=== PATIENT | male | born 1935 | race Caucasian/White ===

== ENCOUNTER → 2020-07-27 12:29 | Outpatient (REF) | payer MEDICARE, MEDICAID, SELFPAY ==
--- NOTE | 2020-07-27 12:36 | CA_ITS ---
Transthoracic Echocardiogram Patient (Last, First, Middle): Lillie Bruno J Gender: Male Date of : 1935 Age: 84 Procedure Date: 07/27/2020 Procedure Type: Transthoracic Echocardiogram Location: OP Height: 160.02 cm Weight: 58.97 kg BSA: 1.61 m2 Heart Rate: bpm BP: 138 / 80 mmHg Communications Administrator: Referring MD: Chel Hylton MD Symptoms: I48.0 - Paroxysmal atrial fibrillation Study Quality: Fair ECG Rhythm: Sinus with PACs Conclusions: - The left ventricular systolic function is normal. The visually estimated ejection fraction is between 55-60%. - No obvious valvular pathology seen on this study. Findings Left Ventricle Normal left ventricular cavity size. There is mildly increased left ventricular wall thickness. The left ventricular systolic function is normal. The visually estimated ejection fraction is between 55-60%. There is no evidence of regional wall motion abnormalities. E/E prime ratio is between 8 and 15 consistent with indeterminate filling pressures. Evidence suggests grade I (mild) diastolic dysfunction. Right Ventricle Normal right ventricular cavity size and systolic function. Atria The left atrium is normal in size. The right atrium is normal in size. Aortic Valve The aortic valve was not well visualized. There is no aortic valve stenosis. There is no aortic valve regurgitation. Mitral Valve The mitral valve appears normal. There is trace mitral valve regurgitation. There is no mitral valve stenosis. Pulmonic Valve The pulmonic valve was not well visualized. Tricuspid Valve Normal tricuspid valve structure. There is trace tricuspid valve regurgitation. The pulmonary artery systolic pressure is normal. Great Vessels The aortic annulus is normal in size. Venous The inferior vena cava is normal in size and collapses greater than 50% with inspiration. Pericardium/Pleural There is no evidence of pericardial effusion. Prior Study Comparison No significant change compared to prior study dated: 11/27/2018. Recommendations, Care & Conclusions No obvious valvular pathology seen on this study. Measurements 2D Linear Measurements IVSd: 1.13 0.6-0.9/0.6-1.0 cm LVIDd: 3.56 3.9-5.3/4.2-5.9 cm LVIDd Index: 2.21 2.4-3.2/2.2-3.1 cm/m2 LVIDs: 2.17 2.0-3.6 cm LVPWd: 1.18 0.7-1.1 cm Ao Root: 3.10 2.1-3.5 cm LA Diam: 2.60 2.7-3.8/3.0-4.0 cm LAIDs Index: 1.61 1.5-2.3 cm/m2 LV Mass: 163.43 67-162/88-224 g LV Mass Index: 101.51 43-95/49-115 g/m2 LVOT Diam: 2.00 3.0+(-)1.3 cm Mitral Valve MV Pk E: 0.46 MV PK A: 0.74 MV Decel Time: 280.00 E/A: 0.60 E'Lateral: 5.32 E'Medial: 4.64 E/E' Med: 9.90 E/E' Lat: 8.70 PHT: 82.00 MVA PHT: 2.68 Decel [place]: 1.65 Aortic Valve AoV Pk Gutierrez: 1.45 AoV Mn Gutierrez: 0.89 AoV VTI: 0.28 AoV Pk Grad: 8.00 Aov Mn Grad: 4.00 [place] Cont.VTI: 2.08 LVOT LVOT Pk Gutierrez: 0.84 LVOT Mn Gutierrez: 0.53 LVOT VTI: 0.19 LVOT Pk Grad: 3.00 LVOT Mn Grad: 1.00 LVOT Diam: 2.00 LVOT Area: 3.14 Diastolic Function MV Pk E: 0.46 MV Pk A: 0.74 E/A: 0.60 E'Medial: 4.64 E/E' Med: 9.90 E' Laterial: 5.32 E/E' Lat: 8.70 Tricuspid Valve TR Pk Gutierrez: 2.36 TR Pk Grad: 22.00 Great Vessels Aorta Ao Root-2D: 3.10 2.0-3.7 cm Ao Asc: 3.60 2.1-3.4 cm Pulmonary Valve PV Pk Gutierrez: 1.05 Peak PV Grad: 4.00 Updated in Other Vendor System with Status of Final Robert Patricia MD electronically signed on 07/29/2020 1:05:46 PM with status of Final
== END ==
LOC: HO.CARD 12:29
PROVIDERS: PCP Internal Medicine; Visit Provider Internal Medicine
DX: I48.0 Paroxysmal atrial fibrillation (principal)
CPT/HCPCS: 93306

== ENCOUNTER 2020-08-19 14:50 | Inpatient (IN) | payer MEDICARE, MEDICAID, SELFPAY ==
[2020-08-19] VITALS (8 sets, daily range): BP systolic 133–161; BP diastolic 79–96; PULSE 69–112; RESP 17–20; TEMP 36.6–37.2; O2SAT 96–98; BMI 21.6
--- NOTE | 2020-08-19 15:18 | XR_ITS ---
EXAMINATION: XR CHEST CLINICAL INFORMATION: Cough. Unable to swallow. COMPARISON: Most recent chest radiograph dated 02/26/2019. TECHNIQUE: 2 views of the chest were obtained. FINDINGS: Nodular density measuring 2.5 cm within the left upper lobe, new when compared to the prior chest radiograph. Peripheral patchy left upper lobe airspace opacities are slightly decreased when compared to the prior examination. No pneumothorax or pleural effusion. Stable cardiomediastinal silhouette. XR/XR chest 2V IMPRESSION: Nodular density measuring 2.5 cm within the left upper lobe, new when compared to the prior chest radiograph. CT chest with contrast is recommended to help further evaluate. Peripheral patchy left upper lobe airspace opacities have slightly decreased when compared to the prior examination.
--- NOTE | 2020-08-19 15:18 | XR_ITS ---
EXAMINATION: XR SOFT TISSUE NECK CLINICAL INDICATION: Unable to swallow, feels as if something stuck in throat COMPARISON: None TECHNIQUE: 2 views of the soft tissue neck were obtained. FINDINGS: Soft tissue films of the neck demonstrate a normal larynx, pharynx and upper trachea. No soft tissue swelling or opaque foreign body is demonstrated. XR/XR soft tissue neck IMPRESSION: Unremarkable examination.
[2020-08-19] MEDS: 0.9 % Sodium Chloride 1,000 ML 999 ML IVCONT (15:30)
--- NOTE | 2020-08-19 15:38 | ED_ITS ---
HPI - General Adult General Chief complaint: General Medical Stated complaint: difficulty swallowing Time Seen by Provider: 08/19/20 15:08 Source: patient and EMS Mode of arrival: EMS History of Present Illness HPI narrative: 84-year-old male with a past medical history of AFib, cholelithiasis, COPD, GERD, colon cancer, Hodgkin's lymphoma, hyperlipidemia, HTN, pancreatitis, smoker, BIBA from home c/o difficulty/inability to swallow x2 days. Reports feels like there is a lump in the back of his throat. Admits is unable to take a few sips of water, but not able to eat. Denies any pain. Also reports productive cough of phlegm since yesterday. Denies SOB, CP, fever, chills, abdominal pain, nausea/vomiting, contact with COVID-19, recent travel. Denies eating bones/choking Onset (ago): day(s) Related Data Home Medications Medication Instructions Recorded Confirmed amlodipine 5 mg tablet 5 mg PO DAILY 06/15/20 08/19/20 ascorbic acid (vitamin C) 500 mg 500 mg PO DAILY 06/15/20 08/19/20 capsule atorvastatin 10 mg tablet 10 mg PO DAILY 06/15/20 08/19/20 dextran 70-hypromellose 0.1 %-0.3 1 drp OPHTHALMIC (EYE) DIRECTED 06/15/20 08/19/20 % eye drops ferrous sulfate 325 mg (65 mg 325 mg PO DAILY 06/15/20 08/19/20 iron) tablet fluticasone propionate 50 2 spray INTRANASAL DAILY 06/15/20 08/19/20 mcg/actuation nasal spray,suspension megestrol 10 ml PO BID 08/19/20 08/19/20 Allergies Allergy/AdvReac Type Severity Reaction Status Date / Time procaine [From Novocain] Allergy Mild INEFFECTIVE Verified 06/15/20 12:42 PER RN lisinopril Allergy Unknown Unknown Verified 06/15/20 12:42 Review of Systems Review of Systems: Constitutional: No Fever, No Chills, No Fatigue, No Malaise ENT/Mouth: No Hoarseness, No sore throat, +Swallowing Difficulty Cardiovascular: No Chest Pain, No SOB, No Dyspnea on Exertion Respiratory: + Cough, + Sputum, No Wheezing, No Dyspnea Gastrointestinal: No Nausea, No Vomiting, No Diarrhea, No Constipation, No Abdominal pain Genitourinary: No irregular bleeding, No Dysuria, No Urinary Frequency, No Hematuria Musculoskeletal: No joint pain, No Myalgias, No Joint Swelling Skin: No Skin Lesions, No rash Yes all other systems are reviewed and are negative [facility] Past Medical History Attestation statement: The following information was validated with the patient. Medical History Atrial fibrillation Cholelithiasis COPD (chronic obstructive pulmonary disease) GERD (gastroesophageal reflux disease) History of colon cancer Hodgkins lymphoma Hypercholesterolemia Hypertension Leg weakness, bilateral Pancreatitis Renal calculus, left Tobacco abuse Surgical History History of bilateral cataract extraction History of chemotherapy History of colectomy History of tonsillectomy Hx of inguinal hernia surgery Family History Family History Father CVD (cardiovascular disease) Mother CVD (cardiovascular disease) Social History Social History Smoking Status: Current every day smoker Use of substances other than those prescribed or required for medical reasons: No Advance Directives: No Advance Directives Information Provided: No Physical Exam Vital Signs: Vital Signs: Last Vital Signs Temp 97.8 F 08/19/20 18:36 Pulse 81 08/19/20 18:36 Resp 20 08/19/20 18:36 BP 161/96 H 08/19/20 18:36 Pulse Ox 97 08/19/20 18:36 Body Mass Index 21.6 Const: Other: dry mucus membranes General: cooperative Nutritional Appearance: malnourished Orientation/consciousness: patient oriented x3 Limitations: no limitations HENMT: Head: Yes normal to inspection Ears: hearing grossly normal bilaterally General nose exam: Normal external nose present Face and sinus: Yes normal facial exam Mouth: mucous membranes dry, no drooling and no muffled voice Throat: Yes posterior oropharynx normal, Yes uvula midline, No abnormal tonsil, No peritonsillar mass, No posterior oropharynx abnormal and No uvular edema Eyes: General: appearance normal, both eyes and all related structures EOM: EOMs intact bilaterally Neck: Other: No appreciable mass Neck: Yes normal visual inspection, Yes no meningeal signs, Yes trachea midline and Yes supple Resp: Effort & Inspection: normal respiratory effort Auscultation: diminished lung sounds (bibasilar) Cardio: Rate: regular rate Heart sounds: S1 normal heart sound present and S2 normal heart sound present GI: Inspection: Yes normal to inspection Palpation (GI): Soft to palpation, nontender, no guarding and not rigid Skin: Rashes: no rashes Wounds: no wounds Neuro: General: patient oriented x3 and no meningeal signs Extrem: General: Yes normal to inspection Course Course Course Narrative: * No leukocytosis, labs otherwise unremarkable, COVID- 19/influenza/RSV negative * Neck x-ray unremarkable, CXR showing nodular density in the left upper lobe new compared to prior CXR. CT with contrast recommended. Peripheral patchy left upper lobe airspace opacities have slightly decreased from prior exam >> will obtain CT chest with contrast and CT neck * CT Soft Tissue Neck: Mild asymmetric mucosal thickening along the right posterior oropharynx. Direct visualization could help further evaluate. * CT Chest: Severe emphysematous changes, significantly increased when compared to the PET/CT from 2007. Lobulated soft tissue nodule within the anterior left upper lobe measuring up to 2 cm, corresponding to the chest radiograph findings. Additional 1.2 cm subpleural nodule posteriorly within the left lower lobe. Findings are concerning for a neoplastic process and soft tissue sampling or PET/CT imaging could help further evaluate. Additional smaller left-sided pulmonary nodules. Partially visualized lymphadenopathy within the superior aspect of the retroperitoneum, slightly more prominent when compared to the abdominal CT dated 02/26/2019. Additional upper abdominal findings are unchanged * >> patient barely able to tolerate a few sips of water in the ED, will admit for further eval Medical Decision Making MDM Narrative Medical decision making narrative: 84-year-old male with a past medical history of AFib, cholelithiasis, COPD, GERD, colon cancer, Hodgkin's lymphoma, hyperlipidemia, HTN, pancreatitis, smoker, BIBA from home c/o difficulty/inability to swallow x2 days. On exam VSS, NAD/well-appearing, coughing on exam. Lungs with diminished breath sounds bibasilar. No intraoral mass/neck mass appreciated, uvula midline, no respiratory distress. Concern for mass vs ? Food bolus vs viral syndrome/COVID-19 vs pneumonia. Rule out metabolic abnormalities Plan: EKG, labs, CXR, neck x-ray, IVF, reassess Lab Data Result diagrams: 08/19/20 15:37 08/19/20 15:37 Labs: Lab Results 08/19/20 08/19/20 08/19/20 Range/Units 15:28 15:37 15:37 WBC 9.4 (4.8-10.8) X10*3/uL RBC 4.96 (4.60-5.80) X10*6/uL Hgb 13.9 L (14.0-18.0) g/dl Hct 42.8 (42-52) % MCV 86.3 (80-98) fL MCH 28.0 (27.0-33.0) pg MCHC 32.5 (31.0-36.0) g/dl RDW 13.3 (11.0-16.0) % Plt Count 311 (160-400) X10*3/uL MPV 7.7 L (9.4-12.4) fL Immature Gran % (Auto) 1.4 H (0.0-0.4) % Neut % (Auto) 76.1 H (45-73) % Lymph % (Auto) 13.0 L (20-40) % [place] % (Auto) 7.3 (2-11) % Eos % (Auto) 1.7 (0-4) % Baso % (Auto) 0.5 (0-2) % Lymph # (Auto) 1.2 (1.2-4.9) X10*3/uL [place] # (Auto) 0.7 (0.1-1.2) X10*3/uL Eos # (Auto) 0.2 (0.0-0.4) X10*3/uL Baso # (Auto) 0.1 (0.0-0.2) X10*3/uL Abs Immat Gran (auto) 0.13 H (0.00-0.03) X10*3/uL Absolute Neuts (auto) 7.1 (2.0-8.3) X10*3/uL Absolute Nucleated RBC 0.000 (0.0-0.012) X10*3/uL Nucleated RBC % (auto) 0.0 (0.0-0.2) /100WBC Hold Blue Top SEE NOTE Sodium (135-145) mmol/L Potassium (3.3-5.1) mmol/l Chloride (96-108) mmol/L Carbon Dioxide (22-29) mmol/L Anion Gap (12-20) BUN (9-16) mg/dL Creatinine (0.5-1.4) mg/dL Estim Creat Clear Calc Estimated GFR Random Glucose (60-115) mg/dL Calcium (8.4-10.2) mg/dL Magnesium (1.6-2.6) mg/dL Ferritin (20-250) ng/mL Total Bilirubin (0.0-1.0) mg/dL Direct Bilirubin (0.0-0.5) mg/dL AST (5-37) U/L ALT (0-40) U/L Alkaline Phosphatase (39-117) U/L Lactate Dehydrogenase (118-273) U/L C-Reactive Protein (< or = 0.50) mg/dL Total Protein (6.5-8.0) g/dL Albumin (3.5-5.0) g/dL Procalcitonin ng/mL Coronavirus (PCR) NEGATIVE (Negative) Influenza Type A (PCR) NEGATIVE (Negative) Influenza Type B (PCR) NEGATIVE (Negative) RSV RNA Qual (PCR) NEGATIVE (Negative) 08/19/20 08/19/20 08/19/20 Range/Units 15:37 15:37 15:37 WBC (4.8-10.8) X10*3/uL RBC (4.60-5.80) X10*6/uL Hgb (14.0-18.0) g/dl Hct (42-52) % MCV (80-98) fL MCH (27.0-33.0) pg MCHC (31.0-36.0) g/dl RDW (11.0-16.0) % Plt Count (160-400) X10*3/uL MPV (9.4-12.4) fL Immature Gran % (Auto) (0.0-0.4) % Neut % (Auto) (45-73) % Lymph % (Auto) (20-40) % [place] % (Auto) (2-11) % Eos % (Auto) (0-4) % Baso % (Auto) (0-2) % Lymph # (Auto) (1.2-4.9) X10*3/uL [place] # (Auto) (0.1-1.2) X10*3/uL Eos # (Auto) (0.0-0.4) X10*3/uL Baso # (Auto) (0.0-0.2) X10*3/uL Abs Immat Gran (auto) (0.00-0.03) X10*3/uL Absolute Neuts (auto) (2.0-8.3) X10*3/uL Absolute Nucleated RBC (0.0-0.012) X10*3/uL Nucleated RBC % (auto) (0.0-0.2) /100WBC Hold Blue Top Sodium 140 (135-145) mmol/L Potassium 3.9 (3.3-5.1) mmol/l Chloride 102 (96-108) mmol/L Carbon Dioxide 27 (22-29) mmol/L Anion Gap 15 (12-20) BUN 13 (9-16) mg/dL Creatinine 0.78 (0.5-1.4) mg/dL Estim Creat Clear Calc 58.7 Estimated GFR > 60 Random Glucose 87 (60-115) mg/dL Calcium 8.5 (8.4-10.2) mg/dL Magnesium 2.0 (1.6-2.6) mg/dL Ferritin 144 Cancelled (20-250) ng/mL Total Bilirubin 0.6 (0.0-1.0) mg/dL Direct Bilirubin 0.3 (0.0-0.5) mg/dL AST 17 (5-37) U/L ALT 26 (0-40) U/L Alkaline Phosphatase 165 H (39-117) U/L Lactate Dehydrogenase 157 Cancelled (118-273) U/L C-Reactive Protein 1.71 H Cancelled (< or = 0.50) mg/dL Total Protein 5.9 L (6.5-8.0) g/dL Albumin 4.0 (3.5-5.0) g/dL Procalcitonin 0.11 ng/mL Coronavirus (PCR) (Negative) Influenza Type A (PCR) (Negative) Influenza Type B (PCR) (Negative) RSV RNA Qual (PCR) (Negative) Discharge Plan Discharge Clinical Impression: Indeterminate pulmonary nodules Difficulty swallowing Qualifiers: Dysphagia type: unspecified Qualified Code(s): R13.10 - Dysphagia, unspecified Patient Disposition: Admitted As Inpatient
[2020-08-19 15:45] LABS: MANUAL DIFF FLAG NO
[2020-08-19 15:48] LABS: Basophils Absolute Auto 0.1 X10*3/uL (0.0-0.2); Basophils Percent Auto 0.5 % (0-2); Eosinophils Absolute Auto 0.2 X10*3/uL (0.0-0.4); Eosinophils Percent Auto 1.7 % (0-4); Hematocrit 42.8 % (42-52); Hemoglobin 13.9 g/dl (14.0-18.0); Imm Gran Abs Auto 0.13 X10*3/uL (0.00-0.03); Imm Gran Pct Auto 1.4 % (0.0-0.4); Lymphocytes Absolute Auto 1.2 X10*3/uL (1.2-4.9); Mean Corpuscular HGB Conc 32.5 g/dl (31.0-36.0); Mean Corpuscular Volume 86.3 fL (80-98); Mean Platelet Volume 7.7 fL (9.4-12.4); Monocytes Absolute Auto 0.7 X10*3/uL (0.1-1.2); Monocytes Percent Auto 7.3 % (2-11); Neutrophils Absolute Auto 7.1 X10*3/uL (2.0-8.3); Neutrophils Percent Auto 76.1 % (45-73); Platelet Count 311 X10*3/uL (160-400); Red Blood Count 4.96 X10*6/uL (4.60-5.80); Red Cell Distribution Width 13.3 % (11.0-16.0); White Blood Count 9.4 X10*3/uL (4.8-10.8)
[2020-08-19 16:09] LABS: Alanine Aminotransferase 26 U/L (0-40); Alkaline Phosphatase 165 U/L (39-117); Anion Gap 15 (12-20); Aspartate Amino Transferase 17 U/L (5-37); Bilirubin Direct 0.3 mg/dL (0.0-0.5); Bilirubin Total 0.6 mg/dL (0.0-1.0); Blood Urea Nitrogen 13 mg/dL (9-16); C Reactive Protein 1.71 mg/dL (< or = 0.50); Calcium 8.5 mg/dL (8.4-10.2); Carbon Dioxide 27 mmol/L (22-29); Chloride 102 mmol/L (96-108); Creatinine Clr Calc Pharmacy 58.7; Estimated Glomerular Filt Rate > 60; Glucose Random 87 mg/dL (60-115); Lactate Dehydrogenase 157 U/L (118-273); Potassium 3.9 mmol/l (3.3-5.1); Sodium 140 mmol/L (135-145); Total Protein 5.9 g/dL (6.5-8.0)
--- NOTE | 2020-08-19 16:19 | CT_ITS ---
EXAMINATION: CT SOFT TISSUE NECK WITH CONTRAST CT CHEST WITH CONTRAST CLINICAL INFORMATION: Evaluate for mass or blockage. Evaluate density. COMPARISON: Soft tissue neck radiographs and chest radiograph done earlier the same day. Chest radiograph dated 02/26/2019. PET/CT dated 02/09/2008. TECHNIQUE: Contiguous axial CT images of the neck were obtained following the administration of 80 mL Omnipaque 350 IV contrast. Subsequent axial CT images of the chest were obtained. Sagittal and coronal reformats were provided and reviewed. This CT examination was performed using dose optimization techniques as appropriate, variously including the following: *Automated exposure control *Adjustment of mA and/or kV according to patient size (this includes techniques or standardized protocols for targeted exams where dose is matched to indication/reason for exam; i.e. extremities or head) *Use of iterative reconstruction technique DOSE: 519 mGy-cm FINDINGS: SOFT TISSUE NECK: No cervical adenopathy is identified. The parotid glands are homogeneous in attenuation. The submandibular glands are normal. There is mild asymmetric mucosal thickening along the right posterior oropharynx. Direct visualization could help further evaluate if clinically indicated. The laryngeal structures are normal. The parapharyngeal fat is preserved. The carotid sheath vasculature opacify normally. No extramucosal soft tissue mass or fluid collection is seen. No retropharyngeal fluid collection is seen. The thyroid gland is normal. The superior mediastinum is unremarkable. The mastoid air cells and visualized portions of the paranasal sinuses are well aerated. The temporomandibular joints are normal. No periapical disease is identified. Multilevel degenerative disc disease and bilateral facet arthropathy within the cervical spine. No concerning lytic or blastic osseous lesion. The imaged portions of the brain parenchyma are unremarkable. CHEST: [place] [place]: Diffuse interstitial prominence. Lungs: Severe emphysematous changes, significantly increased when compared to the PET/CT dated 02/09/2008. There is a lobulated soft tissue nodule within the anterior aspect of the left upper lobe measuring up to 2.0 x 2.0 cm in greatest axial dimension (axial image [id number]). Findings are concerning for neoplastic lesion and soft tissue sampling or PET/CT imaging could help further evaluate. Additional 1.2 x 0.7 cm subpleural nodule posteriorly within the left lower lobe, new when compared to the prior PET/CT. There is a 0.5 cm subpleural nodule laterally within the left lower lobe (axial image [id number]). There are multiple bilateral calcified granulomas. No large, confluent airspace consolidation. Pleura: No pleural effusion or pneumothorax. Mediastinum: No cardiomegaly. No significant pericardial effusion. No thoracic aortic dilatation or dissection. Atherosclerotic calcifications. Redemonstration of right precarinal and right hilar calcified lymph nodes. Redemonstration of small superior mediastinal lymph nodes, not significantly changed. The largest lymph node is to the left of the distal trachea measuring up to 0.8 x 1.3 cm. Chest Wall/Axilla: No significant axillary or internal mammary lymphadenopathy. Thyroid: Unremarkable Upper Abdomen: Multiple hepatic and splenic parenchymal calcifications, consistent with prior granulomatous disease. Prominent pancreatic ductal dilatation as well as intrahepatic biliary duct dilatation, left greater than right. Findings are similar when compared to the CT abdomen/pelvis dated 02/26/2019. Enlarged superior retroperitoneal lymph nodes are redemonstrated with the largest measuring up to 1.3 x 2.6 cm (axial image 57/62). This previously measured approximately 1.3 x 1.8 cm. Osseous Structures: No lytic or blastic osseous lesion. CT/CT soft tissue neck w con IMPRESSION: CT Soft Tissue Neck: 1. Mild asymmetric mucosal thickening along the right posterior oropharynx. Direct visualization could help further evaluate. 2. No additional mass, fluid collection, abscess, or lymphadenopathy within the cervical soft tissues. No airway compromise. CT Chest: 1. Severe emphysematous changes, significantly increased when compared to the PET/CT from 2007. 2. Lobulated soft tissue nodule within the anterior left upper lobe measuring up to 2 cm, corresponding to the chest radiograph findings. Additional 1.2 cm subpleural nodule posteriorly within the left lower lobe. Findings are concerning for a neoplastic process and soft tissue sampling or PET/CT imaging could help further evaluate. Additional smaller left-sided pulmonary nodules. 3. Stable, small superior mediastinal lymph nodes. 4. Partially visualized lymphadenopathy within the superior aspect of the retroperitoneum, slightly more prominent when compared to the abdominal CT dated 02/26/2019. Additional upper abdominal findings are unchanged.
[2020-08-19 16:22] LABS: Influenza A PCR NEGATIVE (Negative); Influenza B PCR NEGATIVE (Negative); Resp Syncy Virus RNA Qual PCR NEGATIVE (Negative); SARS COV2 PCR INHOUSE NEGATIVE (Negative)
[2020-08-19 16:28] LABS: Procalcitonin 0.11 ng/mL
[2020-08-19 16:29] LABS: Ferritin 144 ng/mL (20-250)
[2020-08-19] MEDS: iohexoL 350 MG/ML 100 ML INFUS..BTL IV (16:57)
--- NOTE | 2020-08-19 18:50 | PM.EVENT ---
Event Note Date of Service: 08/19/20 Event Note: Patient seen and examined independently and was present during cardenas portion of E/M service. Agree with midlevel's history, physical, assessment, and plan. 84M presented with dysphagia found to have suspicion for lung cancer dysphagia gi lung mass oncology
--- NOTE | 2020-08-19 18:54 | PM.IMHP ---
History of Present Illness Date of Service: 08/19/20 Chief Complaint: Dysphagia This is an 84-year-old male with multiple medical problems who presented to the emergency department with complaints of dysphagia. Per emergency department notes this has been going on for 2 days however the patient reported 1 week history of dysphagia. He is hard of hearing and somewhat vague historian but reports difficulty swallowing both liquids and solids. He feels that the food does not go down his throat and he has to spit it back out. He has been intermittently able to eat rice and take sips of liquid. He denies any abdominal pain, throat pain, vomiting. CT of the chest showed a soft tissue nodule in the left upper lobe and also in the left lower lobe. CT of the neck showed mild asymmetric mucosal thickening along the right posterior oropharynx but no additional mass, fluid collection, abscess, lymphadenopathy within the cervical soft tissue. And no airway compromise. Given his inability to take p.o. the decision was made to admit him for further workup. Review of Systems Review of Systems: Yes all other systems are reviewed and are negative Constitutional: Constitutional: Denies chills and Denies fever(s) Cardiovascular: Cardiovascular: Denies chest pain Respiratory: Respiratory: Denies cough Gastrointestinal: Gastrointestinal: Denies abdominal pain COUNT INCLUDES THE [facility] Medical History Atrial fibrillation Cholelithiasis COPD (chronic obstructive pulmonary disease) GERD (gastroesophageal reflux disease) History of colon cancer Hodgkins lymphoma Hypercholesterolemia Hypertension Leg weakness, bilateral Pancreatitis Renal calculus, left Tobacco abuse Functional capacity: uses cane/walker Family History Father CVD (cardiovascular disease) Mother CVD (cardiovascular disease) Surgical History History of bilateral cataract extraction History of chemotherapy History of colectomy History of tonsillectomy Hx of inguinal hernia surgery Social History Smoking Status: Current every day smoker Use of substances other than those prescribed or required for medical reasons: No Advance Directives: No Advance Directives Information Provided: No Meds Allergies Allergy/AdvReac Type Severity Reaction Status Date / Time procaine [From Novocain] Allergy Mild INEFFECTIVE Verified 06/15/20 12:42 PER RN lisinopril Allergy Unknown Unknown Verified 06/15/20 12:42 Home Medications Medication Instructions Recorded Confirmed Type amlodipine 5 mg tablet 5 mg PO DAILY 06/15/20 06/15/20 History ascorbic acid (vitamin C) 500 mg mg PO 06/15/20 06/15/20 History capsule atorvastatin 10 mg tablet 10 mg PO DAILY 06/15/20 06/15/20 History dextran 70-hypromellose 0.1 %-0.3 drp OPHTHALMIC (EYE) 06/15/20 06/15/20 History % eye drops ferrous sulfate 325 mg (65 mg 325 mg PO DAILY 06/15/20 06/15/20 History iron) tablet fluticasone propionate 50 2 spray INTRANASAL DAILY 06/15/20 06/15/20 History mcg/actuation nasal spray,suspension megestrol 10 ml PO BID 08/19/20 08/19/20 History Physical Exam Vital Signs and Narrative: Vital Signs: Last Vital Signs Temp 97.8 F 08/19/20 18:36 Pulse 81 08/19/20 18:36 Resp 20 08/19/20 18:36 BP 161/96 H 08/19/20 18:36 Pulse Ox 97 08/19/20 18:36 Body Mass Index 21.6 Const: Other: Chronically ill-appearing General: no acute distress, alert and awake Nutritional Appearance: thin Orientation/consciousness: patient oriented x3 HENMT: Head: Yes normocephalic and Yes atraumatic Eyes: Sclerae: sclerae normal Neck: Yes normal visual inspection Chest: Chest palpation & inspection: normal inspection of the chest Resp: Effort & Inspection: normal respiratory effort and no respiratory distress Auscultation: clear to auscultation bilaterally Cardio: Rate: regular rate Rhythm: regular rhythm GI: Palpation (GI): Soft to palpation and nontender Skin: General skin exam: no rashes or lesions noted Neuro: General: patient oriented x3 Cranial nerves: Yes CN's II-XII intact bilaterally and Yes Bilaterally intact EOM present Extrem: General: Yes normal to inspection Results Labs CBC and Chem 7: 08/19/20 15:37 08/19/20 15:37 Labs: Laboratory Results - last 24 hr 12/13/20 12/13/20 12/13/20 15:28 15:37 15:37 MCV 86.3 MCH 28.0 MCHC 32.5 RDW 13.3 Plt Count 311 MPV 7.7 L Immature Gran % (Auto) 1.4 H Neut % (Auto) 76.1 H Lymph % (Auto) 13.0 L [place] % (Auto) 7.3 Eos % (Auto) 1.7 Baso % (Auto) 0.5 Lymph # (Auto) 1.2 [place] # (Auto) 0.7 Eos # (Auto) 0.2 Baso # (Auto) 0.1 Abs Immat Gran (auto) 0.13 H Absolute Neuts (auto) 7.1 Absolute Nucleated RBC 0.000 Nucleated RBC % (auto) 0.0 Hold Blue Top SEE NOTE Anion Gap Estim Creat Clear Calc Estimated GFR Random Glucose Calcium Magnesium Ferritin Total Bilirubin Direct Bilirubin AST ALT Alkaline Phosphatase Lactate Dehydrogenase C-Reactive Protein Total Protein Albumin Procalcitonin Coronavirus (PCR) NEGATIVE Influenza Type A (PCR) NEGATIVE Influenza Type B (PCR) NEGATIVE RSV RNA Qual (PCR) NEGATIVE 08/19/20 08/19/20 08/19/20 15:37 15:37 15:37 MCV MCH MCHC RDW Plt Count MPV Immature Gran % (Auto) Neut % (Auto) Lymph % (Auto) [place] % (Auto) Eos % (Auto) Baso % (Auto) Lymph # (Auto) [place] # (Auto) Eos # (Auto) Baso # (Auto) Abs Immat Gran (auto) Absolute Neuts (auto) Absolute Nucleated RBC Nucleated RBC % (auto) Hold Blue Top Anion Gap 15 Estim Creat Clear Calc 58.7 Estimated GFR > 60 Random Glucose 87 Calcium 8.5 Magnesium 2.0 Ferritin 144 Cancelled Total Bilirubin 0.6 Direct Bilirubin 0.3 AST 17 ALT 26 Alkaline Phosphatase 165 H Lactate Dehydrogenase 157 Cancelled C-Reactive Protein 1.71 H Cancelled Total Protein 5.9 L Albumin 4.0 Procalcitonin 0.11 Coronavirus (PCR) Influenza Type A (PCR) Influenza Type B (PCR) RSV RNA Qual (PCR) Imaging Radiologist's Impressions: Impressions Chest X-Ray 08/19/20 15:18 IMPRESSION: Nodular density measuring 2.5 cm within the left upper lobe, new when compared to the prior chest radiograph. CT chest with contrast is recommended to help further evaluate. Peripheral patchy left upper lobe airspace opacities have slightly decreased when compared to the prior examination. Soft Tissue Neck X-Ray 08/19/20 15:18 IMPRESSION: Unremarkable examination. Chest CT 08/19/20 16:19 IMPRESSION: CT Soft Tissue Neck: 1. Mild asymmetric mucosal thickening along the right posterior oropharynx. Direct visualization could help further evaluate. 2. No additional mass, fluid collection, abscess, or lymphadenopathy within the cervical soft tissues. No airway compromise. CT Chest: 1. Severe emphysematous changes, significantly increased when compared to the PET/CT from 2007. 2. Lobulated soft tissue nodule within the anterior left upper lobe measuring up to 2 cm, corresponding to the chest radiograph findings. Additional 1.2 cm subpleural nodule posteriorly within the left lower lobe. Findings are concerning for a neoplastic process and soft tissue sampling or PET/CT imaging could help further evaluate. Additional smaller left-sided pulmonary nodules. 3. Stable, small superior mediastinal lymph nodes. 4. Partially visualized lymphadenopathy within the superior aspect of the retroperitoneum, slightly more prominent when compared to the abdominal CT dated 02/26/2019. Additional upper abdominal findings are unchanged. Soft Tissue Neck CT 08/19/20 16:19 IMPRESSION: CT Soft Tissue Neck: 1. Mild asymmetric mucosal thickening along the right posterior oropharynx. Direct visualization could help further evaluate. 2. No additional mass, fluid collection, abscess, or lymphadenopathy within the cervical soft tissues. No airway compromise. CT Chest: 1. Severe emphysematous changes, significantly increased when compared to the PET/CT from 2007. 2. Lobulated soft tissue nodule within the anterior left upper lobe measuring up to 2 cm, corresponding to the chest radiograph findings. Additional 1.2 cm subpleural nodule posteriorly within the left lower lobe. Findings are concerning for a neoplastic process and soft tissue sampling or PET/CT imaging could help further evaluate. Additional smaller left-sided pulmonary nodules. 3. Stable, small superior mediastinal lymph nodes. 4. Partially visualized lymphadenopathy within the superior aspect of the retroperitoneum, slightly more prominent when compared to the abdominal CT dated 02/26/2019. Additional upper abdominal findings are unchanged. Assessment and Plan (1) Dysphagia: Status: Acute This is an 84-year-old male with history of colon cancer, Hodgkin's lymphoma, hypertension, dyslipidemia, coronary artery disease, BPH who presents to the emergency department with dysphagia found to have lung nodules on CT chest concerning for malignancy Dysphagia -NPO -GI consult. Lung nodules concerning for neoplastic process -Oncology consult to help direct further management Tobacco dependence Smoking cessation advised -NRT Med rec is pending at this time DVT prophylaxis-mechanical devices Code status-patient wishes to be a full code This case was discussed with Dr. Shelley
[2020-08-19] MEDS: Nicotine 14 MG PATCH.TD24 TRANSDERMA (21:43)
[2020-08-19] MEDS: 0.9 % Sodium Chloride 1,000 ML 80 ML IVCONT (21:44)
[2020-08-20] VITALS (9 sets, daily range): BP systolic 107–162; BP diastolic 64–100; PULSE 72–94; RESP 14–21; TEMP 36.2–36.9; O2SAT 90–98; BMI 21.6
--- NOTE | 2020-08-20 01:05 | PC.NURSE ---
REPORT GIVEN TO DIANE REAVES.
--- NOTE | 2020-08-20 02:42 | PC.NURSE ---
THIS NURSE TO ROOM. PATIENT HAD REMOVED IV AND TELE LEADS. PLACED BACK ON MONITOR. NEW IV ESTABLISHED. FLUIDS RECONNECTED. PATIENT BELIEVES HE IS LEAVING AT NOON.
--- NOTE | 2020-08-20 08:17 | PC.NURSE ---
ATTEMPT TO CALL REPORT
[2020-08-20 08:26] LABS: Basophils Absolute Auto 0.1 X10*3/uL (0.0-0.2); Basophils Percent Auto 0.5 % (0-2); Eosinophils Absolute Auto 0.2 X10*3/uL (0.0-0.4); Eosinophils Percent Auto 1.6 % (0-4); Hematocrit 43.2 % (42-52); Imm Gran Abs Auto 0.13 X10*3/uL (0.00-0.03); Imm Gran Pct Auto 1.3 % (0.0-0.4); Lymphocytes Absolute Auto 1.1 X10*3/uL (1.2-4.9); Lymphocytes Percent Auto 10.5 % (20-40); MANUAL DIFF FLAG NO; Mean Corpuscular HGB Conc 32.4 g/dl (31.0-36.0); Mean Corpuscular Hemoglobin 28.1 pg (27.0-33.0); Mean Corpuscular Volume 86.7 fL (80-98); Mean Platelet Volume 7.8 fL (9.4-12.4); Monocytes Absolute Auto 0.9 X10*3/uL (0.1-1.2); Monocytes Percent Auto 8.7 % (2-11); Neutrophils Absolute Auto 7.9 X10*3/uL (2.0-8.3); Neutrophils Percent Auto 77.4 % (45-73); Platelet Count 319 X10*3/uL (160-400); Red Blood Count 4.98 X10*6/uL (4.60-5.80); Red Cell Distribution Width 13.4 % (11.0-16.0); White Blood Count 10.2 X10*3/uL (4.8-10.8)
[2020-08-20 08:50] LABS: Anion Gap 20 (12-20); Blood Urea Nitrogen 15 mg/dL (9-16); Calcium 8.7 mg/dL (8.4-10.2); Carbon Dioxide 19 mmol/L (22-29); Chloride 104 mmol/L (96-108); Creatinine Clr Calc Pharmacy 65.5; Estimated Glomerular Filt Rate > 60; Glucose Random 78 mg/dL (60-115); Potassium 4.2 mmol/l (3.3-5.1); Sodium 139 mmol/L (135-145)
--- NOTE | 2020-08-20 09:04 | PC.NURSE ---
REPORT TO JELLY WHITE
--- NOTE | 2020-08-20 09:26 | P.PNIM_ITS ---
Subjective Subjective Date of Service: 08/20/20 Interval History: dysphagia Cardiovascular Cardiovascular: Reports no additional cardiovascular complaints Gastrointestinal Gastrointestinal: Reports no additional gastrointestinal complaints Physical Exam Vital Signs: Vital Signs: Last Vital Signs Temp 98 F 08/20/20 08:59 Pulse 82 08/20/20 08:59 Resp 17 08/19/20 23:45 BP 157/80 H 08/20/20 08:59 Pulse Ox 96 08/20/20 08:59 Body Mass Index 21.6 General: AO X 3, no acute distress Resp: CTA bilateral CVS: S1,S2,RRR GI: soft, non tender, non distended Neuro: motor grossly intact Psych: appropriate affect Objective Data Current Medications Generic Name Dose Route Start Last Admin Trade Name Freq PRN Reason Stop Dose Admin Acetaminophen 650 mg 08/19/20 21:30 Acetaminophen Supp 650 Mg Supp.Rect FL Q6H PRN Pain, Mild (Pain Scale 1-3) Amlodipine Besylate 5 mg 08/20/20 09:00 Amlodipine Besylate 5 Mg Tablet PO DAILY [facility] Protocol Artificial Tears 1 drop 08/19/20 21:00 Artificial Tears 15 Ml Drops EYE-BOTH TID PRN Dry Eyes Fluticasone Propionate 2 spray 08/20/20 09:00 Fluticasone Propionate Nasal 16 Gm [place] NOSTRIL-B DAILY LALI Sodium Chloride 1,000 mls @ 80 mls/hr 08/19/20 21:30 08/19/20 21:44 Ns IVCONT 80 mls/hr .[id number] LALI Administration Nicotine 14 mg 08/19/20 21:30 08/19/20 21:43 Nicotine 14 Mg Patch.Td24 TRANSDERMA 14 mg DAILY LALI Administration Ondansetron HCl 4 mg 08/19/20 21:30 Ondansetron Hcl 4 Mg/2 Ml Vial IVPUSH Q8H PRN Nausea and Vomiting Sodium Chloride 3 ml 08/20/20 00:00 08/20/20 00:27 0.9 % Sodium Chloride Flush 3 Ml Syringe IVFLUSH Not Given QSHIFT [facility] Labs CBC & Chem 7: 08/20/20 08:09 08/20/20 08:09 Assessment and Plan (1) Dysphagia: Status: Acute Assessment and Plan: 84-year-old male with history of colon cancer, Hodgkin's lymphoma, hypertension, dyslipidemia, coronary artery disease, BPH who presented to the emergency d epartment with dysphagia found to have lung nodules on CT chest concerning for malignancy Dysphagia -NPO -GI eval Lung nodules concerning for neoplastic process -Oncology consult to help direct further management Tobacco dependence Smoking cessation advised -NRT
[2020-08-20] MEDS: amLODIPine Besylate 5 MG TABLET PO (10:36)
[2020-08-20] MEDS: 0.9 % Sodium Chloride 1,000 ML 80 ML IVCONT (10:36)
[2020-08-20] MEDS: Nicotine 14 MG PATCH.TD24 TRANSDERMA (10:37)
--- NOTE | 2020-08-20 11:08 | PM.EVENT ---
Event Note Date of Service: 08/20/20 Event Note: GI Consult received. Chart reviewed. I have scheduled him for an add on upper endoscopy with MAC for later today based on the notes in the chart. I will assess the patient in the preop area. Thanks
[2020-08-20 12:36] LABS: Erythrocyte Sedimentation Rate 16 MM/HR (0-15)
--- NOTE | 2020-08-20 13:59 | P.CNHO_ITS ---
Subjective - Subjective Primary Care Provider: Chel Hylton MD HPI - Consult Narrative Narrative: Lillie Bruno is a 84 year old male [facility] Medical History: Medical History (Last Reviewed 08/19/20 @ 18:59 by CLOTILDE Gamez) Atrial fibrillation Cholelithiasis COPD (chronic obstructive pulmonary disease) GERD (gastroesophageal reflux disease) History of colon cancer Hodgkins lymphoma Hypercholesterolemia Hypertension Leg weakness, bilateral Pancreatitis Renal calculus, left Tobacco abuse Functional capacity: uses cane/walker Family History: Family History (Last Reviewed 08/19/20 @ 18:59 by CLOTILDE Gamez) Father CVD (cardiovascular disease) Mother CVD (cardiovascular disease) Surgical History: Surgical History (Last Reviewed 08/19/20 @ 18:59 by CLOTILDE Gamez) History of bilateral cataract extraction History of chemotherapy History of colectomy History of tonsillectomy Hx of inguinal hernia surgery Smoking status: Current every day smoker Home Medications and Allergies Current Medications: Current Medications Generic Name Dose Route Start Last Admin Trade Name Freq PRN Reason Stop Dose Admin Acetaminophen 650 mg 08/19/20 21:30 Acetaminophen Supp 650 Mg Supp.Rect [place] Q6H PRN Pain, Mild (Pain Scale 1-3) Amlodipine Besylate 5 mg 08/20/20 09:00 08/20/20 10:36 Amlodipine Besylate 5 Mg Tablet PO 5 mg DAILY LALI Administration Protocol Artificial Tears 1 drop 08/19/20 21:00 Artificial Tears 15 Ml Drops EYE-BOTH TID PRN Dry Eyes Fluticasone Propionate 2 spray 08/20/20 09:00 08/20/20 10:37 Fluticasone Propionate Nasal 16 Gm [place] NOSTRIL-B Not Given DAILY LALI Sodium Chloride 1,000 mls @ 80 mls/hr 08/19/20 21:30 08/20/20 10:36 Ns IVCONT 80 mls/hr .[id number] LALI Administration Nicotine 14 mg 08/19/20 21:30 08/20/20 10:37 Nicotine 14 Mg Patch.Td24 TRANSDERMA 14 mg DAILY LALI Administration Ondansetron HCl 4 mg 08/19/20 21:30 Ondansetron Hcl 4 Mg/2 Ml Vial IVPUSH Q8H PRN Nausea and Vomiting Sodium Chloride 3 ml 08/20/20 00:00 08/20/20 10:36 0.9 % Sodium Chloride Flush 3 Ml Syringe IVFLUSH Not Given QSHIFT [facility] Home Medications Medication Instructions Recorded Confirmed Type amlodipine 5 mg tablet 5 mg PO DAILY 06/15/20 08/19/20 History ascorbic acid (vitamin C) 500 mg 500 mg PO DAILY 06/15/20 08/19/20 History capsule atorvastatin 10 mg tablet 10 mg PO DAILY 06/15/20 08/19/20 History dextran 70-hypromellose 0.1 %-0.3 1 drp OPHTHALMIC (EYE) DIRECTED 06/15/20 08/19/20 History % eye drops ferrous sulfate 325 mg (65 mg 325 mg PO DAILY 06/15/20 08/19/20 History iron) tablet fluticasone propionate 50 2 spray INTRANASAL DAILY 06/15/20 08/19/20 History mcg/actuation nasal spray,suspension megestrol 10 ml PO BID 08/19/20 08/19/20 History Allergies Allergy/AdvReac Type Severity Reaction Status Date / Time procaine [From Novocain] Allergy Mild INEFFECTIVE Verified 06/15/20 12:42 PER RN lisinopril Allergy Unknown Unknown Verified 06/15/20 12:42 Physical Exam Vital signs: Vital Signs Temp 98.4 F 08/20/20 13:39 Pulse 94 08/20/20 13:39 Resp 20 08/20/20 13:39 BP 162/82 H 08/20/20 13:39 Pulse Ox 98 08/20/20 13:39 Intake & Output 08/19/20 08/20/20 08/20/20 18:59 06:59 18:59 Intake Total 1000 / 1030 30 / 1030 1000 / 1000 Output Total 150 / 150 Balance 1000 / 880 -120 / 880 1000 / 1000 Urine Output (Average ml/kg/hr) 0.21 0.21 Intake: Intake, Oral Amount 30 / 30 Intake, IV Amount 1000 / 1000 1000 / 1000 0.9 % Sodium Chloride 1,000 ml 1000 / 1000 1000 / 1000 @ 80 mls/hr IVCONT .[id number] [facility] Rx#:[id number] Output: Output, Urine Amount 150 / 150 Other: Weight 58.967 kg 58.96 kg Weight 58.96 kg Hem/Onc Consult Result - Labs CBC & Chem 7: 08/20/20 08:09 08/20/20 08:09 Labs: Short CBC 08/19/20 08/20/20 Range/Units 15:37 08:09 WBC 9.4 10.2 (4.8-10.8) X10*3/uL Hgb 13.9 L 14.0 (14.0-18.0) g/dl Hct 42.8 43.2 (42-52) % Plt Count 311 319 (160-400) X10*3/uL BMP 08/19/20 08/20/20 15:37 08:09 Sodium 140 139 Potassium 3.9 4.2 Chloride 102 104 Carbon Dioxide 27 19 L BUN 13 15 Creatinine 0.78 0.70 Calcium 8.5 8.7 Liver Function 08/19/20 Range/Units 15:37 Total Bilirubin 0.6 (0.0-1.0) mg/dL Direct Bilirubin 0.3 (0.0-0.5) mg/dL AST 17 (5-37) U/L ALT 26 (0-40) U/L Alkaline Phosphatase 165 H (39-117) U/L Albumin 4.0 (3.5-5.0) g/dL Assessment and Plan (1) Indeterminate pulmonary nodules Status: Acute This is an 84-year-old male with past medical history significant for Hodgkin's lymphoma and 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
--- NOTE | 2020-08-20 14:32 | HO.ANESPROP2 ---
HPI - Anesthesia Eval Consult details Narrative: 84-year-old male with a past medical history of AFib, cholelithiasis, COPD, GERD, colon cancer, Hodgkin's lymphoma, hyperlipidemia, HTN, pancreatitis, smoker, BIBA from home c/o difficulty/inability to swallow x2 days. [facility] Past Medical History Medical History Atrial fibrillation Cholelithiasis COPD (chronic obstructive pulmonary disease) GERD (gastroesophageal reflux disease) History of colon cancer Hodgkins lymphoma Hypercholesterolemia Hypertension Leg weakness, bilateral Pancreatitis Renal calculus, left Tobacco abuse Functional capacity: uses cane/walker Family History Family History Father CVD (cardiovascular disease) Mother CVD (cardiovascular disease) Surgical History Surgical History History of bilateral cataract extraction History of chemotherapy History of colectomy History of tonsillectomy Hx of inguinal hernia surgery Social History Social History Household Members: Spouse and Unknown / Unable to assess Housing: Unknown / Unable to assess Are you a primary post acute care registered nurse to a significant other at home: No Do you presently have visiting nurse or other home services: No Smoking Status: Current every day smoker Tobacco Type: Cigarette Years Smoked: 60 Smoked in Last 30 Days: Yes Smoking Quit Date: States he has not smoked in 3 weeks Patient Interested in Nicotine Replacement: Yes Use of substances other than those prescribed or required for medical reasons: No Have you been hit, kicked, punched, or otherwise hurt by someone within the past year? If so, by whom?: No Do you feel safe in your current relationship?: Yes Is there a partner from a previous relationship who is making you feel unsafe now?: No Are you made to feel afraid or neglected: No Advance Directives: No Advance Directives Information Provided: No Advance Directives on File: No Do you have thoughts of harming others: None Do you have a plan to hurt others: No Plan Recently lost weight without trying: Unsure Meds Allergies Allergy/AdvReac Type Severity Reaction Status Date / Time procaine [From Novocain] Allergy Mild INEFFECTIVE Verified 10/09/20 12:42 PER RN lisinopril Allergy Unknown Unknown Verified 06/15/20 12:42 Home Medications Medication Instructions Recorded Confirmed Type amlodipine 5 mg tablet 5 mg PO DAILY 06/15/20 08/19/20 History ascorbic acid (vitamin C) 500 mg 500 mg PO DAILY 06/15/20 08/19/20 History capsule atorvastatin 10 mg tablet 10 mg PO DAILY 06/15/20 08/19/20 History dextran 70-hypromellose 0.1 %-0.3 1 drp OPHTHALMIC (EYE) DIRECTED 06/15/20 08/19/20 History % eye drops ferrous sulfate 325 mg (65 mg 325 mg PO DAILY 06/15/20 08/19/20 History iron) tablet fluticasone propionate 50 2 spray INTRANASAL DAILY 06/15/20 08/19/20 History mcg/actuation nasal spray,suspension megestrol 10 ml PO BID 08/19/20 08/19/20 History Exam Exam Date and Time: August 20, 2020 1432 Height,Weight and Vital Signs: Height 5 ft 5 in Weight 58.96 kg Last Vital Signs Temp 98.4 F 08/20/20 13:39 Pulse 94 08/20/20 13:39 Resp 20 08/20/20 13:39 BP 162/82 H 08/20/20 13:39 Pulse Ox 98 08/20/20 13:39 Pertinent Lab Results Pertinent Lab Results: Laboratory Tests 08/19/20 08/19/20 08/19/20 15:28 15:37 15:37 WBC 9.4 RBC 4.96 Hgb 13.9 L Hct 42.8 MCV 86.3 MCH 28.0 MCHC 32.5 RDW 13.3 Plt Count 311 MPV 7.7 L Immature Gran % (Auto) 1.4 H Neut % (Auto) 76.1 H Lymph % (Auto) 13.0 L [place] % (Auto) 7.3 Eos % (Auto) 1.7 Baso % (Auto) 0.5 Lymph # (Auto) 1.2 [place] # (Auto) 0.7 Eos # (Auto) 0.2 Baso # (Auto) 0.1 Abs Immat Gran (auto) 0.13 H Absolute Neuts (auto) 7.1 Absolute Nucleated RBC 0.000 Nucleated RBC % (auto) 0.0 ESR Hold Blue Top SEE NOTE Sodium Potassium Chloride Carbon Dioxide Anion Gap BUN Creatinine Estim Creat Clear Calc Estimated GFR Random Glucose Calcium Magnesium Ferritin Total Bilirubin Direct Bilirubin AST ALT Alkaline Phosphatase Lactate Dehydrogenase C-Reactive Protein Total Protein Albumin Carcinoembryonic Ag Procalcitonin Coronavirus (PCR) NEGATIVE Influenza Type A (PCR) NEGATIVE Influenza Type B (PCR) NEGATIVE RSV RNA Qual (PCR) NEGATIVE 08/19/20 08/19/20 08/19/20 15:37 15:37 15:37 WBC RBC Hgb Hct MCV MCH MCHC RDW Plt Count MPV Immature Gran % (Auto) Neut % (Auto) Lymph % (Auto) [place] % (Auto) Eos % (Auto) Baso % (Auto) Lymph # (Auto) [place] # (Auto) Eos # (Auto) Baso # (Auto) Abs Immat Gran (auto) Absolute Neuts (auto) Absolute Nucleated RBC Nucleated RBC % (auto) ESR Hold Blue Top Sodium 140 Potassium 3.9 Chloride 102 Carbon Dioxide 27 Anion Gap 15 BUN 13 Creatinine 0.78 Estim Creat Clear Calc 58.7 Estimated GFR > 60 Random Glucose 87 Calcium 8.5 Magnesium 2.0 Ferritin 144 Cancelled Total Bilirubin 0.6 Direct Bilirubin 0.3 AST 17 ALT 26 Alkaline Phosphatase 165 H Lactate Dehydrogenase 157 Cancelled C-Reactive Protein 1.71 H Cancelled Total Protein 5.9 L Albumin 4.0 Carcinoembryonic Ag Procalcitonin 0.11 Coronavirus (PCR) Influenza Type A (PCR) Influenza Type B (PCR) RSV RNA Qual (PCR) 08/20/20 08/20/20 08/20/20 08:09 08:09 08:09 WBC 10.2 RBC 4.98 Hgb 14.0 Hct 43.2 MCV 86.7 MCH 28.1 MCHC 32.4 RDW 13.4 Plt Count 319 MPV 7.8 L Immature Gran % (Auto) 1.3 H Neut % (Auto) 77.4 H Lymph % (Auto) 10.5 L [place] % (Auto) 8.7 Eos % (Auto) 1.6 Baso % (Auto) 0.5 Lymph # (Auto) 1.1 L [place] # (Auto) 0.9 Eos # (Auto) 0.2 Baso # (Auto) 0.1 Abs Immat Gran (auto) 0.13 H Absolute Neuts (auto) 7.9 Absolute Nucleated RBC 0.000 Nucleated RBC % (auto) 0.0 ESR 16 H Hold Blue Top Sodium 139 Potassium 4.2 Chloride 104 Carbon Dioxide 19 L Anion Gap 20 BUN 15 Creatinine 0.70 Estim Creat Clear Calc 65.5 Estimated GFR > 60 Random Glucose 78 Calcium 8.7 Magnesium Ferritin Total Bilirubin Direct Bilirubin AST ALT Alkaline Phosphatase Lactate Dehydrogenase C-Reactive Protein Total Protein Albumin Carcinoembryonic Ag 6.50 Procalcitonin Coronavirus (PCR) Influenza Type A (PCR) Influenza Type B (PCR) RSV RNA Qual (PCR) Airway Mallampati Class: II TM Dist: >3cm Neck ROM: Full Denture: Upper and Lower Loose/Missing/Broken Teeth: No Heart: rrr Lungs: nl Other: ao Assessment and Plan Assessment Anesthesia Assessment: Anesthesia Plan Discussed and Chart Reviewed Final Anesthetic Review NPO: Yes ASA Class: III Final Preanesthetic Review: No Changes in Pt Med Stat, Meds/Allgs Chart Reviewed, Consent Obtained/Reviewed and Anes Risks/Benef Reviewed Patient Risk: High Procedure Risk: Low Anesthetic Plan Anesthetic Plan: MAC: Disposition: Standard PACU
--- NOTE | 2020-08-20 14:36 | HO.ANESPROP2 ---
HPI - Anesthesia Eval Consult details Narrative: 84-year-old male with a past medical history of AFib, cholelithiasis, COPD, GERD, colon cancer, Hodgkin's lymphoma, hyperlipidemia, HTN, pancreatitis, smoker, BIBA from home c/o difficulty/inability to swallow x2 days. FOR[facility]LY [facility] Past Medical History Medical History Atrial fibrillation Cholelithiasis COPD (chronic obstructive pulmonary disease) GERD (gastroesophageal reflux disease) History of colon cancer Hodgkins lymphoma Hypercholesterolemia Hypertension Leg weakness, bilateral Pancreatitis Renal calculus, left Tobacco abuse Functional capacity: uses cane/walker Family History Family History Father CVD (cardiovascular disease) Mother CVD (cardiovascular disease) Surgical History Surgical History History of bilateral cataract extraction History of chemotherapy History of colectomy History of tonsillectomy Hx of inguinal hernia surgery Social History Social History Household Members: Spouse and Unknown / Unable to assess Housing: Unknown / Unable to assess Are you a primary behavioral health care coordinator to a significant other at home: No Do you presently have visiting nurse or other home services: No Smoking Status: Current every day smoker Tobacco Type: Cigarette Years Smoked: 60 Smoked in Last 30 Days: Yes Smoking Quit Date: States he has not smoked in 3 weeks Patient Interested in Nicotine Replacement: Yes Use of substances other than those prescribed or required for medical reasons: No Have you been hit, kicked, punched, or otherwise hurt by someone within the past year? If so, by whom?: No Do you feel safe in your current relationship?: Yes Is there a partner from a previous relationship who is making you feel unsafe now?: No Are you made to feel afraid or neglected: No Advance Directives: No Advance Directives Information Provided: No Advance Directives on File: No Do you have thoughts of harming others: None Do you have a plan to hurt others: No Plan Recently lost weight without trying: Unsure Meds Allergies Allergy/AdvReac Type Severity Reaction Status Date / Time procaine [From Novocain] Allergy Mild INEFFECTIVE Verified 10/09/20 12:42 PER RN lisinopril Allergy Unknown Unknown Verified 06/15/20 12:42 Home Medications Medication Instructions Recorded Confirmed Type amlodipine 5 mg tablet 5 mg PO DAILY 06/15/20 08/19/20 History ascorbic acid (vitamin C) 500 mg 500 mg PO DAILY 06/15/20 08/19/20 History capsule atorvastatin 10 mg tablet 10 mg PO DAILY 06/15/20 08/19/20 History dextran 70-hypromellose 0.1 %-0.3 1 drp OPHTHALMIC (EYE) DIRECTED 06/15/20 08/19/20 History % eye drops ferrous sulfate 325 mg (65 mg 325 mg PO DAILY 06/15/20 08/19/20 History iron) tablet fluticasone propionate 50 2 spray INTRANASAL DAILY 06/15/20 08/19/20 History mcg/actuation nasal spray,suspension megestrol 10 ml PO BID 08/19/20 08/19/20 History Exam Exam Date and Time: August 20, 2020 1436 Height,Weight and Vital Signs: Height 5 ft 5 in Weight 58.96 kg Last Vital Signs Temp 98.4 F 08/20/20 13:39 Pulse 94 08/20/20 13:39 Resp 20 08/20/20 13:39 BP 162/82 H 08/20/20 13:39 Pulse Ox 98 08/20/20 13:39 Pertinent Lab Results Pertinent Lab Results: Laboratory Tests 08/19/20 08/19/20 08/19/20 15:28 15:37 15:37 WBC 9.4 RBC 4.96 Hgb 13.9 L Hct 42.8 MCV 86.3 MCH 28.0 MCHC 32.5 RDW 13.3 Plt Count 311 MPV 7.7 L Immature Gran % (Auto) 1.4 H Neut % (Auto) 76.1 H Lymph % (Auto) 13.0 L [place] % (Auto) 7.3 Eos % (Auto) 1.7 Baso % (Auto) 0.5 Lymph # (Auto) 1.2 [place] # (Auto) 0.7 Eos # (Auto) 0.2 Baso # (Auto) 0.1 Abs Immat Gran (auto) 0.13 H Absolute Neuts (auto) 7.1 Absolute Nucleated RBC 0.000 Nucleated RBC % (auto) 0.0 ESR Hold Blue Top SEE NOTE Sodium Potassium Chloride Carbon Dioxide Anion Gap BUN Creatinine Estim Creat Clear Calc Estimated GFR Random Glucose Calcium Magnesium Ferritin Total Bilirubin Direct Bilirubin AST ALT Alkaline Phosphatase Lactate Dehydrogenase C-Reactive Protein Total Protein Albumin Carcinoembryonic Ag Procalcitonin Coronavirus (PCR) NEGATIVE Influenza Type A (PCR) NEGATIVE Influenza Type B (PCR) NEGATIVE RSV RNA Qual (PCR) NEGATIVE 08/19/20 08/19/20 08/19/20 15:37 15:37 15:37 WBC RBC Hgb Hct MCV MCH MCHC RDW Plt Count MPV Immature Gran % (Auto) Neut % (Auto) Lymph % (Auto) [place] % (Auto) Eos % (Auto) Baso % (Auto) Lymph # (Auto) [place] # (Auto) Eos # (Auto) Baso # (Auto) Abs Immat Gran (auto) Absolute Neuts (auto) Absolute Nucleated RBC Nucleated RBC % (auto) ESR Hold Blue Top Sodium 140 Potassium 3.9 Chloride 102 Carbon Dioxide 27 Anion Gap 15 BUN 13 Creatinine 0.78 Estim Creat Clear Calc 58.7 Estimated GFR > 60 Random Glucose 87 Calcium 8.5 Magnesium 2.0 Ferritin 144 Cancelled Total Bilirubin 0.6 Direct Bilirubin 0.3 AST 17 ALT 26 Alkaline Phosphatase 165 H Lactate Dehydrogenase 157 Cancelled C-Reactive Protein 1.71 H Cancelled Total Protein 5.9 L Albumin 4.0 Carcinoembryonic Ag Procalcitonin 0.11 Coronavirus (PCR) Influenza Type A (PCR) Influenza Type B (PCR) RSV RNA Qual (PCR) 08/20/20 08/20/20 08/20/20 08:09 08:09 08:09 WBC 10.2 RBC 4.98 Hgb 14.0 Hct 43.2 MCV 86.7 MCH 28.1 MCHC 32.4 RDW 13.4 Plt Count 319 MPV 7.8 L Immature Gran % (Auto) 1.3 H Neut % (Auto) 77.4 H Lymph % (Auto) 10.5 L [place] % (Auto) 8.7 Eos % (Auto) 1.6 Baso % (Auto) 0.5 Lymph # (Auto) 1.1 L [place] # (Auto) 0.9 Eos # (Auto) 0.2 Baso # (Auto) 0.1 Abs Immat Gran (auto) 0.13 H Absolute Neuts (auto) 7.9 Absolute Nucleated RBC 0.000 Nucleated RBC % (auto) 0.0 ESR 16 H Hold Blue Top Sodium 139 Potassium 4.2 Chloride 104 Carbon Dioxide 19 L Anion Gap 20 BUN 15 Creatinine 0.70 Estim Creat Clear Calc 65.5 Estimated GFR > 60 Random Glucose 78 Calcium 8.7 Magnesium Ferritin Total Bilirubin Direct Bilirubin AST ALT Alkaline Phosphatase Lactate Dehydrogenase C-Reactive Protein Total Protein Albumin Carcinoembryonic Ag 6.50 Procalcitonin Coronavirus (PCR) Influenza Type A (PCR) Influenza Type B (PCR) RSV RNA Qual (PCR) Airway Mallampati Class: II TM Dist: >3cm Neck ROM: Full Denture: Upper and Lower Heart: afib Lungs: nl Other: disriented Assessment and Plan Assessment Anesthesia Assessment: Anesthesia Plan Discussed and Chart Reviewed Final Anesthetic Review NPO: Yes ASA Class: III Final Preanesthetic Review: No Changes in Pt Med Stat, Meds/Allgs Chart Reviewed and Consent Obtained/Reviewed Patient Risk: Intermediate Procedure Risk: Low Anesthetic Plan Anesthetic Plan: MAC: Disposition: Standard PACU
--- NOTE | 2020-08-20 14:58 | P.CONAN_ITS ---
FORM[facility]LY [facility] Past Medical History Medical History Atrial fibrillation Cholelithiasis COPD (chronic obstructive pulmonary disease) GERD (gastroesophageal reflux disease) History of colon cancer Hodgkins lymphoma Hypercholesterolemia Hypertension Leg weakness, bilateral Pancreatitis Renal calculus, left Tobacco abuse Functional capacity: uses cane/walker Family History Family History Father CVD (cardiovascular disease) Mother CVD (cardiovascular disease) Surgical History Surgical History History of bilateral cataract extraction History of chemotherapy History of colectomy History of tonsillectomy Hx of inguinal hernia surgery Social History Social History Household Members: Spouse and Unknown / Unable to assess Housing: Unknown / Unable to assess Are you a primary special needs caregiver to a significant other at home: No Do you presently have visiting nurse or other home services: No Smoking Status: Current every day smoker Tobacco Type: Cigarette Years Smoked: 60 Smoked in Last 30 Days: Yes Smoking Quit Date: States he has not smoked in 3 weeks Patient Interested in Nicotine Replacement: Yes Use of substances other than those prescribed or required for medical reasons: No Have you been hit, kicked, punched, or otherwise hurt by someone within the past year? If so, by whom?: No Do you feel safe in your current relationship?: Yes Is there a partner from a previous relationship who is making you feel unsafe now?: No Are you made to feel afraid or neglected: No Advance Directives: No Advance Directives Information Provided: No Advance Directives on File: No Do you have thoughts of harming others: None Do you have a plan to hurt others: No Plan Recently lost weight without trying: Unsure Meds Allergies Allergy/AdvReac Type Severity Reaction Status Date / Time procaine [From Novocain] Allergy Mild INEFFECTIVE Verified 06/15/20 12:42 PER RN lisinopril Allergy Unknown Unknown Verified 06/15/20 12:42 Home Medications Medication Instructions Recorded Confirmed Type amlodipine 5 mg tablet 5 mg PO DAILY 06/15/20 08/19/20 History ascorbic acid (vitamin C) 500 mg 500 mg PO DAILY 06/15/20 08/19/20 History capsule atorvastatin 10 mg tablet 10 mg PO DAILY 06/15/20 08/19/20 History dextran 70-hypromellose 0.1 %-0.3 1 drp OPHTHALMIC (EYE) DIRECTED 06/15/20 08/19/20 History % eye drops ferrous sulfate 325 mg (65 mg 325 mg PO DAILY 06/15/20 08/19/20 History iron) tablet fluticasone propionate 50 2 spray INTRANASAL DAILY 06/15/20 08/19/20 History mcg/actuation nasal spray,suspension megestrol 10 ml PO BID 08/19/20 08/19/20 History Exam Exam Date and Time: August 20, 2020 1458 Height,Weight and Vital Signs: Height 5 ft 5 in Weight 58.96 kg Last Vital Signs Temp 98.4 F 08/20/20 13:39 Pulse 94 08/20/20 13:39 Resp 20 08/20/20 13:39 BP 162/82 H 08/20/20 13:39 Pulse Ox 98 08/20/20 13:39 Pertinent Lab Results Pertinent Lab Results: Laboratory Tests 08/19/20 08/19/20 08/19/20 15:28 15:37 15:37 WBC 9.4 RBC 4.96 Hgb 13.9 L Hct 42.8 MCV 86.3 MCH 28.0 MCHC 32.5 RDW 13.3 Plt Count 311 MPV 7.7 L Immature Gran % (Auto) 1.4 H Neut % (Auto) 76.1 H Lymph % (Auto) 13.0 L [place] % (Auto) 7.3 Eos % (Auto) 1.7 Baso % (Auto) 0.5 Lymph # (Auto) 1.2 [place] # (Auto) 0.7 Eos # (Auto) 0.2 Baso # (Auto) 0.1 Abs Immat Gran (auto) 0.13 H Absolute Neuts (auto) 7.1 Absolute Nucleated RBC 0.000 Nucleated RBC % (auto) 0.0 ESR Hold Blue Top SEE NOTE Sodium Potassium Chloride Carbon Dioxide Anion Gap BUN Creatinine Estim Creat Clear Calc Estimated GFR Random Glucose Calcium Magnesium Ferritin Total Bilirubin Direct Bilirubin AST ALT Alkaline Phosphatase Lactate Dehydrogenase C-Reactive Protein Total Protein Albumin Carcinoembryonic Ag Procalcitonin Coronavirus (PCR) NEGATIVE Influenza Type A (PCR) NEGATIVE Influenza Type B (PCR) NEGATIVE RSV RNA Qual (PCR) NEGATIVE 08/19/20 08/19/20 08/19/20 15:37 15:37 15:37 WBC RBC Hgb Hct MCV MCH MCHC RDW Plt Count MPV Immature Gran % (Auto) Neut % (Auto) Lymph % (Auto) [place] % (Auto) Eos % (Auto) Baso % (Auto) Lymph # (Auto) [place] # (Auto) Eos # (Auto) Baso # (Auto) Abs Immat Gran (auto) Absolute Neuts (auto) Absolute Nucleated RBC Nucleated RBC % (auto) ESR Hold Blue Top Sodium 140 Potassium 3.9 Chloride 102 Carbon Dioxide 27 Anion Gap 15 BUN 13 Creatinine 0.78 Estim Creat Clear Calc 58.7 Estimated GFR > 60 Random Glucose 87 Calcium 8.5 Magnesium 2.0 Ferritin 144 Cancelled Total Bilirubin 0.6 Direct Bilirubin 0.3 AST 17 ALT 26 Alkaline Phosphatase 165 H Lactate Dehydrogenase 157 Cancelled C-Reactive Protein 1.71 H Cancelled Total Protein 5.9 L Albumin 4.0 Carcinoembryonic Ag Procalcitonin 0.11 Coronavirus (PCR) Influenza Type A (PCR) Influenza Type B (PCR) RSV RNA Qual (PCR) 08/20/20 08/20/20 08/20/20 08:09 08:09 08:09 WBC 10.2 RBC 4.98 Hgb 14.0 Hct 43.2 MCV 86.7 MCH 28.1 MCHC 32.4 RDW 13.4 Plt Count 319 MPV 7.8 L Immature Gran % (Auto) 1.3 H Neut % (Auto) 77.4 H Lymph % (Auto) 10.5 L [place] % (Auto) 8.7 Eos % (Auto) 1.6 Baso % (Auto) 0.5 Lymph # (Auto) 1.1 L [place] # (Auto) 0.9 Eos # (Auto) 0.2 Baso # (Auto) 0.1 Abs Immat Gran (auto) 0.13 H Absolute Neuts (auto) 7.9 Absolute Nucleated RBC 0.000 Nucleated RBC % (auto) 0.0 ESR 16 H Hold Blue Top Sodium 139 Potassium 4.2 Chloride 104 Carbon Dioxide 19 L Anion Gap 20 BUN 15 Creatinine 0.70 Estim Creat Clear Calc 65.5 Estimated GFR > 60 Random Glucose 78 Calcium 8.7 Magnesium Ferritin Total Bilirubin Direct Bilirubin AST ALT Alkaline Phosphatase Lactate Dehydrogenase C-Reactive Protein Total Protein Albumin Carcinoembryonic Ag 6.50 Procalcitonin Coronavirus (PCR) Influenza Type A (PCR) Influenza Type B (PCR) RSV RNA Qual (PCR) Narrative Narrative: occasional dry cough Airway Mallampati Class: I TM Dist: >3cm Neck ROM: Full Loose/Missing/Broken Teeth: Yes Heart: irregular rhythm Lungs: diminished on lower lobes bilaterally anteriorly Other: chipped tooth right upper front Assessment and Plan Assessment Anesthesia Assessment: Anesthesia Plan Discussed and Chart Reviewed Final Anesthetic Review NPO: Yes ASA Class: III and Emergency Final Preanesthetic Review: No Changes in Pt Med Stat, Meds/Allgs Chart Reviewed and Anes Risks/Benef Reviewed Patient Risk: Intermediate Procedure Risk: Low Anesthetic Plan Anesthetic Plan: MAC: Disposition: Standard PACU
--- NOTE | 2020-08-20 15:58 | PM.EVENT ---
Event Note Date of Service: 08/20/20 Event Note: GI Consut-Full note dictated. Hx via patient, his sister, and the EMR Imp: Reported new dysphagia to food over the past 48 hours. He has no previous history of significant UGI disease. Diff dx: Esophageal stricture/Neoplasm, Food bolus with obstruction Rec: EGD with MAC today. Full consent obtained from his sister, Jerilyn, including risks of bleeding and perforation. Thanks.
--- NOTE | 2020-08-20 16:30 | PM.OP ---
Brief Operative Note Date of Service: 08/20/20 Pre-op diagnosis: Dysphagia Post-op diagnosis: other (GERD, Small hiatal hernia, gastritis, duodenitis) Procedure: EGD with Balloon dilation of EG Junction Surgeon: Nazario Real Anesthesia: MAC Estimated blood loss (mL): 0 Pathology: none sent Condition: stable Disposition: PACU
--- NOTE | 2020-08-20 16:31 | PM.EVENT ---
Event Note Date of Service: 08/20/20 Event Note: EGD with Balloon Dilation-Full note dictated Findings: 1. EG Junction at 38cm-WNL except mild changes of GERD-no definitive stricture nor ring, no mass, no food-scope easily entered the stomach 2. Small hiatal hernia 3. Gastritis 4. Duodenitis Used a 15-16.5-18mm balloon to dilate the EG Junction, but without any appreciable effect Imp: I suspect his dysphagia may have been related to a transient food bolus with subsequent spontaneous passage vs. some GERD with associated esophageal spasm and motility disturbance. The other possibility would be that of some oropharyngeal dysphagia in relation to his age, medical condition, etc. Rec: PPI, Full liquid diet, observe, and swallowing evaluation before advancing diet further. He may need a modified Barium swalllow and a formal evaluation with the speech and swallowing evaluation team before discharge. D/W sister, Jerilyn. Thanks
--- NOTE | 2020-08-20 16:42 | MHC.CM.PN ---
CM attempted to see pt multiple times. Pt initially not yet admitted to the unit. Later, pt off unit for procedure. CM to revisit
[2020-08-21] MEDS: LORazepam 2 MG/ML VIAL 1 MG IVPUSH (02:34)
[2020-08-21] MEDS: 0.9 % Sodium Chloride 1,000 ML 80 ML IVCONT ×2 (03:03→15:35)
--- NOTE | 2020-08-21 03:15 | PC.NURSE ---
pt agitated,confused,trying to get oob to get pants.dr.perez nolan notified.ordered ativan 1mg iv given at 0230.pt resting in bed at present time.bed alarm on telesitter in room.
[2020-08-21 04:00] VITALS: BP 149/69; PULSE 82; RESP 19; TEMP 36.8; O2SAT 96
--- NOTE | 2020-08-21 05:36 | PC.NURSE ---
prilosec not given.pt medicated with ativan for agitation.sound asleep
[2020-08-21] MEDS: Nicotine 14 MG PATCH.TD24 TRANSDERMA (08:26)
[2020-08-21] MEDS: amLODIPine Besylate 5 MG TABLET PO (08:26)
--- NOTE | 2020-08-21 08:39 | HO.POSTANES ---
Post Anesthesia Evaluation Post Anesthesia Evaluation Vital Signs: Vital Signs Temp Pulse Resp BP Pulse Ox 08/21/20 04:00 98.2 F 82 19 149/69 H 96 08/20/20 23:27 97.6 F 86 20 158/83 H 95 Anesthesia: Monitored Mental Status: Awake Pain Control: Satisfactory Nausea/Vomiting: None Hydration: Adequate Anesthesia-Related Issues: No Anes. Related Issues
--- NOTE | 2020-08-21 10:18 | P.PNIM_ITS ---
Subjective Subjective Date of Service: 08/21/20 Interval History: f/u dysphagia, egd showed no obstruction, he is confused, agitated and not eating Physical Exam Vital Signs: Vital Signs: Last Vital Signs Temp 98.2 F 08/21/20 04:00 Pulse 82 08/21/20 04:00 Resp 19 08/21/20 04:00 BP 149/69 H 08/21/20 04:00 Pulse Ox 96 08/21/20 04:00 Body Mass Index 21.6 General:confused Resp: CTA bilateral CVS: S1,S2,RRR GI: soft, non tender, non distended Neuro: motor grossly intact Psych: appropriate affect Objective Data Current Medications Generic Name Dose Route Start Last Admin Trade Name Freq PRN Reason Stop Dose Admin Acetaminophen 650 mg 08/19/20 21:30 Acetaminophen Supp 650 Mg Supp.Rect UT Q6H PRN Pain, Mild (Pain Scale 1-3) Amlodipine Besylate 5 mg 08/20/20 09:00 08/21/20 08:26 Amlodipine Besylate 5 Mg Tablet PO 5 mg DAILY [facility] Administration Protocol Artificial Tears 1 drop 08/19/20 21:00 Artificial Tears 15 Ml Drops EYE-BOTH TID PRN Dry Eyes Fluticasone Propionate 2 spray 08/20/20 09:00 08/21/20 08:28 Fluticasone Propionate Nasal 16 Gm [place] NOSTRIL-B Not Given DAILY [facility] Sodium Chloride 1,000 mls @ 80 mls/hr 08/19/20 21:30 08/21/20 03:03 Ns IVCONT 80 mls/hr .[id number] LALI Administration Nicotine 14 mg 08/21/20 09:00 08/21/20 08:26 Nicotine 14 Mg Patch.Td24 TRANSDERMA 14 mg DAILY [facility] Administration Omeprazole 20 mg 08/20/20 17:17 08/21/20 05:35 Omeprazole 20 Mg Capsule.Dr PO Not Given BID@0630,1630 [facility] Ondansetron HCl 4 mg 08/19/20 21:30 Ondansetron Hcl 4 Mg/2 Ml Vial IVPUSH Q8H PRN Nausea and Vomiting Sodium Chloride 3 ml 08/20/20 00:00 08/21/20 08:28 0.9 % Sodium Chloride Flush 3 Ml Syringe IVFLUSH Not Given QSHIFT [facility] Labs CBC & Chem 7: 08/20/20 08:09 12/14/20 08:09 Assessment and Plan (1) Indeterminate pulmonary nodules: Status: Acute Assessment and Plan: 84-year-old male with history of colon cancer, Hodgkin's lymphoma, hypertension, dyslipidemia, coronary artery disease, BPH who presented to the emergency department with dysphagia found to have lung nodules on CT chest concerning for malignancy Dysphagia--EGD 08/[address] Real with the follwing impressin and recommendat ion. -Imp: I suspect his dysphagia may have been related to a transient food bolus with subsequent spontaneous passage vs. some GERD with associated esophageal spasm and motility disturbance. The other possibility would be that of some oropharyngeal dysphagia in relation to his age, medical condition, etc. Rec: PPI, Full liquid diet, observe, and swallowing evaluation before advancing diet further. He may need a modified Barium swalllow and a formal evaluation with the speech and swallowing evaluation team before discharge. Dr. Hernandez sister, Jerilyn. Thanks Lung nodules concerning for neoplastic process -Oncology consult to help direct further management Tobacco dependence Smoking cessation advised -NRT I spoke to the Sister Jerilyn over the phone and tried to addresss code status and didn't get anywhere so keeping him full code
--- NOTE | 2020-08-21 10:26 | MHC.CM.PN ---
this interview was conducted c pt's hcp/sister - carly. pt lives alone , he is indpendent in his care. he still drives a car and does not use any AD c ambulation. pt had no svcs at home prior to admission. pt's sister lives in [place] and is limited on the amount of help she can offer at dc . right now pt is c AMS but sister says he would benefit from having hvna see him at dc assuming he is able to return home. a ref. has been made to na. sister will provide transportation at dc. dc plan is home c hvna. cm to cont. to follow.
[2020-08-21 11:33] VITALS: BP 148/75; PULSE 72; RESP 19; TEMP 36.3; O2SAT 90
[2020-08-21 15:31] VITALS: BP 155/80; PULSE 72; RESP 19; TEMP 37.1; O2SAT 92
[2020-08-21] MEDS: Omeprazole 20 MG CAPSULE.DR PO (15:35)
--- NOTE | 2020-08-21 18:55 | PM.HEMONCCN ---
Subjective - Subjective Chief complaint: pulmonary nodules Patient: known to practice within the last 3 years Consult date: 08/21/20 Primary Care Provider: Chel Hylton MD HPI - Consult Narrative Reason for consult: pulmonary nodules Narrative: Lillie Bruno is a 84 year old male well known to me. 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 He has a history of iron deficiency anemia and now presents with pulmonary nodules one of which is 2 cm. Review of Systems - Constitutional Reports anorexia - Eyes Reports itchy eyes, Reports other - ENT Reports system reviewed and no additional complaints, except as documented, Reports hearing loss - Cardiovascular Reports rapid, pounding, or irregular heartbeat, Reports slow heart rate - Respiratory Reports cough - Gastrointestinal Reports difficulty swallowing - Genitourinary Genitourinary: Reports erectile dysfunction - Musculoskeletal Reports other - Integumentary/Breasts Skin/Breast: Reports other - Neurologic Reports memory loss - Psychiatric Reports lack of enjoyment - Endocrine Reports other - Hematologic/Lymphatic Reports other - Allergic/Immunologic Reports other Oncology Screenings - Immunizations Influenza Immunization Status: Up To Date Pneumoccocal Immunization Status: Up To Date - ECOG Performance Status ECOG Performance Status: 3 - G8 Geriatric Assessment Change in food intake over past 3 months: Moderate decrease in food intake Weight loss during the last 3 months: Does not know Mobility: Able to get out of bed/chair, but does not go out Neuropsychological problems: Mild dementia or depression Body Mass Index: 19 to 21 Patient takes > 3 prescription drugs per day: Yes Patient's assessment of health status compared to others: Not as good Patient age: 80 to 85 G8 Score: 6 G8 Risk Level: High risk for early functional decline and reduced survival. - [place] Frail Scale Patient's ability to draw a clock and indicate time: No errors Number of times patient admitted to hospital in past year: 1 to 2 In general, patient describes health as: Poor Number of activities patient requires help with: 5 to 8 Patient can count on others willing and able to meet needs: Sometimes Patient uses 5 or more prescription medications: No Patient reports forgetfulness with taking prescription meds: Yes Patient reports weight loss: Yes Patient often feels sad or depressed: Yes Patient experiences incontinence: Yes # Sec for patient to walk 3m distance and return to chair: > 20 sec, or pt unwilling or requires assistance [place] Frail Scale Score: 12 Frailty Level: Severe Frailty - [place] VTE Risk Cancer Type: Lung Pre-chemo platelet count >= 350,000/uL: Yes Hemoglobin level <10 g/dL or using RBC growth factors: Yes Pre-chemo leukocyte count > 11,000/uL: Yes BMI >=35: No VTE Risk Score:: 4 [place] VTE Risk: High VTE Risk [facility] Medical History: Medical History (Last Reviewed 08/20/20 @ 14:32 by Red Michaels MD) Atrial fibrillation Cholelithiasis COPD (chronic obstructive pulmonary disease) GERD (gastroesophageal reflux disease) History of colon cancer Hodgkins lymphoma Hypercholesterolemia Hypertension Leg weakness, bilateral Pancreatitis Renal calculus, left Tobacco abuse Functional capacity: uses cane/walker Family History: Family History (Last Reviewed 08/20/20 @ 14:32 by Red Michaels MD) Father CVD (cardiovascular disease) Mother CVD (cardiovascular disease) Surgical History: Surgical History (Last Reviewed 08/20/20 @ 14:32 by Red Michaels MD) History of bilateral cataract extraction History of chemotherapy History of colectomy History of tonsillectomy Hx of inguinal hernia surgery Smoking status: Light tobacco smoker Second hand tobacco smoke exposure: No Time spent discussing smoking cessation with patient: 3 to 10 minutes Substance use type: other Substance last used: Weeks (ago) Alcohol intake: current Last drink: Days (ago) Home Medications and Allergies Current Medications: Current Medications Generic Name Dose Route Start Last Admin Trade Name Freq PRN Reason Stop Dose Admin Acetaminophen 650 mg 08/19/20 21:30 Acetaminophen Supp 650 Mg Supp.Rect [place] Q6H PRN Pain, Mild (Pain Scale 1-3) Amlodipine Besylate 5 mg 08/20/20 09:00 08/21/20 08:26 Amlodipine Besylate 5 Mg Tablet PO 5 mg DAILY [facility] Administration Protocol Artificial Tears 1 drop 08/19/20 21:00 Artificial Tears 15 Ml Drops EYE-BOTH TID PRN Dry Eyes Fluticasone Propionate 2 spray 08/20/20 09:00 08/21/20 08:28 Fluticasone Propionate Nasal 16 Gm Childs NOSTRIL-B Not Given DAILY [facility] Sodium Chloride 1,000 mls @ 80 mls/hr 08/19/20 21:30 08/21/20 15:35 Ns IVCONT 80 mls/hr .[id number] [facility] Administration Nicotine 14 mg 08/21/20 09:00 08/21/20 08:26 Nicotine 14 Mg Patch.Td24 TRANSDERMA 14 mg DAILY [facility] Administration Omeprazole 20 mg 08/20/20 17:17 08/21/20 15:35 Omeprazole 20 Mg Capsule.Dr PO 20 mg BID@0630,1630 [facility] Administration Ondansetron HCl 4 mg 08/19/20 21:30 Ondansetron Hcl 4 Mg/2 Ml Vial IVPUSH Q8H PRN Nausea and Vomiting Sodium Chloride 3 ml 08/20/20 00:00 08/21/20 17:36 0.9 % Sodium Chloride Flush 3 Ml Syringe IVFLUSH Not Given QSHIFT [facility] [place] Home Medications Medication Instructions Recorded Confirmed Type amlodipine 5 mg tablet 5 mg PO DAILY 06/15/20 08/19/20 History ascorbic acid (vitamin C) 500 mg 500 mg PO DAILY 06/15/20 08/19/20 History capsule atorvastatin 10 mg tablet 10 mg PO DAILY 06/15/20 08/19/20 History dextran 70-hypromellose 0.1 %-0.3 1 drp OPHTHALMIC (EYE) DIRECTED 06/15/20 08/19/20 History % eye drops ferrous sulfate 325 mg (65 mg 325 mg PO DAILY 06/15/20 08/19/20 History iron) tablet fluticasone propionate 50 2 spray INTRANASAL DAILY 06/15/20 08/19/20 History mcg/actuation nasal spray,suspension megestrol 10 ml PO BID 08/19/20 08/19/20 History Allergies Allergy/AdvReac Type Severity Reaction Status Date / Time procaine [From Novocain] Allergy Mild INEFFECTIVE Verified 06/15/20 12:42 PER RN lisinopril Allergy Unknown Unknown Verified 06/15/20 12:42 Physical Exam Vital signs: Vital Signs Temp 98.8 F 08/21/20 15:31 Pulse 72 08/21/20 15:31 Resp 19 08/21/20 15:31 BP 155/80 H 08/21/20 15:31 Pulse Ox 92 08/21/20 15:31 Intake & Output 08/20/20 08/21/20 08/21/20 18:59 06:59 18:59 Intake Total 1000 / 2360 1360 / 2360 1000 / 1000 Output Total 100 / 100 525 / 525 Balance 900 / 2260 1360 / 2260 475 / 475 Urine Output (Average ml/kg/hr) 0.14 0.14 0.74 Intake: Intake, Oral Amount 360 / 360 Intake, IV Amount 1000 / 2000 1000 / 2000 1000 / 1000 0.9 % Sodium Chloride 1,000 ml 1000 / 2000 1000 / 2000 1000 / 1000 @ 80 mls/hr IVCONT .[id number] [facility] Rx#:[id number] Output: Output, Urine Amount 100 / 100 525 / 525 Other: Meal Refused Yes NPO Yes No Breakfast % Eaten 0% Lunch % Eaten 0% Evening Snack % Eaten 100 Number of Unmeasured Voids 2 Urine Urinal Urine Color Concentrated Weight 58.96 kg Weight 58.96 kg - Constitutional Present: chronically ill appearing - Routine HEENT Exam Head: Present: atraumatic Eye: Present: normal appearance, conjunctivae pink ENT: Present: nares patent - Routine Neck Exam Present: full ROM - Routine Chest/Breast/Axilla Exam Breast: Present: Normal Exam - Routine Abdominal Exam Present: diminished bowel sounds - Routine Exam Patient deferred: testicular exam exam: left: epididymal swelling, bilateral: testicular tenderness (none) Groin: Present: inguinal hernia, femoral hernia - Routine Extremities Exam Present: extremity cold to touch - Routine Back/Spine/Pelvis Exam Pelvis: Present: coccyx tenderness - Routine Skin Exam Present: scars - Routine Neurological Exam Present: altered mental status - Routine Psychiatric Exam Present: cooperative Hem/Onc Consult Result - Labs CBC & Chem 7: 08/20/20 08:09 08/20/20 08:09 - ECG Pacemaker function: other Procedures - Paracentesis Time out performed: Yes Procedure: diagnostic paracentesis - PICC Line Removal PICC Line Removal Comments: done Assessment and Plan (1) Indeterminate pulmonary nodules Start date: 08/21/20 (He will need a PET/CT scan as an outpatient. Please arrange and inpatinet needle biopsyf the pulmonary mass for a tissue diagnosis.) Problem details: new primary Status: Inactive
[2020-08-21 20:00] VITALS: BP 151/86; PULSE 53; RESP 19; TEMP 36.3; O2SAT 93
[2020-08-21 23:51] VITALS: BP 158/83; PULSE 84; RESP 20; TEMP 37.2; O2SAT 96
[2020-08-22 04:00] VITALS: BP 124/76; PULSE 100; RESP 16; TEMP 37.2; O2SAT 98
[2020-08-22] MEDS: 0.9 % Sodium Chloride 1,000 ML 80 ML IVCONT ×2 (06:16→20:37)
[2020-08-22] MEDS: Omeprazole 20 MG CAPSULE.DR PO ×2 (06:20→16:13)
[2020-08-22] MEDS: Nicotine 14 MG PATCH.TD24 TRANSDERMA (07:25)
[2020-08-22] MEDS: amLODIPine Besylate 5 MG TABLET PO (07:27)
[2020-08-22 07:51] VITALS: BP 183/87; PULSE 89; RESP 19; TEMP 37.2; O2SAT 93
--- NOTE | 2020-08-22 08:09 | P.PNIM_ITS ---
Subjective Subjective Date of Service: 08/22/20 Interval History: f/u dysphagia, egd showed no obstruction, he is confused, agitated and not eating Physical Exam Vital Signs: Vital Signs: Last Vital Signs Temp 98.9 F 08/22/20 07:51 Pulse 89 08/22/20 07:51 Resp 19 08/22/20 07:51 BP 183/87 H 08/22/20 07:51 Pulse Ox 93 08/22/20 07:51 Body Mass Index 21.6 General:alert and oriented today Resp: CTA bilateral CVS: S1,S2,RRR GI: soft, non tender, non distended Neuro: motor grossly intact Psych: appropriate affect Objective Data Current Medications Generic Name Dose Route Start Last Admin Trade Name Freq PRN Reason Stop Dose Admin Acetaminophen 650 mg 08/19/20 21:30 Acetaminophen Supp 650 Mg Supp.Rect [place] Q6H PRN Pain, Mild (Pain Scale 1-3) Amlodipine Besylate 5 mg 08/20/20 09:00 08/22/20 07:27 Amlodipine Besylate 5 Mg Tablet PO 5 mg DAILY [facility] Administration Protocol Artificial Tears 1 drop 08/19/20 21:00 Artificial Tears 15 Ml Drops EYE-BOTH TID PRN Dry Eyes Fluticasone Propionate 2 spray 08/20/20 09:00 08/22/20 07:34 Fluticasone Propionate Nasal 16 Gm [place] NOSTRIL-B Not Given DAILY [facility] Sodium Chloride 1,000 mls @ 80 mls/hr 08/19/20 21:30 08/22/20 06:16 Ns IVCONT 80 mls/hr .[id number] [facility] Administration Nicotine 14 mg 08/21/20 09:00 08/22/20 07:25 Nicotine 14 Mg Patch.Td24 TRANSDERMA 14 mg DAILY [facility] Administration Omeprazole 20 mg 08/20/20 17:17 08/22/20 06:20 Omeprazole 20 Mg Capsule.Dr PO 20 mg BID@0630,1630 [facility] Administration Ondansetron HCl 4 mg 08/19/20 21:30 Ondansetron Hcl 4 Mg/2 Ml Vial IVPUSH Q8H PRN Nausea and Vomiting Sodium Chloride 3 ml 08/20/20 00:00 08/22/20 07:27 0.9 % Sodium Chloride Flush 3 Ml Syringe IVFLUSH Not Given QSHIFT [facility] Labs CBC & Chem 7: 08/20/20 08:09 08/20/20 08:09 Assessment and Plan (1) Indeterminate pulmonary nodules: Problem details: new primary Status: Inactive Assessment and Plan: 84-year-old male with history of colon cancer, Hodgkin's lymphoma, hypertension, dyslipidemia, coronary artery disease, BPH who presented to the emergency department with dysphagia found to have lung nodules on CT chest concerning for malignancy Dysphagia--EGD 08/[address] Real with the follwing impressin and recommendation. -Imp: I suspect his dysphagia may have been related to a transient food bolus with subsequent spontaneous passage vs. some GERD with associated esophageal spasm and motility disturbance. The other possibility would be that of some oropharyngeal dysphagia in relation to his age, medical condition, etc. Rec: PPI, Full liquid diet, observe, and swallowing evaluation before advancing diet further. He may need a modified Barium swalllow and a formal evaluation with the speech and swallowing evaluation team before discharge. Dr. Hernandez sister, Jerilyn. Thanks -advance diet as chauncey Lung nodules concerning for neoplastic process -Dr. Coleman is asking of inpatient Bx Tobacco dependence Smoking cessation advised -NRT \
[2020-08-22 12:00] VITALS: BP 148/88; PULSE 93; RESP 16; TEMP 36.4; O2SAT 91
[2020-08-22 15:25] VITALS: BP 155/80; PULSE 93; RESP 18; TEMP 36.3; O2SAT 93
--- NOTE | 2020-08-22 15:32 | OP_ITS ---
SURGEON: Nazario Real MD INDICATIONS: The patient presents for evaluation of dysphagia. Full consent was obtained from the patient's sister, Jerilyn, including risks of bleeding and perforation. PREOPERATIVE DIAGNOSIS: Dysphagia. POSTOPERATIVE DIAGNOSIS: PROCEDURE PERFORMED: ESTIMATED BLOOD LOSS: COMPLICATIONS: ANESTHESIA: Monitored anesthesia care and oral lidocaine gargle. ASSISTANTS: SPECIMENS: PROCEDURE: Esophagogastroduodenoscopy with balloon dilation of gastroesophageal junction. POSTOPERATIVE DIAGNOSES: Dysphagia, small hiatal hernia, mild gastroesophageal reflux, gastritis, and duodenitis. DESCRIPTION OF PROCEDURE: The patient was placed in the left lateral decubitus position. The Olympus video gastroscope was passed into the posterior oropharynx and upper esophagus under direct vision. The scope was passed slowly into the distal esophagus. The gastroesophageal junction appeared at 38 cm. The esophagus did have some secretions within it, but there was no evidence of any retained food, esophagitis, mass, nor any definitive esophageal stricture. The scope was easily entered into the stomach. There was a small hiatal hernia. The scope was advanced to pylorus and the duodenum was cannulated into the descending portion. The duodenum including the bulb was carefully inspected. The duodenal bulb had evidence of some duodenitis with small erosions, but there was no ulceration or mass. The scope was withdrawn back to the stomach. The gastric antrum and body had some changes of erythema and edema, with associated friability. There were no erosions or ulceration. There was good peristalsis. The scope was retroflexed visualizing the proximal stomach carefully, which appeared normal, without any sign of mass or ulceration. Scope was straightened and withdrawn back to the esophagus. The esophageal mucosa otherwise appeared normal. Given the symptomatology, I did dilate the gastroesophageal junction with a [employer] incremental balloon from 15 mm to 16.5 mm to 18 mm at the recommended pressure for between 30 and 60 seconds each. Post dilation, there was no appreciable heme noted. The esophagus otherwise appeared normal. The scope was withdrawn from the patient. He tolerated the procedure well and was returned to the recovery area in stable condition. IMPRESSION: 1. Small hiatal hernia. 2. Gastritis. 3. Duodenitis. PLAN: Today's findings would not definitively explain his presentation with dysphagia. He may very well had a food bolus causing an esophageal obstruction that passed spontaneously prior to the procedure. He may have some other issues with ongoing reflux and associated esophageal spasm and dysmotility on that basis. He may have some oropharyngeal dysphagia as well. At this point, I would recommend his diet be advanced to full liquids, but have a swallow evaluation prior to advancing him any further. He may need a formal swallow evaluation with a modified barium swallow. I would start him on an oral PPI twice a day. This has been discussed with his sister, Jerilyn. MD WILD Lam/CHELSIE / [id number]
--- NOTE | 2020-08-22 15:47 | CONS_ITS ---
DATE OF SERVICE: 08/20/2020 REASON FOR CONSULTATION: Dysphagia. HISTORY OF PRESENT ILLNESS: This has been obtained primarily from the patient's sister, Jerilyn and the medical record. The patient is an 84 male, who apparently was in his usual state of health up until developing dysphagia over the past 24 to 48 hours prior to admission. According to his sister, he was eating fairly normally prior to that, but subsequently was unable to swallow anything except for some small amounts of liquids. He requested to go to the ER. There has been no reported history of vomiting. He denies any abdominal pain. I did see him in the office about one year ago and at that time, he was taking pantoprazole 20 mg daily. He did have an upper endoscopy with me in 2006, showing a small gastric ulcer, but biopsies were negative for H pylori. Since admission here, he has been stable without any vomiting. PAST MEDICAL HISTORY: Choledocholithiasis, status post ERCP with sphincterotomy and stone removal in 2010. Hodgkin lymphoma, treated with Dr. Coleman. Saskia's palsy. Upper endoscopy in 2006 as above. Colonoscopy in 2013, revealing a large tubular adenoma with intramucosal, well differentiated adenocarcinoma in the proximal ascending colon. Hyperlipidemia. Kidney stones. Pancreatitis in 2019. He has had surgeries for the above-mentioned colon lesion in 2013, with Dr. Koenig with a right colectomy. The pathology showed a well-differentiated intramucosal adenocarcinoma with a sessile tubular adenoma, but no disease in the lymph nodes. He has also had a surgery for lymphoma, inguinal hernia, and tonsillectomy. SOCIAL HISTORY: He lives by himself. He does smoke. He denies any significant alcohol. FAMILY HISTORY: Noncontributory. PHYSICAL EXAMINATION: GENERAL: The patient is a thin, elderly, somewhat chronically ill-appearing male. SKIN: Warm and dry. Nonjaundiced. ABDOMEN: Soft, nondistended, nontender. IMPRESSION: Given the patient's clinical history of reported new onset dysphagia, he will undergo upper endoscopy with possible balloon dilation. Full consent was obtained from the patient's sister, Jerilyn, including risks of bleeding and perforation. The differential diagnosis would include that of an esophageal stricture, esophageal mass, or esophageal obstruction due to a food bolus. He may also have some component of esophageal dysmotility in relation to his age, esophageal reflux, and oropharyngeal dysphagia. Thank you for this consultation. MD WILD Lam/CHELSIE / [id number] MTDD
[2020-08-22] MEDS: 0.9 % Sodium Chloride Flush 3 ML SYRINGE IVFLUSH (16:13)
[2020-08-22 19:14] VITALS: BP 163/84; PULSE 89; RESP 18; TEMP 36.4; O2SAT 92
[2020-08-23] VITALS (13 sets, daily range): BP systolic 140–164; BP diastolic 67–110; PULSE 80–107; RESP 18–20; TEMP 36.2–37.2; O2SAT 90–96
--- NOTE | 2020-08-23 | CT_ITS ---
PROCEDURE: CT GUIDED BIOPSY, LUNG CLINICAL INFORMATION: History of Hodgkin's disease and colon cancer Left upper lobe nodule. Diffuse emphysema. COMPARISON: None TECHNIQUE: Following explaining procedure, benefits and risk to patient's daughter, a informed consent was obtained. The exam was also explained in detail by Dr. Castillo to the patient. Patient was placed supine on CT fluoroscopy table and preliminary CT imaging was obtained through the upper mid chest region. An optimal site was selected along the anterior chest wall and marked. The marked site was cleaned and draped in usual cell manner. 1% lidocaine was injected at the puncture site. Through a small skin incision a 20-gauge guide needle was advanced from the skin intercostally the level of pleural surface. Coaxially a 22 days Chiba needle was advanced into the left upper lobe nodule and a 3 pass biopsy was performed post procedure the guide needle was withdrawn and complete hemostasis achieved at puncture site. Repeat CT imaging revealed no evidence of pneumothorax. Sterile Band-Aid dressing was applied at the puncture site. This CT examination was performed using dose optimization techniques as appropriate, variously including the following: *Automated exposure control *Adjustment of mA and/or kV according to patient size (this includes techniques or standardized protocols for targeted exams where dose is matched to indication/reason for exam; i.e. extremities or head) *Use of iterative reconstruction technique DLP: 154 mGy-cm FINDINGS: Preliminary CT imaging there is a left upper lobe pleural-based nodule measuring 2.0 x 1.8 cm and axial image 6/3. There is diffuse emphysema. There is dependent atelectasis scarring in both lower lobes. CT fluoroscopy-guided 3 pass fine-needle biopsy was performed coaxially. No pneumothorax is seen post procedure. A chest x-ray was to be obtained 2 hours later. Preliminary pathology results revealed adequate cells for diagnosis. CT/CT biopsy lung LT IMPRESSION: Successful CT fluoroscopy-guided left upper lobe nodule biopsy performed. There were no immediate complications. Definite pathology results are pending.
--- NOTE | 2020-08-23 | XR_ITS ---
EXAMINATION: XR CHEST CLINICAL INFORMATION: Post left upper lobe lung biopsy. Check pneumothorax. COMPARISON: None. TECHNIQUE: 2 views of the chest were obtained. FINDINGS: Inspiration and expiration views reveal no evidence of left apical pneumothorax. There is a left upper lobe nodule overlying 6th posterior rib. No consolidation seen. There are increased bronchovascular markings. There is underlying emphysema. Heart size and pulmonary vascularity is normal. No gross bony abnormality seen. XR/XR chest 2V IMPRESSION: No visible pneumothorax seen. Increased bronchovascular markings, likely reactive airway disease. There is a peripheral small nodule seen in the left upper lobe which was biopsied.
[2020-08-23] MEDS: 0.9 % Sodium Chloride Flush 3 ML SYRINGE IVFLUSH ×3 (00:19→16:25)
--- NOTE | 2020-08-23 09:39 | PC.NURSE ---
pt's sister carly benavides called at [phone] baxter for telephone consent for left lung biopsy. consent not obtained at this time; carly would like to speak with family and care team regarding need for lung biopsy prior to giving consent. hospitalist made aware.
[2020-08-23 10:43] LABS: INTERNATIONAL NORM RATIO 1.4 (0.9-1.1); Prothrombin Time 16.5 SEC (10.8-13.0)
--- NOTE | 2020-08-23 12:02 | P.PNIM_ITS ---
Subjective Subjective Date of Service: 08/23/20 Interval History: f/u dysphagia, egd showed no obstruction, he seem less confused today but has poor understanding of planned lung biopsy. Review of Systems no sob no fever some confused Physical Exam Vital Signs: Vital Signs: Last Vital Signs Temp 98.6 F 08/23/20 11:39 Pulse 98 08/23/20 11:39 Resp 18 08/23/20 11:39 BP 146/67 H 08/23/20 11:39 Pulse Ox 90 L 08/23/20 11:39 Body Mass Index 21.6 General: , no acute distress, oritent to self and place Resp: CTA bilateral CVS: S1,S2,RRR GI: +BS, NT, no distention Skin: No rash Neuro: motor grossly intact Psych: appropriate affect Objective Data Current Medications Generic Name Dose Route Start Last Admin Trade Name Freq PRN Reason Stop Dose Admin Acetaminophen 650 mg 08/19/20 21:30 Acetaminophen Supp 650 Mg Supp.Rect [place] Q6H PRN Pain, Mild (Pain Scale 1-3) Amlodipine Besylate 5 mg 08/20/20 09:00 08/23/20 09:31 Amlodipine Besylate 5 Mg Tablet PO Not Given DAILY [facility] Protocol Artificial Tears 1 drop 08/19/20 21:00 Artificial Tears 15 Ml Drops EYE-BOTH TID PRN Dry Eyes Fluticasone Propionate 2 spray 08/20/20 09:00 08/23/20 09:31 Fluticasone Propionate Nasal 16 Gm [place] NOSTRIL-B Not Given DAILY [facility] Nicotine 14 mg 08/21/20 09:00 08/23/20 09:31 Nicotine 14 Mg Patch.Td24 TRANSDERMA Not Given DAILY [facility] Omeprazole 20 mg 08/20/20 17:17 08/23/20 04:24 Omeprazole 20 Mg Capsule. PO Not Given BID@0630,1630 [facility] Ondansetron HCl 4 mg 08/19/20 21:30 Ondansetron Hcl 4 Mg/2 Ml Vial IVPUSH Q8H PRN Nausea and Vomiting Sodium Chloride 3 ml 08/20/20 00:00 08/23/20 09:30 0.9 % Sodium Chloride Flush 3 Ml Syringe IVFLUSH 3 ml QSHIFT [facility] Administration Labs CBC & Chem 7: 08/20/20 08:09 08/20/20 08:09 Assessment and Plan (1) Indeterminate pulmonary nodules: Problem details: new primary Status: Inactive Assessment and Plan: 84-year-old male with history of colon cancer, Hodgkin's lymphoma, hypertension, dyslipidemia, coronary artery disease, BPH who presented to the emergency department with dysphagia found to have lung nodules on CT chest concerning for malignancy Dysphagia--EGD 08/[address] Real with the follwing impressin and recommendation. -Imp: I suspect his dysphagia may have been related to a transient food bolus with subsequent spontaneous passage vs. some GERD with associated esophageal spasm and motility disturbance. The other possibility would be that of some oropharyngeal dysphagia in relation to his age, medical condition, etc. Rec: PPI, Full liquid diet, observe, and swallowing evaluation before advancing diet further. He may need a modified Barium swalllow and a formal evaluation with the speech and swallowing evaluation team before discharge. Dr. Hernandez sister, Jerilyn. Thanks -advance diet as chauncey Lung nodules concerning for neoplastic process -Dr. Coleman is recommending Bx which is planned for today Tobacco dependence Smoking cessation advised -NRT Plan discussed with his sister Jerilyn over the phone
--- NOTE | 2020-08-23 12:39 | P.PNHO_ITS ---
Medical Summary - Medical Summary Date of Service: 08/23/20 Chief complaint: pulmonary mass Medical Summary: He continues with weakness and anorexia. He initially refused the biopsy but now agrees. The 2 cm nodule is very peripheral. Interval History Interval history: He is now willing to have the biopsy. I spoke at length today with his sister Jerilyn and she also gives informed consent for a needle biopsy of a lung mass. Review of Systems - Eyes Reports dry eyes - ENT Reports as per HPI - Cardiovascular Reports fast heart rate - Respiratory Reports dyspnea on exertion - Gastrointestinal Reports abdominal pain - Genitourinary Genitourinary: Reports urinary frequency - Musculoskeletal Reports decreased muscle mass - Integumentary/Breasts Skin/Breast: Reports other - Neurologic Reports hearing normal, Reports memory loss - Psychiatric Reports lack of enjoyment - Endocrine Reports cold intolerance, Reports increased hunger - Hematologic/Lymphatic Reports other - Allergic/Immunologic Reports other [facility] Medical History: Medical History (Last Reviewed 08/20/20 @ 14:32 by Red Michaels MD) Atrial fibrillation Cholelithiasis COPD (chronic obstructive pulmonary disease) GERD (gastroesophageal reflux disease) History of colon cancer Hodgkins lymphoma Hypercholesterolemia Hypertension Leg weakness, bilateral Pancreatitis Renal calculus, left Tobacco abuse Functional capacity: uses cane/walker Patient : No Family History: Family History (Last Reviewed 08/20/20 @ 14:32 by Red Michaels MD) Father CVD (cardiovascular disease) Mother CVD (cardiovascular disease) Surgical History: Surgical History (Last Reviewed 08/20/20 @ 14:32 by Red Michaels MD) History of bilateral cataract extraction History of chemotherapy History of colectomy History of tonsillectomy Hx of inguinal hernia surgery Smoking status: Light tobacco smoker Current occupational exposures/hazards: No Oncology Screenings - Immunizations Influenza Immunization Status: Up To Date Pneumoccocal Immunization Status: Up To Date - ECOG Performance Status ECOG Performance Status: 3 - G8 Geriatric Assessment Change in food intake over past 3 months: Severe decrease in food intake Weight loss during the last 3 months: Does not know Mobility: Bed or chair bound Neuropsychological problems: Mild dementia or depression Body Mass Index: 19 to 21 Patient takes > 3 prescription drugs per day: Yes Patient's assessment of health status compared to others: Not as good Patient age: 80 to 85 G8 Score: 4 G8 Risk Level: High risk for early functional decline and reduced survival. - [place] Frail Scale Patient's ability to draw a clock and indicate time: Other errors Number of times patient admitted to hospital in past year: 1 to 2 In general, patient describes health as: Poor Number of activities patient requires help with: 5 to 8 Patient can count on others willing and able to meet needs: Sometimes Patient uses 5 or more prescription medications: No Patient reports forgetfulness with taking prescription meds: Yes Patient reports weight loss: Yes Patient often feels sad or depressed: Yes Patient experiences incontinence: Yes # Sec for patient to walk 3m distance and return to chair: > 20 sec, or pt unwilling or requires assistance [place] Frail Scale Score: 14 Frailty Level: Severe Frailty - [place] VTE Risk Cancer Type: Lung Pre-chemo platelet count >= 350,000/uL: Yes Hemoglobin level <10 g/dL or using RBC growth factors: Yes Pre-chemo leukocyte count > 11,000/uL: Yes BMI >=35: Yes VTE Risk Score:: 5 [place] VTE Risk: High VTE Risk Home Medications and Allergies Current Medications: Current Medications Generic Name Dose Route Start Last Admin Trade Name Freq PRN Reason Stop Dose Admin Acetaminophen 650 mg 08/19/20 21:30 Acetaminophen Supp 650 Mg Supp.Rect MT Q6H PRN Pain, Mild (Pain Scale 1-3) Amlodipine Besylate 5 mg 08/20/20 09:00 08/23/20 09:31 Amlodipine Besylate 5 Mg Tablet PO Not Given DAILY COUNT INCLUDES THE [facility] Protocol Artificial Tears 1 drop 08/19/20 21:00 Artificial Tears 15 Ml Drops EYE-BOTH TID PRN Dry Eyes Fluticasone Propionate 2 spray 08/20/20 09:00 08/23/20 09:31 Fluticasone Propionate Nasal 16 Gm [place] NOSTRIL-B Not Given DAILY COUNT INCLUDES THE [facility] Nicotine 14 mg 08/21/20 09:00 08/23/20 09:31 Nicotine 14 Mg Patch.Td24 TRANSDERMA Not Given DAILY COUNT INCLUDES THE [facility] Omeprazole 20 mg 08/20/20 17:17 08/23/20 04:24 Omeprazole 20 Mg Capsule.Dr PO Not Given BID@0630,1630 COUNT INCLUDES THE [facility] Ondansetron HCl 4 mg 08/19/20 21:30 Ondansetron Hcl 4 Mg/2 Ml Vial IVPUSH Q8H PRN Nausea and Vomiting Sodium Chloride 3 ml 08/20/20 00:00 08/23/20 09:30 0.9 % Sodium Chloride Flush 3 Ml Syringe IVFLUSH 3 ml QSHIFT COUNT INCLUDES THE [facility] Administration Home Medications Medication Instructions Recorded Confirmed Type amlodipine 5 mg tablet 5 mg PO DAILY 06/15/20 08/19/20 History ascorbic acid (vitamin C) 500 mg 500 mg PO DAILY 06/15/20 08/19/20 History capsule atorvastatin 10 mg tablet 10 mg PO DAILY 06/15/20 08/19/20 History dextran 70-hypromellose 0.1 %-0.3 1 drp OPHTHALMIC (EYE) DIRECTED 06/15/20 08/19/20 History % eye drops ferrous sulfate 325 mg (65 mg 325 mg PO DAILY 06/15/20 08/19/20 History iron) tablet fluticasone propionate 50 2 spray INTRANASAL DAILY 06/15/20 08/19/20 History mcg/actuation nasal spray,suspension megestrol 10 ml PO BID 08/19/20 08/19/20 History Allergies Allergy/AdvReac Type Severity Reaction Status Date / Time procaine [From Novocain] Allergy Mild INEFFECTIVE Verified 06/15/20 12:42 PER RN lisinopril Allergy Unknown Unknown Verified 06/15/20 12:42 Exam Vital signs: Vital Signs Temp 98.6 F 08/23/20 11:39 Pulse 98 08/23/20 11:39 Resp 18 08/23/20 11:39 BP 146/67 H 08/23/20 11:39 Pulse Ox 90 L 08/23/20 11:39 Intake & Output 08/22/20 08/23/20 08/23/20 18:59 06:59 18:59 Intake Total 120 / 1480 1360 / 1480 1000 / 1000 Output Total Balance 119 / 1479 1360 / 1479 1000 / 1000 Urine Output (Average ml/kg/hr) 0.00 0.00 0.00 Intake: Intake, Oral Amount 120 / 480 360 / 480 Intake, IV Amount 1000 / 1000 1000 / 1000 0.9 % Sodium Chloride 1,000 ml 1000 / 1000 1000 / 1000 @ 80 mls/hr IVCONT .[id number] COUNT INCLUDES THE [facility] Rx#:[id number] Output: Output, Urine Amount Other: Meal Refused No NPO No Yes Breakfast % Eaten <25 Lunch % Eaten <25 Dinner % Eaten 75% Number of Unmeasured Voids 1 1 Urine Urinal Bathroom Urine Color Yellow Yin Weight 58.96 kg Body Mass Index 21.6 - Constitutional Present: chronically ill appearing - Routine HEENT Exam Head: Present: atraumatic - Routine Abdominal Exam Present: diminished bowel sounds - Routine Extremities Exam Present: extremity cold to touch - Routine Skin Exam Present: scars - Routine Neurological Exam Present: altered mental status Data - Labs CBC & Chem 7: 08/20/20 08:09 08/20/20 08:09 Labs: 08/19/20 15:18 XR chest 2V Stat XR soft tissue neck Stat 08/19/20 15:28 SARS-CoV2/FLU/RSV Stat 08/19/20 15:30 0.9 % Sodium Chloride [Ns] 1,000 ml IVCONT 999 mls/hr 08/19/20 15:37 Basic Metabolic Panel Stat C Reactive Protein Stat Complete Blood Count Auto Diff Stat Ferritin Stat Hold Lt Blue - Possible Coag Stat Lactate Dehydrogenase Stat Liver Panel Stat Magnesium Stat Procalcitonin Stat 08/19/20 16:19 CT chest w con Stat CT soft tissue neck w con Stat 08/19/20 16:56 iohexoL 350 MG/ML [Omnipaque 350 MG/ML] 100 ml IV ONCE ONE 08/19/20 18:46 Transfer Order Routine 08/19/20 21:30 0.9 % Sodium Chloride [Ns] 1,000 ml IVCONT 80 mls/hr Nicotine [Nicoderm] 14 mg TRANSDERMA DAILY 08/20/20 08:09 Basic Metabolic Panel DAILY@0600 Carcinoembryonic Antigen Routine Complete Blood Count Auto Diff DAILY@0600 Erythrocyte Sedimentation Rate Routine 08/20/20 11:09 Add Laboratory Test Urgent 08/20/20 15:54 Glycopyrrolate [Robinul] 0.2 mg .ROUTE .STK-MED ONE Lidocaine HCl 2 % MPF [Xylocaine 2 % MPF] 5 ml .ROUTE .STK-MED ONE Lidocaine HCl Viscous 2 % [Xylocaine Viscous 2 % Oral Suni] 15 ml MUCOUS MEM .STK-MED ONE propofoL [Diprivan] 200 mg IVPUSH .STK-MED ONE 08/20/20 16:40 Transfer Order Routine 08/20/20 Dinner Full Liquid Diet 08/21/20 02:26 LORazepam [Ativan] 1 mg IVPUSH ONCE ONE 08/23/20 10:13 Prothrombin Time INR Stat 08/23/20 11:59 Lidocaine HCl 1 % MPF [Xylocaine 1 % MPF] 5 ml .ROUTE .STK-MED ONE fentaNYL citrate/PF [Sublimaze] 50 mcg .ROUTE .STK-MED ONE 08/23/20 12:00 Midazolam HCl/PF [Versed] 2 mg .ROUTE .STK-MED ONE Naloxone HCl [Narcan] 0.4 mg .ROUTE .STK-MED ONE flumazeniL [Romazicon] 0.05 mg .ROUTE .STK-MED ONE Laboratory Last Values WBC 10.2 X10*3/uL (4.8-10.8) 08/20/20 08:09 RBC 4.98 X10*6/uL (4.60-5.80) 08/20/20 08:09 Hgb 14.0 g/dl (14.0-18.0) 08/20/20 08:09 Hct 43.2 % (42-52) 08/20/20 08:09 MCV 86.7 fL (80-98) 08/20/20 08:09 MCH 28.1 pg (27.0-33.0) 08/20/20 08:09 MCHC 32.4 g/dl (31.0-36.0) 08/20/20 08:09 RDW 13.4 % (11.0-16.0) 08/20/20 08:09 Plt Count 319 X10*3/uL (160-400) 08/20/20 08:09 MPV 7.8 fL (9.4-12.4) L 08/20/20 08:09 Immature Gran % (Auto) 1.3 % (0.0-0.4) H 08/20/20 08:09 Neut % (Auto) 77.4 % (45-73) H 08/20/20 08:09 Lymph % (Auto) 10.5 % (20-40) L 08/20/20 08:09 Howard % (Auto) 8.7 % (2-11) 08/20/20 08:09 Eos % (Auto) 1.6 % (0-4) 08/20/20 08:09 Baso % (Auto) 0.5 % (0-2) 08/20/20 08:09 Lymph # (Auto) 1.1 X10*3/uL (1.2-4.9) L 08/20/20 08:09 Howard # (Auto) 0.9 X10*3/uL (0.1-1.2) 08/20/20 08:09 Eos # (Auto) 0.2 X10*3/uL (0.0-0.4) 08/20/20 08:09 Baso # (Auto) 0.1 X10*3/uL (0.0-0.2) 08/20/20 08:09 Abs Immat Gran (auto) 0.13 X10*3/uL (0.00-0.03) H 08/20/20 08:09 Absolute Neuts (auto) 7.9 X10*3/uL (2.0-8.3) 08/20/20 08:09 Absolute Nucleated RBC 0.000 X10*3/uL (0.0-0.012) 08/20/20 08:09 Nucleated RBC % (auto) 0.0 /100WBC (0.0-0.2) 08/20/20 08:09 ESR 16 MM/HR (0-15) H 08/20/20 08:09 PT 16.5 SEC (10.8-13.0) H 08/23/20 10:13 INR 1.4 (0.9-1.1) H 08/23/20 10:13 Hold Blue Top SEE NOTE 08/19/20 15:37 Sodium 139 mmol/L (135-145) 08/20/20 08:09 Potassium 4.2 mmol/l (3.3-5.1) 08/20/20 08:09 Chloride 104 mmol/L (96-108) 08/20/20 08:09 Carbon Dioxide 19 mmol/L (22-29) L 08/20/20 08:09 Anion Gap 20 (12-20) 08/20/20 08:09 BUN 15 mg/dL (9-16) 08/20/20 08:09 Creatinine 0.70 mg/dL (0.5-1.4) 08/20/20 08:09 Estim Creat Clear Calc 65.5 08/20/20 08:09 Estimated GFR > 60 08/20/20 08:09 Random Glucose 78 mg/dL (60-115) 08/20/20 08:09 Calcium 8.7 mg/dL (8.4-10.2) 08/20/20 08:09 Magnesium 2.0 mg/dL (1.6-2.6) 08/19/20 15:37 Ferritin 144 ng/mL (20-250) 08/19/20 15:37 Ferritin Cancelled 08/19/20 15:37 Total Bilirubin 0.6 mg/dL (0.0-1.0) 08/19/20 15:37 Direct Bilirubin 0.3 mg/dL (0.0-0.5) 08/19/20 15:37 AST 17 U/L (5-37) 08/19/20 15:37 ALT 26 U/L (0-40) 08/19/20 15:37 Alkaline Phosphatase 165 U/L (39-117) H 08/19/20 15:37 Lactate Dehydrogenase 157 U/L (118-273) 08/19/20 15:37 Lactate Dehydrogenase Cancelled 08/19/20 15:37 C-Reactive Protein 1.71 mg/dL (< or = 0.50) H 08/19/20 15:37 C-Reactive Protein Cancelled 08/19/20 15:37 Total Protein 5.9 g/dL (6.5-8.0) L 08/19/20 15:37 Albumin 4.0 g/dL (3.5-5.0) 08/19/20 15:37 Carcinoembryonic Ag 6.50 mg/mL 08/20/20 08:09 Procalcitonin 0.11 ng/mL 08/19/20 15:37 Coronavirus (PCR) NEGATIVE (Negative) 08/19/20 15:28 Influenza Type A (PCR) NEGATIVE (Negative) 08/19/20 15:28 Influenza Type B (PCR) NEGATIVE (Negative) 08/19/20 15:28 RSV RNA Qual (PCR) NEGATIVE (Negative) 08/19/20 15:28 Progress Note: A/P (1) Indeterminate pulmonary nodules Start date: 08/23/20 (He has agreed to proceed with a needle biopsy of the lung mass.) Problem details: new primary Status: Acute - Time Spent With Patient Total time spent is greater than 50% in coordination of care (as documented) at patient's floor/unit and/or counseling patient: 15 - 24 minutes
--- NOTE | 2020-08-23 13:50 | MHC.CM.PN ---
Addendum entered by Neena Vasquez 08/23/20 14:24: PER CONVERSATION WITH RN, THE HOSPITALIST CONFIRMED THAT DC WAS ORDERED IN ERROR PATIENT IS NOT DC TODAY Original Note: PATIENT SISTER, KEEGAN STATES THAT SHE HAS A HCP DOCUMENT NAMING HER. COPY REQUESTED. SISTER STATES THAT PATIENT IS NOT GOING TO REHAB, AND SHE WANTS [facility] SERVICES. CADEN'S CONTACT NUMBER IS [phone]
[2020-08-23] MEDS: Lidocaine HCl 1 % MPF 5 ML VIAL 7 ML SUBCUT (14:38)
--- NOTE | 2020-08-23 14:52 | MHC.CM.PN ---
PRINCE UNABLE TO OFFER [facility] IS OFFERING SERVICES AT DISCHARGE. SISTER KEEGAN ([phone]) AWARE OF THIS. IMM 08/23 IN CHART.
[2020-08-23] MEDS: Omeprazole 20 MG CAPSULE.DR PO (16:25)
--- NOTE | 2020-08-24 | XR_ITS ---
EXAMINATION: XR CHEST CLINICAL INFORMATION: Cough, low oxygen. COMPARISON: Chest x-ray 08/23/2020 TECHNIQUE: 2 views of the chest were obtained. FINDINGS: The lungs are moderately expanded with increased bronchovascular markings slightly greater in the left midlung and lower lobe since 08/24/2020. Nodular opacity in the left upper lobe overlying the sixth posterior rib appears stable. This was the same nodule biopsied previously. No pleural effusion or pneumothorax seen. No large consolidation seen. The heart size and pulmonary vascularity is normal. There is mild dextroscoliosis distal thoracic spine likely positional. There are no gross bony abnormality. XR/XR chest 2V IMPRESSION: Prominent interstitial and bronchovascular markings in both lungs slightly greater in the left mid and lower lobes. Focal opacity left midlung is slightly larger than the previous exam. Findings as suggestive of developing infiltrate or consolidation. Recommend continued follow-up. Small pulmonary nodule left upper lung appears stable.
[2020-08-24] MEDS: 0.9 % Sodium Chloride Flush 3 ML SYRINGE IVFLUSH ×4 (00:11→23:00)
[2020-08-24 04:00] VITALS: BP 162/86; PULSE 94; TEMP 36.6; O2SAT 91
[2020-08-24] MEDS: Omeprazole 20 MG CAPSULE.DR PO ×2 (06:13→17:41)
[2020-08-24 07:17] VITALS: BP 167/91; PULSE 96; RESP 18; TEMP 37.1; O2SAT 92
[2020-08-24] MEDS: Nicotine 14 MG PATCH.TD24 TRANSDERMA (08:18)
[2020-08-24] MEDS: amLODIPine Besylate 5 MG TABLET PO (08:21)
--- NOTE | 2020-08-24 09:15 | P.PNIM_ITS ---
Subjective Subjective Date of Service: 08/24/20 Interval History: f/u dysphagia, egd showed no obstruction. Lung Bx done yesterday, noted to be hypoxic this morning but no sob. CXR requested to rule PTX Review of Systems no sob no fever some confused Physical Exam Vital Signs: Vital Signs: Last Vital Signs Temp 98.7 F 08/24/20 07:17 Pulse 96 08/24/20 07:17 Resp 18 08/24/20 07:17 BP 167/91 H 08/24/20 07:17 Pulse Ox 92 08/24/20 07:17 Body Mass Index 21.6 General: AO X 2, no acute distress Resp: rhonchi kesha CVS: S1,S2,RRR GI: +BS, NT, no distention Skin: No rash Neuro: motor grossly intact Psych: appropriate affect Objective Data Current Medications Generic Name Dose Route Start Last Admin Trade Name Freq PRN Reason Stop Dose Admin Acetaminophen 650 mg 08/19/20 21:30 Acetaminophen Supp 650 Mg Supp.Rect SD Q6H PRN Pain, Mild (Pain Scale 1-3) Amlodipine Besylate 5 mg 08/20/20 09:00 08/24/20 08:21 Amlodipine Besylate 5 Mg Tablet PO 5 mg DAILY LALI Administration Protocol Artificial Tears 1 drop 08/19/20 21:00 Artificial Tears 15 Ml Drops EYE-BOTH TID PRN Dry Eyes Fluticasone Propionate 2 spray 08/20/20 09:00 08/23/20 09:31 Fluticasone Propionate Nasal 16 Gm [place] NOSTRIL-B Not Given DAILY [facility]ALI Nicotine 14 mg 08/21/20 09:00 08/24/20 08:18 Nicotine 14 Mg Patch.Td24 TRANSDERMA 14 mg DAILY [facility]I Administration Omeprazole 20 mg 08/20/20 17:17 08/24/20 06:13 Omeprazole 20 Mg Capsule.Dr PO 20 mg BID@0630,1630 [facility]I Administration Ondansetron HCl 4 mg 08/19/20 21:30 Ondansetron Hcl 4 Mg/2 Ml Vial IVPUSH Q8H PRN Nausea and Vomiting Sodium Chloride 3 ml 08/20/20 00:00 08/24/20 08:22 0.9 % Sodium Chloride Flush 3 Ml Syringe IVFLUSH 3 ml QSHIFT LALI Administration Labs CBC & Chem 7: 08/20/20 08:08/20/20 08:09 Assessment and Plan (1) Indeterminate pulmonary nodules: Problem details: new primary Status: Acute Assessment and Plan: 84-year-old male with history of colon cancer, Hodgkin's lymphoma, hypertension, dyslipidemia, coronary artery disease, BPH who presented to the emergency department with dysphagia found to have lung nodules on CT chest concerning for malignancy Dysphagia--EGD 08/[address] Real with the follwing impressin and recommendation. -Imp: I suspect his dysphagia may have been related to a transient food bolus with subsequent spontaneous passage vs. some GERD with associated esophageal spasm and motility disturbance. The other possibility would be that of some oropharyngeal dysphagia in relation to his age, medical condition, etc. Rec: PPI, Full liquid diet, observe, and swallowing evaluation before advancing diet further. He may need a modified Barium swalllow and a formal evaluation with the speech and swallowing evaluation team before discharge. D -advance diet as chauncey Lung nodules concerning for neoplastic process done by IR on 08/23 Hypoxia this morning--O2, CXR to rule PTX from Bx or rule PNA Tobacco dependence Smoking cessation advised -NRT Plan discussed with his sister Jerilyn over the phone
--- NOTE | 2020-08-24 10:51 | PC.NURSE ---
1000 increased prod cough Having a lot of thick phlyem o2 SAT 82% on RA. 02 applied 5l via n/C Also having increased diff swallowing food at [facility]. Dr Cross aware. CXR ordered
[2020-08-24 11:27] VITALS: BP 159/82; PULSE 93; RESP 18; TEMP 36.6; O2SAT 94
--- NOTE | 2020-08-24 12:04 | P.PNHO_ITS ---
Medical Summary - Medical Summary Date of Service: 08/24/20 Chief complaint: pulmonary mass Medical Summary: He continues with weakness and anorexia. He initially refused the biopsy but now agrees. The 2 cm nodule is very peripheral. Interval History Interval history: He is more alert and the biopsy was done yesterday. The reading on the chest xray indicates worsening of his pulmonary disease. Review of Systems - Eyes Reports dry eyes - ENT Reports hoarseness - Cardiovascular Reports fast heart rate - Respiratory Reports cough - Gastrointestinal Reports abdominal pain - Genitourinary Genitourinary: Reports decreased urination, Reports difficulty urinating - Musculoskeletal Reports decreased muscle mass - Integumentary/Breasts Skin/Breast: Reports other - Neurologic Reports system reviewed and no additional complaints, except as documented, Reports hearing normal, Reports memory loss - Psychiatric Reports change in appetite - Endocrine Reports cold intolerance - Hematologic/Lymphatic Reports other - Allergic/Immunologic Reports other [facility] Medical History: Medical History (Last Reviewed 08/20/20 @ 14:32 by Red Michaels MD) Atrial fibrillation Cholelithiasis COPD (chronic obstructive pulmonary disease) GERD (gastroesophageal reflux disease) History of colon cancer Hodgkins lymphoma Hypercholesterolemia Hypertension Leg weakness, bilateral Pancreatitis Renal calculus, left Tobacco abuse Functional capacity: uses cane/walker Family History: Family History (Last Reviewed 08/20/20 @ 14:32 by Red Michaels MD) Father CVD (cardiovascular disease) Mother CVD (cardiovascular disease) Surgical History: Surgical History (Last Reviewed 08/20/20 @ 14:32 by Red Michaels MD) History of bilateral cataract extraction History of chemotherapy History of colectomy History of tonsillectomy Hx of inguinal hernia surgery Smoking status: Light tobacco smoker Time spent discussing smoking cessation with patient: 3 to 10 minutes Oncology Screenings - Immunizations Pneumoccocal Immunization Status: Up To Date - Alverda Frail Scale Number of times patient admitted to hospital in past year: 1 to 2 Alverda Frail Scale Score: 1 Frailty Level: Not Frail Home Medications and Allergies Current Medications: Current Medications Generic Name Dose Route Start Last Admin Trade Name Freq PRN Reason Stop Dose Admin Acetaminophen 650 mg 08/19/20 21:30 Acetaminophen Supp 650 Mg Supp.Rect [place] Q6H PRN Pain, Mild (Pain Scale 1-3) Amlodipine Besylate 5 mg 08/20/20 09:00 12/18/20 08:21 Amlodipine Besylate 5 Mg Tablet PO 5 mg DAILY [facility] Administration Protocol Artificial Tears 1 drop 08/19/20 21:00 Artificial Tears 15 Ml Drops EYE-BOTH TID PRN Dry Eyes Fluticasone Propionate 2 spray 08/20/20 09:00 08/23/20 09:31 Fluticasone Propionate Nasal 16 Gm Hindman NOSTRIL-B Not Given DAILY [facility] Ampicillin Sodium/Sulbactam 100 mls @ 200 mls/hr 08/24/20 12:00 Sodium 1.5 gm/ Sodium Chloride IV Q8H LAIL Nicotine 14 mg 08/21/20 09:00 08/24/20 08:18 Nicotine 14 Mg Patch.Td24 TRANSDERMA 14 mg DAILY [facility] Administration Omeprazole 20 mg 08/20/20 17:17 08/24/20 06:13 Omeprazole 20 Mg Capsule.Dr PO 20 mg BID@0630,1630 [facility] Administration Ondansetron HCl 4 mg 08/19/20 21:30 Ondansetron Hcl 4 Mg/2 Ml Vial IVPUSH Q8H PRN Nausea and Vomiting Sodium Chloride 3 ml 08/20/20 00:00 08/24/20 08:22 0.9 % Sodium Chloride Flush 3 Ml Syringe IVFLUSH 3 ml QSHIFT [facility] Administration Home Medications Medication Instructions Recorded Confirmed Type amlodipine 5 mg tablet 5 mg PO DAILY 06/15/20 08/19/20 History ascorbic acid (vitamin C) 500 mg 500 mg PO DAILY 06/15/20 08/19/20 History capsule atorvastatin 10 mg tablet 10 mg PO DAILY 06/15/20 08/19/20 History dextran 70-hypromellose 0.1 %-0.3 1 drp OPHTHALMIC (EYE) DIRECTED 06/15/20 08/19/20 History % eye drops ferrous sulfate 325 mg (65 mg 325 mg PO DAILY 06/15/20 08/19/20 History iron) tablet fluticasone propionate 50 2 spray INTRANASAL DAILY 06/15/20 08/19/20 History mcg/actuation nasal spray,suspension megestrol 10 ml PO BID 08/19/20 08/19/20 History Allergies Allergy/AdvReac Type Severity Reaction Status Date / Time procaine [From Novocain] Allergy Mild INEFFECTIVE Verified 06/15/20 12:42 PER RN lisinopril Allergy Unknown Unknown Verified 10/09/20 12:42 Exam Vital signs: Vital Signs Temp 97.9 F 08/24/20 11:27 Pulse 93 08/24/20 11:27 Resp 18 08/24/20 11:27 BP 159/82 H 08/24/20 11:27 Pulse Ox 94 08/24/20 11:27 Intake & Output 08/23/20 08/24/20 08/24/20 18:59 06:59 18:59 Intake Total 1000 / 1000 0 / 1000 Output Total 500 / 1000 500 / 1000 Balance 500 / 0 -500 / 0 Urine Output (Average ml/kg/hr) 0.71 0.71 0.71 Intake: Intake, Oral Amount 0 / 0 Intake, IV Amount 1000 / 1000 0.9 % Sodium Chloride 1,000 ml 1000 / 1000 @ 80 mls/hr IVCONT .[id number] [facility] Rx#:[id number] Output: Output, Urine Amount 500 / 1000 500 / 1000 Other: NPO Yes Breakfast % Eaten 0% Number of Incontinent Voids 3 Number of Unmeasured Voids 1 Urine Urinal Urinal Urine Color Yellow Yellow Weight 58.96 kg Body Mass Index 21.6 - Constitutional Present: chronically ill appearing - Routine HEENT Exam Head: Present: atraumatic - Routine Abdominal Exam Present: diminished bowel sounds - Routine Extremities Exam Present: extremity cold to touch - Routine Skin Exam Present: scars - Routine Neurological Exam Present: altered mental status Data - Labs CBC & Chem 7: 08/20/20 08:09 08/20/20 08:09 Labs: 08/19/20 15:18 XR chest 2V Stat XR soft tissue neck Stat 08/19/20 15:28 SARS-CoV2/FLU/RSV Stat 08/19/20 15:30 0.9 % Sodium Chloride [Ns] 1,000 ml IVCONT 999 mls/hr 08/19/20 15:37 Basic Metabolic Panel Stat C Reactive Protein Stat Complete Blood Count Auto Diff Stat Ferritin Stat Hold Lt Blue - Possible Coag Stat Lactate Dehydrogenase Stat Liver Panel Stat Magnesium Stat Procalcitonin Stat 08/19/20 16:19 CT chest w con Stat CT soft tissue neck w con Stat 08/19/20 16:56 iohexoL 350 MG/ML [Omnipaque 350 MG/ML] 100 ml IV ONCE ONE 08/19/20 18:46 Transfer Order Routine 08/19/20 21:30 0.9 % Sodium Chloride [Ns] 1,000 ml IVCONT 80 mls/hr Nicotine [Nicoderm] 14 mg TRANSDERMA DAILY 08/19/20 21:30 Vital Signs QSHIFT 08/20/20 08:09 Basic Metabolic Panel DAILY@0600 Carcinoembryonic Antigen Routine Complete Blood Count Auto Diff DAILY@0600 Erythrocyte Sedimentation Rate Routine 08/20/20 11:09 Add Laboratory Test Urgent 08/20/20 15:54 Glycopyrrolate [Robinul] 0.2 mg .ROUTE .STK-MED ONE Lidocaine HCl 2 % MPF [Xylocaine 2 % MPF] 5 ml .ROUTE .STK-MED ONE Lidocaine HCl Viscous 2 % [Xylocaine Viscous 2 % Oral Suni] 15 ml MUCOUS MEM .STK-MED ONE propofoL [Diprivan] 200 mg IVPUSH .STK-MED ONE 08/20/20 16:40 Transfer Order Routine 08/20/20 Dinner Full Liquid Diet 08/21/20 02:26 LORazepam [Ativan] 1 mg IVPUSH ONCE ONE 08/22/20 Dinner NPO Diet 08/23/20 CT biopsy lung LT Routine XR chest 2V Routine 08/23/20 10:13 Prothrombin Time INR Stat 08/23/20 11:59 Lidocaine HCl 1 % MPF [Xylocaine 1 % MPF] 5 ml .ROUTE .STK-MED ONE fentaNYL citrate/PF [Sublimaze] 50 mcg .ROUTE .STK-MED ONE 08/23/20 12:00 Midazolam HCl/PF [Versed] 2 mg .ROUTE .STK-MED ONE Naloxone HCl [Narcan] 0.4 mg .ROUTE .STK-MED ONE flumazeniL [Romazicon] 0.05 mg .ROUTE .STK-MED ONE 08/23/20 13:11 Vital Signs Q30M 08/23/20 14:00 Lidocaine HCl 1 % [Xylocaine 1 %] 20 ml SUBCUT ONCE ONE 08/23/20 14:35 Lidocaine HCl 1 % MPF [Xylocaine 1 % MPF] 7 ml SUBCUT ONCE ONE 08/24/20 XR chest 2V Urgent Laboratory Last Values WBC 10.2 X10*3/uL (4.8-10.8) 08/20/20 08:09 RBC 4.98 X10*6/uL (4.60-5.80) 08/20/20 08:09 Hgb 14.0 g/dl (14.0-18.0) 08/20/20 08:09 Hct 43.2 % (42-52) 08/20/20 08:09 MCV 86.7 fL (80-98) 08/20/20 08:09 MCH 28.1 pg (27.0-33.0) 08/20/20 08:09 MCHC 32.4 g/dl (31.0-36.0) 08/20/20 08:09 RDW 13.4 % (11.0-16.0) 08/20/20 08:09 Plt Count 319 X10*3/uL (160-400) 08/20/20 08:09 MPV 7.8 fL (9.4-12.4) L 08/20/20 08:09 Immature Gran % (Auto) 1.3 % (0.0-0.4) H 08/20/20 08:09 Neut % (Auto) 77.4 % (45-73) H 08/20/20 08:09 Lymph % (Auto) 10.5 % (20-40) L 08/20/20 08:09 Payne % (Auto) 8.7 % (2-11) 08/20/20 08:09 Eos % (Auto) 1.6 % (0-4) 08/20/20 08:09 Baso % (Auto) 0.5 % (0-2) 08/20/20 08:09 Lymph # (Auto) 1.1 X10*3/uL (1.2-4.9) L 08/20/20 08:09 Payne # (Auto) 0.9 X10*3/uL (0.1-1.2) 08/20/20 08:09 Eos # (Auto) 0.2 X10*3/uL (0.0-0.4) 08/20/20 08:09 Baso # (Auto) 0.1 X10*3/uL (0.0-0.2) 08/20/20 08:09 Abs Immat Gran (auto) 0.13 X10*3/uL (0.00-0.03) H 08/20/20 08:09 Absolute Neuts (auto) 7.9 X10*3/uL (2.0-8.3) 08/20/20 08:09 Absolute Nucleated RBC 0.000 X10*3/uL (0.0-0.012) 08/20/20 08:09 Nucleated RBC % (auto) 0.0 /100WBC (0.0-0.2) 08/20/20 08:09 ESR 16 MM/HR (0-15) H 08/20/20 08:09 PT 16.5 SEC (10.8-13.0) H 08/23/20 10:13 INR 1.4 (0.9-1.1) H 08/23/20 10:13 Hold Blue Top SEE NOTE 08/19/20 15:37 Sodium 139 mmol/L (135-145) 08/20/20 08:09 Potassium 4.2 mmol/l (3.3-5.1) 08/20/20 08:09 Chloride 104 mmol/L (96-108) 08/20/20 08:09 Carbon Dioxide 19 mmol/L (22-29) L 08/20/20 08:09 Anion Gap 20 (12-20) 08/20/20 08:09 BUN 15 mg/dL (9-16) 08/20/20 08:09 Creatinine 0.70 mg/dL (0.5-1.4) 08/20/20 08:09 Estim Creat Clear Calc 65.5 08/20/20 08:09 Estimated GFR > 60 08/20/20 08:09 Random Glucose 78 mg/dL (60-115) 08/20/20 08:09 Calcium 8.7 mg/dL (8.4-10.2) 08/20/20 08:09 Magnesium 2.0 mg/dL (1.6-2.6) 08/19/20 15:37 Ferritin 144 ng/mL (20-250) 08/19/20 15:37 Ferritin Cancelled 08/19/20 15:37 Total Bilirubin 0.6 mg/dL (0.0-1.0) 08/19/20 15:37 Direct Bilirubin 0.3 mg/dL (0.0-0.5) 08/19/20 15:37 AST 17 U/L (5-37) 08/19/20 15:37 ALT 26 U/L (0-40) 08/19/20 15:37 Alkaline Phosphatase 165 U/L (39-117) H 08/19/20 15:37 Lactate Dehydrogenase 157 U/L (118-273) 08/19/20 15:37 Lactate Dehydrogenase Cancelled 08/19/20 15:37 C-Reactive Protein 1.71 mg/dL (< or = 0.50) H 08/19/20 15:37 C-Reactive Protein Cancelled 08/19/20 15:37 Total Protein 5.9 g/dL (6.5-8.0) L 08/19/20 15:37 Albumin 4.0 g/dL (3.5-5.0) 08/19/20 15:37 Carcinoembryonic Ag 6.50 mg/mL 08/20/20 08:09 Procalcitonin 0.11 ng/mL 08/19/20 15:37 Coronavirus (PCR) NEGATIVE (Negative) 08/19/20 15:28 Influenza Type A (PCR) NEGATIVE (Negative) 08/19/20 15:28 Influenza Type B (PCR) NEGATIVE (Negative) 08/19/20 15:28 RSV RNA Qual (PCR) NEGATIVE (Negative) 08/19/20 15:28 Progress Note: A/P (1) Indeterminate pulmonary nodules Start date: 08/23/20 (I will review the case with pathology) Problem details: new primary Status: Acute - Time Spent With Patient Total time spent is greater than 50% in coordination of care (as documented) at patient's floor/unit and/or counseling patient: less than 15 minutes (none) Procedures - Paracentesis Complications: none
[2020-08-24] MEDS: Ampicillin Sodium/Sulbactam Na 1.5 GM in 0.9 % Sodium Chloride 100 ML IV ×2 (14:00→20:03)
[2020-08-24 15:10] VITALS: BP 170/88; PULSE 97; RESP 18; TEMP 37.1; O2SAT 94
[2020-08-24 19:04] VITALS: BP 156/87; PULSE 83; RESP 18; TEMP 37.1; O2SAT 94
--- NOTE | 2020-08-24 21:09 | MHC.PIE ---
p; in reports, day shift noted pt chocking and coughing trying to swallow water. note; pt remains regular diet? dr carey notified during days i; dr sutherland notifed; new order diet npo e; will cont to monitor
[2020-08-24 22:55] VITALS: BP 169/87; PULSE 101; RESP 17; TEMP 36.6; O2SAT 93
[2020-08-25] VITALS (8 sets, daily range): BP systolic 148–178; BP diastolic 77–95; PULSE 98–104; RESP 15–20; TEMP 36.3–37.1; O2SAT 92–94
[2020-08-25] MEDS: Ampicillin Sodium/Sulbactam Na 1.5 GM in 0.9 % Sodium Chloride 100 ML IV ×4 (02:15→19:44)
[2020-08-25] MEDS: 0.9 % Sodium Chloride Flush 3 ML SYRINGE IVFLUSH (07:35)
[2020-08-25] MEDS: amLODIPine Besylate 5 MG TABLET PO (10:05)
[2020-08-25] MEDS: Nicotine 14 MG PATCH.TD24 TRANSDERMA (10:05)
[2020-08-25] MEDS: Fluticasone Propionate Nasal 16 GM SPRAY 2 SPRAY NOSTRIL-B (10:06)
--- NOTE | 2020-08-25 10:15 | HO.PM.IMPN ---
Subjective Subjective Date of Service: 08/25/20 Interval History: f/u dysphagia, egd showed no obstruction. Failed swallow eval by speech yester and is NPO, no new issues. ROS: no fever, no SOB, cough with attempt to swallow Physical Exam Vital Signs: Vital Signs: Last Vital Signs Temp 98.1 F 08/25/20 08:00 Pulse 100 08/25/20 10:05 Resp 20 08/25/20 08:00 BP 148/77 H 08/25/20 10:05 Pulse Ox 92 08/25/20 08:00 Body Mass Index 21.6 General: AO X 2, no acute distress Resp: kesha rhonchi CVS: S1,S2,RRR GI: +BS, NT, no distention Skin: No rash Neuro: motor grossly intact Psych: appropriate affect Objective Data Current Medications Generic Name Dose Route Start Last Admin Trade Name Freq PRN Reason Stop Dose Admin Acetaminophen 650 mg 08/19/20 21:30 Acetaminophen Supp 650 Mg Supp.Rect ID Q6H PRN Pain, Mild (Pain Scale 1-3) Amlodipine Besylate 5 mg 08/20/20 09:00 08/25/20 10:05 Amlodipine Besylate 5 Mg Tablet PO 5 mg DAILY [facility] Administration Protocol Artificial Tears 1 drop 08/19/20 21:00 Artificial Tears 15 Ml Drops EYE-BOTH TID PRN Dry Eyes Fluticasone Propionate 2 spray 08/20/20 09:00 08/25/20 10:06 Fluticasone Propionate Nasal 16 Gm [place] NOSTRIL-B 2 spray DAILY [facility] Administration Ampicillin Sodium/Sulbactam 100 mls @ 200 mls/hr 08/24/20 13:00 08/25/20 08:04 Sodium 1.5 gm/ Sodium Chloride IV Infused Q6H [facility] Infusion Nicotine 14 mg 08/21/20 09:00 08/25/20 10:05 Nicotine 14 Mg Patch.Td24 TRANSDERMA 14 mg DAILY [facility] Administration Omeprazole 20 mg 08/25/20 06:30 08/25/20 07:35 Omeprazole 20 Mg/10 Ml Susp.Recon PO 20 mg BID@0630,1630 [facility] Administration Ondansetron HCl 4 mg 08/19/20 21:30 Ondansetron Hcl 4 Mg/2 Ml Vial IVPUSH Q8H PRN Nausea and Vomiting Sodium Chloride 3 ml 08/20/20 00:00 08/25/20 07:35 0.9 % Sodium Chloride Flush 3 Ml Syringe IVFLUSH 3 ml QSHIFT [facility] Administration Labs CBC & Chem 7: 08/20/20 08:09 08/20/20 08:09 Assessment and Plan (1) Indeterminate pulmonary nodules: Problem details: new primary Status: Acute Assessment and Plan: 84-year-old male with history of colon cancer, Hodgkin's lymphoma, hypertension, dyslipidemia, coronary artery disease, BPH who presented to the emergency department with dysphagia found to have lung nodules on CT chest concerning for malignancy Dysphagia--EGD 08/[address] Real with the follwing impressin and recommendation. -Imp: I suspect his dysphagia may have been related to a transient food bolus with subsequent spontaneous passage vs. some GERD with associated esophageal spasm and motility disturbance. The other possibility would be that of some oropharyngeal dysphagia in relation to his age, medical condition, etc. Rec: PPI, Full liquid diet, observe, and swallowing evaluation before advancing diet further. He may need a modified Barium swalllow and a formal evaluation with the speech and swallowing evaluation team before discharge. D He failed swallow eval on 08/24 and is now NPO and will arrange for barium swallow as next stip IVF while NPO Aspiration PNA with acute hypoxia on 08/24-doing better. Unasyn D2/7 Lung nodules concerning for neoplastic process done by IR on 08/23 Hypoxia this morning--O2, CXR to rule PTX from Bx or rule PNA Tobacco dependence Smoking cessation advised -NRT Plan discussed with his sister Jerilyn over the phone
[2020-08-25 11:21] LABS: Hematocrit 41.1 % (42-52); Hemoglobin 13.5 g/dl (14.0-18.0); Mean Corpuscular HGB Conc 32.8 g/dl (31.0-36.0); Mean Corpuscular Hemoglobin 28.4 pg (27.0-33.0); Mean Corpuscular Volume 86.3 fL (80-98); Mean Platelet Volume 8.4 fL (9.4-12.4); Platelet Count 348 X10*3/uL (160-400); Red Blood Count 4.76 X10*6/uL (4.60-5.80); Red Cell Distribution Width 13.9 % (11.0-16.0); White Blood Count 9.8 X10*3/uL (4.8-10.8)
[2020-08-25] MEDS: Dextrose 5 % and 0.45 % NaCl 1,000 ML 100 ML IVCONT (11:54)
[2020-08-25 12:00] LABS: Anion Gap 18 (12-20); Blood Urea Nitrogen 10 mg/dL (9-16); Calcium 8.7 mg/dL (8.4-10.2); Carbon Dioxide 30 mmol/L (22-29); Chloride 103 mmol/L (96-108); Creatinine Clr Calc Pharmacy 71.6; Estimated Glomerular Filt Rate > 60; Glucose Random 108 mg/dL (60-115); Potassium 2.8 mmol/l (3.3-5.1); Sodium 148 mmol/L (135-145)
--- NOTE | 2020-08-25 12:40 | PM.HEMONCPN ---
Medical Summary - Medical Summary Date of Service: 08/25/20 Chief complaint: pulmonary mass Medical Summary: He continues with weakness and anorexia. He initially refused the biopsy but now agrees. The 2 cm nodule is very peripheral. Interval History Interval history: He seems comfortable. The pathology report is not yet available. Review of Systems - Eyes Reports requires corrective lenses - ENT Reports other - Cardiovascular Reports fast heart rate - Respiratory Reports cough - Gastrointestinal Reports abdominal pain - Genitourinary Genitourinary: Reports urinary urgency - Musculoskeletal Reports joint pain - Integumentary/Breasts Skin/Breast: Reports dry skin - Neurologic Reports system reviewed and no additional complaints, except as documented, Reports hearing normal, Reports memory loss - Psychiatric Reports depression - Endocrine Reports other - Hematologic/Lymphatic Reports easy bruising - Allergic/Immunologic Reports other [facility] Medical History: Medical History (Last Reviewed 08/20/20 @ 14:32 by Red Michaels MD) Atrial fibrillation Cholelithiasis COPD (chronic obstructive pulmonary disease) GERD (gastroesophageal reflux disease) History of colon cancer Hodgkins lymphoma Hypercholesterolemia Hypertension Leg weakness, bilateral Pancreatitis Renal calculus, left Tobacco abuse Functional capacity: uses cane/walker Family History: Family History (Last Reviewed 08/20/20 @ 14:32 by Red Michaels MD) Father CVD (cardiovascular disease) Mother CVD (cardiovascular disease) Surgical History: Surgical History (Last Reviewed 08/20/20 @ 14:32 by Red Michaels MD) History of bilateral cataract extraction History of chemotherapy History of colectomy History of tonsillectomy Hx of inguinal hernia surgery Smoking status: Light tobacco smoker Oncology Screenings - G8 Geriatric Assessment Mobility: Bed or chair bound Body Mass Index: 19 to 21 Patient's assessment of health status compared to others: Not as good G8 Score: 1 G8 Risk Level: High risk for early functional decline and reduced survival. - Isabella Frail Scale Number of times patient admitted to hospital in past year: 1 to 2 In general, patient describes health as: Poor Patient uses 5 or more prescription medications: Yes Patient reports forgetfulness with taking prescription meds: Yes Patient reports weight loss: Yes Patient often feels sad or depressed: Yes Patient experiences incontinence: Yes # Sec for patient to walk 3m distance and return to chair: 11-20 Sec Isabella Frail Scale Score: 9 Frailty Level: Mild Frailty - [place] VTE Risk Cancer Type: Lung Pre-chemo platelet count >= 350,000/uL: Yes Hemoglobin level <10 g/dL or using RBC growth factors: Yes Pre-chemo leukocyte count > 11,000/uL: Yes BMI >=35: Yes VTE Risk Score:: 5 [place] VTE Risk: High VTE Risk Home Medications and Allergies Current Medications: Current Medications Generic Name Dose Route Start Last Admin Trade Name Freq PRN Reason Stop Dose Admin Acetaminophen 650 mg 08/19/20 21:30 Acetaminophen Supp [address] Q6H PRN Pain, Mild (Pain Scale 1-3) Amlodipine Besylate 5 mg 08/20/20 09:00 08/25/20 10:05 Amlodipine Besylate 5 Mg Tablet PO 5 mg DAILY LALI Administration Protocol Artificial Tears 1 drop 08/19/20 21:00 Artificial Tears 15 Ml Drops EYE-BOTH TID PRN Dry Eyes Fluticasone Propionate 2 spray 08/20/20 09:00 08/25/20 10:06 Fluticasone Propionate Nasal 16 Gm [place] NOSTRIL-B 2 spray DAILY LALI Administration Ampicillin Sodium/Sulbactam 100 mls @ 200 mls/hr 08/24/20 13:00 08/25/20 08:04 Sodium 1.5 gm/ Sodium Chloride IV Infused Q6H LALI Infusion Dextrose/Sodium Chloride 1,000 mls @ 100 mls/hr 08/25/20 11:30 08/25/20 11:54 D51/2ns IVCONT 100 mls/hr .Q10H LALI Administration Nicotine 14 mg 08/21/20 09:00 08/25/20 10:05 Nicotine 14 Mg Patch.Td24 TRANSDERMA 14 mg DAILY LALI Administration Omeprazole 20 mg 08/25/20 06:30 08/25/20 07:35 Omeprazole 20 Mg/10 Ml Susp.Recon PO 20 mg BID@0630,1630 LALI Administration Ondansetron HCl 4 mg 08/19/20 21:30 Ondansetron Hcl 4 Mg/2 Ml Vial IVPUSH Q8H PRN Nausea and Vomiting Sodium Chloride 3 ml 08/20/20 00:00 08/25/20 07:35 0.9 % Sodium Chloride Flush 3 Ml Syringe IVFLUSH 3 ml QSHIFT LALI Administration Home Medications Medication Instructions Recorded Confirmed Type amlodipine 5 mg tablet 5 mg PO DAILY 06/15/20 08/19/20 History ascorbic acid (vitamin C) 500 mg 500 mg PO DAILY 06/15/20 08/19/20 History capsule atorvastatin 10 mg tablet 10 mg PO DAILY 06/15/20 08/19/20 History dextran 70-hypromellose 0.1 %-0.3 1 drp OPHTHALMIC (EYE) DIRECTED 06/15/20 08/19/20 History % eye drops ferrous sulfate 325 mg (65 mg 325 mg PO DAILY 06/15/20 08/19/20 History iron) tablet fluticasone propionate 50 2 spray INTRANASAL DAILY 06/15/20 08/19/20 History mcg/actuation nasal spray,suspension megestrol 10 ml PO BID 08/19/20 08/19/20 History Allergies Allergy/AdvReac Type Severity Reaction Status Date / Time procaine [From Novocain] Allergy Mild INEFFECTIVE Verified 06/15/20 12:42 PER RN lisinopril Allergy Unknown Unknown Verified 06/15/20 12:42 Exam Vital signs: Vital Signs Temp 97.8 F 08/25/20 11:33 Pulse 98 08/25/20 11:33 Resp 19 08/25/20 11:33 BP 159/91 H 08/25/20 11:33 Pulse Ox 92 08/25/20 11:33 Intake & Output 08/24/20 08/25/20 08/25/20 18:59 06:59 18:59 Intake Total 100 / 300 200 / 300 100 / 100 Output Total 300 / 300 Balance 100 / 0 -100 / 0 100 / 100 Urine Output (Average ml/kg/hr) 0.42 0.42 Intake: Intake, IV Amount 100 / 300 200 / 300 100 / 100 Ampicillin Sodium/Sulbactam Na 100 / 300 200 / 300 100 / 100 1.5 gm In 0.9 % Sodium Chloride 100 ml @ 200 mls/hr IV Q6H [facility] Rx#:[id number] Output: Output, Urine Amount 300 / 300 Other: Breakfast % Eaten 0% Lunch % Eaten 0% Number of Incontinent Voids 2 1 Weight 58.96 kg Body Mass Index 21.6 - Constitutional Present: chronically ill appearing - Routine HEENT Exam Head: Present: atraumatic - Routine Abdominal Exam Present: diminished bowel sounds - Routine Extremities Exam Present: extremity cold to touch - Routine Skin Exam Present: scars - Routine Neurological Exam Present: altered mental status Data - Labs CBC & Chem 7: 08/25/20 11:02 08/25/20 11:02 Labs: 08/19/20 15:18 XR chest 2V Stat XR soft tissue neck Stat 08/19/20 15:28 SARS-CoV2/FLU/RSV Stat 08/19/20 15:30 0.9 % Sodium Chloride [Ns] 1,000 ml IVCONT 999 mls/hr 08/19/20 15:37 Basic Metabolic Panel Stat C Reactive Protein Stat Complete Blood Count Auto Diff Stat Ferritin Stat Hold Lt Blue - Possible Coag Stat Lactate Dehydrogenase Stat Liver Panel Stat Magnesium Stat Procalcitonin Stat 08/19/20 16:19 CT chest w con Stat CT soft tissue neck w con Stat 08/19/20 16:56 iohexoL 350 MG/ML [Omnipaque 350 MG/ML] 100 ml IV ONCE ONE 08/19/20 18:46 Transfer Order Routine 08/19/20 21:30 0.9 % Sodium Chloride [Ns] 1,000 ml IVCONT 80 mls/hr Nicotine [Nicoderm] 14 mg TRANSDERMA DAILY 08/19/20 21:30 Vital Signs QSHIFT 08/20/20 08:09 Basic Metabolic Panel DAILY@0600 Carcinoembryonic Antigen Routine Complete Blood Count Auto Diff DAILY@0600 Erythrocyte Sedimentation Rate Routine 08/20/20 11:09 Add Laboratory Test Urgent 08/20/20 15:54 Glycopyrrolate [Robinul] 0.2 mg .ROUTE .STK-MED ONE Lidocaine HCl 2 % MPF [Xylocaine 2 % MPF] 5 ml .ROUTE .STK-MED ONE Lidocaine HCl Viscous 2 % [Xylocaine Viscous 2 % Oral Suni] 15 ml MUCOUS MEM .STK-MED ONE propofoL [Diprivan] 200 mg IVPUSH .STK-MED ONE 08/20/20 16:40 Transfer Order Routine 08/20/20 17:17 Omeprazole [PriLOSEC] 20 mg PO BID@0630,1630 08/20/20 Dinner Full Liquid Diet 08/21/20 02:26 LORazepam [Ativan] 1 mg IVPUSH ONCE ONE 08/22/20 Dinner NPO Diet 08/23/20 CT biopsy lung LT Routine XR chest 2V Routine 08/23/20 10:13 Prothrombin Time INR Stat 08/23/20 11:59 Lidocaine HCl 1 % MPF [Xylocaine 1 % MPF] 5 ml .ROUTE .STK-MED ONE fentaNYL citrate/PF [Sublimaze] 50 mcg .ROUTE .STK-MED ONE 08/23/20 12:00 Midazolam HCl/PF [Versed] 2 mg .ROUTE .STK-MED ONE Naloxone HCl [Narcan] 0.4 mg .ROUTE .STK-MED ONE flumazeniL [Romazicon] 0.05 mg .ROUTE .STK-MED ONE 08/23/20 13:11 Vital Signs Q30M 08/23/20 14:00 Lidocaine HCl 1 % [Xylocaine 1 %] 20 ml SUBCUT ONCE ONE 08/23/20 14:35 Lidocaine HCl 1 % MPF [Xylocaine 1 % MPF] 7 ml SUBCUT ONCE ONE 08/24/20 XR chest 2V Urgent 08/24/20 13:57 Ampicillin Sodium/Sulbactam Na [Unasyn] 1.5 gm .ROUTE .STK-MED ONE 08/24/20 19:57 Ampicillin Sodium/Sulbactam Na [Unasyn] 1.5 gm .ROUTE .STK-MED ONE 08/25/20 02:13 Ampicillin Sodium/Sulbactam Na [Unasyn] 1.5 gm .ROUTE .STK-MED ONE 08/25/20 07:26 Ampicillin Sodium/Sulbactam Na [Unasyn] 1.5 gm .ROUTE .STK-MED ONE 08/25/20 11:02 Basic Metabolic Panel Routine Complete Blood Count no Diff Routine Laboratory Last Values WBC 9.8 X10*3/uL (4.8-10.8) 08/25/20 11:02 RBC 4.76 X10*6/uL (4.60-5.80) 08/25/20 11:02 Hgb 13.5 g/dl (14.0-18.0) L 08/25/20 11:02 Hct 41.1 % (42-52) L 08/25/20 11:02 MCV 86.3 fL (80-98) 08/25/20 11:02 MCH 28.4 pg (27.0-33.0) 08/25/20 11:02 MCHC 32.8 g/dl (31.0-36.0) 08/25/20 11:02 RDW 13.9 % (11.0-16.0) 08/25/20 11:02 Plt Count 348 X10*3/uL (160-400) 08/25/20 11:02 MPV 8.4 fL (9.4-12.4) L 08/25/20 11:02 Immature Gran % (Auto) 1.3 % (0.0-0.4) H 08/20/20 08:09 Neut % (Auto) 77.4 % (45-73) H 08/20/20 08:09 Lymph % (Auto) 10.5 % (20-40) L 08/20/20 08:09 [place] % (Auto) 8.7 % (2-11) 08/20/20 08:09 Eos % (Auto) 1.6 % (0-4) 08/20/20 08:09 Baso % (Auto) 0.5 % (0-2) 08/20/20 08:09 Lymph # (Auto) 1.1 X10*3/uL (1.2-4.9) L 08/20/20 08:09 [place] # (Auto) 0.9 X10*3/uL (0.1-1.2) 08/20/20 08:09 Eos # (Auto) 0.2 X10*3/uL (0.0-0.4) 08/20/20 08:09 Baso # (Auto) 0.1 X10*3/uL (0.0-0.2) 08/20/20 08:09 Abs Immat Gran (auto) 0.13 X10*3/uL (0.00-0.03) H 08/20/20 08:09 Absolute Neuts (auto) 7.9 X10*3/uL (2.0-8.3) 08/20/20 08:09 Absolute Nucleated RBC 0.000 X10*3/uL (0.0-0.012) 08/25/20 11:02 Nucleated RBC % (auto) 0.0 /100WBC (0.0-0.2) 08/25/20 11:02 ESR 16 MM/HR (0-15) H 08/20/20 08:09 PT 16.5 SEC (10.8-13.0) H 08/23/20 10:13 INR 1.4 (0.9-1.1) H 08/23/20 10:13 Hold Blue Top SEE NOTE 08/19/20 15:37 Sodium 148 mmol/L (135-145) H 08/25/20 11:02 Potassium 2.8 mmol/l (3.3-5.1) L D 08/25/20 11:02 Chloride 103 mmol/L (96-108) 08/25/20 11:02 Carbon Dioxide 30 mmol/L (22-29) H 08/25/20 11:02 Anion Gap 18 (-20) 08/25/20 11:02 BUN 10 mg/dL (9-16) 08/25/20 11:02 Creatinine 0.64 mg/dL (0.5-1.4) 08/25/20 11:02 Estim Creat Clear Calc 71.6 08/25/20 11:02 Estimated GFR > 60 08/25/20 11:02 Random Glucose 108 mg/dL (60-115) D 08/25/20 11:02 Calcium 8.7 mg/dL (8.4-10.2) 08/25/20 11:02 Magnesium 2.0 mg/dL (1.6-2.6) 08/19/20 15:37 Ferritin 144 ng/mL (20-250) 08/19/20 15:37 Ferritin Cancelled 08/19/20 15:37 Total Bilirubin 0.6 mg/dL (0.0-1.0) 08/19/20 15:37 Direct Bilirubin 0.3 mg/dL (0.0-0.5) 08/19/20 15:37 AST 17 U/L (5-37) 08/19/20 15:37 ALT 26 U/L (0-40) 08/19/20 15:37 Alkaline Phosphatase 165 U/L (39-117) H 08/19/20 15:37 Lactate Dehydrogenase 157 U/L (118-273) 08/19/20 15:37 Lactate Dehydrogenase Cancelled 08/19/20 15:37 C-Reactive Protein 1.71 mg/dL (< or = 0.50) H 08/19/20 15:37 C-Reactive Protein Cancelled 08/19/20 15:37 Total Protein 5.9 g/dL (6.5-8.0) L 08/19/20 15:37 Albumin 4.0 g/dL (3.5-5.0) 08/19/20 15:37 Carcinoembryonic Ag 6.50 mg/mL 08/20/20 08:09 Procalcitonin 0.11 ng/mL 08/19/20 15:37 Coronavirus (PCR) NEGATIVE (Negative) 08/19/20 15:28 Influenza Type A (PCR) NEGATIVE (Negative) 08/19/20 15:28 Influenza Type B (PCR) NEGATIVE (Negative) 08/19/20 15:28 RSV RNA Qual (PCR) NEGATIVE (Negative) 08/19/20 15:28 Progress Note: A/P (1) Indeterminate pulmonary nodules Start date: 08/23/20 (I will review the case with pathology) Problem details: new primary Status: Acute Assessment and plan: We will await the pathology report. He remains much to weak for aggressive treatment. - Time Spent With Patient Total time spent is greater than 50% in coordination of care (as documented) at patient's floor/unit and/or counseling patient: less than 15 minutes
[2020-08-25] MEDS: Potassium Chloride/H20 10 MEQ/100 ML PIGGYBACK 100 MEQ IV ×2 (18:18→20:18)
[2020-08-25] MEDS: KCl 20 mEq in 0.45% Sod 20 MEQ/1,000 ML IV.SOLN 100 MEQ IVCONT (18:18)
[2020-08-26] MEDS: Ampicillin Sodium/Sulbactam Na 1.5 GM in 0.9 % Sodium Chloride 100 ML IV ×4 (00:41→18:20)
[2020-08-26] MEDS: KCl 20 mEq in 0.45% Sod 20 MEQ/1,000 ML IV.SOLN 100 MEQ IVCONT (06:31)
[2020-08-26 07:15] VITALS: BP 170/96; PULSE 93; RESP 19; TEMP 36.7; O2SAT 93
[2020-08-26 07:25] LABS: Anion Gap 16 (12-20); Blood Urea Nitrogen 10 mg/dL (9-16); Calcium 8.5 mg/dL (8.4-10.2); Carbon Dioxide 29 mmol/L (22-29); Chloride 103 mmol/L (96-108); Creatinine Clr Calc Pharmacy 84.9; Estimated Glomerular Filt Rate > 60; Glucose Random 93 mg/dL (60-115); Potassium 3.1 mmol/l (3.3-5.1); Sodium 145 mmol/L (135-145)
[2020-08-26] MEDS: 0.9 % Sodium Chloride Flush 3 ML SYRINGE IVFLUSH (07:36)
[2020-08-26] MEDS: Nicotine 14 MG PATCH.TD24 TRANSDERMA (07:43)
[2020-08-26] MEDS: Fluticasone Propionate Nasal 16 GM SPRAY 2 SPRAY NOSTRIL-B (07:43)
[2020-08-26] MEDS: amLODIPine Besylate 5 MG TABLET PO (07:43)
--- NOTE | 2020-08-26 07:57 | P.PNIM_ITS ---
Subjective Subjective Date of Service: 08/26/20 Interval History: f/u dysphagia, egd showed no obstruction. Failed swallow eval by speech yester and is NPO, no new issues. ROS: no fever, no sob, wet coughing Physical Exam Vital Signs: Vital Signs: Last Vital Signs Temp 98.0 F 08/26/20 07:15 Pulse 93 08/26/20 07:15 Resp 19 08/26/20 07:15 BP 170/96 H 08/26/20 07:15 Pulse Ox 93 08/26/20 07:15 Body Mass Index 21.6 General: AO X 3, no acute distress Resp: normal resp effort, kesha rhonchi CVS: S1,S2,RRR GI: +BS, NT, no distention Skin: No rash Neuro: motor grossly intact Psych: appropriate affect Objective Data Current Medications Generic Name Dose Route Start Last Admin Trade Name Freq PRN Reason Stop Dose Admin Acetaminophen 650 mg 08/19/20 21:30 Acetaminophen Supp 650 Mg Supp.Rect [place] Q6H PRN Pain, Mild (Pain Scale 1-3) Amlodipine Besylate 5 mg 08/20/20 09:00 08/26/20 07:43 Amlodipine Besylate 5 Mg Tablet PO 5 mg DAILY LALI Administration Protocol Artificial Tears 1 drop 08/19/20 21:00 Artificial Tears 15 Ml Drops EYE-BOTH TID PRN Dry Eyes Fluticasone Propionate 2 spray 08/20/20 09:00 08/26/20 07:43 Fluticasone Propionate Nasal 16 Gm [place] NOSTRIL-B 2 spray DAILY LALI Administration Ampicillin Sodium/Sulbactam 100 mls @ 200 mls/hr 08/24/20 13:00 08/26/20 07:36 Sodium 1.5 gm/ Sodium Chloride IV Infused Q6H LALI Infusion Potassium Chloride/Sodium Chloride 20 meq in 1,000 mls @ 100 mls/hr 08/25/20 18:00 08/26/20 07:36 IVCONT 100 mls/hr .Q10H LALI Infusion Nicotine 14 mg 08/21/20 09:00 08/26/20 07:43 Nicotine 14 Mg Patch.Td24 TRANSDERMA 14 mg DAILY LALI Administration Omeprazole 20 mg 08/25/20 06:30 08/26/20 06:25 Omeprazole 20 Mg/10 Ml Susp.Recon PO 20 mg BID@0630,1630 LALI Administration Ondansetron HCl 4 mg 08/19/20 21:30 Ondansetron Hcl 4 Mg/2 Ml Vial IVPUSH Q8H PRN Nausea and Vomiting Sodium Chloride 3 ml 08/20/20 00:00 08/26/20 07:36 0.9 % Sodium Chloride Flush 3 Ml Syringe IVFLUSH 3 ml QSHIFT LALI Administration Labs CBC & Chem 7: 08/25/20 11:02 08/26/20 06:27 Assessment and Plan (1) Indeterminate pulmonary nodules: Problem details: new primary Status: Acute Assessment and Plan: 84-year-old male with history of colon cancer, Hodgkin's lymphoma, hypertension, dyslipidemia, coronary artery disease, BPH who presented to the emergency department with dysphagia found to have lung nodules on CT chest concerning for malignancy Dysphagia--EGD on 08/[address] Real with the bebo impressionn and recommendation. -Imp: I suspect his dysphagia may have been related to a transient food bolus with subsequent spontaneous passage vs. some GERD with associated esophageal spasm and motility disturbance. The other possibility would be that of some oropharyngeal dysphagia in relation to his age, medical condition, etc. Rec: PPI, Full liquid diet, observe, and swallowing evaluation before advancing diet further. He may need a modified Barium swalllow and a formal evaluation with the speech and swallowing evaluation team before discharge . He failed swallow eval on 08/24 and is now NPO and will arrange for barium swa llow as next stip IVF while NPO Aspiration PNA with acute hypoxia on 08/24-doing better. Unasyn D3/7 Lung nodules concerning for neoplastic process done by IR on 08/23, Pathology report is pending Hypokalemia--replacing with IV since NPO Tobacco dependence Smoking cessation advised -NRT Plan discussed with his sister Jerilyn over the phone
--- NOTE | 2020-08-26 10:04 | P.PNHO_ITS ---
Medical Summary - Medical Summary Date of Service: 08/26/20 Medical Summary: He continues with weakness and anorexia. He initially refused the biopsy but now agrees. The 2 cm nodule is very peripheral. Interval History Interval history: He seems a little stronger and more alert. The pathology report is still pending. Review of Systems - Constitutional Reports anorexia - Eyes Reports other - ENT Reports system reviewed and no additional complaints, except as documented, Reports sore throat - Cardiovascular Reports fast heart rate - Respiratory Reports change in phlegm color - Gastrointestinal Reports abdominal pain - Genitourinary Genitourinary: Reports urinary urgency - Musculoskeletal Reports body aches - Integumentary/Breasts Skin/Breast: Reports other - Neurologic Reports system reviewed and no additional complaints, except as documented, Reports hearing normal, Reports memory loss - Psychiatric Reports change in appetite - Endocrine Reports cold intolerance - Hematologic/Lymphatic Reports easy bruising - Allergic/Immunologic Reports itchy eyes PMFSH Medical History: Medical History (Last Reviewed 08/20/20 @ 14:32 by Red Michaels MD) Atrial fibrillation Cholelithiasis COPD (chronic obstructive pulmonary disease) GERD (gastroesophageal reflux disease) History of colon cancer Hodgkins lymphoma Hypercholesterolemia Hypertension Leg weakness, bilateral Pancreatitis Renal calculus, left Tobacco abuse Functional capacity: uses cane/walker Family History: Family History (Last Reviewed 08/20/20 @ 14:32 by Red Michaels MD) Father CVD (cardiovascular disease) Mother CVD (cardiovascular disease) Surgical History: Surgical History (Last Reviewed 08/20/20 @ 14:32 by Red Michaels MD) History of bilateral cataract extraction History of chemotherapy History of colectomy History of tonsillectomy Hx of inguinal hernia surgery Smoking status: Light tobacco smoker Oncology Screenings - G8 Geriatric Assessment Change in food intake over past 3 months: Severe decrease in food intake Weight loss during the last 3 months: Does not know Mobility: Bed or chair bound Neuropsychological problems: Mild dementia or depression Body Mass Index: 19 to 21 Patient takes > 3 prescription drugs per day: Yes Patient's assessment of health status compared to others: Not as good Patient age: 80 to 85 G8 Score: 4 G8 Risk Level: High risk for early functional decline and reduced survival. Home Medications and Allergies Current Medications: Current Medications Generic Name Dose Route Start Last Admin Trade Name Freq PRN Reason Stop Dose Admin Acetaminophen 650 mg 08/19/20 21:30 Acetaminophen Supp 650 Mg Supp.Rect [place] Q6H PRN Pain, Mild (Pain Scale 1-3) Amlodipine Besylate 5 mg 08/20/20 09:00 08/26/20 07:43 Amlodipine Besylate 5 Mg Tablet PO 5 mg DAILY [facility] Administration Protocol Artificial Tears 1 drop 08/19/20 21:00 Artificial Tears 15 Ml Drops EYE-BOTH TID PRN Dry Eyes Fluticasone Propionate 2 spray 08/20/20 09:00 08/26/20 07:43 Fluticasone Propionate Nasal 16 Gm [place] NOSTRIL-B 2 spray DAILY [facility] Administration Ampicillin Sodium/Sulbactam 100 mls @ 200 mls/hr 08/24/20 13:00 08/26/20 07:36 Sodium 1.5 gm/ Sodium Chloride IV Infused Q6H [facility] Infusion Potassium Chloride/Sodium Chloride 20 meq in 1,000 mls @ 100 mls/hr 08/25/20 18:00 08/26/20 07:36 IVCONT 100 mls/hr .Q10H [facility] Infusion Nicotine 14 mg 08/21/20 09:00 08/26/20 07:43 Nicotine 14 Mg Patch.Td24 TRANSDERMA 14 mg DAILY [facility] Administration Omeprazole 20 mg 08/25/20 06:30 08/26/20 06:25 Omeprazole 20 Mg/10 Ml Susp.Recon PO 20 mg BID@0630,1630 [facility] Administration Ondansetron HCl 4 mg 08/19/20 21:30 Ondansetron Hcl 4 Mg/2 Ml Vial IVPUSH Q8H PRN Nausea and Vomiting Sodium Chloride 3 ml 08/20/20 00:00 08/26/20 07:36 0.9 % Sodium Chloride Flush 3 Ml Syringe IVFLUSH 3 ml QSHIFT [facility] Administration Home Medications Medication Instructions Recorded Confirmed Type amlodipine 5 mg tablet 5 mg PO DAILY 06/15/20 08/19/20 History ascorbic acid (vitamin C) 500 mg 500 mg PO DAILY 06/15/20 08/19/20 History capsule atorvastatin 10 mg tablet 10 mg PO DAILY 06/15/20 08/19/20 History dextran 70-hypromellose 0.1 %-0.3 1 drp OPHTHALMIC (EYE) DIRECTED 06/15/20 08/19/20 History % eye drops ferrous sulfate 325 mg (65 mg 325 mg PO DAILY 06/15/20 08/19/20 History iron) tablet fluticasone propionate 50 2 spray INTRANASAL DAILY 06/15/20 08/19/20 History mcg/actuation nasal spray,suspension megestrol 10 ml PO BID 08/19/20 08/19/20 History Allergies Allergy/AdvReac Type Severity Reaction Status Date / Time procaine [From Novocain] Allergy Mild INEFFECTIVE Verified 06/15/20 12:42 PER RN lisinopril Allergy Unknown Unknown Verified 06/15/20 12:42 Exam Vital signs: Vital Signs Temp 98.0 F 08/26/20 07:15 Pulse 93 08/26/20 07:15 Resp 19 08/26/20 07:15 BP 170/96 H 08/26/20 07:15 Pulse Ox 93 08/26/20 07:15 Intake & Output 08/25/20 08/26/20 08/26/20 18:59 06:59 18:59 Intake Total 1201.667 / 2501.667 1300.000 / 2501.667 100 / 100 Output Total 700 / 700 Balance 1201.667 / 1801.667 600.000 / 1801.667 100 / 100 Urine Output (Average ml/kg/hr) 0.99 0.99 Intake: Intake, IV Amount 1201.667 / 2501.667 1300.000 / 2501.667 100 / 100 Ampicillin Sodium/Sulbactam Na 200 / 400 200 / 400 100 / 100 1.5 gm In 0.9 % Sodium Chloride 100 ml @ 200 mls/hr IV Q6H [facility] Rx#:[id number] Potassium Chloride/H20 10 meq 200 / 200 In 100 ml @ 100 mls/hr IV Q1H [facility] Rx#:[id number] Dextrose 5 % and 0.45 % NaCl 1, 1000 / 1000 000 ml @ 100 mls/hr IVCONT . Q10H [facility] Rx#:[id number] KCl 20 mEq in 0.45% Sod 20 meq 1.667 / 901.667 900.000 / 901.667 0 / 0 In 1,000 ml @ 100 mls/hr IVCONT .Q10H [facility] Rx#:[id number] Output: Output, Urine Amount 700 / 700 Other: NPO Yes Number of Incontinent Voids 1 Urine Bathroom Urine Color Yellow Weight 58.96 kg Body Mass Index 21.6 - Constitutional Present: chronically ill appearing - Routine HEENT Exam Head: Present: atraumatic - Routine Abdominal Exam Present: diminished bowel sounds - Routine Extremities Exam Present: extremity cold to touch - Routine Skin Exam Present: scars - Routine Neurological Exam Present: altered mental status Data - Labs CBC & Chem 7: 08/25/20 11:02 08/26/20 06:27 Labs: 08/19/20 15:18 XR chest 2V Stat XR soft tissue neck Stat 08/19/20 15:28 SARS-CoV2/FLU/RSV Stat 08/19/20 15:30 0.9 % Sodium Chloride [Ns] 1,000 ml IVCONT 999 mls/hr 08/19/20 15:37 Basic Metabolic Panel Stat C Reactive Protein Stat Complete Blood Count Auto Diff Stat Ferritin Stat Hold Lt Blue - Possible Coag Stat Lactate Dehydrogenase Stat Liver Panel Stat Magnesium Stat Procalcitonin Stat 08/19/20 16:19 CT chest w con Stat CT soft tissue neck w con Stat 08/19/20 16:56 iohexoL 350 MG/ML [Omnipaque 350 MG/ML] 100 ml IV ONCE ONE 08/19/20 18:46 Transfer Order Routine 08/19/20 21:30 0.9 % Sodium Chloride [Ns] 1,000 ml IVCONT 80 mls/hr Nicotine [Nicoderm] 14 mg TRANSDERMA DAILY 08/19/20 21:30 Vital Signs QSHIFT 08/20/20 08:09 Basic Metabolic Panel DAILY@0600 Carcinoembryonic Antigen Routine Complete Blood Count Auto Diff DAILY@0600 Erythrocyte Sedimentation Rate Routine 08/20/20 11:09 Add Laboratory Test Urgent 08/20/20 15:54 Glycopyrrolate [Robinul] 0.2 mg .ROUTE .STK-MED ONE Lidocaine HCl 2 % MPF [Xylocaine 2 % MPF] 5 ml .ROUTE .STK-MED ONE Lidocaine HCl Viscous 2 % [Xylocaine Viscous 2 % Oral Suni] 15 ml MUCOUS MEM .STK-MED ONE propofoL [Diprivan] 200 mg IVPUSH .STK-MED ONE 08/20/20 16:40 Transfer Order Routine 08/20/20 17:17 Omeprazole [PriLOSEC] 20 mg PO BID@0630,1630 12/14/20 Dinner Full Liquid Diet 08/21/20 02:26 LORazepam [Ativan] 1 mg IVPUSH ONCE ONE 08/22/20 Dinner NPO Diet 08/23/20 CT biopsy lung LT Routine XR chest 2V Routine 08/23/20 10:13 Prothrombin Time INR Stat 08/23/20 11:59 Lidocaine HCl 1 % MPF [Xylocaine 1 % MPF] 5 ml .ROUTE .STK-MED ONE fentaNYL citrate/PF [Sublimaze] 50 mcg .ROUTE .STK-MED ONE 08/23/20 12:00 Midazolam HCl/PF [Versed] 2 mg .ROUTE .STK-MED ONE Naloxone HCl [Narcan] 0.4 mg .ROUTE .STK-MED ONE flumazeniL [Romazicon] 0.05 mg .ROUTE .STK-MED ONE 08/23/20 13:11 Vital Signs Q30M 08/23/20 14:00 Lidocaine HCl 1 % [Xylocaine 1 %] 20 ml SUBCUT ONCE ONE 08/23/20 14:35 Lidocaine HCl 1 % MPF [Xylocaine 1 % MPF] 7 ml SUBCUT ONCE ONE 08/24/20 XR chest 2V Urgent 08/24/20 13:57 Ampicillin Sodium/Sulbactam Na [Unasyn] 1.5 gm .ROUTE .STK-MED ONE 08/24/20 19:57 Ampicillin Sodium/Sulbactam Na [Unasyn] 1.5 gm .ROUTE .STK-MED ONE 08/25/20 02:13 Ampicillin Sodium/Sulbactam Na [Unasyn] 1.5 gm .ROUTE .STK-MED ONE 08/25/20 07:26 Ampicillin Sodium/Sulbactam Na [Unasyn] 1.5 gm .ROUTE .STK-MED ONE 08/25/20 11:02 Basic Metabolic Panel Routine Complete Blood Count no Diff Routine 08/25/20 11:30 Dextrose 5 % and 0.45 % NaCl [D51/2Ns] 1,000 ml IVCONT 100 mls/hr 08/25/20 13:30 Ampicillin Sodium/Sulbactam Na [Unasyn] 1.5 gm .ROUTE .STK-MED ONE 08/25/20 18:15 Potassium Chloride/H20 10 meq in 100 ml IV Q1H 08/25/20 19:39 Ampicillin Sodium/Sulbactam Na [Unasyn] 1.5 gm .ROUTE .STK-MED ONE 08/26/20 00:28 Ampicillin Sodium/Sulbactam Na [Unasyn] 1.5 gm .ROUTE .STK-MED ONE 08/26/20 06:18 Ampicillin Sodium/Sulbactam Na [Unasyn] 1.5 gm .ROUTE .STK-MED ONE 08/26/20 06:21 Ampicillin Sodium/Sulbactam Na [Unasyn] 1.5 gm .ROUTE .STK-MED ONE 08/26/20 06:27 Basic Metabolic Panel Routine Laboratory Last Values WBC 9.8 X10*3/uL (4.8-10.8) 08/25/20 11:02 RBC 4.76 X10*6/uL (4.60-5.80) 08/25/20 11:02 Hgb 13.5 g/dl (14.0-18.0) L 08/25/20 11:02 Hct 41.1 % (42-52) L 08/25/20 11:02 MCV 86.3 fL (80-98) 08/25/20 11:02 MCH 28.4 pg (27.0-33.0) 08/25/20 11:02 MCHC 32.8 g/dl (31.0-36.0) 08/25/20 11:02 RDW 13.9 % (11.0-16.0) 08/25/20 11:02 Plt Count 348 X10*3/uL (160-400) 08/25/20 11:02 MPV 8.4 fL (9.4-12.4) L 08/25/20 11:02 Immature Gran % (Auto) 1.3 % (0.0-0.4) H 08/20/20 08:09 Neut % (Auto) 77.4 % (45-73) H 08/20/20 08:09 Lymph % (Auto) 10.5 % (20-40) L 08/20/20 08:09 [place] % (Auto) 8.7 % (2-11) 08/20/20 08:09 Eos % (Auto) 1.6 % (0-4) 08/20/20 08:09 Baso % (Auto) 0.5 % (0-2) 08/20/20 08:09 Lymph # (Auto) 1.1 X10*3/uL (1.2-4.9) L 08/20/20 08:09 [place] # (Auto) 0.9 X10*3/uL (0.1-1.2) 08/20/20 08:09 Eos # (Auto) 0.2 X10*3/uL (0.0-0.4) 08/20/20 08:09 Baso # (Auto) 0.1 X10*3/uL (0.0-0.2) 08/20/20 08:09 Abs Immat Gran (auto) 0.13 X10*3/uL (0.00-0.03) H 08/20/20 08:09 Absolute Neuts (auto) 7.9 X10*3/uL (2.0-8.3) 08/20/20 08:09 Absolute Nucleated RBC 0.000 X10*3/uL (0.0-0.012) 08/25/20 11:02 Nucleated RBC % (auto) 0.0 /100WBC (0.0-0.2) 08/25/20 11:02 ESR 16 MM/HR (0-15) H 08/20/20 08:09 PT 16.5 SEC (10.8-13.0) H 08/23/20 10:13 INR 1.4 (0.9-1.1) H 08/23/20 10:13 Hold Blue Top SEE NOTE 08/19/20 15:37 Sodium 145 mmol/L (135-145) 08/26/20 06:27 Potassium 3.1 mmol/l (3.3-5.1) L 08/26/20 06:27 Chloride 103 mmol/L (96-108) 08/26/20 06:27 Carbon Dioxide 29 mmol/L (22-29) 08/26/20 06:27 Anion Gap 16 (12-20) 08/26/20 06:27 BUN 10 mg/dL (9-16) 08/26/20 06:27 Creatinine 0.54 mg/dL (0.5-1.4) 08/26/20 06:27 Estim Creat Clear Calc 84.9 08/26/20 06:27 Estimated GFR > 60 08/26/20 06:27 Random Glucose 93 mg/dL (60-115) 08/26/20 06:27 Calcium 8.5 mg/dL (8.4-10.2) 08/26/20 06:27 Magnesium 2.0 mg/dL (1.6-2.6) 08/19/20 15:37 Ferritin 144 ng/mL (20-250) 08/19/20 15:37 Ferritin Cancelled 08/19/20 15:37 Total Bilirubin 0.6 mg/dL (0.0-1.0) 08/19/20 15:37 Direct Bilirubin 0.3 mg/dL (0.0-0.5) 08/19/20 15:37 AST 17 U/L (5-37) 08/19/20 15:37 ALT 26 U/L (0-40) 08/19/20 15:37 Alkaline Phosphatase 165 U/L (39-117) H 08/19/20 15:37 Lactate Dehydrogenase 157 U/L (118-273) 08/19/20 15:37 Lactate Dehydrogenase Cancelled 08/19/20 15:37 C-Reactive Protein 1.71 mg/dL (< or = 0.50) H 08/19/20 15:37 C-Reactive Protein Cancelled 08/19/20 15:37 Total Protein 5.9 g/dL (6.5-8.0) L 08/19/20 15:37 Albumin 4.0 g/dL (3.5-5.0) 08/19/20 15:37 Carcinoembryonic Ag 6.50 mg/mL 08/20/20 08:09 Procalcitonin 0.11 ng/mL 08/19/20 15:37 Coronavirus (PCR) NEGATIVE (Negative) 08/19/20 15:28 Influenza Type A (PCR) NEGATIVE (Negative) 08/19/20 15:28 Influenza Type B (PCR) NEGATIVE (Negative) 08/19/20 15:28 RSV RNA Qual (PCR) NEGATIVE (Negative) 08/19/20 15:28 Progress Note: A/P (1) Indeterminate pulmonary nodules Start date: 08/23/20 (I will review the case with pathology) Problem details: new primary Status: Acute Assessment and plan: We continue to await the pathology results. - Time Spent With Patient Total time spent is greater than 50% in coordination of care (as documented) at patient's floor/unit and/or counseling patient: 15 - 24 minutes
[2020-08-26 11:06] VITALS: BP 171/88; PULSE 100; RESP 18; TEMP 36.1; O2SAT 94
[2020-08-26 15:38] VITALS: BP 172/96; PULSE 88; RESP 19; TEMP 37.1; O2SAT 94
[2020-08-26 19:32] VITALS: BP 168/95; PULSE 87; RESP 19; TEMP 37; O2SAT 93
[2020-08-27] VITALS (7 sets, daily range): BP systolic 154–178; BP diastolic 93–97; PULSE 80–100; RESP 18–19; TEMP 36.6–37.3; O2SAT 91–99
[2020-08-27] MEDS: Ampicillin Sodium/Sulbactam Na 1.5 GM in 0.9 % Sodium Chloride 100 ML IV ×4 (02:05→19:13)
[2020-08-27] MEDS: LORazepam 2 MG/ML VIAL 0.5 MG IVPUSH (04:25)
--- NOTE | 2020-08-27 04:47 | PC.NURSE ---
pt very agitated.climbing oob.hitting swearing.confused.tried re-orientate.security called. notified.ordered ativan 0.5mg iv x 1 now.given at 0425.pt assisted back to bed.bed alarm on.camera in room.calmer at present time.
[2020-08-27] MEDS: KCl 20 mEq in 0.45% Sod 20 MEQ/1,000 ML IV.SOLN 100 MEQ IVCONT ×2 (06:40→19:51)
--- NOTE | 2020-08-27 10:38 | HO.PM.IMPN ---
Subjective Subjective Date of Service: 08/27/20 Interval History: no complaints Cardiovascular Cardiovascular: Reports no additional cardiovascular complaints Respiratory Respiratory: Reports no additional respiratory complaints Physical Exam Vital Signs: Vital Signs: Last Vital Signs Temp 97.9 F 08/27/20 07:13 Pulse 94 08/27/20 07:13 Resp 18 08/27/20 07:13 BP 154/97 H 08/27/20 07:13 Pulse Ox 96 08/27/20 07:13 Body Mass Index 21.6 General: , no acute distress, lethargic Resp: CTA bilateral CVS: S1,S2,RRR GI: soft, non tender, non distended Neuro: motor grossly intact Psych: impaired Objective Data Current Medications Generic Name Dose Route Start Last Admin Trade Name Freq PRN Reason Stop Dose Admin Acetaminophen 650 mg 08/19/20 21:30 Acetaminophen Supp 650 Mg Supp.Rect [place] Q6H PRN Pain, Mild (Pain Scale 1-3) Amlodipine Besylate 5 mg 08/20/20 09:00 08/27/20 09:11 Amlodipine Besylate 5 Mg Tablet PO Not Given DAILY [facility] Protocol Artificial Tears 1 drop 08/19/20 21:00 Artificial Tears 15 Ml Drops EYE-BOTH TID PRN Dry Eyes Fluticasone Propionate 2 spray 08/20/20 09:00 08/27/20 09:12 Fluticasone Propionate Nasal 16 Gm [place] NOSTRIL-B Not Given DAILY [facility] Ampicillin Sodium/Sulbactam 100 mls @ 200 mls/hr 08/24/20 13:00 08/27/20 07:27 Sodium 1.5 gm/ Sodium Chloride IV Infused Q6H [facility] Infusion Potassium Chloride/Sodium Chloride 20 meq in 1,000 mls @ 100 mls/hr 08/25/20 18:00 08/27/20 06:40 IVCONT 100 mls/hr .Q10H [facility] Administration Nicotine 14 mg 08/21/20 09:00 08/27/20 09:12 Nicotine 14 Mg Patch.Td24 TRANSDERMA Not Given DAILY [facility] Omeprazole 20 mg 08/25/20 06:30 08/27/20 05:58 Omeprazole 20 Mg/10 Ml Susp.Recon PO Not Given BID@0630,1630 [facility] Ondansetron HCl 4 mg 08/19/20 21:30 Ondansetron Hcl 4 Mg/2 Ml Vial IVPUSH Q8H PRN Nausea and Vomiting Sodium Chloride 3 ml 08/20/20 00:00 08/27/20 07:28 0.9 % Sodium Chloride Flush 3 Ml Syringe IVFLUSH Not Given QSHIFT [facility] Labs CBC & Chem 7: 08/25/20 11:02 08/26/20 06:27 Assessment and Plan (1) Indeterminate pulmonary nodules: Problem details: new primary Status: Acute Assessment and Plan: 84-year-old male with history of colon cancer, Hodgkin's lymphoma, hypertension, dyslipidemia, coronary artery disease, BPH who presented to the emergency department with dysphagia found to have lung nodules on CT chest concerning for malignancy Dysphagia--EGD on 08/[address] Real with the follwing impressionn and recommendation. -Imp: I suspect his dysphagia may have been related to a transient food bolus with subsequent spontaneous passage vs. some GERD with associated esophageal spasm and motility disturbance. The other possibility would be that of some oropharyngeal dysphagia in relation to his age, medical condition, etc. Rec: PPI, Full liquid diet, observe, and swallowing evaluation before advancing diet further. He may need a modified Barium swalllow and a formal evaluation with the speech and swallowing evaluation team before discharge . He failed swallow eval on 08/24 and is now NPO plan for barium swallow today IVF while NPO Aspiration PNA with acute hypoxia on 08/24. Unasyn D4/7 Lung nodules concerning for neoplastic process done by IR on 08/23, Pathology report is pending Hypokalemia--replacing with IV since NPO, monitor Tobacco dependence Smoking cessation advised -NRT
--- NOTE | 2020-08-27 15:03 | MHC.SLORD ---
Patient refused MBSS this date. Plan to re-attempt tomorrow. Name: Lillie Bruno Date of : 1935 Age: 84 Date of Registration: 08/19/20 Speech Language Pathology Order Status:
--- NOTE | 2020-08-27 15:48 | PC.NURSE ---
pt very confused and resistant to care. Has been combative at times. Spoke with pt at length to explain need for barium swallow. pt could not comprehend. and repeatedly refused. dr Sloan made aware. Dr Shelley also aware of increase in bp.
--- NOTE | 2020-08-28 | XR_ITS ---
EXAMINATION: XR CHEST CLINICAL INFORMATION: Worsening hypoxia COMPARISON: Previous chest x-rays most recent 08/24/2020 TECHNIQUE: Frontal view of the chest was obtained. FINDINGS: The cardiac and mediastinal contours are stable. There is bronchial wall thickening and patchy bilateral airspace disease, left greater than right. Taking into account difference in technique, this is probably not appreciably changed from previous exams. Left pulmonary nodule appears unchanged. There is no pleural effusion or pneumothorax. There is increased thoracic kyphosis and degenerative change. XR/XR chest 1V IMPRESSION: Bilateral bronchial wall thickening and patchy airspace disease suggestive of bronchopneumonia, left greater than right. Taking into account difference in technique, this is probably unchanged from previous exam.
[2020-08-28] MEDS: Ampicillin Sodium/Sulbactam Na 1.5 GM in 0.9 % Sodium Chloride 100 ML IV ×4 (01:58→19:18)
[2020-08-28] MEDS: KCl 20 mEq in 0.45% Sod 20 MEQ/1,000 ML IV.SOLN 100 MEQ IVCONT ×2 (05:55→18:13)
[2020-08-28 06:53] LABS: Hematocrit 43.5 % (42-52); Hemoglobin 13.8 g/dl (14.0-18.0); Mean Corpuscular HGB Conc 31.7 g/dl (31.0-36.0); Mean Corpuscular Hemoglobin 27.4 pg (27.0-33.0); Mean Corpuscular Volume 86.5 fL (80-98); Mean Platelet Volume 8.9 fL (9.4-12.4); Platelet Count 353 X10*3/uL (160-400); Red Blood Count 5.03 X10*6/uL (4.60-5.80); Red Cell Distribution Width 13.4 % (11.0-16.0)
[2020-08-28 07:11] LABS: WBC ABN SCTR FOR CBC 1
[2020-08-28 07:13] VITALS: BP 183/97; PULSE 96; RESP 19; TEMP 36.8; O2SAT 91
[2020-08-28 07:32] LABS: Anion Gap 19 (12-20); Blood Urea Nitrogen 9 mg/dL (9-16); Calcium 8.1 mg/dL (8.4-10.2); Carbon Dioxide 25 mmol/L (22-29); Chloride 98 mmol/L (96-108); Creatinine Clr Calc Pharmacy 89.9; Estimated Glomerular Filt Rate > 60; Glucose Fasting 53 mg/dL (60-99); Magnesium 1.6 mg/dL (1.6-2.6); Potassium 3.6 mmol/l (3.3-5.1); Sodium 138 mmol/L (135-145)
--- NOTE | 2020-08-28 08:00 | FL_ITS ---
EXAMINATION: XR BARIUM SWALLOW CLINICAL INFORMATION: Dysphagia COMPARISON: None TECHNIQUE: Modified barium swallow was performed and lateral fluoroscopy in presence of speech therapist. FINDINGS: On oral administration of thick barium there is slow propagation bolus from the oral cavity into the pharynx and esophagus. There is delayed peristalsis through the pharynx with moderate retention of barium in the valleculae. This persisted over long time. The exam was discontinued at this time due to risk of aspiration. FLUOROSCOPY TIME: 1.5 minutes DOSE AREA PRODUCT: 1.974 uGy-m2 (microgray-meter squared) FL/FL barium swallow modified IMPRESSION: Slow transition of bolus from the oral cavity through the pharynx and esophagus. Large amount of thick barium visualized in the piriform sinuses without any progression on different maneuvers. Due to risk of aspiration the exam was discontinued. Correlate with speech therapy results
[2020-08-28 08:32] LABS: Band Neutrophils Percent 5 % (3-5); Eosinophils Percent Manual 3 % (0-4); Lymphocytes Percent Manual 9 % (20-40); Monocytes Percent Manual 13 % (2-11); Neutrophils Percent Manual 70 % (45-73); Platelet Estimate NORMAL (NORMAL)
[2020-08-28 08:33] LABS: Ovalocytes 1+; Platelet Morphology Comment NORM; RBC Morphology NOTED
[2020-08-28 08:34] LABS: Acanthocytes 1+; Burr Cells 1+
[2020-08-28 08:35] LABS: Eosinophils Absolute Manual 0.3 X10*3/UL (0.0-0.8); Lymphocytes Absolute Manual 0.8 X10*3/uL (0.6-4.8); Monocytes Absolute Manual 1.2 X10*3/uL (0.0-1.2); Neutrophils Absolute Manual 6.7 X10*3/uL (2.2-7.9); White Blood Count 8.9 X10*3/uL (4.8-10.8)
[2020-08-28 08:37] LABS: Glucose, Whole Blood 167 mg/dL (60-115)
[2020-08-28] MEDS: Magnesium Sulfate/H2O 2 GM/50 ML PIGGYBACK IV (08:41)
[2020-08-28] MEDS: Nicotine 14 MG PATCH.TD24 TRANSDERMA (08:41)
[2020-08-28] MEDS: 0.9 % Sodium Chloride Flush 3 ML SYRINGE IVFLUSH ×2 (08:42→19:23)
[2020-08-28 08:58] VITALS: BP 183/97; PULSE 96
--- NOTE | 2020-08-28 09:45 | MHC.CM.PN ---
Addendum entered by Emilee Molina 08/28/20 10:00: AFTER FURTHER REVIEW PATIENT REQUIRES MAXIMUM 1 ASSIST PERSON, PHYSICAL THEARPY EVALUATION REQUESTED FROM [facility] Original Note: NURSE SAND MIXER MACHINE NOTE( ELECTRONIC MEDICAL RECORD REVIEWED, PER DOCUMENTATION (PATIENT PRESENTED TO THE ER WITH COMPLAints of dysphagia and found tO have lung nodules on ct scan of chest with concern for malignancy, egd done on 08/20/20 ?dysphasia related to food bolus with subsequent spontaneous passage vs gerd esophageL SPASM AND MOTILITY DISTRUBANC PATIENT HAD A MODIFIED BARIUM SWALLOW STUDY PLAN SPEECH T DO FORMAL EVALUATION CONTINUE IV PPI, NPO IV FLUIDS WITH REPLACEMENT OF POTASSIUM AND MAGNESIUM SULFATE , PRN IV ATIVAN ,IV ANTIEMETIC PRN , IV Q 6HRS UASYN DAY 01/11/ PENDING PATHOLOGY RESULTS OF BIOPSY , HEMATOLOGY /ONCOLOGY FOLLWING PATIENT . DISCHARGE PLAN HOME WITH [facility] FOR NURSING (PATIENTS SISTER JEANNIE DOES NOT WANT PATIENT TO GO TO REHAB AT THIS TIME TRANSPORTATION TO BE DETERMINED
[2020-08-28] MEDS: Fluticasone Propionate Nasal 16 GM SPRAY 2 SPRAY NOSTRIL-B (09:49)
--- NOTE | 2020-08-28 10:46 | P.PNIM_ITS ---
Subjective Subjective Date of Service: 08/28/20 Interval History: more alert today, agreaable to barium swallow Cardiovascular Cardiovascular: Reports no additional cardiovascular complaints Respiratory Respiratory: Reports no additional respiratory complaints Physical Exam Vital Signs: Vital Signs: Last Vital Signs Temp 98.3 F 08/28/20 07:13 Pulse 96 08/28/20 08:58 Resp 19 08/28/20 07:13 BP 183/97 H 08/28/20 08:58 Pulse Ox 91 L 08/28/20 07:13 Body Mass Index 21.6 General: Alert, no acute distress Resp: CTA bilateral CVS: S1,S2,RRR GI: soft, non tender, non distended Neuro: motor grossly intact Psych: appropriate affect Objective Data Current Medications Generic Name Dose Route Start Last Admin Trade Name Freq PRN Reason Stop Dose Admin Acetaminophen 650 mg 08/19/20 21:30 Acetaminophen Supp 650 Mg Supp.Rect WI Q6H PRN Pain, Mild (Pain Scale 1-3) Amlodipine Besylate 5 mg 08/20/20 09:00 08/28/20 08:58 Amlodipine Besylate 5 Mg Tablet PO Not Given DAILY [facility] Protocol Artificial Tears 1 drop 08/19/20 21:00 Artificial Tears 15 Ml Drops EYE-BOTH TID PRN Dry Eyes Dextrose 25 gm 08/28/20 07:30 Dextrose 50 % 25 Gm/50 Ml Vial IVPUSH 08/28/20 07:31 ONCE ONE Fluticasone Propionate 2 spray 08/20/20 09:00 08/28/20 09:49 Fluticasone Propionate Nasal 16 Gm [place] NOSTRIL-B 2 spray DAILY [facility] Administration Ampicillin Sodium/Sulbactam 100 mls @ 200 mls/hr 08/24/20 13:00 08/28/20 07:48 Sodium 1.5 gm/ Sodium Chloride IV Infused Q6H [facility] Infusion Potassium Chloride/Sodium Chloride 20 meq in 1,000 mls @ 100 mls/hr 08/25/20 18:00 08/28/20 07:50 IVCONT 100 mls/hr .Q10H [facility] Infusion Nicotine 14 mg 08/21/20 09:00 08/28/20 08:41 Nicotine 14 Mg Patch.Td24 TRANSDERMA 14 mg DAILY [facility] Administration Omeprazole 20 mg 08/25/20 06:30 08/28/20 05:54 Omeprazole 20 Mg/10 Ml Susp.Recon PO Not Given BID@0630,1630 [facility] Ondansetron HCl 4 mg 08/19/20 21:30 Ondansetron Hcl 4 Mg/2 Ml Vial IVPUSH Q8H PRN Nausea and Vomiting Sodium Chloride 3 ml 08/20/20 00:00 08/28/20 08:42 0.9 % Sodium Chloride Flush 3 Ml Syringe IVFLUSH 3 ml QSHIFT [facility] Administration Labs CBC & Chem 7: 08/28/20 06:06 08/28/20 06:06 Assessment and Plan (1) Indeterminate pulmonary nodules: Problem details: new primary Status: Acute Assessment and Plan: 84-year-old male with history of colon cancer, Hodgkin's lymphoma, hypertension, dyslipidemia, coronary artery disease, BPH who presented to the emergency department with dysphagia found to have lung nodules on CT chest concerning for malignancy Dysphagia--EGD on 08/[address] Real with the follwing impressionn and recommendation. -Imp: I suspect his dysphagia may have been related to a transient food bolus with subsequent spontaneous passage vs. some GERD with associated esophageal spasm and motility disturbance. The other possibility would be that of some oropharyngeal dysphagia in relation to his age, medical condition, etc. Rec: PPI, Full liquid diet, observe, and swallowing evaluation before advancing diet further. He may need a modified Barium swalllow and a formal evaluation with the speech and swallowing evaluation team before discharge . He failed swallow eval on 08/24 and is now NPO plan for barium swallow today (was delayed yesterday due to refusal, but seems more agreeable today) IVF while NPO Aspiration PNA with acute hypoxic respiratory failure. Unasyn D5/7 Lung nodules concerning for neoplastic process done by IR on 08/23, Pathology report c/w adenocarcinoma, likely lung primary, but could be colon met, oncology follow up Tobacco dependence Smoking cessation advised -NRT
[2020-08-28 11:14] VITALS: BP 180/93; PULSE 72; RESP 19; TEMP 36.2; O2SAT 90
[2020-08-28 12:03] LABS: Glucose, Whole Blood 106 mg/dL (60-115)
[2020-08-28 15:17] VITALS: BP 178/99; PULSE 99; RESP 18; TEMP 36.6; O2SAT 99
--- NOTE | 2020-08-28 15:55 | PM.CNGS ---
History of Present Illness Consult details Consult date: 08/28/20 Narrative: 84-year-old male referred to me for PEG tube placement. He had been in the hospital since August because of dysphagia. He had endoscopy done with Dr. Real last August 22 which did not show any stricture or any esophageal lesion. Balloon dilatation was done at that time view of his dysphagia. He had a swallow study done today and had feel this with note of aspiration with oral intake. I have therefore been consulted to do a PEG tube placement for nutrition access. The patient current says says he does not have any other significant complaints. He says he feels weak. He seems to have been losing weight for about more than 3 months. He has a history of resection for an adenocarcinoma in [address] Koenig. He also had a long lesion and a CT biopsy done last August 23 was suggestive of primary lung adenocarcinoma. The patient is a known smoker and has COPD. Review of Systems Constitutional: Constitutional: Reports anorexia, Denies chills and Reports weight loss ENT: Reports Normal hearing present Cardiovascular: Cardiovascular: Denies chest pain Respiratory: Respiratory: Denies hemoptysis Gastrointestinal: Gastrointestinal: Denies abdominal pain and Denies change in bowel habits Genitourinary: Genitourinary: Denies dysuria Neurologic: Reports system reviewed and no additional complaints, except as documented, Reports Normal hearing present and Reports memory loss Psychiatric: Psychiatric: Reports memory loss [facility] Past Medical History Medical History Atrial fibrillation Cholelithiasis COPD (chronic obstructive pulmonary disease) GERD (gastroesophageal reflux disease) History of colon cancer Hodgkins lymphoma Hypercholesterolemia Hypertension Leg weakness, bilateral Pancreatitis Renal calculus, left Tobacco abuse Functional capacity: uses cane/walker Family History Family History Father CVD (cardiovascular disease) Mother CVD (cardiovascular disease) Surgical History Surgical History History of bilateral cataract extraction History of chemotherapy History of colectomy History of tonsillectomy Hx of inguinal hernia surgery Social History Social History Household Members: Spouse and Unknown / Unable to assess Housing: Unknown / Unable to assess Are you a primary career consultant to a significant other at home: No Do you presently have visiting nurse or other home services: No Alcohol intake: current Alcohol intake frequency: does not drink Smoking Status: Light tobacco smoker Tobacco Type: Cigarette Years Smoked: 60 Smoked in Last 30 Days: Yes Smoking Quit Date: States he has not smoked in 3 weeks Patient Interested in Nicotine Replacement: Yes Second Hand Smoke Exposure: No Use of substances other than those prescribed or required for medical reasons: No Last Used Substance: Weeks (ago) Currently Displaying Signs/Symptoms of Drug Intoxication Withdrawal: No Have you been hit, kicked, punched, or otherwise hurt by someone within the past year? If so, by whom?: No Do you feel safe in your current relationship?: Yes Is there a partner from a previous relationship who is making you feel unsafe now?: No Are you made to feel afraid or neglected: No Advance Directives: No Advance Directives Information Provided: No Advance Directives on File: No Do you have thoughts of harming others: None Do you have a plan to hurt others: No Plan Recently lost weight without trying: Unsure service: No Current occupational status: retired Current occupational exposures/hazards: No Meds Allergies Allergy/AdvReac Type Severity Reaction Status Date / Time procaine [From Novocain] Allergy Mild INEFFECTIVE Verified 06/15/20 12:42 PER RN lisinopril Allergy Unknown Unknown Verified 06/15/20 12:42 Home Medications Medication Instructions Recorded Confirmed Type amlodipine 5 mg tablet 5 mg PO DAILY 06/15/20 08/19/20 History ascorbic acid (vitamin C) 500 mg 500 mg PO DAILY 06/15/20 08/19/20 History capsule atorvastatin 10 mg tablet 10 mg PO DAILY 06/15/20 08/19/20 History dextran 70-hypromellose 0.1 %-0.3 1 drp OPHTHALMIC (EYE) DIRECTED 06/15/20 08/19/20 History % eye drops ferrous sulfate 325 mg (65 mg 325 mg PO DAILY 06/15/20 08/19/20 History iron) tablet fluticasone propionate 50 2 spray INTRANASAL DAILY 06/15/20 08/19/20 History mcg/actuation nasal spray,suspension megestrol 10 ml PO BID 08/19/20 08/19/20 History Physical Exam Vital Signs: Vital Signs: Last Vital Signs Temp 97.9 F 12/22/20 15:17 Pulse 99 08/28/20 15:17 Resp 18 08/28/20 15:17 BP 178/99 H 08/28/20 15:17 Pulse Ox 99 08/28/20 15:17 Body Mass Index 21.6 Const: Other: Appears very frail General: alert Nutritional Appearance: cachectic Orientation/consciousness: patient oriented x3 Neck: Neck: Yes no lymphadenopathy Resp: Effort & Inspection: normal respiratory effort and able to speak in complete sentences GI: Palpation (GI): Soft to palpation, not firm, nontender and no guarding Neuro: General: patient oriented x3 Cranial nerves: Yes Normal hearing present Extrem: General: Yes normal to inspection Results Labs Result diagrams: 08/28/20 06:06 08/28/20 06:06 Labs: Abnormal lab results 08/28/20 08/28/20 08/28/20 Range/Units 06:06 06:06 08:29 Hgb 13.8 L (14.0-18.0) g/dl MPV 8.9 L (9.4-12.4) fL Lymphocytes % (Manual) 9 L (20-40) % Monocytes % (Manual) 13 H (2-11) % POC Glucose 167 H (60-115) mg/dL Fasting Glucose 53 L* (60-99) mg/dL Calcium 8.1 L (8.4-10.2) mg/dL Short CBC 08/28/20 Range/Units 06:06 WBC 8.9 (4.8-10.8) X10*3/uL Hgb 13.8 L (14.0-18.0) g/dl Hct 43.5 (42-52) % Plt Count 353 (160-400) X10*3/uL [facility] 08/28/20 06:06 Sodium 138 Potassium 3.6 Chloride 98 Carbon Dioxide 25 BUN 9 Creatinine 0.51 Calcium 8.1 L All other labs normal. Assessment and Plan (1) Dysphagia: Status: Acute He has significant dysphagia and has been unable to have significant oral intake. He has been losing weight for several months now. He had failed a swallow study today. I have therefore been asked to do a PEG tube placement for nutrition. I explained to the patient the technique of this procedure. I would with him the risks including but not limited bleeding, infections, bowel injury, tube dislodgement, leakage around the tube, loss of airway during the procedure, as well as the benefits and alternatives. He says he understands and agrees to proceed. I had a long discussion with his sister Jerilyn at [phone]. I explained to her the procedure for PEG placement as well. She says she would like to talk to Lillie sherwood about this procedure. If they decide to proceed, I can try to do the PEG placement tomorrow.
[2020-08-28 19:09] VITALS: BP 170/90; PULSE 85; RESP 16; TEMP 36.1; O2SAT 92
[2020-08-28 23:58] VITALS: BP 180/100; PULSE 102; RESP 16; RESP 18; TEMP 36.6; O2SAT 97
[2020-08-29] MEDS: Ampicillin Sodium/Sulbactam Na 1.5 GM in 0.9 % Sodium Chloride 100 ML IV ×4 (01:20→21:03)
[2020-08-29 04:00] VITALS: BP 172/100; PULSE 99; RESP 18; TEMP 37.1; O2SAT 95
[2020-08-29 04:58] LABS: Hematocrit 41.9 % (42-52); Hemoglobin 13.4 g/dl (14.0-18.0); Mean Corpuscular Hemoglobin 27.9 pg (27.0-33.0); Mean Corpuscular Volume 87.3 fL (80-98); Mean Platelet Volume 8.7 fL (9.4-12.4); Platelet Count 352 X10*3/uL (160-400); Red Cell Distribution Width 13.2 % (11.0-16.0)
[2020-08-29 05:01] LABS: WBC ABN SCTR FOR CBC 1
[2020-08-29 05:16] LABS: White Blood Count 9.5 X10*3/uL (4.8-10.8)
[2020-08-29 05:19] LABS: Band Neutrophils Percent 3 % (3-5); Eosinophils Absolute Manual 0.1 X10*3/UL (0.0-0.8); Eosinophils Percent Manual 1 % (0-4); Lymphocytes Absolute Manual 0.6 X10*3/uL (0.6-4.8); Lymphocytes Percent Manual 6 % (20-40); Metamyelocytes Absolute 0.4 X10*3/uL; Metamyelocytes Percent 4 %; Monocytes Absolute Manual 0.9 X10*3/uL (0.0-1.2); Monocytes Percent Manual 9 % (2-11); Myelocytes Absolute 0.1 X10*/uL; Myelocytes Percent 1 %; Neutrophils Absolute Manual 7.5 X10*3/uL (2.2-7.9); Neutrophils Percent Manual 76 % (45-73)
[2020-08-29 05:21] LABS: Platelet Estimate NORMAL (NORMAL); Platelet Morphology Comment NORMAL; RBC Morphology NORMAL
[2020-08-29 05:35] LABS: Anion Gap 20 (12-20); Blood Urea Nitrogen 6 mg/dL (9-16); Calcium 7.8 mg/dL (8.4-10.2); Carbon Dioxide 25 mmol/L (22-29); Chloride 96 mmol/L (96-108); Creatinine Clr Calc Pharmacy 93.5; Estimated Glomerular Filt Rate > 60; Glucose Fasting 56 mg/dL (60-99); Potassium 3.7 mmol/l (3.3-5.1); Sodium 137 mmol/L (135-145)
[2020-08-29 07:42] LABS: Glucose, Whole Blood 181 mg/dL (60-115)
[2020-08-29 07:50] VITALS: BP 161/98; PULSE 87; RESP 18; TEMP 36; O2SAT 96
[2020-08-29] MEDS: Nicotine 14 MG PATCH.TD24 TRANSDERMA (08:05)
[2020-08-29] MEDS: Fluticasone Propionate Nasal 16 GM SPRAY 2 SPRAY NOSTRIL-B (08:05)
[2020-08-29] MEDS: 0.9 % Sodium Chloride Flush 3 ML SYRINGE IVFLUSH ×2 (08:05→22:00)
--- NOTE | 2020-08-29 08:40 | P.CONGS_ITS ---
History of Present Illness Consult details Consult date: 08/29/20 Reason for consult: other (Left lung adenocarcinoma) Requesting physician: Gómez Shelley Narrative: Patient is a pleasant 84-year-old male with a past medical history of colon cancer (adenocarcinoma), Hodgkin's lymphoma, tobacco abuse ([id number] history with recent quit date of about 1 month ago), and atrial fibrillation to name a few who was admitted to [facility] with complaints of dysphagia. He states that he has been having difficulty swallowing for ap proximately 1 week. Patient also states that he noticed a lump to the right side of his neck about a week ago and felt as if it had grown in size. He states this has since resolved. The patient reports that he had been having difficulty swallowing both liquids and solids for about a week which is why he came to the hospital. He denies any known recent weight loss. Currently, the patient remains n.p.o. following a failed barium swallow. A chest CT was performed which showed a lobulated soft tissue nodule in the left upper lobe measuring 2 x 2 cm and a subpleural nodule located in the left lower lobe measuring 1.2 x 0.7 cm. Also noted in the chest CT scan was a left distal tracheal lymph node measuring 0.8 x 1.3 cm. Due to the location of the left upper lobe nodule, interventional radiology preformed a lung biopsy on August 23, 2020 which showed adenocarcinoma. After reviewing the pathology, the adenocarcinoma does appear to be a lung primary however, patient does have a history of colonic adenocarcinoma as well therefore metastasis cannot be ruled out at this time. Oncology team is following. Thoracic surgery has been consulted for question of possible surgical resection of the left upper lobe nodule. Patient seen and examined this morning. He is currently on 4 L nasal cannula and is sitting comfortably in the bed. Patient denies any respiratory distress, shortness of breath, chest pain, fevers, chills, lightheadedness, or dizziness. He denies any recent weight lossor hemoptysis. Patient states he normally does not wear oxygen at home and does not use any assistive devices to ambulate. He continues to cough up phlegm and is having difficulty clearing his secretions at times. Patient reports that he was told he will be getting a G-tube for feeding sometime today. The patient states he has been voiding without difficulty and denies any issues with his bowels. Patient denies any other complaints at this time. Review of Systems Review of Systems: Yes all other systems are reviewed and are negative Constitutional: Constitutional: Reports as per HPI ENT: Reports other (Patient reports difficulty swallowing. He is also hard of hearing) Cardiovascular: Cardiovascular: Denies chest pain at rest, Denies chest pain with activity and Denies dyspnea Respiratory: Respiratory: Denies dyspnea Gastrointestinal: Gastrointestinal: Denies constipation, Denies GI cramping, Reports heartburn, Denies diarrhea and Denies nausea Genitourinary: Genitourinary: Reports no additional male genitourinary complaints Musculoskeletal: Musculoskeletal: Reports no additional musculoskeletal compla ints Integumentary/Breasts: Skin/Breast: Reports system reviewed and no additional complaints, except as docu Neurologic: Reports system reviewed and no additional complaints, except as documented and Reports memory loss Psychiatric: Psychiatric: Reports memory loss Hematologic/Lymphatic: Hematologic/Lymphatic: Reports no additional hematologic/lymphatic complaints PMFSH Past Medical History Medical History Atrial fibrillation Cholelithiasis COPD (chronic obstructive pulmonary disease) GERD (gastroesophageal reflux disease) History of colon cancer Hodgkins lymphoma Hypercholesterolemia Hypertension Leg weakness, bilateral Pancreatitis Renal calculus, left Tobacco abuse Functional capacity: uses cane/walker Family History Family History Father CVD (cardiovascular disease) Mother CVD (cardiovascular disease) Surgical History Surgical History History of bilateral cataract extraction History of chemotherapy History of colectomy History of tonsillectomy Hx of inguinal hernia surgery Social History Social History Household Members: Spouse and Unknown / Unable to assess Housing: Unknown / Unable to assess Are you a primary acute care certified nursing assistant to a significant other at home: No Do you presently have visiting nurse or other home services: No Alcohol intake: current Alcohol intake frequency: does not drink Smoking Status: Light tobacco smoker Tobacco Type: Cigarette Years Smoked: 60 Smoked in Last 30 Days: Yes Smoking Quit Date: States he has not smoked in 3 weeks Patient Interested in Nicotine Replacement: Yes Second Hand Smoke Exposure: No Use of substances other than those prescribed or required for medical reasons: No Last Used Substance: Weeks (ago) Currently Displaying Signs/Symptoms of Drug Intoxication Withdrawal: No Have you been hit, kicked, punched, or otherwise hurt by someone within the past year? If so, by whom?: No Do you feel safe in your current relationship?: Yes Is there a partner from a previous relationship who is making you feel unsafe now?: No Are you made to feel afraid or neglected: No Advance Directives: No Advance Directives Information Provided: No Advance Directives on File: No Do you have thoughts of harming others: None Do you have a plan to hurt others: No Plan Recently lost weight without trying: Unsure service: No Current occupational status: retired Current occupational exposures/hazards: No Meds Allergies Allergy/AdvReac Type Severity Reaction Status Date / Time procaine [From Novocain] Allergy Mild INEFFECTIVE Verified 06/15/20 12:42 PER RN lisinopril Allergy Unknown Unknown Verified 06/15/20 12:42 Home Medications Medication Instructions Recorded Confirmed Type amlodipine 5 mg tablet 5 mg PO DAILY 06/15/20 08/19/20 History ascorbic acid (vitamin C) 500 mg 500 mg PO DAILY 06/15/20 08/19/20 History capsule atorvastatin 10 mg tablet 10 mg PO DAILY 06/15/20 08/19/20 History dextran 70-hypromellose 0.1 %-0.3 1 drp OPHTHALMIC (EYE) DIRECTED 06/15/20 08/19/20 History % eye drops ferrous sulfate 325 mg (65 mg 325 mg PO DAILY 06/15/20 08/19/20 History iron) tablet fluticasone propionate 50 2 spray INTRANASAL DAILY 06/15/20 08/19/20 History mcg/actuation nasal spray,suspension megestrol 10 ml PO BID 08/19/20 08/19/20 History Physical Exam Vital Signs: Vital Signs: Last Vital Signs Temp 96.8 F 08/29/20 07:50 Pulse 87 08/29/20 07:50 Resp 18 08/29/20 07:50 BP 161/98 H 08/29/20 07:50 Pulse Ox 96 08/29/20 07:50 Body Mass Index 21.6 Const: Other: Poor historian General: cooperative, healthy appearing, comfortable and no acute distress Nutritional Appearance: well nourished Orientation/consciousness: oriented to person, oriented to place, oriented to time and patient oriented x3 Limitations: no limitations HENMT: Head: Yes normal to inspection, Yes normocephalic and Yes atraumatic Mouth: Normal oral and palatal mucosa present Eyes: Visual Peoples: normal visual peoples by confrontation Alignment and Position: alignment normal Periorbital: periorbital findings normal Conjunctivae: conjunctivae normal Sclerae: sclerae normal Pupils: Equal, round and reactive pupils present and Pupil accommodation reflex normal EOM: EOMs intact bilaterally Neck: Neck: Yes normal visual inspection, Yes full ROM, Yes no lympha denopathy, Yes trachea midline, Yes supple, No lymphadenopathy, No tender and No tracheal deviation Lymphatic: no lymphadenopathy noted Chest: Chest palpation & inspection: normal inspection of the chest and no crepitus Resp: Effort & Inspection: normal respiratory effort, able to speak in complete sentences, normal respiratory pattern, no audible wheezes, no cough, no pursed lip breathing, no respiratory distress, no stridor, not tachypneic and no tracheal deviation Auscultation: clear to auscultation bilaterally Cardio: Jugular venous distension: no JVD Palpation: normal PMI Rate: regular rate Rhythm: regular rhythm Heart sounds: S1 normal heart sound present, S2 normal heart sound present, no click, no gallops, no murmurs and no rubs GI: Inspection: Yes normal to inspection Auscultation: normal bowel sounds : General: Yes no CVA tenderness Back/Spine/Pelvis: Back: no CVA tenderness Thoracic/Lumbar Spine: thoracic and lumbar spine normal to inspection Skin: General skin exam: no rashes or lesions noted and dry skin Lesions: no lesions Rashes: no rashes Neuro: General: oriented to person, oriented to place, oriented to time and patient oriented x3 Cranial nerves: Yes Equal, round and reactive pupils present Extrem: General: Yes normal to inspection, Yes full ROM, Yes capillary refill normal, Yes no clubbing, cyanosis or edema, Yes no pedal edema and Yes normal gait Psych: Appearance: grossly normal and well kempt Mental Status: mental status grossly normal Speech and movement: Normal speech and movement present and Clear speech present Affect: normal affect Attitude: cooperative Thought process: Normal thought process present Thought content: Normal thought content present Results Labs Result diagrams: 08/29/20 04:02 08/29/20 04:02 Labs: Abnormal lab results 08/29/20 08/29/2008/29/20 Range/Units 04:02 04:02 07:10 Hgb 13.4 L (14.0-18.0) g/dl Hct 41.9 L (42-52) % MPV 8.7 L (9.4-12.4) fL Neutrophils % (Manual) 76 H (45-73) % Lymphocytes % (Manual) 6 L (20-40) % BUN 6 L (9-16) mg/dL Creatinine 0.49 L (0.5-1.4) mg/dL POC Glucose 181 H (60-115) mg/dL Fasting Glucose 56 L* (60-99) mg/dL Calcium 7.8 L (8.4-10.2) mg/dL Short CBC 08/29/20 Range/Units 04:02 WBC 9.5 (4.8-10.8) X10*3/uL Hgb 13.4 L (14.0-18.0) g/dl Hct 41.9 L (42-52) % Plt Count 352 (160-400) X10*3/uL [facility] 08/29/20 04:02 Sodium 137 Potassium 3.7 Chloride 96 Carbon Dioxide 25 BUN 6 L Creatinine 0.49 L Calcium 7.8 L All other labs normal. 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 * We will plan on obtaining a PET/CT scan to assess for any distant metastatic disease in the outpatient setting. * Patient will also need a Pulmonary Function Test to assess his lung capacity and functional status prior to any discussion of possible surgery * After reviewing his chest CT scan and pathology report, I believe that both the left upper lobe nodule and left lower lobe subpleural nodule could be two primary lung cancers. I am not confident that the patient is a good surgical candidate at this time due to his physical exam, oxygen requirements, and severe emphysema, however, we will follow with pulmonary function testing results to see if surgical resection is possible. If surgical resection is possible, will consider possible left lung wedge vs. segmentectomy vs. lobectomy of left upper lobe nodule and continue to follow left subpleural lower lobe nodule for possible stereotactic radiation * Patient should be presented at the next tumor board conference at [facility] Case discussed with Dr. Reyes. Thank you for this consult. Will sign-off at this time. Please do not hesitate to call with any questions or concerns.
--- NOTE | 2020-08-29 08:43 | PM.PNGS ---
Subjective Subjective Date of Service: 08/29/20 Interval history: Denies new complaints Seems to be occasionally confused No abdominal pain Failed modified barium swallow study yesterday Physical Exam Vital Signs: Vital Signs: Last Vital Signs Temp 96.8 F 08/29/20 07:50 Pulse 87 08/29/20 07:50 Resp 18 08/29/20 07:50 BP 161/98 H 08/29/20 07:50 Pulse Ox 96 08/29/20 07:50 Body Mass Index 21.6 Chemistry 08/28/20 08/29/20 06:06 04:02 Sodium 138 137 Potassium 3.6 3.7 Carbon Dioxide 25 25 BUN 9 6 L Creatinine 0.51 0.49 L Calcium 8.1 L 7.8 L Hematology 08/28/20 08/29/20 06:06 04:02 WBC 8.9 9.5 Hgb 13.8 L 13.4 L Plt Count 353 352 Const: Other: Comfortable but appears very frail Resp: Effort & Inspection: normal respiratory effort and Actively coughing GI: Palpation (GI): Soft to palpation, nontender and no guarding Progress Note: A&P Assessment and plan (1) Dysphagia: Status: Acute Assessment and Plan: I had multiple discussions with patient and sister Jerilyn Explained to them again the technique of PEG tube placement Extensively discussed the risks including but not limited to bleeding, infections, loss of airway, leak, tube dislodgement I also explained to them that this is not for cure his cancer Jerilyn had stated that she was hesitant about him going for another procedure in view of his poor long-term prognosis Yordan had initially agreed to have the procedure although I am uncertain about the depth of his understanding He had discussions with the sister; he eventually to me again this morning that he wants to hold off on it for now Will rediscuss this with him and his sister later on today Fall Risk Details Current Medications: Current Medications Generic Name Dose Route Start Last Admin Trade Name Freq PRN Reason Stop Dose Admin Acetaminophen 650 mg 08/19/20 21:30 Acetaminophen Supp 650 Mg Supp.Rect ME Q6H PRN Pain, Mild (Pain Scale 1-3) Amlodipine Besylate 5 mg 08/20/20 09:00 08/29/20 08:08 Amlodipine Besylate 5 Mg Tablet PO Not Given DAILY LALI Protocol Artificial Tears 1 drop 08/19/20 21:00 Artificial Tears 15 Ml Drops EYE-BOTH TID PRN Dry Eyes Fluticasone Propionate 2 spray 08/20/20 09:00 08/29/20 08:05 Fluticasone Propionate Nasal 16 Gm [place] NOSTRIL-B 2 spray DAILY LALI Administration Ampicillin Sodium/Sulbactam 100 mls @ 200 mls/hr 08/24/20 13:00 08/29/20 08:05 Sodium 1.5 gm/ Sodium Chloride IV 200 mls/hr Q6H LALI Administration Nicotine 14 mg 08/21/20 09:00 08/29/20 08:05 Nicotine 14 Mg Patch.Td24 TRANSDERMA 14 mg DAILY LALI Administration Omeprazole 20 mg 08/25/20 06:30 08/29/20 06:19 Omeprazole 20 Mg/10 Ml Susp.Recon PO 20 mg BID@0630,1630 LALI Administration Ondansetron HCl 4 mg 08/19/20 21:30 Ondansetron Hcl 4 Mg/2 Ml Vial IVPUSH Q8H PRN Nausea and Vomiting Sodium Chloride 3 ml 08/20/20 00:00 08/29/20 08:05 0.9 % Sodium Chloride Flush 3 Ml Syringe IVFLUSH 3 ml QSHIFT LALI Administration Time Spent With Patient Time: Total time spent is greater than 50% in coordination of care (as documented) at patient's floor/unit and/or counseling patient: Time with patient: 25 - 35 minutes
--- NOTE | 2020-08-29 11:16 | P.PNIM_ITS ---
Subjective Subjective Date of Service: 08/29/20 Interval History: hungry Cardiovascular Cardiovascular: Reports no additional cardiovascular complaints Respiratory Respiratory: Reports no additional respiratory complaints Physical Exam Vital Signs: Vital Signs: Last Vital Signs Temp 96.8 F 08/29/20 07:50 Pulse 87 08/29/20 07:50 Resp 18 08/29/20 07:50 BP 161/98 H 08/29/20 07:50 Pulse Ox 96 08/29/20 07:50 Body Mass Index 21.6 General: Alert, conversational, but poor insight and short term memory, no acute distress Resp: CTA bilateral CVS: S1,S2,RRR GI: soft, non tender, non distended Neuro: motor grossly intact Psych: appropriate affect Objective Data Current Medications Generic Name Dose Route Start Last Admin Trade Name Freq PRN Reason Stop Dose Admin Acetaminophen 650 mg 08/19/20 21:30 Acetaminophen Supp 650 Mg Supp.Rect DE Q6H PRN Pain, Mild (Pain Scale 1-3) Amlodipine Besylate 5 mg 08/20/20 09:00 08/29/20 08:08 Amlodipine Besylate 5 Mg Tablet PO Not Given DAILY [facility] Protocol Artificial Tears 1 drop 08/19/20 21:00 Artificial Tears 15 Ml Drops EYE-BOTH TID PRN Dry Eyes Fluticasone Propionate 2 spray 08/20/20 09:00 08/29/20 08:05 Fluticasone Propionate Nasal 16 Gm [place] NOSTRIL-B 2 spray DAILY LALI Administration Ampicillin Sodium/Sulbactam 100 mls @ 200 mls/hr 08/24/20 13:00 08/29/20 10:08 Sodium 1.5 gm/ Sodium Chloride IV Infused Q6H LALI Infusion Dextrose/Sodium Chloride 1,000 mls @ 80 mls/hr 08/29/20 10:15 D51/2ns IVCONT .[id number] LALI Nicotine 14 mg 08/21/20 09:00 08/29/20 08:05 Nicotine 14 Mg Patch.Td24 TRANSDERMA 14 mg DAILY LALI Administration Omeprazole 20 mg 08/25/20 06:30 08/29/20 06:19 Omeprazole 20 Mg/10 Ml Susp.Recon PO 20 mg BID@0630,1630 LALI Administration Ondansetron HCl 4 mg 08/19/20 21:30 Ondansetron Hcl 4 Mg/2 Ml Vial IVPUSH Q8H PRN Nausea and Vomiting Sodium Chloride 3 ml 08/20/20 00:00 08/29/20 08:05 0.9 % Sodium Chloride Flush 3 Ml Syringe IVFLUSH 3 ml QSHIFT LALI Administration Labs CBC & Chem 7: 08/29/20 04:02 08/29/20 04:02 Assessment and Plan (1) Indeterminate pulmonary nodules: Problem details: new primary Status: Acute Assessment and Plan: 84-year-old male with history of colon cancer, Hodgkin's lymphoma, hypertension, dyslipidemia, coronary artery disease, BPH who presented to the emergency department with dysphagia found to have lung nodules on CT chest concerning for malignancy Dysphagia--EGD on 08/[address] Real with the follwing impressionn and recommendation. -Imp: I suspect his dysphagia may have been related to a transient food bolus with subsequent spontaneous passage vs. some GERD with associated esophageal spasm and motility disturbance. The other possibility would be that of some oropharyngeal dysphagia in relation to his age, medical condition, etc. Rec: PPI, Full liquid diet, observe, and swallowing evaluation before advancing diet further. He may need a modified Barium swalllow and a formal evaluation with the speech and swallowing evaluation team before discharge . He failed swallow eval on 08/24 and is now NPO MBS showed aspiration throughout plan for Gtube, however, patient and family still unclear if they want to proceed IVF while NPO Aspiration PNA with acute hypoxic respiratory failure. Unasyn D6/7 Lung nodules concerning for neoplastic process done by IR on 08/23, Pathology report c/w adenocarcinoma, likely lung primary, but could be colon met will follow up outpaitent with thoracic for PET Tobacco dependence Smoking cessation advised -NRT
--- NOTE | 2020-08-29 11:45 | MHC.CM.PN ---
PATIENT NOW DECLINING SURGICAL INTERVENTION. PLAN IS CONVERSATION OF GOALS OF CARE. CASE MANAGEMENT FOLLOWING ALONG. ANOOP CASTILLO UPDATED IN [facility]WIRIPTS
[2020-08-29 11:48] VITALS: BP 159/96; PULSE 95; RESP 18; TEMP 36.6; O2SAT 97
[2020-08-29] MEDS: Dextrose 5 % and 0.45 % NaCl 1,000 ML 80 ML IVCONT ×2 (13:00→22:00)
--- NOTE | 2020-08-29 14:20 | MHC.CLN ---
IF TF NEEDED; RECOMMEND JEVITY AT MAX GOAL RATE 65CC/HR WITH 120CC FREE WATER FLUSHES Q 6 HRS TO PROVIDE 1654KCALS (28KCALS/KG), 66G PROTEIN (1.1G/KG), 1806CC TOTAL WATER FROM FORMULA AND FLUSHES (30.6CC/KG) START TF AT 20CC/HR AND INCREASE BY 10CC Q 4HRS UNTIL MAX GOAL REACHED MONITOR FOR TOLERANCE, RESIDUALS AND LYTES CONSULT RD IF NEEDED
[2020-08-29 15:22] VITALS: BP 160/88; PULSE 103; RESP 18; TEMP 36.8; O2SAT 93
--- NOTE | 2020-08-29 17:10 | PM.HEMONCPN ---
Medical Summary - Medical Summary Date of Service: 08/29/20 Medical Summary: He continues with weakness and anorexia. He initially refused the biopsy but now agrees. The 2 cm nodule is very peripheral. Interval History Interval history: He is persistent in his refusal of a feeding tube. I spoke at length with him this afternoon about this. His sister carly says she cannot take him home unless he is stronger. I will continue to speak with him. If he is discharged he will need an outpatient pet/ct scan to guide therapy. Review of Systems - ENT Reports system reviewed and no additional complaints, except as documented - Cardiovascular Reports fast heart rate - Respiratory Reports chest congestion - Gastrointestinal Reports abdominal pain - Genitourinary Genitourinary: Reports difficulty urinating - Musculoskeletal Reports muscle weakness - Integumentary/Breasts Skin/Breast: Reports other - Neurologic Reports system reviewed and no additional complaints, except as documented, Reports hearing normal, Reports memory loss, Reports weakness - Psychiatric Reports change in appetite - Endocrine Reports other - Hematologic/Lymphatic Reports easy bruising - Allergic/Immunologic Reports other [facility] Medical History: Medical History (Last Reviewed 08/28/20 @ 16:02 by Jass Curry MD) Atrial fibrillation Cholelithiasis COPD (chronic obstructive pulmonary disease) GERD (gastroesophageal reflux disease) History of colon cancer Hodgkins lymphoma Hypercholesterolemia Hypertension Leg weakness, bilateral Pancreatitis Renal calculus, left Tobacco abuse Functional capacity: uses cane/walker Family History: Family History (Last Reviewed 08/28/20 @ 16:02 by Jass Curry MD) Father CVD (cardiovascular disease) Mother CVD (cardiovascular disease) Surgical History: Surgical History (Last Reviewed 08/28/20 @ 16:02 by Jass Curry MD) History of bilateral cataract extraction History of chemotherapy History of colectomy History of tonsillectomy Hx of inguinal hernia surgery Smoking status: Light tobacco smoker Oncology Screenings - G8 Geriatric Assessment Change in food intake over past 3 months: Moderate decrease in food intake Weight loss during the last 3 months: Does not know Mobility: Bed or chair bound Neuropsychological problems: Mild dementia or depression Body Mass Index: 19 to 21 Patient takes > 3 prescription drugs per day: Yes Patient's assessment of health status compared to others: Not as good Patient age: 80 to 85 G8 Score: 5 G8 Risk Level: High risk for early functional decline and reduced survival. - [place]ummer Frail Scale Number of times patient admitted to hospital in past year: 1 to 2 In general, patient describes health as: Poor Number of activities patient requires help with: 5 to 8 Patient can count on others willing and able to meet needs: Sometimes Patient uses 5 or more prescription medications: No Patient reports forgetfulness with taking prescription meds: No Patient reports weight loss: No Patient often feels sad or depressed: No Patient experiences incontinence: No # Sec for patient to walk 3m distance and return to chair: 11-20 Sec Plummer Frail Scale Score: 37 - [place] VTE Risk Cancer Type: Lung Pre-chemo platelet count >= 350,000/uL: No Hemoglobin level <10 g/dL or using RBC growth factors: Yes Pre-chemo leukocyte count > 11,000/uL: Yes BMI >=35: No VTE Risk Score:: 3 [place] VTE Risk: High VTE Risk Home Medications and Allergies Current Medications: Current Medications Generic Name Dose Route Start Last Admin Trade Name Freq PRN Reason Stop Dose Admin Acetaminophen 650 mg 08/19/20 21:30 Acetaminophen Supp 650 Mg Supp.Rect [place] Q6H PRN Pain, Mild (Pain Scale 1-3) Amlodipine Besylate 5 mg 08/20/20 09:00 08/29/20 08:08 Amlodipine Besylate 5 Mg Tablet PO Not Given DAILY [facility] Protocol Artificial Tears 1 drop 08/19/20 21:00 Artificial Tears 15 Ml Drops EYE-BOTH TID PRN Dry Eyes Fluticasone Propionate 2 spray 08/20/20 09:00 08/29/20 08:05 Fluticasone Propionate Nasal 16 Gm [place] NOSTRIL-B 2 spray DAILY LALI Administration Ampicillin Sodium/Sulbactam 100 mls @ 200 mls/hr 08/24/20 13:00 08/29/20 13:58 Sodium 1.5 gm/ Sodium Chloride IV Infused Q6H LALI Infusion Dextrose/Sodium Chloride 1,000 mls @ 80 mls/hr 08/29/20 10:15 08/29/20 13:00 D51/2ns IVCONT 80 mls/hr .[id number] LALI Administration Nicotine 14 mg 08/21/20 09:00 08/29/20 08:05 Nicotine 14 Mg Patch.Td24 TRANSDERMA 14 mg DAILY LALI Administration Omeprazole 20 mg 08/25/20 06:30 08/29/20 16:22 Omeprazole 20 Mg/10 Ml Susp.Recon PO Not Given BID@30,1630 [facility] Ondansetron HCl 4 mg 08/19/20 21:30 Ondansetron Hcl 4 Mg/2 Ml Vial IVPUSH Q8H PRN Nausea and Vomiting Sodium Chloride 3 ml 08/20/20 00:00 08/29/20 16:23 0.9 % Sodium Chloride Flush 3 Ml Syringe IVFLUSH Not Given QSHIFT [facility] Home Medications Medication Instructions Recorded Confirmed Type amlodipine 5 mg tablet 5 mg PO DAILY 06/15/20 08/19/20 History ascorbic acid (vitamin C) 500 mg 500 mg PO DAILY 06/15/20 08/19/20 History capsule atorvastatin 10 mg tablet 10 mg PO DAILY 06/15/20 08/19/20 History dextran 70-hypromellose 0.1 %-0.3 1 drp OPHTHALMIC (EYE) DIRECTED 06/15/20 08/19/20 History % eye drops ferrous sulfate 325 mg (65 mg 325 mg PO DAILY 06/15/20 08/19/20 History iron) tablet fluticasone propionate 50 2 spray INTRANASAL DAILY 06/15/20 08/19/20 History mcg/actuation nasal spray,suspension megestrol 10 ml PO BID 08/19/20 08/19/20 History Allergies Allergy/AdvReac Type Severity Reaction Status Date / Time procaine [From Novocain] Allergy Mild INEFFECTIVE Verified 06/15/20 12:42 PER RN lisinopril Allergy Unknown Unknown Verified 06/15/20 12:42 Exam Vital signs: Vital Signs Temp 98.2 F 08/29/20 15:22 Pulse 103 H 08/29/20 15:22 Resp 18 08/29/20 15:22 BP 160/88 H 08/29/20 15:22 Pulse Ox 93 08/29/20 15:22 Intake & Output 08/28/20 08/29/20 08/29/20 18:59 06:59 18:59 Intake Total 1250.000 / 2465.000 1215 / 2465.000 200 / 200 Output Total 300 / 1800 1500 / 1800 700 / 700 Balance 950.000 / 665.000 -285 / 665.000 -500 / -500 Urine Output (Average ml/kg/hr) 0.42 2.12 0.99 Intake: Intake, Oral Amount Intake, IV Amount 1250.000 / 2450.000 1200 / 2450.000 200 / 200 Ampicillin Sodium/Sulbactam Na 200 / 400 200 / 400 200 / 200 1.5 gm In 0.9 % Sodium Chloride 100 ml @ 200 mls/hr IV Q6H [facility] Rx#:[id number] Magnesium Sulfate/H2O 2 gm In 50 / 50 50 ml @ 25 mls/hr IV ONCE ONE Rx#:[id number] KCl 20 mEq in 0.45% Sod 20 meq 1000.000 / 2000.000 1000 / 2000.000 In 1,000 ml @ 100 mls/hr IVCONT .Q10H [facility] Rx#:[id number] Output: Output, Urine Amount 300 / 1800 1500 / 1800 700 / 700 Other: NPO Yes Yes Yes Lunch % Eaten NPO Number of Incontinent Voids 1 Urine Urinal Urinal Urinal Urine Color Yellow Yellow Yellow Weight 58.96 kg Body Mass Index 21.6 - Constitutional Present: chronically ill appearing - Routine HEENT Exam Head: Present: atraumatic - Routine Abdominal Exam Present: diminished bowel sounds - Routine Extremities Exam Present: extremity cold to touch - Routine Skin Exam Present: scars - Routine Neurological Exam Present: altered mental status Data - Labs CBC & Chem 7: 08/29/20 04:02 08/29/20 04:02 Labs: 08/19/20 15:18 XR chest 2V Stat XR soft tissue neck Stat 08/19/20 15:28 SARS-CoV2/FLU/RSV Stat 08/19/20 15:30 0.9 % Sodium Chloride [Ns] 1,000 ml IVCONT 999 mls/hr 08/19/20 15:37 Basic Metabolic Panel Stat C Reactive Protein Stat Complete Blood Count Auto Diff Stat Ferritin Stat Hold Lt Blue - Possible Coag Stat Lactate Dehydrogenase Stat Liver Panel Stat Magnesium Stat Procalcitonin Stat 08/19/20 16:19 CT chest w con Stat CT soft tissue neck w con Stat 08/19/20 16:56 iohexoL 350 MG/ML [Omnipaque 350 MG/ML] 100 ml IV ONCE ONE 08/19/20 18:46 Transfer Order Routine 08/19/20 21:30 0.9 % Sodium Chloride [Ns] 1,000 ml IVCONT 80 mls/hr Nicotine [Nicoderm] 14 mg TRANSDERMA DAILY 08/19/20 21:30 Vital Signs QSHIFT 08/20/20 08:09 Basic Metabolic Panel DAILY@0600 Carcinoembryonic Antigen Routine Complete Blood Count Auto Diff DAILY@0600 Erythrocyte Sedimentation Rate Routine 08/20/20 11:09 Add Laboratory Test Urgent 08/20/20 15:54 Glycopyrrolate [Robinul] 0.2 mg .ROUTE .STK-MED ONE Lidocaine HCl 2 % MPF [Xylocaine 2 % MPF] 5 ml .ROUTE .STK-MED ONE Lidocaine HCl Viscous 2 % [Xylocaine Viscous 2 % Oral Suni] 15 ml MUCOUS MEM .STK-MED ONE propofoL [Diprivan] 200 mg IVPUSH .STK-MED ONE 08/20/20 16:40 Transfer Order Routine 08/20/20 17:17 Omeprazole [PriLOSEC] 20 mg PO BID@0630,1630 08/20/20 Dinner Full Liquid Diet 08/21/20 02:26 LORazepam [Ativan] 1 mg IVPUSH ONCE ONE 08/22/20 Dinner NPO Diet 08/23/20 CT biopsy lung LT Routine XR chest 2V Routine 08/23/20 10:13 Prothrombin Time INR Stat 08/23/20 11:59 Lidocaine HCl 1 % MPF [Xylocaine 1 % MPF] 5 ml .ROUTE .STK-MED ONE fentaNYL citrate/PF [Sublimaze] 50 mcg .ROUTE .STK-MED ONE 08/23/20 12:00 Midazolam HCl/PF [Versed] 2 mg .ROUTE .STK-MED ONE Naloxone HCl [Narcan] 0.4 mg .ROUTE .STK-MED ONE flumazeniL [Romazicon] 0.05 mg .ROUTE .STK-MED ONE 08/23/20 13:04 Surgical [PTH] Stat 08/23/20 13:07 Reinforce wound dressing NEEDED 08/23/20 13:11 Vital Signs Q30M 08/23/20 13:24 Cytology [PTH] Stat 08/23/20 14:00 Lidocaine HCl 1 % [Xylocaine 1 %] 20 ml SUBCUT ONCE ONE 08/23/20 14:35 Lidocaine HCl 1 % MPF [Xylocaine 1 % MPF] 7 ml SUBCUT ONCE ONE 08/24/20 XR chest 2V Urgent 08/24/20 13:57 Ampicillin Sodium/Sulbactam Na [Unasyn] 1.5 gm .ROUTE .STK-MED ONE 08/24/20 19:57 Ampicillin Sodium/Sulbactam Na [Unasyn] 1.5 gm .ROUTE .STK-MED ONE 08/25/20 02:13 Ampicillin Sodium/Sulbactam Na [Unasyn] 1.5 gm .ROUTE .STK-MED ONE 08/25/20 07:26 Ampicillin Sodium/Sulbactam Na [Unasyn] 1.5 gm .ROUTE .STK-MED ONE 08/25/20 11:02 Basic Metabolic Panel Routine Complete Blood Count no Diff Routine 08/25/20 11:30 Dextrose 5 % and 0.45 % NaCl [D51/2Ns] 1,000 ml IVCONT 100 mls/hr 08/25/20 13:30 Ampicillin Sodium/Sulbactam Na [Unasyn] 1.5 gm .ROUTE .STK-MED ONE 08/25/20 18:00 KCl 20 mEq in 0.45% Sod 20 meq in 1,000 ml IVCONT 100 mls/hr 08/25/20 18:15 Potassium Chloride/H20 10 meq in 100 ml IV Q1H 08/25/20 19:39 Ampicillin Sodium/Sulbactam Na [Unasyn] 1.5 gm .ROUTE .STK-MED ONE 08/26/20 00:28 Ampicillin Sodium/Sulbactam Na [Unasyn] 1.5 gm .ROUTE .STK-MED ONE 08/26/20 06:18 Ampicillin Sodium/Sulbactam Na [Unasyn] 1.5 gm .ROUTE .STK-MED ONE 08/26/20 06:21 Ampicillin Sodium/Sulbactam Na [Unasyn] 1.5 gm .ROUTE .STK-MED ONE 08/26/20 06:27 Basic Metabolic Panel Routine 08/26/20 13:37 Ampicillin Sodium/Sulbactam Na [Unasyn] 1.5 gm .ROUTE .STK-MED ONE 08/26/20 18:16 Ampicillin Sodium/Sulbactam Na [Unasyn] 1.5 gm .ROUTE .STK-MED ONE 08/27/20 02:03 Ampicillin Sodium/Sulbactam Na [Unasyn] 1.5 gm .ROUTE .STK-MED ONE 08/27/20 04:19 LORazepam [Ativan] 0.5 mg IVPUSH ONCE ONE 08/27/20 06:23 Ampicillin Sodium/Sulbactam Na [Unasyn] 1.5 gm .ROUTE .STK-MED ONE 08/27/20 12:31 Ampicillin Sodium/Sulbactam Na [Unasyn] 1.5 gm .ROUTE .STK-MED ONE 08/27/20 19:02 Ampicillin Sodium/Sulbactam Na [Unasyn] 1.5 gm .ROUTE .STK-MED ONE 08/28/20 XR chest 1V Routine 08/28/20 01:58 Ampicillin Sodium/Sulbactam Na [Unasyn] 1.5 gm .ROUTE .STK-MED ONE 08/28/20 06:06 BMP [Basic Metabolic Panel Fasting] Routine Complete Blood Count Man Dif Routine Magnesium Routine 08/28/20 06:58 Ampicillin Sodium/Sulbactam Na [Unasyn] 1.5 gm .ROUTE .STK-MED ONE 08/28/20 07:30 Dextrose 50 % [D50] 25 gm IVPUSH ONCE ONE 08/28/20 07:40 Dextrose 50 % [D50] 25 gm .ROUTE .STK-MED ONE 08/28/20 07:58 Magnesium Sulfate/H2O 2 gm in 50 ml IV ONCE 08/28/20 08:29 Glucose, Whole Blood Routine 08/28/20 11:16 Glucose, Whole Blood Routine 08/28/20 13:20 Ampicillin Sodium/Sulbactam Na [Unasyn] 1.5 gm .ROUTE .STK-MED ONE 08/28/20 19:08 Ampicillin Sodium/Sulbactam Na [Unasyn] 1.5 gm .ROUTE .STK-MED ONE 08/29/20 01:18 Ampicillin Sodium/Sulbactam Na [Unasyn] 1.5 gm .ROUTE .STK-MED ONE 08/29/20 04:02 BMP [Basic Metabolic Panel Fasting] Routine Complete Blood Count Man Dif Routine Magnesium Routine 08/29/20 05:42 Dextrose 50 % [D50] 25 gm .ROUTE .STK-MED ONE 08/29/20 06:52 Dextrose 50 % [D50] 12.5 gm IVPUSH ONCE ONE 08/29/20 07:10 Glucose, Whole Blood Routine 08/29/20 07:56 Ampicillin Sodium/Sulbactam Na [Unasyn] 1.5 gm .ROUTE .STK-MED ONE 08/29/20 13:06 Ampicillin Sodium/Sulbactam Na [Unasyn] 1.5 gm .ROUTE .STK-MED ONE 08/29/20 13:15 Ampicillin Sodium/Sulbactam Na [Unasyn] 1.5 gm .ROUTE .STK-MED ONE Laboratory Last Values WBC 9.5 X10*3/uL (4.8-10.8) 08/29/20 04:02 RBC 4.80 X10*6/uL (4.60-5.80) 08/29/20 04:02 Hgb 13.4 g/dl (14.0-18.0) L 08/29/20 04:02 Hct 41.9 % (42-52) L 08/29/20 04:02 MCV 87.3 fL (80-98) 08/29/20 04:02 MCH 27.9 pg (27.0-33.0) 08/29/20 04:02 MCHC 32.0 g/dl (31.0-36.0) 08/29/20 04:02 RDW 13.2 % (11.0-16.0) 08/29/20 04:02 Plt Count 352 X10*3/uL (160-400) 08/29/20 04:02 MPV 8.7 fL (9.4-12.4) L 08/29/20 04:02 Immature Gran % (Auto) Cancelled 08/29/20 04:02 Neut % (Auto) Cancelled 08/29/20 04:02 Lymph % (Auto) Cancelled 08/29/20 04:02 [place] % (Auto) Cancelled 08/29/20 04:02 Eos % (Auto) Cancelled 08/29/20 04:02 Baso % (Auto) Cancelled 08/29/20 04:02 Lymph # (Auto) Cancelled 08/29/20 04:02 [place] # (Auto) Cancelled 08/29/20 04:02 Eos # (Auto) Cancelled 08/29/20 04:02 Baso # (Auto) Cancelled 08/29/20 04:02 Abs Immat Gran (auto) Cancelled 08/29/20 04:02 Absolute Neuts (auto) Cancelled 08/29/20 04:02 Absolute Nucleated RBC 0.000 X10*3/uL (0.0-0.012) 08/29/20 04:02 Nucleated RBC % (auto) 0.0 /100WBC (0.0-0.2) 08/29/20 04:02 Neutrophils % (Manual) 76 % (45-73) H 08/29/20 04:02 Band Neutrophils % 3 % (3-5) 08/29/20 04:02 Lymphocytes % (Manual) 6 % (20-40) L 08/29/20 04:02 Monocytes % (Manual) 9 % (2-11) 08/29/20 04:02 Eosinophils % (Manual) 1 % (0-4) 08/29/20 04:02 Metamyelocytes % 4 % 08/29/20 04:02 Myelocytes % 1 % 08/29/20 04:02 Abs Neuts (Manual) 7.5 X10*3/uL (2.2-7.9) 08/29/20 04:02 Lymphocytes # (Manual) 0.6 X10*3/uL (0.6-4.8) 08/29/20 04:02 Monocytes # (Manual) 0.9 X10*3/uL (0.0-1.2) 08/29/20 04:02 Eosinophils # (Manual) 0.1 X10*3/UL (0.0-0.8) 08/29/20 04:02 Metamyelocytes # 0.4 X10*3/uL 08/29/20 04:02 Myelocytes # 0.1 X10*/uL 08/29/20 04:02 Platelet Estimate NORMAL (NORMAL) 08/29/20 04:02 Plt Morphology Comment NORMAL 08/29/20 04:02 RBC Morphology NORMAL 08/29/20 04:02 Ovalocytes 1+ 08/28/20 06:06 Jassi Cells 1+ 08/28/20 06:06 Acanthocytes (Spur) 1+ 08/28/20 06:06 ESR 16 MM/HR (0-15) H 08/20/20 08:09 PT 16.5 SEC (10.8-13.0) H 08/23/20 10:13 INR 1.4 (0.9-1.1) H 08/23/20 10:13 Hold Blue Top SEE NOTE 08/19/20 15:37 Sodium 137 mmol/L (135-145) 08/29/20 04:02 Potassium 3.7 mmol/l (3.3-5.1) 08/29/20 04:02 Chloride 96 mmol/L (96-108) 08/29/20 04:02 Carbon Dioxide 25 mmol/L (22-29) 08/29/20 04:02 Anion Gap 20 (12-20) 08/29/20 04:02 BUN 6 mg/dL (9-16) L 08/29/20 04:02 Creatinine 0.49 mg/dL (0.5-1.4) L 08/29/20 04:02 Estim Creat Clear Calc 93.5 08/29/20 04:02 Estimated GFR > 60 08/29/20 04:02 POC Glucose 181 mg/dL (60-115) H 08/29/20 07:10 Random Glucose 93 mg/dL (60-115) 08/26/20 06:27 Fasting Glucose 56 mg/dL (60-99) L* 08/29/20 04:02 Calcium 7.8 mg/dL (8.4-10.2) L 08/29/20 04:02 Magnesium 2.0 mg/dL (1.6-2.6) 08/29/20 04:02 Ferritin 144 ng/mL (20-250) 08/19/20 15:37 Ferritin Cancelled 08/19/20 15:37 Total Bilirubin 0.6 mg/dL (0.0-1.0) 08/19/20 15:37 Direct Bilirubin 0.3 mg/dL (0.0-0.5) 08/19/20 15:37 AST 17 U/L (5-37) 08/19/20 15:37 ALT 26 U/L (0-40) 08/19/20 15:37 Alkaline Phosphatase 165 U/L (39-117) H 08/19/20 15:37 Lactate Dehydrogenase 157 U/L (118-273) 08/19/20 15:37 Lactate Dehydrogenase Cancelled 08/19/20 15:37 C-Reactive Protein 1.71 mg/dL (< or = 0.50) H 08/19/20 15:37 C-Reactive Protein Cancelled 08/19/20 15:37 Total Protein 5.9 g/dL (6.5-8.0) L 08/19/20 15:37 Albumin 4.0 g/dL (3.5-5.0) 08/19/20 15:37 Carcinoembryonic Ag 6.50 mg/mL 08/20/20 08:09 Procalcitonin 0.11 ng/mL 08/19/20 15:37 Coronavirus (PCR) NEGATIVE (Negative) 08/19/20 15:28 Influenza Type A (PCR) NEGATIVE (Negative) 08/19/20 15:28 Influenza Type B (PCR) NEGATIVE (Negative) 08/19/20 15:28 RSV RNA Qual (PCR) NEGATIVE (Negative) 08/19/20 15:28 Progress Note: A/P (1) Indeterminate pulmonary nodules Start date: 08/29/20 (I will continue to discuss his condition and the need for tube feeding.) Problem details: new primary Status: Acute - Time Spent With Patient Total time spent is greater than 50% in coordination of care (as documented) at patient's floor/unit and/or counseling patient: 15 - 24 minutes Procedures - Paracentesis Indication: other Complications: other
[2020-08-29 19:25] VITALS: BP 144/78; PULSE 82; RESP 18; TEMP 36.6; O2SAT 97
[2020-08-29 23:51] VITALS: BP 149/91; PULSE 87; RESP 16; TEMP 36.2; O2SAT 98
[2020-08-30] MEDS: Ampicillin Sodium/Sulbactam Na 1.5 GM in 0.9 % Sodium Chloride 100 ML IV ×4 (03:17→21:28)
[2020-08-30 03:56] VITALS: BP 156/93; PULSE 101; RESP 16; TEMP 36.1; O2SAT 93
[2020-08-30 06:24] LABS: Hematocrit 42.2 % (42-52); Hemoglobin 13.7 g/dl (14.0-18.0); Mean Corpuscular HGB Conc 32.5 g/dl (31.0-36.0); Mean Corpuscular Hemoglobin 27.6 pg (27.0-33.0); Mean Corpuscular Volume 84.9 fL (80-98); Mean Platelet Volume 8.7 fL (9.4-12.4); Platelet Count 396 X10*3/uL (160-400); Red Blood Count 4.97 X10*6/uL (4.60-5.80); White Blood Count 10.8 X10*3/uL (4.8-10.8)
[2020-08-30 07:09] LABS: Anion Gap 14 (12-20); Blood Urea Nitrogen 6 mg/dL (9-16); Calcium 8.1 mg/dL (8.4-10.2); Carbon Dioxide 30 mmol/L (22-29); Chloride 96 mmol/L (96-108); Creatinine Clr Calc Pharmacy 80.4; Estimated Glomerular Filt Rate > 60; Glucose Fasting 171 mg/dL (60-99); Potassium 3.1 mmol/l (3.3-5.1); Sodium 137 mmol/L (135-145)
[2020-08-30 07:40] VITALS: BP 145/91; PULSE 103; RESP 20; TEMP 36.8; O2SAT 96
[2020-08-30 07:41] LABS: Band Neutrophils Percent 7 % (3-5); Lymphocytes Absolute Manual 1.1 X10*3/uL (0.6-4.8); Lymphocytes Percent Manual 10 % (20-40); Metamyelocytes Absolute 0.2 X10*3/uL; Metamyelocytes Percent 2 %; Monocytes Absolute Manual 0.8 X10*3/uL (0.0-1.2); Monocytes Percent Manual 7 % (2-11); Myelocytes Absolute 0.2 X10*/uL; Myelocytes Percent 2 %; Neutrophils Absolute Manual 8.5 X10*3/uL (2.2-7.9); Neutrophils Percent Manual 72 % (45-73)
[2020-08-30 07:42] LABS: Platelet Estimate NORMAL (NORMAL); Platelet Morphology Comment NORMAL; RBC Morphology NORMAL
--- NOTE | 2020-08-30 08:24 | P.PNGS_ITS ---
Subjective Subjective Date of Service: 08/30/20 Patient reports: no new complaints Interval history: Denies any pain No events reported Physical Exam Vital Signs: Vital Signs: Last Vital Signs Temp 98.2 F 08/30/20 07:40 Pulse 103 H 08/30/20 07:40 Resp 20 08/30/20 07:40 BP 145/91 H 08/30/20 07:40 Pulse Ox 96 08/30/20 07:40 Body Mass Index 21.6 Chemistry 08/28/20 08/29/20 08/30/20 06:06 04:02 05:53 Sodium 138 137 137 Potassium 3.6 3.7 3.1 L Carbon Dioxide 25 25 30 H BUN 9 6 L 6 L Creatinine 0.51 0.49 L 0.57 Calcium 8.1 L 7.8 L 8.1 L Hematology 08/28/20 08/29/20 08/30/20 06:06 04:02 05:53 WBC 8.9 9.5 10.8 Hgb 13.8 L 13.4 L 13.7 L Plt Count 353 352 396 Const: Other: Appears frail General: comfortable and no acute distress Resp: Effort & Inspection: normal respiratory effort and Actively coughing Cardio: Rate: regular rate GI: Palpation (GI): Soft to palpation, not firm, nontender and no guarding Progress Note: A&P Assessment and plan (1) Dysphagia: Status: Acute Assessment and Plan: Had another long discussion with the patient about option of proceeding with PEG placement Again discussed with him the technique of the procedure as well as the risks, benefits, and alternatives. He says he does not want to proceed today He does state that he might want to consider having it done down the line He understands that oral intake puts him at risk for aspiration pneumonia in view of his dysphagia His sister Jerilyn is hesitant about him going ahead of the procedure in view of his new cancer will continue to discuss with him option and await for his final decision Fall Risk Details Current Medications: Current Medications Generic Name Dose Route Start Last Admin Trade Name Freq PRN Reason Stop Dose Admin Acetaminophen 650 mg 08/19/20 21:30 Acetaminophen Supp 650 Mg Supp.Rect [place] Q6H PRN Pain, Mild (Pain Scale 1-3) Amlodipine Besylate 5 mg 08/20/20 09:00 08/29/20 08:08 Amlodipine Besylate 5 Mg Tablet PO Not Given DAILY [facility] Protocol Artificial Tears 1 drop 08/19/20 21:00 Artificial Tears 15 Ml Drops EYE-BOTH TID PRN Dry Eyes Fluticasone Propionate 2 spray 08/20/20 09:00 08/29/20 08:05 Fluticasone Propionate Nasal 16 Gm [place] NOSTRIL-B 2 spray DAILY [facility] Administration Dextrose/Sodium Chloride 1,000 mls @ 80 mls/hr 08/29/20 10:15 08/29/20 22:00 D51/2ns IVCONT 80 mls/hr .[id number] [facility] Administration Ampicillin Sodium/Sulbactam 100 mls @ 200 mls/hr 08/30/20 10:00 Sodium 1.5 gm/ Sodium Chloride IV Q6H [facility] Nicotine 14 mg 08/21/20 09:00 08/29/20 08:05 Nicotine 14 Mg Patch.Td24 TRANSDERMA 14 mg DAILY [facility] Administration Omeprazole 20 mg 08/25/20 06:30 08/30/20 05:45 Omeprazole 20 Mg/10 Ml Susp.Recon PO 20 mg BID@0630,1630 [facility] Administration Ondansetron HCl 4 mg 08/19/20 21:30 Ondansetron Hcl 4 Mg/2 Ml Vial IVPUSH Q8H PRN Nausea and Vomiting Sodium Chloride 3 ml 08/20/20 00:00 08/30/20 07:09 0.9 % Sodium Chloride Flush 3 Ml Syringe IVFLUSH Not Given QSHIFT [facility] Time Spent With Patient Time: Total time spent is greater than 50% in coordination of care (as documented) at patient's floor/unit and/or counseling patient: Time with patient: 15 - 24 minutes
--- NOTE | 2020-08-30 09:54 | HO.PM.IMPN ---
Subjective Subjective Date of Service: 08/30/20 Interval History: no complaints Cardiovascular Cardiovascular: Reports no additional cardiovascular complaints Respiratory Respiratory: Reports no additional respiratory complaints Physical Exam Vital Signs: Vital Signs: Last Vital Signs Temp 98.2 F 08/30/20 07:40 Pulse 103 H 08/30/20 07:40 Resp 20 08/30/20 07:40 BP 145/91 H 08/30/20 07:40 Pulse Ox 96 08/30/20 07:40 Body Mass Index 21.6 General: conversational but periods of confusion and poor insight, no acute distress Resp: CTA bilateral CVS: S1,S2,RRR GI: soft, non tender, non distended Neuro: motor grossly intact Psych: appropriate affect Objective Data Current Medications Generic Name Dose Route Start Last Admin Trade Name Freq PRN Reason Stop Dose Admin Acetaminophen 650 mg 08/19/20 21:30 Acetaminophen Supp 650 Mg Supp.Rect [place] Q6H PRN Pain, Mild (Pain Scale 1-3) Amlodipine Besylate 5 mg 08/20/20 09:00 08/29/20 08:08 Amlodipine Besylate 5 Mg Tablet PO Not Given DAILY [facility] Protocol Artificial Tears 1 drop 08/19/20 21:00 Artificial Tears 15 Ml Drops EYE-BOTH TID PRN Dry Eyes Fluticasone Propionate 2 spray 08/20/20 09:00 08/29/20 08:05 Fluticasone Propionate Nasal 16 Gm [place] NOSTRIL-B 2 spray DAILY [facility] Administration Dextrose/Sodium Chloride 1,000 mls @ 80 mls/hr 08/29/20 10:15 08/29/20 22:00 D51/2ns IVCONT 80 mls/hr .[id number] [facility] Administration Ampicillin Sodium/Sulbactam 100 mls @ 200 mls/hr 08/30/20 10:00 Sodium 1.5 gm/ Sodium Chloride IV Q6H [facility] Nicotine 14 mg 08/21/20 09:00 08/29/20 08:05 Nicotine 14 Mg Patch.Td24 TRANSDERMA 14 mg DAILY [facility] Administration Omeprazole 20 mg 08/25/20 06:30 08/30/20 05:45 Omeprazole 20 Mg/10 Ml Susp.Recon PO 20 mg BID@0630,1630 [facility] Administration Ondansetron HCl 4 mg 08/19/20 21:30 Ondansetron Hcl 4 Mg/2 Ml Vial IVPUSH Q8H PRN Nausea and Vomiting Sodium Chloride 3 ml 08/20/20 00:00 08/30/20 07:09 0.9 % Sodium Chloride Flush 3 Ml Syringe IVFLUSH Not Given QSHIFT [facility] Labs CBC & Chem 7: 08/30/20 05:53 08/30/20 05:53 Assessment and Plan (1) Indeterminate pulmonary nodules: Problem details: new primary Status: Acute Assessment and Plan: 84-year-old male with history of colon cancer, Hodgkin's lymphoma, hypertension, dyslipidemia, coronary artery disease, BPH who presented to the emergency department with dysphagia found to have lung nodules on CT chest concerning for malignancy Dysphagia--EGD on 08/[address] Real with the follwing impressionn and recommendation. -Imp: I suspect his dysphagia may have been related to a transient food bolus with subsequent spontaneous passage vs. some GERD with associated esophageal spasm and motility disturbance. The other possibility would be that of some oropharyngeal dysphagia in relation to his age, medical condition, etc. Rec: PPI, Full liquid diet, observe, and swallowing evaluation before advancing diet further. He may need a modified Barium swalllow and a formal evaluation with the speech and swallowing evaluation team before discharge . He failed swallow eval on 08/24 and is now NPO MBS showed aspiration throughout plan for Gtube, however, patient and family still unclear if they want to proceed, today he says he will do it next week, but doubt patient fully understands situation will pursue PPN for now Aspiration PNA with acute hypoxic respiratory failure. Unasyn D6/7 Lung nodules concerning for neoplastic process done by IR on 08/23, Pathology report c/w adenocarcinoma, likely lung primary, but could be colon met will follow up outpaitent with thoracic for PET Tobacco dependence Smoking cessation advised -NRT
[2020-08-30] MEDS: Fluticasone Propionate Nasal 16 GM SPRAY 2 SPRAY NOSTRIL-B (10:01)
[2020-08-30] MEDS: Nicotine 14 MG PATCH.TD24 TRANSDERMA (10:01)
[2020-08-30 10:29] LABS: Albumin Level 3.1 g/dL (3.5-5.0); Magnesium 1.7 mg/dL (1.6-2.6); Phosphorus 2.6 mg/dL (2.7-4.5); Triglycerides 161 mg/dL
[2020-08-30] MEDS: Dextrose 5 % and 0.45 % NaCl 1,000 ML 80 ML IVCONT (10:39)
[2020-08-30 12:00] VITALS: BP 112/73; PULSE 98; RESP 20; TEMP 36.3; O2SAT 94
--- NOTE | 2020-08-30 12:15 | W.MHC.ACPN ---
Advanced Care Planning Note Advanced Care Planning Note Discussed with: family member(s) Time spent (in minutes): 18 Narrative: discussed with sister, carly, over the phone due to covid, regarding diagnosis of dysphagia. she is still decided whether to pursue Gtube vs palliative care. she did discuss with the patient howver, and would like to change code status to DNR/DNI Problems Discussed (1) Indeterminate pulmonary nodules: (2) Dysphagia:
[2020-08-30 15:21] VITALS: BP 138/84; PULSE 100; RESP 18; TEMP 36.3; O2SAT 96
[2020-08-30 19:32] VITALS: BP 145/79; PULSE 90; RESP 19; TEMP 36.9; O2SAT 94
[2020-08-30 23:47] VITALS: BP 142/82; PULSE 79; RESP 18; TEMP 36.3; O2SAT 97
[2020-08-31 04:00] VITALS: BP 135/76; PULSE 76; RESP 18; TEMP 36.4; O2SAT 96
[2020-08-31] MEDS: Ampicillin Sodium/Sulbactam Na 1.5 GM in 0.9 % Sodium Chloride 100 ML IV (04:09)
[2020-08-31 07:30] VITALS: BP 147/80; PULSE 99; RESP 21; TEMP 36.3; O2SAT 93
--- NOTE | 2020-08-31 09:03 | P.PNIM_ITS ---
Subjective Subjective Date of Service: 08/31/20 Interval History: no complaints Cardiovascular Cardiovascular: Reports no additional cardiovascular complaints Gastrointestinal Gastrointestinal: Reports no additional gastrointestinal complaints Physical Exam Vital Signs: Vital Signs: Last Vital Signs Temp 97.3 F 08/31/20 07:30 Pulse 99 08/31/20 07:30 Resp 21 H 08/31/20 07:30 BP 147/80 H 08/31/20 07:30 Pulse Ox 93 08/31/20 07:30 Body Mass Index 21.6 General: Alert, poor insight, no acute distress Resp: CTA bilateral CVS: S1,S2,RRR GI: soft, non tender, non distended Neuro: motor grossly intact Psych: appropriate affect Objective Data Current Medications Generic Name Dose Route Start Last Admin Trade Name Freq PRN Reason Stop Dose Admin Acetaminophen 650 mg 08/19/20 21:30 Acetaminophen Supp [address] Q6H PRN Pain, Mild (Pain Scale 1-3) Amlodipine Besylate 5 mg 08/20/20 09:00 08/30/20 09:54 Amlodipine Besylate 5 Mg Tablet PO Not Given DAILY [facility] Protocol Artificial Tears 1 drop 08/19/20 21:00 Artificial Tears 15 Ml Drops EYE-BOTH TID PRN Dry Eyes Fluticasone Propionate 2 spray 08/20/20 09:00 08/30/20 10:01 Fluticasone Propionate Nasal 16 Gm [place] NOSTRIL-B 2 spray DAILY [facility] Administration Ampicillin Sodium/Sulbactam 100 mls @ 200 mls/hr 08/30/20 10:00 08/31/20 04:49 Sodium 1.5 gm/ Sodium Chloride IV Infused Q6H [facility] Infusion Multivitamins 21 ml/ Trace 960 mls @ 40 mls/hr 08/30/20 18:00 08/30/20 17:47 Metals 2 ml/ Amino Acids/ IV 08/31/20 17:59 40 mls/hr Electrolytes/Dextrose DAILY@1800 [facility] Administration Nicotine 14 mg 08/21/20 09:00 08/30/20 10:01 Nicotine 14 Mg Patch.Td24 TRANSDERMA 14 mg DAILY [facility] Administration Omeprazole 20 mg 08/25/20 06:30 08/31/20 05:23 Omeprazole 20 Mg/10 Ml Susp.Recon PO Not Given BID@0630,1630 [facility] Ondansetron HCl 4 mg 08/19/20 21:30 Ondansetron Hcl 4 Mg/2 Ml Vial IVPUSH Q8H PRN Nausea and Vomiting Sodium Chloride 3 ml 08/20/20 00:00 08/30/20 23:36 0.9 % Sodium Chloride Flush 3 Ml Syringe IVFLUSH Not Given QSHIFT [facility] Labs CBC & Chem 7: 08/30/20 05:53 08/30/20 05:53 Assessment and Plan (1) Indeterminate pulmonary nodules: Problem details: new primary Status: Acute (2) Dysphagia: Status: Acute Assessment and Plan: 84-year-old male with history of colon cancer, Hodgkin's lymphoma, hypertension, dyslipidemia, coronary artery disease, BPH who presented to the emergency department with dysphagia found to have lung nodules on CT chest concerning for malignancy Dysphagia--EGD on 08/[address] Real with the follwing impressionn and recommendation. -Imp: I suspect his dysphagia may have been related to a transient food bolus with subsequent spontaneous passage vs. some GERD with associated esophageal spasm and motility disturbance. The other possibility would be that of some oropharyngeal dysphagia in relation to his age, medical condition, etc. Rec: PPI, Full liquid diet, observe, and swallowing evaluation before advancing diet further. He may need a modified Barium swalllow and a formal evaluation with the speech and swallowing evaluation team before discharge . He failed swallow eval on 08/24 and is now NPO MBS showed aspiration throughout plan for Gtube, however, patient and family still unclear if they want to proceed, now saying he will do it next week, but doubt patient fully understands situation will continue PPN for now Aspiration PNA with acute hypoxic respiratory failure. Unasyn D7/7 Lung nodules concerning for neoplastic process done by IR on 08/23, Pathology report c/w adenocarcinoma, likely lung primary, but could be colon met will follow up outpaitent with thoracic for PET Tobacco dependence Smoking cessation advised -NRT
[2020-08-31] MEDS: Nicotine 14 MG PATCH.TD24 TRANSDERMA (09:39)
[2020-08-31] MEDS: Fluticasone Propionate Nasal 16 GM SPRAY 2 SPRAY NOSTRIL-B (09:40)
[2020-08-31 11:32] VITALS: BP 120/75; PULSE 94; RESP 20; TEMP 37.1; O2SAT 94
[2020-08-31 12:25] LABS: Anion Gap 13 (12-20); Blood Urea Nitrogen 13 mg/dL (9-16); Calcium 7.9 mg/dL (8.4-10.2); Carbon Dioxide 31 mmol/L (22-29); Chloride 99 mmol/L (96-108); Creatinine Clr Calc Pharmacy 77.7; Estimated Glomerular Filt Rate > 60; Glucose Random 160 mg/dL (60-115); Magnesium 1.8 mg/dL (1.6-2.6); Phosphorus 2.7 mg/dL (2.7-4.5); Potassium 3.5 mmol/l (3.3-5.1); Sodium 139 mmol/L (135-145)
[2020-08-31 15:32] VITALS: BP 144/82; PULSE 83; RESP 18; TEMP 36.6; O2SAT 92
[2020-08-31 19:07] VITALS: BP 139/73; PULSE 79; RESP 24; TEMP 36.1; O2SAT 91
[2020-08-31 23:18] VITALS: BP 156/81; PULSE 87; RESP 18; TEMP 36.2; O2SAT 95
[2020-09-01 04:00] VITALS: PULSE 92; RESP 18; TEMP 36.6; O2SAT 97
[2020-09-01 07:03] VITALS: BP 128/70; PULSE 72; RESP 18; TEMP 36.3; O2SAT 97
[2020-09-01] MEDS: Nicotine 14 MG PATCH.TD24 TRANSDERMA (07:45)
[2020-09-01 08:01] LABS: Anion Gap 11 (12-20); Blood Urea Nitrogen 15 mg/dL (9-16); Calcium 8.1 mg/dL (8.4-10.2); Carbon Dioxide 32 mmol/L (22-29); Chloride 99 mmol/L (96-108); Estimated Glomerular Filt Rate > 60; Glucose Fasting 145 mg/dL (60-99); Magnesium 1.9 mg/dL (1.6-2.6); Potassium 3.6 mmol/l (3.3-5.1); Sodium 138 mmol/L (135-145)
--- NOTE | 2020-09-01 09:36 | HO.PM.IMPN ---
Subjective Subjective Date of Service: 09/01/20 Interval History: comfortable Cardiovascular Cardiovascular: Reports no additional cardiovascular complaints Respiratory Respiratory: Reports no additional respiratory complaints Physical Exam Vital Signs: Vital Signs: Last Vital Signs Temp 97.4 F 09/01/20 07:03 Pulse 72 09/01/20 07:03 Resp 18 09/01/20 07:03 BP 128/70 09/01/20 07:03 Pulse Ox 97 09/01/20 07:03 Body Mass Index 21.6 General: Alert, no acute distress Resp: CTA bilateral CVS: S1,S2,RRR GI: soft, non tender, non distended Neuro: motor grossly intact Psych: appropriate affect Objective Data Current Medications Generic Name Dose Route Start Last Admin Trade Name Freq PRN Reason Stop Dose Admin Acetaminophen 650 mg 08/19/20 21:30 Acetaminophen Supp 650 Mg Supp.Rect [place] Q6H PRN Pain, Mild (Pain Scale 1-3) Amlodipine Besylate 5 mg 08/20/20 09:00 09/01/20 07:33 Amlodipine Besylate 5 Mg Tablet PO Not Given DAILY [facility] Protocol Artificial Tears 1 drop 08/19/20 21:00 Artificial Tears 15 Ml Drops EYE-BOTH TID PRN Dry Eyes Fluticasone Propionate 2 spray 08/20/20 09:00 09/01/20 07:47 Fluticasone Propionate Nasal 16 Gm [place] NOSTRIL-B Not Given DAILY [facility] Multivitamins 21 ml/ Trace 960 mls @ 40 mls/hr 08/31/20 18:00 08/31/20 17:39 Metals 2 ml/ Amino Acids/ IV 09/01/20 17:59 40 mls/hr Electrolytes/Dextrose DAILY@1800 [facility] Administration Nicotine 14 mg 08/21/20 09:00 09/01/20 07:45 Nicotine 14 Mg Patch.Td24 TRANSDERMA 14 mg DAILY [facility] Administration Omeprazole 20 mg 08/25/20 06:30 09/01/20 05:31 Omeprazole 20 Mg/10 Ml Susp.Recon PO Not Given BID@0630,1630 [facility] Ondansetron HCl 4 mg 08/19/20 21:30 Ondansetron Hcl 4 Mg/2 Ml Vial IVPUSH Q8H PRN Nausea and Vomiting Sodium Chloride 3 ml 08/20/20 00:00 09/01/20 07:45 0.9 % Sodium Chloride Flush 3 Ml Syringe IVFLUSH Not Given QSHIFT [facility] Labs CBC & Chem 7: 08/30/20 05:53 09/01/20 06:51 Assessment and Plan (1) Indeterminate pulmonary nodules: Problem details: new primary Status: Acute (2) Dysphagia: Status: Acute Assessment and Plan: 84-year-old male with history of colon cancer, Hodgkin's lymphoma, hypertension, dyslipidemia, coronary artery disease, BPH who presented to the emergency department with dysphagia found to have lung nodules on CT chest concerning for malignancy Dysphagia--EGD on 08/[address] Real with the louisewing impressionn and recommendation. -Imp: I suspect his dysphagia may have been related to a transient food bolus with subsequent spontaneous passage vs. some GERD with associated esophageal spasm and motility disturbance. The other possibility would be that of some oropharyngeal dysphagia in relation to his age, medical condition, etc. Rec: PPI, Full liquid diet, observe, and swallowing evaluation before advancing diet further. He may need a modified Barium swalllow and a formal evaluation with the speech and swallowing evaluation team before discharge . He failed swallow eval on 08/24 and is now NPO MBS showed aspiration throughout plan for Gtube, however, patient and family still unclear if they want to proceed, now saying he will do it next week, but doubt patient fully understands situation will continue PPN for now, monitor bmp, mg Aspiration PNA with acute hypoxic respiratory failure. Unasyn D7/7 Lung nodules concerning for neoplastic process done by IR on 08/23, Pathology report c/w adenocarcinoma, likely lung primary, but could be colon met will follow up outpaitent with thoracic for PET Tobacco dependence Smoking cessation advised -NRT
[2020-09-01 11:07] VITALS: BP 144/81; PULSE 74; RESP 18; TEMP 36.3; O2SAT 96
--- NOTE | 2020-09-01 13:44 | MHC.CM.PN ---
DAUGHTER DEWAYNE ([phone]) AWARE THAT [facility] IS NOT OFFERING. DEWAYNE STATES THAT SHE IS GOING TO CALL HER LFYENUZR-BC-DSO'S MOTHER (WHO REPORTEDLY WORKS AN AIDE AT FACILITY) IN HOPES OF SECURING A BED. THIS WATER MANGLE TENDER EXPLAINED THAT A QUALIFIED RN REVIEWS EACH REFERRAL, AND MAKES THE DECISION TO ADMIT OR DENY, AND THAT ADMISSIONS IS NOT FOUND AT THE FACILITY ON THE WEEKENDS, THEY WORK REMOTELY. DAUGHTER FEELS SHE NEEDS TO MAKE THE ATTEMPT. CASE MANAGEMENT UPDATED FACILITIES THAT MADELINE'S ANSWER ON THE TWO CURRENT BED OFFERS IS STILL PENDING.
[2020-09-01 13:50] VITALS: BMI 21.6
--- NOTE | 2020-09-01 13:53 | MHC.CLN ---
F/U PT RECEIVING PPN -UNDECIDED ABOUT GTUBE RECOMMEND INCREASING PPN TO 60CC/HR TO PROVIDE 734KCALS, 61G PROTEIN (1.0G/KG) CHECK TRIGS TOMORROW (09/02) IF TRIGS WNL; RECOMMEND INCREASING PPN D10 AA4.25 TO 80CC/HR AND ADD 14ML OF 20% LIPID SOLUTION TO PROVIDE 1651KCALS (28KCALS/KG), 82G PROTEIN (1.4G/KG) MONITOR LYTES AND REPLETE NEEDED FOLLOWING
[2020-09-01 16:00] VITALS: BP 144/83; PULSE 80; RESP 20; TEMP 36.7; O2SAT 95
[2020-09-01 19:02] VITALS: BP 150/81; PULSE 83; RESP 19; TEMP 36.5; O2SAT 96
[2020-09-01 23:50] VITALS: BP 158/92; PULSE 84; RESP 19; TEMP 36.7; O2SAT 95
[2020-09-02 03:41] VITALS: BP 154/93; PULSE 94; RESP 18; TEMP 36.5; O2SAT 96
[2020-09-02 07:11] VITALS: BP 149/82; PULSE 89; RESP 18; TEMP 36.8; O2SAT 93
[2020-09-02 07:49] LABS: Anion Gap 12 (12-20); Blood Urea Nitrogen 14 mg/dL (9-16); Calcium 8.1 mg/dL (8.4-10.2); Carbon Dioxide 30 mmol/L (22-29); Chloride 99 mmol/L (96-108); Creatinine Clr Calc Pharmacy 81.8; Estimated Glomerular Filt Rate > 60; Glucose Fasting 133 mg/dL (60-99); Potassium 4.4 mmol/l (3.3-5.1); Sodium 137 mmol/L (135-145)
[2020-09-02 08:41] LABS: Albumin Level 2.9 g/dL (3.5-5.0)
[2020-09-02 08:57] LABS: Triglycerides 146 mg/dL
--- NOTE | 2020-09-02 09:17 | HO.PM.IMPN ---
Subjective Subjective Date of Service: 09/02/20 Interval History: weak Cardiovascular Cardiovascular: Reports no additional cardiovascular complaints Respiratory Respiratory: Reports no additional respiratory complaints Physical Exam Vital Signs: Vital Signs: Last Vital Signs Temp 98.2 F 09/02/20 07:11 Pulse 89 09/02/20 07:11 Resp 18 09/02/20 07:11 BP 149/82 H 09/02/20 07:11 Pulse Ox 93 09/02/20 07:11 Body Mass Index 21.6 General: Alert, ill appearing, no acute distress Resp: rhonchi CVS: S1,S2,RRR GI: soft, non tender, non distended Neuro: motor grossly intact Psych: impaired insight Objective Data Current Medications Generic Name Dose Route Start Last Admin Trade Name Freq PRN Reason Stop Dose Admin Acetaminophen 650 mg 08/19/20 21:30 Acetaminophen Supp 650 Mg Supp.Rect [place] Q6H PRN Pain, Mild (Pain Scale 1-3) Amlodipine Besylate 5 mg 08/20/20 09:00 09/02/20 08:58 Amlodipine Besylate 5 Mg Tablet PO Not Given DAILY [facility] Protocol Artificial Tears 1 drop 08/19/20 21:00 Artificial Tears 15 Ml Drops EYE-BOTH TID PRN Dry Eyes Fluticasone Propionate 2 spray 08/20/20 09:00 09/01/20 07:47 Fluticasone Propionate Nasal 16 Gm [place] NOSTRIL-B Not Given DAILY [facility] Multivitamins 21 ml/ Trace 2,023 mls @ 40 mls/hr 09/01/20 18:00 09/01/20 19:15 Metals 2 ml/ Amino Acids/ IV 09/02/20 17:59 40 mls/hr Electrolytes/Dextrose DAILY@1800 [facility] Administration Multivitamins 14 ml/ Trace 2,015.4 mls @ 60 mls/hr 09/02/20 18:00 Metals 1.4 ml/ Amino Acids/ IV 09/03/20 17:59 Electrolytes/Dextrose DAILY@1800 [facility] Nicotine 14 mg 08/21/20 09:00 09/01/20 07:45 Nicotine 14 Mg Patch.Td24 TRANSDERMA 14 mg DAILY [facility] Administration Omeprazole 20 mg 08/25/20 06:30 09/02/20 06:28 Omeprazole 20 Mg/10 Ml Susp.Recon PO Not Given BID@0630,1630 [facility] Ondansetron HCl 4 mg 08/19/20 21:30 Ondansetron Hcl 4 Mg/2 Ml Vial IVPUSH Q8H PRN Nausea and Vomiting Sodium Chloride 3 ml 08/20/20 00:00 09/02/20 08:58 0.9 % Sodium Chloride Flush 3 Ml Syringe IVFLUSH Not Given QSHIFT [facility] Labs CBC & Chem 7: 08/30/20 05:53 09/02/20 06:42 Assessment and Plan (1) Indeterminate pulmonary nodules: Problem details: new primary Status: Acute (2) Dysphagia: Status: Acute Assessment and Plan: 84-year-old male with history of colon cancer, Hodgkin's lymphoma, hypertension, dyslipidemia, coronary artery disease, BPH who presented to the emergency department with dysphagia found to have lung nodules on CT chest concerning for malignancy Dysphagia--EGD on 08/[address] Real with the following impressions and recommendation. -Imp: I suspect his dysphagia may have been related to a transient food bolus with subsequent spontaneous passage vs. some GERD with associated esophageal spasm and motility disturbance. The other possibility would be that of some oropharyngeal dysphagia in relation to his age, medical condition, etc. Rec: PPI, Full liquid diet, observe, and swallowing evaluation before advancing diet further. He may need a modified Barium swalllow and a formal evaluation with the speech and swallowing evaluation team before discharge . He failed swallow eval on 08/24 and is now NPO MBS showed aspiration throughout plan for Gtube, however, patient and family still unclear if they want to proceed currently saying he will do it Monday 09/03, but doubt patient fully understands situation will continue PPN for now, monitor bmp, mg and plan for Gtube tomorrow Aspiration PNA with acute hypoxic respiratory failure. completed 7 days of Unasyn Lung nodules concerning for neoplastic process done by IR on 08/23, Pathology report c/w adenocarcinoma, likely lung primary, but could be colon met will follow up outpaitent with thoracic for PET if treatment pursued Tobacco dependence Smoking cessation advised -NRT
[2020-09-02] MEDS: Nicotine 14 MG PATCH.TD24 TRANSDERMA (10:29)
[2020-09-02] MEDS: Fluticasone Propionate Nasal 16 GM SPRAY 2 SPRAY NOSTRIL-B (10:34)
[2020-09-02 12:00] VITALS: BP 144/89; PULSE 78; RESP 18; TEMP 36.8; O2SAT 97
--- NOTE | 2020-09-02 12:03 | MHC.CM.PN ---
Addendum entered by Neena Vasquez 09/02/20 12:05: CORRECTION - [facility] UPDATED. SISTER DOES NOT WANT PATIENT TO DC TO [facility], OR ANY SNF, AT THIS TIME Original Note: PER REVIEW OF PROGRESS NOTES, PLAN IS FOR G-TUBE Thursday09/03/2020. [facility] UPDATED WITH CLINICALS
[2020-09-02 15:30] VITALS: BP 133/74; PULSE 85; RESP 18; TEMP 36.9; O2SAT 98
[2020-09-02 19:33] VITALS: BP 130/82; PULSE 86; RESP 20; TEMP 36.4; O2SAT 98
[2020-09-03] VITALS: BP 162/100; PULSE 81; RESP 18; TEMP 36.4; O2SAT 99
[2020-09-03 04:00] VITALS: BP 145/87; PULSE 86; TEMP 36.3; O2SAT 96
[2020-09-03 06:24] LABS: MANUAL DIFF FLAG NO
[2020-09-03 06:52] LABS: Basophils Absolute Auto 0.1 X10*3/uL (0.0-0.2); Basophils Percent Auto 0.7 % (0-2); Eosinophils Absolute Auto 0.1 X10*3/uL (0.0-0.4); Eosinophils Percent Auto 1.6 % (0-4); Hematocrit 41.3 % (42-52); Hemoglobin 13.5 g/dl (14.0-18.0); Imm Gran Abs Auto 0.17 X10*3/uL (0.00-0.03); Imm Gran Pct Auto 1.9 % (0.0-0.4); Lymphocytes Absolute Auto 0.8 X10*3/uL (1.2-4.9); Lymphocytes Percent Auto 9.5 % (20-40); Mean Corpuscular HGB Conc 32.7 g/dl (31.0-36.0); Mean Corpuscular Hemoglobin 28.4 pg (27.0-33.0); Mean Corpuscular Volume 86.8 fL (80-98); Mean Platelet Volume 11.8 fL (9.4-12.4); Monocytes Absolute Auto 0.8 X10*3/uL (0.1-1.2); Monocytes Percent Auto 8.5 % (2-11); Neutrophils Absolute Auto 6.9 X10*3/uL (2.0-8.3); Neutrophils Percent Auto 77.8 % (45-73); Platelet Count 251 X10*3/uL (160-400); Red Blood Count 4.76 X10*6/uL (4.60-5.80); Red Cell Distribution Width 13.5 % (11.0-16.0); White Blood Count 8.8 X10*3/uL (4.8-10.8)
[2020-09-03 07:08] LABS: Anion Gap 13 (12-20); Blood Urea Nitrogen 17 mg/dL (9-16); Calcium 8.1 mg/dL (8.4-10.2); Carbon Dioxide 24 mmol/L (22-29); Chloride 101 mmol/L (96-108); Creatinine Clr Calc Pharmacy 81.8; Estimated Glomerular Filt Rate > 60; Glucose Fasting 160 mg/dL (60-99); Potassium 4.4 mmol/l (3.3-5.1); Sodium 134 mmol/L (135-145)
[2020-09-03 07:13] VITALS: BP 138/88; PULSE 91; RESP 18; TEMP 36.1; O2SAT 100
[2020-09-03] MEDS: Nicotine 14 MG PATCH.TD24 TRANSDERMA (08:28)
[2020-09-03] MEDS: Fluticasone Propionate Nasal 16 GM SPRAY 2 SPRAY NOSTRIL-B (08:28)
--- NOTE | 2020-09-03 09:20 | HO.PM.IMPN ---
Subjective Subjective Date of Service: 09/03/20 Interval History: f/u dysphagia, egd showed no obstruction. Failed swallow eval by speech yester and is NPO, no new issues. Review of Systems no sob no fever some confused Physical Exam Vital Signs: Vital Signs: Last Vital Signs Temp 96.9 F 09/03/20 07:13 Pulse 91 09/03/20 07:13 Resp 18 09/03/20 07:13 BP 138/88 09/03/20 07:13 Pulse Ox 100 09/03/20 07:13 Body Mass Index 21.6 Const: Other: General: Alert, ill appearing, no acute distress Resp: rhonchi CVS: S1,S2,RRR GI: soft, non tender, non distended Neuro: motor grossly intact Psych: impaired insight Objective Data Current Medications Generic Name Dose Route Start Last Admin Trade Name Freq PRN Reason Stop Dose Admin Acetaminophen 650 mg 08/19/20 21:30 Acetaminophen Supp 650 Mg Supp.Rect [place] Q6H PRN Pain, Mild (Pain Scale 1-3) Amlodipine Besylate 5 mg 08/20/20 09:00 09/03/20 08:08 Amlodipine Besylate 5 Mg Tablet PO Not Given DAILY [facility] Protocol Artificial Tears 1 drop 08/19/20 21:00 Artificial Tears 15 Ml Drops EYE-BOTH TID PRN Dry Eyes Fluticasone Propionate 2 spray 08/20/20 09:00 09/03/20 08:28 Fluticasone Propionate Nasal 16 Gm [place] NOSTRIL-B 2 spray DAILY [facility] Administration Multivitamins 14 ml/ Trace 2,015.4 mls @ 60 mls/hr 09/02/20 18:00 09/02/20 16:54 Metals 1.4 ml/ Amino Acids/ IV 09/03/20 17:59 60 mls/hr Electrolytes/Dextrose DAILY@1800 [facility] Administration Nicotine 14 mg 08/21/20 09:00 09/03/20 08:28 Nicotine 14 Mg Patch.Td24 TRANSDERMA 14 mg DAILY [facility] Administration Omeprazole 20 mg 08/25/20 06:30 09/03/20 05:36 Omeprazole 20 Mg/10 Ml Susp.Recon PO Not Given BID@0630,1630 [facility] Ondansetron HCl 4 mg 08/19/20 21:30 Ondansetron Hcl 4 Mg/2 Ml Vial IVPUSH Q8H PRN Nausea and Vomiting Sodium Chloride 3 ml 08/20/20 00:00 09/03/20 08:08 0.9 % Sodium Chloride Flush 3 Ml Syringe IVFLUSH Not Given QSHIFT [facility] Labs CBC & Chem 7: 09/03/20 06:07 09/03/20 06:06 Assessment and Plan (1) Indeterminate pulmonary nodules: Problem details: new primary Status: Acute (2) Dysphagia: Status: Acute Assessment and Plan: 84-year-old male with history of colon cancer, Hodgkin's lymphoma, hypertension, dyslipidemia, coronary artery disease, BPH who presented to the emergency department with dysphagia found to have lung nodules on CT chest concerning for malignancy Dysphagia--EGD on 08/[address] Real with the following impressions and recommendation. -Imp: I suspect his dysphagia may have been related to a transient food bolus with subsequent spontaneous passage vs. some GERD with associated esophageal spasm and motility disturbance. The other possibility would be that of some oropharyngeal dysphagia in relation to his age, medical condition, etc. Rec: PPI, Full liquid diet, observe, and swallowing evaluation before advancing diet further. He may need a modified Barium swalllow and a formal evaluation with the speech and swallowing evaluation team before discharge . He failed swallow eval on 08/24 and is now NPO MBS showed aspiration throughout plan for Gtube, however, patient and family still unclear if they want to proceed currently saying he will do it today Monday 09/03, but doubt patient fully understands situation will continue PPN for now, monitor bmp, mg and plan for Gtube today Aspiration PNA with acute hypoxic respiratory failure. completed 7 days of Unasyn Lung nodules concerning for neoplastic process done by IR on 08/23, Pathology report c/w adenocarcinoma, likely lung primary, but could be colon met will follow up outpaitent with thoracic for PET if treatment pursued Tobacco dependence Smoking cessation advised -NRT Will likely need to go to rehab
[2020-09-03 11:52] VITALS: BP 137/82; PULSE 86; RESP 18; TEMP 36.8; O2SAT 100
--- NOTE | 2020-09-03 12:56 | P.PNGS_ITS ---
Subjective Subjective Date of Service: 09/03/20 Interval history: No events reported Patient denies specific complaints Physical Exam Vital Signs: Vital Signs: Last Vital Signs Temp 98.2 F 09/03/20 11:52 Pulse 86 09/03/20 11:52 Resp 18 09/03/20 11:52 BP 137/82 09/03/20 11:52 Pulse Ox 100 09/03/20 11:52 Body Mass Index 21.6 Chemistry 09/01/20 09/02/20 09/03/20 06:51 06:42 06:06 Sodium 138 137 134 L Potassium 3.6 4.4 D 4.4 Carbon Dioxide 32 H 30 H 24 BUN 15 14 17 H Creatinine 0.58 0.56 0.56 Calcium 8.1 L 8.1 L 8.1 L Phosphorus 3.0 Hematology 09/03/20 06:07 WBC 8.8 Hgb 13.5 L Plt Count 251 D Const: General: comfortable and no acute distress GI: Palpation (GI): Soft to palpation, not firm and nontender Progress Note: A&P Assessment and plan (1) Dysphagia: Status: Acute Assessment and Plan: Patient still stating that he does not want PEG today States he is unsure as to whether he will actually go ahead with this or not Continue PPN Will discuss with sister Fall Risk Details Current Medications: Current Medications Generic Name Dose Route Start Last Admin Trade Name Freq PRN Reason Stop Dose Admin Acetaminophen 650 mg 08/19/20 21:30 Acetaminophen Supp 650 Mg Supp.Rect [place] Q6H PRN Pain, Mild (Pain Scale 1-3) Amlodipine Besylate 5 mg 08/20/20 09:00 09/03/20 08:08 Amlodipine Besylate 5 Mg Tablet PO Not Given DAILY [facility] Protocol Artificial Tears 1 drop 08/19/20 21:00 Artificial Tears 15 Ml Drops EYE-BOTH TID PRN Dry Eyes Fluticasone Propionate 2 spray 08/20/20 09:00 09/03/20 08:28 Fluticasone Propionate Nasal 16 Gm [place] NOSTRIL-B 2 spray DAILY [facility] Administration Multivitamins 14 ml/ Trace 2,015.4 mls @ 60 mls/hr 09/02/20 18:00 09/02/20 16:54 Metals 1.4 ml/ Amino Acids/ IV 09/03/20 17:59 60 mls/hr Electrolytes/Dextrose DAILY@1800 [facility] Administration Multivitamins 10.5 ml/ Trace 1,920 mls @ 80 mls/hr 09/03/20 18:00 Metals 1.1 ml/ Amino Acids/ IV Electrolytes/Dextrose DAILY@1800 [facility] Fat Emulsion Intravenous 168 mls @ 14 mls/hr 09/03/20 18:00 Intralipid IVCONT 09/04/20 17:59 BID@0600,1800 [facility] Nicotine 14 mg 08/21/20 09:00 09/03/20 08:28 Nicotine 14 Mg Patch.Td24 TRANSDERMA 14 mg DAILY [facility] Administration Omeprazole 20 mg 08/25/20 06:30 09/03/20 05:36 Omeprazole 20 Mg/10 Ml Susp.Recon PO Not Given BID@0630,1630 [facility] Ondansetron HCl 4 mg 08/19/20 21:30 Ondansetron Hcl 4 Mg/2 Ml Vial IVPUSH Q8H PRN Nausea and Vomiting Sodium Chloride 3 ml 08/20/20 00:00 09/03/20 08:08 0.9 % Sodium Chloride Flush 3 Ml Syringe IVFLUSH Not Given QSHIFT [facility] Time Spent With Patient Time: Total time spent is greater than 50% in coordination of care (as documented) at patient's floor/unit and/or counseling patient: Time with patient: 15 - 24 minutes
--- NOTE | 2020-09-03 15:27 | MHC.CLN ---
F/U TRIGS 146 WNL; RECOMMEND INCREASING PPN D10 AA4.25 TO 80CC/HR AND ADD 14ML OF 20% LIPID SOLUTION TO PROVIDE 1651KCALS (28KCALS/KG), 82G PROTEIN (1.4G/KG) DISCUSSED WITH PHARMACY MONITOR LYTES AND REPLETE NEEDED FOLLOWING
[2020-09-03 15:28] VITALS: BP 153/84; PULSE 100; RESP 18; TEMP 36.1; O2SAT 95
--- NOTE | 2020-09-03 16:21 | MHC.CM.PN ---
CM SPOKE TO PT AND PTS SISTER MULTIPLE TIMES THROUGH OUT THE DAY. PT CONTINUES TO BE CONFUSED AND UNSURE IF HE IS GOING TO HAVE THE G-TUBE PLACED. PTS SISTER IS FRUSTRATED WITH HIS INDECISION. 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 PTS SISTER UNDERSTANDS THE PT COULD GO TO [facility] AND RECEIVE PT IF HE DOES GET THE G-TUBE PLACED WITH A GOAL TO GO HOME WHEN STRONGER. PTS SISTER WILL CONTINUE TO TALK TO HIM ABOUT THE PROCEDURE AND HOPES THAT HE WILL GET IT TOMORROW. SHE FEELS THAT PT SHOULD DISCHARGE TOMORROW WITH OR WITHOUT THE PROCEDURE AND IS CURRENTLY LEANING TOWARDS PT GOING TO A FACILITY.
[2020-09-03] MEDS: Fat Emulsions 20% 250 ML 14 ML IVCONT (18:36)
[2020-09-03 20:00] VITALS: BP 130/74; PULSE 81; RESP 16; TEMP 36.1; O2SAT 95
[2020-09-04] VITALS (11 sets, daily range): BP systolic 105–167; BP diastolic 59–83; PULSE 69–90; RESP 16–22; TEMP 36.1–37.1; O2SAT 89–98
[2020-09-04] MEDS: Fat Emulsions 20% 250 ML 14 ML IVCONT ×2 (06:56→18:50)
[2020-09-04] MEDS: Nicotine 14 MG PATCH.TD24 TRANSDERMA (08:13)
[2020-09-04] MEDS: Fluticasone Propionate Nasal 16 GM SPRAY 2 SPRAY NOSTRIL-B (08:14)
--- NOTE | 2020-09-04 08:37 | PM.PNGS ---
Subjective Subjective Date of Service: 09/04/20 Interval history: had multiple discussions with the patient last night and this morning he says he has decided to go ahead with PEG placement denies complaints currently Physical Exam Vital Signs: Vital Signs: Last Vital Signs Temp 97.2 F 09/04/20 07:12 Pulse 84 09/04/20 07:12 Resp 19 09/04/20 07:12 BP 121/68 09/04/20 07:12 Pulse Ox 91 L 09/04/20 07:12 Body Mass Index 21.6 Chemistry 09/02/20 09/03/20 06:42 06:06 Sodium 137 134 L Potassium 4.4 D 4.4 Carbon Dioxide 30 H 24 BUN 14 17 H Creatinine 0.56 0.56 Calcium 8.1 L 8.1 L Phosphorus 3.0 Hematology 09/03/20 06:07 WBC 8.8 Hgb 13.5 L Plt Count 251 D Const: General: comfortable; No acute distress Cardio: Rate: regular rate GI: Other: soft, nondistended, no guarding or rebound, unpaid intern palpable masses, no surgical scars Progress Note: A&P Assessment and plan (1) Dysphagia: Problem details: pt now wants to proceed with PEG placement reviewed with him the technique of PEG placement explained risks including but not limited to bleeding, infections, bowel injury, tube leakage/dislodgement, loss of airway had disussions with his sister Jerilyn as well Status: Acute Fall Risk Details Current Medications: Current Medications Generic Name Dose Route Start Last Admin Trade Name Freq PRN Reason Stop Dose Admin Acetaminophen 650 mg 08/19/20 21:30 Acetaminophen Supp 650 Mg Supp.Rect [place] Q6H PRN Pain, Mild (Pain Scale 1-3) Amlodipine Besylate 5 mg 08/20/20 09:00 09/04/20 08:10 Amlodipine Besylate 5 Mg Tablet PO Not Given DAILY [facility] Protocol Artificial Tears 1 drop 08/19/20 21:00 Artificial Tears 15 Ml Drops EYE-BOTH TID PRN Dry Eyes Fluticasone Propionate 2 spray 08/20/20 09:00 09/04/20 08:14 Fluticasone Propionate Nasal 16 Gm [place] NOSTRIL-B 2 spray DAILY [facility] Administration Multivitamins 10.5 ml/ Trace 1,920 mls @ 80 mls/hr 09/03/20 18:00 09/03/20 18:27 Metals 1.1 ml/ Amino Acids/ IV 09/04/20 17:59 80 mls/hr Electrolytes/Dextrose DAILY@1800 [facility] Administration Fat Emulsion Intravenous 168 mls @ 14 mls/hr 09/03/20 18:00 09/04/20 06:56 Intralipid IVCONT 09/04/20 17:59 14 mls/hr BID@0600,1800 [facility] Administration Nicotine 14 mg 08/21/20 09:00 09/04/20 08:13 Nicotine 14 Mg Patch.Td24 TRANSDERMA 14 mg DAILY [facility] Administration Omeprazole 20 mg 08/25/20 06:30 09/04/20 05:42 Omeprazole 20 Mg/10 Ml Susp.Recon PO Not Given BID@0630,1630 [facility] Ondansetron HCl 4 mg 08/19/20 21:30 Ondansetron Hcl 4 Mg/2 Ml Vial IVPUSH Q8H PRN Nausea and Vomiting Sodium Chloride 3 ml 08/20/20 00:00 09/04/20 08:10 0.9 % Sodium Chloride Flush 3 Ml Syringe IVFLUSH Not Given QSHIFT [facility] Time Spent With Patient Time: Total time spent is greater than 50% in coordination of care (as documented) at patient's floor/unit and/or counseling patient: Time with patient: 25 - 35 minutes
--- NOTE | 2020-09-04 09:27 | MHC.CM.PN ---
THIS RESIDENTIAL FRAMING CARPENTER MET WITH PATIENT WHO IS CURRENTLY PREPARING TO BE TRANSPORTED TO [facility] PATIENT STATES THAT HE BELIEVES HE ALREADY HAS A HCP, NAMING HIS SISTER KEEGAN, BUT ALSO AGREEABLE TO COMPLETING ONE FOR MEDICAL RECORDS. COMPLETED DOCUMENT COPY NOW IN CHART. [facility] REFERRAL PLACED, ACCORDING TO PREVIOUS MOTOR VEHICLE CLERK CONVERSATION WITH HCP. PATIENT ASKS THAT HCP COPY BE GIVEN TO KEEGAN WHEN SHE VISITS COPY IN PATIENT'S BELONGINGS BAG, ALONG WITH ORIGINAL, PER PATIENT REQUEST.
--- NOTE | 2020-09-04 09:40 | PM.HEMONCPN ---
Medical Summary - Medical Summary Date of Service: 09/04/20 Medical Summary: He continues with weakness and anorexia. He initially refused the biopsy but now agrees. The 2 cm nodule is very peripheral. Interval History Interval history: He has agreed to the PEG which will be done this morning. Review of Systems - Constitutional Reports anorexia - Eyes Reports other - ENT Reports other - Cardiovascular Reports fast heart rate - Respiratory Reports chest congestion - Gastrointestinal Reports abdominal pain - Genitourinary Genitourinary: Reports decreased urination, Reports difficulty urinating - Musculoskeletal Reports decreased muscle mass - Integumentary/Breasts Skin/Breast: Reports itching - Neurologic Reports system reviewed and no additional complaints, except as documented, Reports hearing normal, Reports memory loss, Reports weakness - Psychiatric Reports change in appetite - Endocrine Reports other - Hematologic/Lymphatic Reports easy bruising, Reports other - Allergic/Immunologic Reports other [facility] Medical History: Medical History (Last Reviewed 08/28/20 @ 16:02 by Jass Curry MD) Atrial fibrillation Cholelithiasis COPD (chronic obstructive pulmonary disease) GERD (gastroesophageal reflux disease) History of colon cancer Hodgkins lymphoma Hypercholesterolemia Hypertension Leg weakness, bilateral Pancreatitis Renal calculus, left Tobacco abuse Functional capacity: uses cane/walker Family History: Family History (Last Reviewed 08/28/20 @ 16:02 by Jass Curry MD) Father CVD (cardiovascular disease) Mother CVD (cardiovascular disease) Surgical History: Surgical History (Last Reviewed 08/28/20 @ 16:02 by Jass Curry MD) History of bilateral cataract extraction History of chemotherapy History of colectomy History of tonsillectomy Hx of inguinal hernia surgery Smoking status: Light tobacco smoker Oncology Screenings - G8 Geriatric Assessment Change in food intake over past 3 months: Severe decrease in food intake Weight loss during the last 3 months: Does not know Mobility: Bed or chair bound Neuropsychological problems: Mild dementia or depression Body Mass Index: 19 to 21 Patient takes > 3 prescription drugs per day: Yes Patient's assessment of health status compared to others: Not as good Patient age: 80 to 85 G8 Score: 4 G8 Risk Level: High risk for early functional decline and reduced survival. - [place] Frail Scale Patient's ability to draw a clock and indicate time: Minor spacing errors Number of times patient admitted to hospital in past year: 1 to 2 In general, patient describes health as: Fair Patient can count on others willing and able to meet needs: Sometimes Patient uses 5 or more prescription medications: Yes Patient reports forgetfulness with taking prescription meds: Yes Patient reports weight loss: Yes Patient often feels sad or depressed: Yes Patient experiences incontinence: Yes # Sec for patient to walk 3m distance and return to chair: 11-20 Sec [place] Frail Scale Score: 10 Frailty Level: Moderate Frailty - Rikyna VTE Risk Pre-chemo platelet count >= 350,000/uL: Yes Hemoglobin level <10 g/dL or using RBC growth factors: Yes Pre-chemo leukocyte count > 11,000/uL: Yes BMI >=35: Yes Home Medications and Allergies Current Medications: Current Medications Generic Name Dose Route Start Last Admin Trade Name Freq PRN Reason Stop Dose Admin Acetaminophen 650 mg 08/19/20 21:30 Acetaminophen Supp 650 Mg Supp.Rect [place] Q6H PRN Pain, Mild (Pain Scale 1-3) Amlodipine Besylate 5 mg 08/20/20 09:00 09/04/20 08:10 Amlodipine Besylate 5 Mg Tablet PO Not Given DAILY [facility] Protocol Artificial Tears 1 drop 08/19/20 21:00 Artificial Tears 15 Ml Drops EYE-BOTH TID PRN Dry Eyes Fluticasone Propionate 2 spray 08/20/20 09:00 09/04/20 08:14 Fluticasone Propionate Nasal 16 Gm [place] NOSTRIL-B 2 spray DAILY [facility] Administration Multivitamins 10.5 ml/ Trace 1,920 mls @ 80 mls/hr 09/03/20 18:00 09/03/20 18:27 Metals 1.1 ml/ Amino Acids/ IV 09/04/20 17:59 80 mls/hr Electrolytes/Dextrose DAILY@1800 [facility] Administration Fat Emulsion Intravenous 168 mls @ 14 mls/hr 09/03/20 18:00 09/04/20 06:56 Intralipid IVCONT 09/04/20 17:59 14 mls/hr BID@0600,1800 [facility] Administration Nicotine 14 mg 08/21/20 09:00 09/04/20 08:13 Nicotine 14 Mg Patch.Td24 TRANSDERMA 14 mg DAILY [facility] Administration Omeprazole 20 mg 08/25/20 06:30 09/04/20 05:42 Omeprazole 20 Mg/10 Ml Susp.Recon PO Not Given BID@0630,1630 [facility] Ondansetron HCl 4 mg 08/19/20 21:30 Ondansetron Hcl 4 Mg/2 Ml Vial IVPUSH Q8H PRN Nausea and Vomiting Sodium Chloride 3 ml 08/20/20 00:00 09/04/20 08:10 0.9 % Sodium Chloride Flush 3 Ml Syringe IVFLUSH Not Given QSHIFT [facility] Home Medications Medication Instructions Recorded Confirmed Type amlodipine 5 mg tablet 5 mg PO DAILY 06/15/20 08/19/20 History ascorbic acid (vitamin C) 500 mg 500 mg PO DAILY 06/15/20 08/19/20 History capsule atorvastatin 10 mg tablet 10 mg PO DAILY 06/15/20 08/19/20 History dextran 70-hypromellose 0.1 %-0.3 1 drp OPHTHALMIC (EYE) DIRECTED 06/15/20 08/19/20 History % eye drops ferrous sulfate 325 mg (65 mg 325 mg PO DAILY 06/15/20 08/19/20 History iron) tablet fluticasone propionate 50 2 spray INTRANASAL DAILY 06/15/20 08/19/20 History mcg/actuation nasal spray,suspension megestrol 10 ml PO BID 08/19/20 08/19/20 History Allergies Allergy/AdvReac Type Severity Reaction Status Date / Time procaine [From Novocain] Allergy Mild INEFFECTIVE Verified 06/15/20 12:42 PER RN lisinopril Allergy Unknown Unknown Verified 06/15/20 12:42 Exam Vital signs: Vital Signs Temp 97.2 F 09/04/20 07:12 Pulse 84 09/04/20 07:12 Resp 19 09/04/20 07:12 BP 121/68 09/04/20 07:12 Pulse Ox 91 L 09/04/20 07:12 Intake & Output 09/03/20 09/04/20 09/04/20 18:59 06:59 18:59 Intake Total 2183.4 / 2183.4 Output Total 400 / 402 2 / 402 Balance -400 / 1781.4 2181.4 / 1781.4 Urine Output (Average ml/kg/hr) 0.57 0.00 Intake: Intake, Oral Amount 0 / 0 Intake, IV Amount 2183.4 / 2183.4 AA 4.25%/Calcium/Lytes/Dex 10% 2014. / 2014.4 2,000 ml @ 60 mls/hr IV DAILY@ 1800 [facility] with MVI, Adult 14 ml with Trace Elements w/o chromium 1.4 ml Rx#:[id number] Fat Emulsions 20% 250 ml @ 14 168 / 168 mls/hr IVCONT BID@0600,1800 [facility] Rx#:[id number] Output: Output, Urine Amount 400 / 401 1 / 401 Output, Post Void Residual Amount Other: Meal Refused No NPO Yes Urine [place] Urine Color Tea Weight 58.96 kg Body Mass Index 21.6 - Constitutional Present: chronically ill appearing - Routine HEENT Exam Head: Present: atraumatic - Routine Abdominal Exam Present: diminished bowel sounds - Routine Extremities Exam Present: extremity cold to touch - Routine Skin Exam Present: scars - Routine Neurological Exam Present: altered mental status Data - Labs CBC & Chem 7: 09/03/20 06:07 09/03/20 06:06 Labs: 08/19/20 15:18 XR chest 2V Stat XR soft tissue neck Stat 08/19/20 15:28 SARS-CoV2/FLU/RSV Stat 08/19/20 15:30 0.9 % Sodium Chloride [Ns] 1,000 ml IVCONT 999 mls/hr 08/19/20 15:37 Basic Metabolic Panel Stat C Reactive Protein Stat Complete Blood Count Auto Diff Stat Ferritin Stat Hold Lt Blue - Possible Coag Stat Lactate Dehydrogenase Stat Liver Panel Stat Magnesium Stat Procalcitonin Stat 08/19/20 16:19 CT chest w con Stat CT soft tissue neck w con Stat 08/19/20 16:56 iohexoL 350 MG/ML [Omnipaque 350 MG/ML] 100 ml IV ONCE ONE 08/19/20 18:46 Transfer Order Routine 08/19/20 18:47 Code Status Routine 08/19/20 21:30 0.9 % Sodium Chloride [Ns] 1,000 ml IVCONT 80 mls/hr Nicotine [Nicoderm] 14 mg TRANSDERMA DAILY 08/19/20 21:30 Vital Signs QSHIFT 08/20/20 08:09 Basic Metabolic Panel DAILY@0600 Carcinoembryonic Antigen Routine Complete Blood Count Auto Diff DAILY@0600 Erythrocyte Sedimentation Rate Routine 08/20/20 11:09 Add Laboratory Test Urgent 08/20/20 15:54 Glycopyrrolate [Robinul] 0.2 mg .ROUTE .STK-MED ONE Lidocaine HCl 2 % MPF [Xylocaine 2 % MPF] 5 ml .ROUTE .STK-MED ONE Lidocaine HCl Viscous 2 % [Xylocaine Viscous 2 % Oral Suni] 15 ml MUCOUS MEM .STK-MED ONE propofoL [Diprivan] 200 mg IVPUSH .STK-MED ONE 08/20/20 16:40 Transfer Order Routine 08/20/20 17:17 Omeprazole [PriLOSEC] 20 mg PO BID@0630,1630 08/20/20 Dinner Full Liquid Diet 08/21/20 02:26 LORazepam [Ativan] 1 mg IVPUSH ONCE ONE 08/22/20 Dinner NPO Diet 08/23/20 CT biopsy lung LT Routine XR chest 2V Routine 08/23/20 10:13 Prothrombin Time INR Stat 08/23/20 11:59 Lidocaine HCl 1 % MPF [Xylocaine 1 % MPF] 5 ml .ROUTE .STK-MED ONE fentaNYL citrate/PF [Sublimaze] 50 mcg .ROUTE .STK-MED ONE 08/23/20 12:00 Midazolam HCl/PF [Versed] 2 mg .ROUTE .STK-MED ONE Naloxone HCl [Narcan] 0.4 mg .ROUTE .STK-MED ONE flumazeniL [Romazicon] 0.05 mg .ROUTE .STK-MED ONE 08/23/20 13:04 Surgical [PTH] Stat 08/23/20 13:07 Reinforce wound dressing NEEDED 08/23/20 13:11 Vital Signs Q30M 08/23/20 13:24 Cytology [PTH] Stat 08/23/20 14:00 Lidocaine HCl 1 % [Xylocaine 1 %] 20 ml SUBCUT ONCE ONE 08/23/20 14:35 Lidocaine HCl 1 % MPF [Xylocaine 1 % MPF] 7 ml SUBCUT ONCE ONE 08/24/20 XR chest 2V Urgent 08/24/20 13:00 Ampicillin Sodium/Sulbactam Na [Unasyn] 1.5 gm 0.9 % Sodium Chloride [Ns] 100 ml IV Q6H 08/24/20 13:57 Ampicillin Sodium/Sulbactam Na [Unasyn] 1.5 gm .ROUTE .STK-MED ONE 08/24/20 19:57 Ampicillin Sodium/Sulbactam Na [Unasyn] 1.5 gm .ROUTE .STK-MED ONE 08/25/20 02:13 Ampicillin Sodium/Sulbactam Na [Unasyn] 1.5 gm .ROUTE .STK-MED ONE 08/25/20 07:26 Ampicillin Sodium/Sulbactam Na [Unasyn] 1.5 gm .ROUTE .STK-MED ONE 08/25/20 11:02 Basic Metabolic Panel Routine Complete Blood Count no Diff Routine 08/25/20 11:30 Dextrose 5 % and 0.45 % NaCl [D51/2Ns] 1,000 ml IVCONT 100 mls/hr 08/25/20 13:30 Ampicillin Sodium/Sulbactam Na [Unasyn] 1.5 gm .ROUTE .STK-MED ONE 08/25/20 18:00 KCl 20 mEq in 0.45% Sod 20 meq in 1,000 ml IVCONT 100 mls/hr 08/25/20 18:15 Potassium Chloride/H20 10 meq in 100 ml IV Q1H 08/25/20 19:39 Ampicillin Sodium/Sulbactam Na [Unasyn] 1.5 gm .ROUTE .STK-MED ONE 08/26/20 00:28 Ampicillin Sodium/Sulbactam Na [Unasyn] 1.5 gm .ROUTE .STK-MED ONE 08/26/20 06:18 Ampicillin Sodium/Sulbactam Na [Unasyn] 1.5 gm .ROUTE .STK-MED ONE 08/26/20 06:21 Ampicillin Sodium/Sulbactam Na [Unasyn] 1.5 gm .ROUTE .STK-MED ONE 08/26/20 06:27 Basic Metabolic Panel Routine 08/26/20 13:37 Ampicillin Sodium/Sulbactam Na [Unasyn] 1.5 gm .ROUTE .STK-MED ONE 08/26/20 18:16 Ampicillin Sodium/Sulbactam Na [Unasyn] 1.5 gm .ROUTE .STK-MED ONE 08/27/20 02:03 Ampicillin Sodium/Sulbactam Na [Unasyn] 1.5 gm .ROUTE .STK-MED ONE 08/27/20 04:19 LORazepam [Ativan] 0.5 mg IVPUSH ONCE ONE 08/27/20 06:23 Ampicillin Sodium/Sulbactam Na [Unasyn] 1.5 gm .ROUTE .STK-MED ONE 08/27/20 12:31 Ampicillin Sodium/Sulbactam Na [Unasyn] 1.5 gm .ROUTE .STK-MED ONE 08/27/20 19:02 Ampicillin Sodium/Sulbactam Na [Unasyn] 1.5 gm .ROUTE .K-MED ONE 08/28/20 XR chest 1V Routine 08/28/20 01:58 Ampicillin Sodium/Sulbactam Na [Unasyn] 1.5 gm .ROUTE .K-MED ONE 08/28/20 06:06 BMP [Basic Metabolic Panel Fasting] Routine Complete Blood Count Man Dif Routine Magnesium Routine 08/28/20 06:58 Ampicillin Sodium/Sulbactam Na [Unasyn] 1.5 gm .ROUTE .STK-MED ONE 08/28/20 07:30 Dextrose 50 % [D50] 25 gm IVPUSH ONCE ONE 08/28/20 07:40 Dextrose 50 % [D50] 25 gm .ROUTE .[facility] ONE 08/28/20 07:58 Magnesium Sulfate/H2O 2 gm in 50 ml IV ONCE 08/28/20 08:00 FL barium swallow modified Routine 08/28/20 08:29 Glucose, Whole Blood Routine 08/28/20 11:16 Glucose, Whole Blood Routine 08/28/20 13:20 Ampicillin Sodium/Sulbactam Na [Unasyn] 1.5 gm .ROUTE .STK-MED ONE 08/28/20 19:08 Ampicillin Sodium/Sulbactam Na [Unasyn] 1.5 gm .ROUTE .STK-MED ONE 08/29/20 01:18 Ampicillin Sodium/Sulbactam Na [Unasyn] 1.5 gm .ROUTE .STK-MED ONE 08/29/20 04:02 BMP [Basic Metabolic Panel Fasting] Routine Complete Blood Count Man Dif Routine Magnesium Routine 08/29/20 05:42 Dextrose 50 % [D50] 25 gm .ROUTE .STK-MED ONE 08/29/20 06:52 Dextrose 50 % [D50] 12.5 gm IVPUSH ONCE ONE 08/29/20 07:10 Glucose, Whole Blood Routine 08/29/20 07:56 Ampicillin Sodium/Sulbactam Na [Unasyn] 1.5 gm .ROUTE .STK-MED ONE 08/29/20 10:15 Dextrose 5 % and 0.45 % NaCl [D51/2Ns] 1,000 ml IVCONT 80 mls/hr 08/29/20 13:06 Ampicillin Sodium/Sulbactam Na [Unasyn] 1.5 gm .ROUTE .STK-MED ONE 08/29/20 13:15 Ampicillin Sodium/Sulbactam Na [Unasyn] 1.5 gm .ROUTE .STK-MED ONE 08/29/20 20:57 Ampicillin Sodium/Sulbactam Na [Unasyn] 1.5 gm .ROUTE .STK-MED ONE 08/30/20 03:15 Ampicillin Sodium/Sulbactam Na [Unasyn] 1.5 gm .ROUTE .STK-MED ONE 08/30/20 05:53 Albumin Level Routine BMP [Basic Metabolic Panel Fasting] Routine Complete Blood Count Man Dif Routine Magnesium Routine Phosphorus Routine Triglycerides Routine 08/30/20 09:58 Ampicillin Sodium/Sulbactam Na [Unasyn] 1.5 gm .ROUTE .K-MED ONE 08/30/20 10:00 Ampicillin Sodium/Sulbactam Na [Unasyn] 1.5 gm 0.9 % Sodium Chloride [Ns] 100 ml IV Q6H 08/30/20 10:18 Add Laboratory Test Stat 08/30/20 10:39 Potassium Phosphate [KPhos] 15 mmol 0.9 % Sodium Chloride [Ns] 500 ml IV ONCE 08/30/20 16:22 Ampicillin Sodium/Sulbactam Na [Unasyn] 1.5 gm .ROUTE .[facility] ONE 08/30/20 18:00 MVI, Adult [Infuvite Adult] 21 ml Trace Elements w/o chromium [Tralement] 2 ml AA 4.25%/Calcium/Lytes/Dex 10% [Clinimix E 4.25%-10%] 2,000 ml IV DAILY@1800 08/30/20 21:01 Ampicillin Sodium/Sulbactam Na [Unasyn] 1.5 gm .ROUTE .STK-MED ONE 08/31/20 04:05 Ampicillin Sodium/Sulbactam Na [Unasyn] 1.5 gm .ROUTE .STK-MED ONE 08/31/20 09:30 Add Laboratory Test Stat 08/31/20 10:54 Basic Metabolic Panel Stat Magnesium Stat Phosphorus Stat 08/31/20 18:00 MVI, Adult [Infuvite Adult] 21 ml Trace Elements w/o chromium [Tralement] 2 ml AA 4.25%/Calcium/Lytes/Dex 10% [Clinimix E 4.25%-10%] 2,000 ml IV DAILY@1800 09/01/20 06:51 BMP [Basic Metabolic Panel Fasting] Routine Magnesium Routine 09/01/20 18:00 MVI, Adult [Infuvite Adult] 21 ml Trace Elements w/o chromium [Tralement] 2 ml AA 4.25%/Calcium/Lytes/Dex 10% [Clinimix E 4.25%-10%] 2,000 ml IV DAILY@1800 09/02/20 06:42 Albumin Level Routine BMP [Basic Metabolic Panel Fasting] Routine Magnesium Routine Phosphorus Routine Triglycerides Routine 09/02/20 08:21 Add Laboratory Test Stat 09/02/20 08:30 Add Laboratory Test Stat 09/02/20 18:00 MVI, Adult [Infuvite Adult] 14 ml Trace Elements w/o chromium [Tralement] 1.4 ml AA 4.25%/Calcium/Lytes/Dex 10% [Clinimix E 4.25%-10%] 2,000 ml IV DAILY@1800 09/03/20 06:06 BMP [Basic Metabolic Panel Fasting] Routine Magnesium Routine 09/03/20 06:07 Complete Blood Count Auto Diff Routine 09/04/20 07:24 ceFAZolin Sodium/Dextrose,Iso [Ancef] 2 gm in 50 ml IV PREOP Laboratory Last Values WBC 8.8 X10*3/uL (4.8-10.8) 09/03/20 06:07 RBC 4.76 X10*6/uL (4.60-5.80) 09/03/20 06:07 Hgb 13.5 g/dl (14.0-18.0) L 09/03/20 06:07 Hct 41.3 % (42-52) L 09/03/20 06:07 MCV 86.8 fL (80-98) 09/03/20 06:07 MCH 28.4 pg (27.0-33.0) 09/03/20 06:07 MCHC 32.7 g/dl (31.0-36.0) 09/03/20 06:07 RDW 13.5 % (11.0-16.0) 09/03/20 06:07 Plt Count 251 X10*3/uL (160-400) D 09/03/20 06:07 MPV 11.8 fL (9.4-12.4) 09/03/20 06:07 Immature Gran % (Auto) 1.9 % (0.0-0.4) H 09/03/20 06:07 Neut % (Auto) 77.8 % (45-73) H 09/03/20 06:07 Lymph % (Auto) 9.5 % (20-40) L 09/03/20 06:07 [place] % (Auto) 8.5 % (2-11) 09/03/20 06:07 Eos % (Auto) 1.6 % (0-4) 09/03/20 06:07 Baso % (Auto) 0.7 % (0-2) 09/03/20 06:07 Lymph # (Auto) 0.8 X10*3/uL (1.2-4.9) L 09/03/20 06:07 [place] # (Auto) 0.8 X10*3/uL (0.1-1.2) 09/03/20 06:07 Eos # (Auto) 0.1 X10*3/uL (0.0-0.4) 09/03/20 06:07 Baso # (Auto) 0.1 X10*3/uL (0.0-0.2) 09/03/20 06:07 Abs Immat Gran (auto) 0.17 X10*3/uL (0.00-0.03) H 09/03/20 06:07 Absolute Neuts (auto) 6.9 X10*3/uL (2.0-8.3) 09/03/20 06:07 Absolute Nucleated RBC 0.000 X10*3/uL (0.0-0.012) 09/03/20 06:07 Nucleated RBC % (auto) 0.0 /100WBC (0.0-0.2) 09/03/20 06:07 Neutrophils % (Manual) 72 % (45-73) 08/30/20 05:53 Band Neutrophils % 7 % (3-5) H 08/30/20 05:53 Lymphocytes % (Manual) 10 % (20-40) L 08/30/20 05:53 Monocytes % (Manual) 7 % (2-11) 08/30/20 05:53 Eosinophils % (Manual) 1 % (0-4) 08/29/20 04:02 Metamyelocytes % 2 % 08/30/20 05:53 Myelocytes % 2 % 08/30/20 05:53 Abs Neuts (Manual) 8.5 X10*3/uL (2.2-7.9) H 08/30/20 05:53 Lymphocytes # (Manual) 1.1 X10*3/uL (0.6-4.8) 08/30/20 05:53 Monocytes # (Manual) 0.8 X10*3/uL (0.0-1.2) 08/30/20 05:53 Eosinophils # (Manual) 0.1 X10*3/UL (0.0-0.8) 08/29/20 04:02 Metamyelocytes # 0.2 X10*3/uL 08/30/20 05:53 Myelocytes # 0.2 X10*/uL 08/30/20 05:53 Platelet Estimate NORMAL (NORMAL) 08/30/20 05:53 Plt Morphology Comment NORMAL 08/30/20 05:53 RBC Morphology NORMAL 08/30/20 05:53 Ovalocytes 1+ 08/28/20 06:06 Jassi Cells 1+ 08/28/20 06:06 Acanthocytes (Spur) 1+ 08/28/20 06:06 ESR 16 MM/HR (0-15) H 08/20/20 08:09 PT 16.5 SEC (10.8-13.0) H 08/23/20 10:13 INR 1.4 (0.9-1.1) H 08/23/20 10:13 Hold Blue Top SEE NOTE 08/19/20 15:37 Sodium 134 mmol/L (135-145) L 09/03/20 06:06 Potassium 4.4 mmol/l (3.3-5.1) 09/03/20 06:06 Chloride 101 mmol/L (96-108) 09/03/20 06:06 Carbon Dioxide 24 mmol/L (22-29) 09/03/20 06:06 Anion Gap 13 (12-20) 09/03/20 06:06 BUN 17 mg/dL (9-16) H 09/03/20 06:06 Creatinine 0.56 mg/dL (0.5-1.4) 09/03/20 06:06 Estim Creat Clear Calc 81.8 09/03/20 06:06 Estimated GFR > 60 09/03/20 06:06 POC Glucose 181 mg/dL (60-115) H 08/29/20 07:10 Random Glucose 160 mg/dL (60-115) H D 08/31/20 10:54 Fasting Glucose 160 mg/dL (60-99) H 09/03/20 06:06 Calcium 8.1 mg/dL (8.4-10.2) L 09/03/20 06:06 Phosphorus 3.0 mg/dL (2.7-4.5) 09/02/20 06:42 Magnesium 2.0 mg/dL (1.6-2.6) 09/03/20 06:06 Ferritin 144 ng/mL (20-250) 08/19/20 15:37 Ferritin Cancelled 08/19/20 15:37 Total Bilirubin 0.6 mg/dL (0.0-1.0) 08/19/20 15:37 Direct Bilirubin 0.3 mg/dL (0.0-0.5) 08/19/20 15:37 AST 17 U/L (5-37) 08/19/20 15:37 ALT 26 U/L (0-40) 08/19/20 15:37 Alkaline Phosphatase 165 U/L (39-117) H 08/19/20 15:37 Lactate Dehydrogenase 157 U/L (118-273) 08/19/20 15:37 Lactate Dehydrogenase Cancelled 08/19/20 15:37 C-Reactive Protein 1.71 mg/dL (< or = 0.50) H 08/19/20 15:37 C-Reactive Protein Cancelled 08/19/20 15:37 Total Protein 5.9 g/dL (6.5-8.0) L 08/19/20 15:37 Albumin 2.9 g/dL (3.5-5.0) L 09/02/20 06:42 Triglycerides 146 mg/dL 09/02/20 06:42 Carcinoembryonic Ag 6.50 mg/mL 08/20/20 08:09 Procalcitonin 0.11 ng/mL 08/19/20 15:37 Coronavirus (PCR) NEGATIVE (Negative) 08/19/20 15:28 Influenza Type A (PCR) NEGATIVE (Negative) 08/19/20 15:28 Influenza Type B (PCR) NEGATIVE (Negative) 08/19/20 15:28 RSV RNA Qual (PCR) NEGATIVE (Negative) 08/19/20 15:28 Progress Note: A/P (1) Dysphagia Problem details: pt now wants to proceed with PEG placement reviewed with him the technique of PEG placement explained risks including but not limited to bleeding, infections, bowel injury, tube leakage/dislodgement, loss of airway had disussions with his sister Jerilyn as well Status: Acute - Time Spent With Patient Total time spent is greater than 50% in coordination of care (as documented) at patient's floor/unit and/or counseling patient: 15 - 24 minutes
--- NOTE | 2020-09-04 10:33 | PC.NURSE ---
patients vein access is complicated. multiple attempts by myself and other rns for pre-op procedure. right upper arm red, warm to touch, grimace with palpatyion, removed. lipds were infusing. attached to new iv access to right hand 22g.
[2020-09-04] MEDS: ceFAZolin Sodium/Dextrose,Iso 2 GM/50 ML PIGGYBACK IV (10:35)
--- NOTE | 2020-09-04 10:43 | MHC.SHP ---
Pre-Procedural Eval Section B Chief Complaint: LUNG BIO LUNG MASS Allergies: Allergies Allergy/AdvReac Type Severity Reaction Status Date / Time procaine [From Novocain] Allergy Mild INEFFECTIVE Verified 06/15/20 12:42 PER RN lisinopril Allergy Unknown Unknown Verified 06/15/20 12:42 Plan I have reviewed the history and physical and performed a pertinent physical examination on my patient. No changes have occurred unless specified.
--- NOTE | 2020-09-04 11:00 | P.CONAN_ITS ---
[facility] Past Medical History Medical History Atrial fibrillation Cholelithiasis COPD (chronic obstructive pulmonary disease) GERD (gastroesophageal reflux disease) History of colon cancer Hodgkins lymphoma Hypercholesterolemia Hypertension Leg weakness, bilateral Pancreatitis Renal calculus, left Tobacco abuse Functional capacity: uses cane/walker Family History Family History Father CVD (cardiovascular disease) Mother CVD (cardiovascular disease) Family history of problems with anesthesia: No Surgical History Surgical History History of bilateral cataract extraction History of chemotherapy History of colectomy History of tonsillectomy Hx of inguinal hernia surgery History of Problems with Anesthesia: No Social History Social History Household Members: Spouse and Unknown / Unable to assess Housing: Unknown / Unable to assess Are you a primary career services director to a significant other at home: No Do you presently have visiting nurse or other home services: No Alcohol intake: current Alcohol intake frequency: does not drink Smoking Status: Former smoker Tobacco Type: Cigarette Years Smoked: 60 Smoked in Last 30 Days: No Smoking Quit Date: States he has not smoked in 3 weeks Patient Interested in Nicotine Replacement: Yes Second Hand Smoke Exposure: No Use of substances other than those prescribed or required for medical reasons: No Last Used Substance: Weeks (ago) Currently Displaying Signs/Symptoms of Drug Intoxication Withdrawal: No Have you been hit, kicked, punched, or otherwise hurt by someone within the past year? If so, by whom?: No Do you feel safe in your current relationship?: Yes Is there a partner from a previous relationship who is making you feel unsafe now?: No Are you made to feel afraid or neglected: No Advance Directives: No Advance Directives Information Provided: No Advance Directives on File: No Do you have thoughts of harming others: None Do you have a plan to hurt others: No Plan Recently lost weight without trying: Unsure service: No Current occupational status: retired Current occupational exposures/hazards: No Meds Allergies Allergy/AdvReac Type Severity Reaction Status Date / Time procaine [From Novocain] Allergy Mild INEFFECTIVE Verified 06/15/20 12:42 PER RN lisinopril Allergy Unknown Unknown Verified 06/15/20 12:42 Home Medications Medication Instructions Recorded Confirmed Type amlodipine 5 mg tablet 5 mg PO DAILY 06/15/20 08/19/20 History ascorbic acid (vitamin C) 500 mg 500 mg PO DAILY 06/15/20 08/19/20 History capsule atorvastatin 10 mg tablet 10 mg PO DAILY 06/15/20 08/19/20 History dextran 70-hypromellose 0.1 %-0.3 1 drp OPHTHALMIC (EYE) DIRECTED 06/15/20 08/19/20 History % eye drops ferrous sulfate 325 mg (65 mg 325 mg PO DAILY 06/15/20 08/19/20 History iron) tablet fluticasone propionate 50 2 spray INTRANASAL DAILY 06/15/20 08/19/20 History mcg/actuation nasal spray,suspension megestrol 10 ml PO BID 08/19/20 08/19/20 History Exam Exam Date and Time: September 04, 2020 1100 Height,Weight and Vital Signs: Height 5 ft 5 in Weight 58.96 kg Last Vital Signs Temp 98.3 F 09/04/20 09:40 Pulse 76 09/04/20 09:40 Resp 16 09/04/20 09:40 BP 152/78 H 09/04/20 09:40 Pulse Ox 97 09/04/20 09:40 Pertinent Lab Results Pertinent Lab Results: Laboratory Tests 08/19/20 08/19/20 08/19/20 15:28 15:37 15:37 WBC 9.4 RBC 4.96 Hgb 13.9 L Hct 42.8 MCV 86.3 MCH 28.0 MCHC 32.5 RDW 13.3 Plt Count 311 MPV 7.7 L Immature Gran % (Auto) 1.4 H Neut % (Auto) 76.1 H Lymph % (Auto) 13.0 L [place] % (Auto) 7.3 Eos % (Auto) 1.7 Baso % (Auto) 0.5 Lymph # (Auto) 1.2 [place] # (Auto) 0.7 Eos # (Auto) 0.2 Baso # (Auto) 0.1 Abs Immat Gran (auto) 0.13 H Absolute Neuts (auto) 7.1 Absolute Nucleated RBC 0.000 Nucleated RBC % (auto) 0.0 Neutrophils % (Manual) Band Neutrophils % Lymphocytes % (Manual) Monocytes % (Manual) Eosinophils % (Manual) Metamyelocytes % Myelocytes % Abs Neuts (Manual) Lymphocytes # (Manual) Monocytes # (Manual) Eosinophils # (Manual) Metamyelocytes # Myelocytes # Platelet Estimate Plt Morphology Comment RBC Morphology Ovalocytes [place] Cells Acanthocytes (Spur) ESR PT INR Hold Blue Top SEE NOTE Sodium Potassium Chloride Carbon Dioxide Anion Gap BUN Creatinine Estim Creat Clear Calc Estimated GFR POC Glucose Random Glucose Fasting Glucose Calcium Phosphorus Magnesium Ferritin Total Bilirubin Direct Bilirubin AST ALT Alkaline Phosphatase Lactate Dehydrogenase C-Reactive Protein Total Protein Albumin Triglycerides Carcinoembryonic Ag Procalcitonin Coronavirus (PCR) NEGATIVE Influenza Type A (PCR) NEGATIVE Influenza Type B (PCR) NEGATIVE RSV RNA Qual (PCR) NEGATIVE 08/19/20 08/19/20 08/19/20 15:37 15:37 15:37 WBC RBC Hgb Hct MCV MCH MCHC RDW Plt Count MPV Immature Gran % (Auto) Neut % (Auto) Lymph % (Auto) [place] % (Auto) Eos % (Auto) Baso % (Auto) Lymph # (Auto) [place] # (Auto) Eos # (Auto) Baso # (Auto) Abs Immat Gran (auto) Absolute Neuts (auto) Absolute Nucleated RBC Nucleated RBC % (auto) Neutrophils % (Manual) Band Neutrophils % Lymphocytes % (Manual) Monocytes % (Manual) Eosinophils % (Manual) Metamyelocytes % Myelocytes % Abs Neuts (Manual) Lymphocytes # (Manual) Monocytes # (Manual) Eosinophils # (Manual) Metamyelocytes # Myelocytes # Platelet Estimate Plt Morphology Comment RBC Morphology Ovalocytes Jassi Cells Acanthocytes (Spur) ESR PT INR Hold Blue Top Sodium 140 Potassium 3.9 Chloride 102 Carbon Dioxide 27 Anion Gap 15 BUN 13 Creatinine 0.78 Estim Creat Clear Calc 58.7 Estimated GFR > 60 POC Glucose Random Glucose 87 Fasting Glucose Calcium 8.5 Phosphorus Magnesium 2.0 Ferritin 144 Cancelled Total Bilirubin 0.6 Direct Bilirubin 0.3 AST 17 ALT 26 Alkaline Phosphatase 165 H Lactate Dehydrogenase 157 Cancelled C-Reactive Protein 1.71 H Cancelled Total Protein 5.9 L Albumin 4.0 Triglycerides Carcinoembryonic Ag Procalcitonin 0.11 Coronavirus (PCR) Influenza Type A (PCR) Influenza Type B (PCR) RSV RNA Qual (PCR) 08/20/20 08/20/20 08/20/20 08:09 08:09 08:09 WBC 10.2 RBC 4.98 Hgb 14.0 Hct 43.2 MCV 86.7 MCH 28.1 MCHC 32.4 RDW 13.4 Plt Count 319 MPV 7.8 L Immature Gran % (Auto) 1.3 H Neut % (Auto) 77.4 H Lymph % (Auto) 10.5 L [place] % (Auto) 8.7 Eos % (Auto) 1.6 Baso % (Auto) 0.5 Lymph # (Auto) 1.1 L [place] # (Auto) 0.9 Eos # (Auto) 0.2 Baso # (Auto) 0.1 Abs Immat Gran (auto) 0.13 H Absolute Neuts (auto) 7.9 Absolute Nucleated RBC 0.000 Nucleated RBC % (auto) 0.0 Neutrophils % (Manual) Band Neutrophils % Lymphocytes % (Manual) Monocytes % (Manual) Eosinophils % (Manual) Metamyelocytes % Myelocytes % Abs Neuts (Manual) Lymphocytes # (Manual) Monocytes # (Manual) Eosinophils # (Manual) Metamyelocytes # Myelocytes # Platelet Estimate Plt Morphology Comment RBC Morphology Ovalocytes Jassi Cells Acanthocytes (Spur) ESR 16 H PT INR Hold Blue Top Sodium 139 Potassium 4.2 Chloride 104 Carbon Dioxide 19 L Anion Gap 20 BUN 15 Creatinine 0.70 Estim Creat Clear Calc 65.5 Estimated GFR > 60 POC Glucose Random Glucose 78 Fasting Glucose Calcium 8.7 Phosphorus Magnesium Ferritin Total Bilirubin Direct Bilirubin AST ALT Alkaline Phosphatase Lactate Dehydrogenase C-Reactive Protein Total Protein Albumin Triglycerides Carcinoembryonic Ag 6.50 Procalcitonin Coronavirus (PCR) Influenza Type A (PCR) Influenza Type B (PCR) RSV RNA Qual (PCR) 08/23/20 08/25/20 08/25/20 10:13 11:02 11:02 WBC 9.8 RBC 4.76 Hgb 13.5 L Hct 41.1 L MCV 86.3 MCH 28.4 MCHC 32.8 RDW 13.9 Plt Count 348 MPV 8.4 L Immature Gran % (Auto) Neut % (Auto) Lymph % (Auto) [place] % (Auto) Eos % (Auto) Baso % (Auto) Lymph # (Auto) [place] # (Auto) Eos # (Auto) Baso # (Auto) Abs Immat Gran (auto) Absolute Neuts (auto) Absolute Nucleated RBC 0.000 Nucleated RBC % (auto) 0.0 Neutrophils % (Manual) Band Neutrophils % Lymphocytes % (Manual) Monocytes % (Manual) Eosinophils % (Manual) Metamyelocytes % Myelocytes % Abs Neuts (Manual) Lymphocytes # (Manual) Monocytes # (Manual) Eosinophils # (Manual) Metamyelocytes # Myelocytes # Platelet Estimate Plt Morphology Comment RBC Morphology Ovalocytes Jassi Cells Acanthocytes (Spur) ESR PT 16.5 H INR 1.4 H Hold Blue Top Sodium 148 H Potassium 2.8 L D Chloride 103 Carbon Dioxide 30 H Anion Gap 18 BUN 10 Creatinine 0.64 Estim Creat Clear Calc 71.6 Estimated GFR > 60 POC Glucose Random Glucose 108 D Fasting Glucose Calcium 8.7 Phosphorus Magnesium Ferritin Total Bilirubin Direct Bilirubin AST ALT Alkaline Phosphatase Lactate Dehydrogenase C-Reactive Protein Total Protein Albumin Triglycerides Carcinoembryonic Ag Procalcitonin Coronavirus (PCR) Influenza Type A (PCR) Influenza Type B (PCR) RSV RNA Qual (PCR) 08/26/20 08/28/20 08/28/20 06:27 06:06 06:06 WBC 8.9 RBC 5.03 Hgb 13.8 L Hct 43.5 MCV 86.5 MCH 27.4 MCHC 31.7 RDW 13.4 Plt Count 353 MPV 8.9 L Immature Gran % (Auto) Cancelled Neut % (Auto) Cancelled Lymph % (Auto) Cancelled [place] % (Auto) Cancelled Eos % (Auto) Cancelled Baso % (Auto) Cancelled Lymph # (Auto) Cancelled [place] # (Auto) Cancelled Eos # (Auto) Cancelled Baso # (Auto) Cancelled Abs Immat Gran (auto) Cancelled Absolute Neuts (auto) Cancelled Absolute Nucleated RBC 0.000 Nucleated RBC % (auto) 0.0 Neutrophils % (Manual) 70 Band Neutrophils % 5 Lymphocytes % (Manual) 9 L Monocytes % (Manual) 13 H Eosinophils % (Manual) 3 Metamyelocytes % Myelocytes % Abs Neuts (Manual) 6.7 Lymphocytes # (Manual) 0.8 Monocytes # (Manual) 1.2 Eosinophils # (Manual) 0.3 Metamyelocytes # Myelocytes # Platelet Estimate NORMAL Plt Morphology Comment NORM RBC Morphology NOTED Ovalocytes 1+ Jassi Cells 1+ Acanthocytes (Spur) 1+ ESR PT INR Hold Blue Top Sodium 145 138 Potassium 3.1 L 3.6 Chloride 103 98 Carbon Dioxide 29 25 Anion Gap 16 19 BUN 10 9 Creatinine 0.54 0.51 Estim Creat Clear Calc 84.9 89.9 Estimated GFR > 60 > 60 POC Glucose Random Glucose 93 Fasting Glucose 53 L* Calcium 8.5 8.1 L Phosphorus Magnesium 1.6 Ferritin Total Bilirubin Direct Bilirubin AST ALT Alkaline Phosphatase Lactate Dehydrogenase C-Reactive Protein Total Protein Albumin Triglycerides Carcinoembryonic Ag Procalcitonin Coronavirus (PCR) Influenza Type A (PCR) Influenza Type B (PCR) RSV RNA Qual (PCR) 08/28/20 08/28/20 08/29/20 08:29 11:16 04:02 WBC 9.5 RBC 4.80 Hgb 13.4 L Hct 41.9 L MCV 87.3 MCH 27.9 MCHC 32.0 RDW 13.2 Plt Count 352 MPV 8.7 L Immature Gran % (Auto) Cancelled Neut % (Auto) Cancelled Lymph % (Auto) Cancelled [place] % (Auto) Cancelled Eos % (Auto) Cancelled Baso % (Auto) Cancelled Lymph # (Auto) Cancelled [place] # (Auto) Cancelled Eos # (Auto) Cancelled Baso # (Auto) Cancelled Abs Immat Gran (auto) Cancelled Absolute Neuts (auto) Cancelled Absolute Nucleated RBC 0.000 Nucleated RBC % (auto) 0.0 Neutrophils % (Manual) 76 H Band Neutrophils % 3 Lymphocytes % (Manual) 6 L Monocytes % (Manual) 9 Eosinophils % (Manual) 1 Metamyelocytes % 4 Myelocytes % 1 Abs Neuts (Manual) 7.5 Lymphocytes # (Manual) 0.6 Monocytes # (Manual) 0.9 Eosinophils # (Manual) 0.1 Metamyelocytes # 0.4 Myelocytes # 0.1 Platelet Estimate NORMAL Plt Morphology Comment NORMAL RBC Morphology NORMAL Ovalocytes Jassi Cells Acanthocytes (Spur) ESR PT INR Hold Blue Top Sodium Potassium Chloride Carbon Dioxide Anion Gap BUN Creatinine Estim Creat Clear Calc Estimated GFR POC Glucose 167 H 106 Random Glucose Fasting Glucose Calcium Phosphorus Magnesium Ferritin Total Bilirubin Direct Bilirubin AST ALT Alkaline Phosphatase Lactate Dehydrogenase C-Reactive Protein Total Protein Albumin Triglycerides Carcinoembryonic Ag Procalcitonin Coronavirus (PCR) Influenza Type A (PCR) Influenza Type B (PCR) RSV RNA Qual (PCR) 08/29/20 08/29/20 08/30/20 04:02 07:10 05:53 WBC 10.8 RBC 4.97 Hgb 13.7 L Hct 42.2 MCV 84.9 MCH 27.6 MCHC 32.5 RDW 13.0 Plt Count 396 MPV 8.7 L Immature Gran % (Auto) Cancelled Neut % (Auto) Cancelled Lymph % (Auto) Cancelled [place] % (Auto) Cancelled Eos % (Auto) Cancelled Baso % (Auto) Cancelled Lymph # (Auto) Cancelled [place] # (Auto) Cancelled Eos # (Auto) Cancelled Baso # (Auto) Cancelled Abs Immat Gran (auto) Cancelled Absolute Neuts (auto) Cancelled Absolute Nucleated RBC 0.000 Nucleated RBC % (auto) 0.0 Neutrophils % (Manual) 72 Band Neutrophils % 7 H Lymphocytes % (Manual) 10 L Monocytes % (Manual) 7 Eosinophils % (Manual) Metamyelocytes % 2 Myelocytes % 2 Abs Neuts (Manual) 8.5 H Lymphocytes # (Manual) 1.1 Monocytes # (Manual) 0.8 Eosinophils # (Manual) Metamyelocytes # 0.2 Myelocytes # 0.2 Platelet Estimate NORMAL Plt Morphology Comment NORMAL RBC Morphology NORMAL Ovalocytes [place] Cells Acanthocytes (Spur) ESR PT INR Hold Blue Top Sodium 137 Potassium 3.7 Chloride 96 Carbon Dioxide 25 Anion Gap 20 BUN 6 L Creatinine 0.49 L Estim Creat Clear Calc 93.5 Estimated GFR > 60 POC Glucose 181 H Random Glucose Fasting Glucose 56 L* Calcium 7.8 L Phosphorus Magnesium 2.0 Ferritin Total Bilirubin Direct Bilirubin AST ALT Alkaline Phosphatase Lactate Dehydrogenase C-Reactive Protein Total Protein Albumin Triglycerides Carcinoembryonic Ag Procalcitonin Coronavirus (PCR) Influenza Type A (PCR) Influenza Type B (PCR) RSV RNA Qual (PCR) 08/30/20 08/31/20 09/01/20 05:53 10:54 06:51 WBC RBC Hgb Hct MCV MCH MCHC RDW Plt Count MPV Immature Gran % (Auto) Neut % (Auto) Lymph % (Auto) [place] % (Auto) Eos % (Auto) Baso % (Auto) Lymph # (Auto) [place] # (Auto) Eos # (Auto) Baso # (Auto) Abs Immat Gran (auto) Absolute Neuts (auto) Absolute Nucleated RBC Nucleated RBC % (auto) Neutrophils % (Manual) Band Neutrophils % Lymphocytes % (Manual) Monocytes % (Manual) Eosinophils % (Manual) Metamyelocytes % Myelocytes % Abs Neuts (Manual) Lymphocytes # (Manual) Monocytes # (Manual) Eosinophils # (Manual) Metamyelocytes # Myelocytes # Platelet Estimate Plt Morphology Comment RBC Morphology Ovalocytes [place] Cells Acanthocytes (Spur) ESR PT INR Hold Blue Top Sodium 137 139 138 Potassium 3.1 L 3.5 3.6 Chloride 96 99 99 Carbon Dioxide 30 H 31 H 32 H Anion Gap 14 13 11 L BUN 6 L 13 D 15 Creatinine 0.57 0.59 0.58 Estim Creat Clear Calc 80.4 77.7 79.0 Estimated GFR > 60 > 60 > 60 POC Glucose Random Glucose 160 H D Fasting Glucose 171 H D 145 H Calcium 8.1 L 7.9 L 8.1 L Phosphorus 2.6 L 2.7 Magnesium 1.7 1.8 1.9 Ferritin Total Bilirubin Direct Bilirubin AST ALT Alkaline Phosphatase Lactate Dehydrogenase C-Reactive Protein Total Protein Albumin 3.1 L D Triglycerides 161 Carcinoembryonic Ag Procalcitonin Coronavirus (PCR) Influenza Type A (PCR) Influenza Type B (PCR) RSV RNA Qual (PCR) 09/02/20 09/03/20 09/03/20 06:42 06:06 06:07 WBC 8.8 RBC 4.76 Hgb 13.5 L Hct 41.3 L MCV 86.8 MCH 28.4 MCHC 32.7 RDW 13.5 Plt Count 251 D MPV 11.8 Immature Gran % (Auto) 1.9 H Neut % (Auto) 77.8 H Lymph % (Auto) 9.5 L [place] % (Auto) 8.5 Eos % (Auto) 1.6 Baso % (Auto) 0.7 Lymph # (Auto) 0.8 L [place] # (Auto) 0.8 Eos # (Auto) 0.1 Baso # (Auto) 0.1 Abs Immat Gran (auto) 0.17 H Absolute Neuts (auto) 6.9 Absolute Nucleated RBC 0.000 Nucleated RBC % (auto) 0.0 Neutrophils % (Manual) Band Neutrophils % Lymphocytes % (Manual) Monocytes % (Manual) Eosinophils % (Manual) Metamyelocytes % Myelocytes % Abs Neuts (Manual) Lymphocytes # (Manual) Monocytes # (Manual) Eosinophils # (Manual) Metamyelocytes # Myelocytes # Platelet Estimate Plt Morphology Comment RBC Morphology Ovalocytes Jassi Cells Acanthocytes (Spur) ESR PT INR Hold Blue Top Sodium 137 134 L Potassium 4.4 D 4.4 Chloride 99 101 Carbon Dioxide 30 H 24 Anion Gap 12 13 BUN 14 17 H Creatinine 0.56 0.56 Estim Creat Clear Calc 81.8 81.8 Estimated GFR > 60 > 60 POC Glucose Random Glucose Fasting Glucose 133 H 160 H Calcium 8.1 L 8.1 L Phosphorus 3.0 Magnesium 2.0 2.0 Ferritin Total Bilirubin Direct Bilirubin AST ALT Alkaline Phosphatase Lactate Dehydrogenase C-Reactive Protein Total Protein Albumin 2.9 L Triglycerides 146 Carcinoembryonic Ag Procalcitonin Coronavirus (PCR) Influenza Type A (PCR) Influenza Type B (PCR) RSV RNA Qual (PCR) Airway Mallampati Class: I TM Dist: >3cm Neck ROM: Full Denture: Upper and Lower Other: deficientgag reflex Assessment and Plan Assessment Anesthesia Assessment: Anesthesia Plan Discussed and Chart Reviewed Final Anesthetic Review NPO: Yes ASA Class: IV Final Preanesthetic Review: No Changes in Pt Med Stat, Meds/Allgs Chart Reviewed, Consent Obtained/Reviewed, Anes Risks/Benef Reviewed and DNR Form (If Appl.) Patient Risk: High Procedure Risk: Intermediate Anesthetic Plan Anesthetic Plan: MAC: and Agree w/ Assess. and Plan Disposition: Standard PACU
--- NOTE | 2020-09-04 11:08 | PC.NURSE ---
suctioned patient with yankar frothy white sputum.
--- NOTE | 2020-09-04 12:02 | P.BOP_ITS ---
Brief Operative Note Date of Service: 09/04/20 Pre-op diagnosis: dysphagia Post-op diagnosis: same Procedure: Percutaneous endoscopic gastrostomy tube placement Implants: PEG tube 16fr Surgeon: JONATHAN EDDY MD Anesthesia: MAC Metal Buggy Operator: Kajal Figueredo Estimated blood loss (mL): 2 Pathology: none sent Condition: stable Disposition: PACU
[2020-09-04] MEDS: ondansetron HCL 4 MG/2 ML VIAL IVPUSH (12:30)
--- NOTE | 2020-09-04 13:08 | OP_ITS ---
SURGEON: Jass Curry MD INDICATIONS: The patient is an 84-year-old male with dysphagia and note of recurrent aspiration with a failed barium swallow eval, referred to me for PEG tube placement. I had multiple discussions with him about this procedure for the past week. He had been indecisive, but yesterday he stated that he wanted to proceed. I had discussed this extensively with him as well as his sister. I reviewed the risks including, but not limited to bleeding, perforation, tube dislodgement, as well as benefits and alternatives, and had given consent. His sister was healthcare proxy, was in agreement. PREOPERATIVE DIAGNOSIS: Dysphagia. POSTOPERATIVE DIAGNOSIS: Dysphagia. PROCEDURE PERFORMED: Percutaneous endoscopic gastrostomy tube placement. ESTIMATED BLOOD LOSS: COMPLICATIONS: ANESTHESIA: ASSISTANTS: SPECIMENS: DESCRIPTION OF PROCEDURE: The patient was brought to the operating room, placed in reclining position on the OR table under monitored anesthesia care. A bite block was in position. A surgical time-out was done. I inserted the scope gently through the bite block into the oropharynx. The vocal cords were visualized. The esophageal slit was seen posterior to this. The esophageal slit was intubated. The scope was gently advanced through the entire length of esophagus all the way into the stomach. The stomach was distended with insufflation. We were able to then see the transillumination as we directed the light into the anterior stomach wall. The transillumination was very clear just below the subcostal margin. Also we could easily see indentation on the anterior stomach wall with pressure with finger on the abdominal wall in this area. We proceeded therefore to use this area for the PEG tube placement. This area was prepped and draped. Lidocaine 1% was used for local anesthesia. A short stab incision was made in the skin. A small needle was gently placed through this and we could see easily in the lumen of the stomach. This needle was then removed. Then we proceeded to insert the large bore needle with catheter sheath. Again, this was easily seen through the anterior stomach wall into the lumen. The needle was removed and the catheter sheath was left in place. We inserted the guidewire through the catheter sheath and this was grasped with snare from the scope. We proceeded to pull the guidewire out through the esophagus through the oral cavity into the mouth. The guidewire was looped with the gastrostomy tube. We then pulled the guidewire from the anterior abdominal wall to drag the tube with this. This was pulled all the way until the internal bolster felt snug. The scope was then reinserted back into the esophagus slit and advanced into the stomach. The inner bolster of the gastrostomy tube was seen and appeared to be snug. The external bolster was then placed tight on the skin. We then proceeded to withdraw the scope completely. The patient tolerated the procedure well. There were no complications noted. The patient was then transferred to recovery room with stable vital signs. MD EVELIO May/CHELSIE / [id number] JULIANA
--- NOTE | 2020-09-04 14:07 | PM.EVENT ---
Event Note Date of Service: 09/04/20 Event Note: pt underwent uneventful PEG placement earlier today c/o pain on area stable VS alert abd soft pain mgt ok to start tube feeds tomorrow at low dose, advance as tolerated sister Jerilyn alonzo
[2020-09-04] MEDS: Morphine Sulfate 2 MG/ML CARTRIDGE IVPUSH (14:22)
--- NOTE | 2020-09-04 14:32 | HO.PM.IMPN ---
Subjective Subjective Date of Service: 09/05/20 Interval History: dysphagia Review of Systems patient went for peg placement Physical Exam Vital Signs: Vital Signs: Last Vital Signs Temp 97.0 F 09/04/20 14:00 Pulse 77 09/04/20 14:00 Resp 19 09/04/20 14:00 BP 118/76 09/04/20 14:00 Pulse Ox 90 L 09/04/20 14:00 Body Mass Index 21.6 Other: General: Alert,no acute distress Resp:grosslly fair air entry, no rales or wheezin CVS: S1,S2,RRR GI: soft, non tender, non distended Neuro: motor grossly intact Psych: impaired insight Objective Data Current Medications Generic Name Dose Route Start Last Admin Trade Name Freq PRN Reason Stop Dose Admin Acetaminophen 650 mg 08/19/20 21:30 Acetaminophen Supp 650 Mg Supp.Rect NM Q6H PRN Pain, Mild (Pain Scale 1-3) Amlodipine Besylate 5 mg 08/20/20 09:00 09/04/20 08:10 Amlodipine Besylate 5 Mg Tablet PO Not Given DAILY [facility] Protocol Artificial Tears 1 drop 08/19/20 21:00 Artificial Tears 15 Ml Drops EYE-BOTH TID PRN Dry Eyes Fluticasone Propionate 2 spray 08/20/20 09:00 09/04/20 08:14 Fluticasone Propionate Nasal 16 Gm [place] NOSTRIL-B 2 spray DAILY [facility] Administration Multivitamins 10.5 ml/ Trace 1,920 mls @ 80 mls/hr 09/03/20 18:00 09/03/20 18:27 Metals 1.1 ml/ Amino Acids/ IV 09/04/20 17:59 80 mls/hr Electrolytes/Dextrose DAILY@1800 [facility] Administration Fat Emulsion Intravenous 168 mls @ 14 mls/hr 09/03/20 18:00 09/04/20 06:56 Intralipid IVCONT 09/04/20 17:59 14 mls/hr BID@0600,1800 [facility] Administration Multivitamins 10.5 ml/ Trace 1,920 mls @ 80 mls/hr 09/04/20 18:00 Metals 1.1 ml/ Amino Acids/ IV 09/05/20 17:59 Electrolytes/Dextrose DAILY@1800 [facility] Fat Emulsion Intravenous 168 mls @ 14 mls/hr 09/04/20 18:00 Intralipid IVCONT 09/05/20 17:59 BID@0600,1800 [facility] Morphine Sulfate 2 mg 09/04/20 14:11 09/04/20 14:22 Morphine Sulfate 2 Mg/Ml Cartridge IVPUSH 2 mg Q3H PRN Administration Pain, Severe (Pain Scale 7-10) Nicotine 14 mg 08/21/20 09:00 09/04/20 08:13 Nicotine 14 Mg Patch.Td24 TRANSDERMA 14 mg DAILY [facility] Administration Omeprazole 20 mg 08/25/20 06:30 09/04/20 05:42 Omeprazole 20 Mg/10 Ml Susp.Recon PO Not Given BID@0630,1630 [facility] Ondansetron HCl 4 mg 08/19/20 21:30 Ondansetron Hcl 4 Mg/2 Ml Vial IVPUSH Q8H PRN Nausea and Vomiting Oxycodone HCl 5 mg 09/04/20 14:11 Oxycodone Hcl Immed Release 5 Mg Tablet PO Q4H PRN Pain, Moderate (Pain Scale 4-6 Sodium Chloride 3 ml 08/20/20 00:00 09/04/20 08:10 0.9 % Sodium Chloride Flush 3 Ml Syringe IVFLUSH Not Given QSHIFT [facility] Labs CBC & Chem 7: 09/03/20 06:07 09/05/20 05:53 Assessment and Plan (1) Dysphagia: Status: Acute (2) Indeterminate pulmonary nodules: Problem details: new primary Status: Acute Assessment and Plan: 84-year-old male with history of colon cancer, Hodgkin's lymphoma, hypertension, dyslipidemia, coronary artery disease, BPH who presented to the emergency department with dysphagia found to have lung nodules on CT chest concerning for malignancy 1.Dysphagia-seen GI:itw as thought - his dysphagia may have been related to a transient food bolus with subsequent spontaneous passage vs. some GERD with associated esophageal spasm and motility disturbance. The other possibility would be that of some oropharyngeal dysphagia in relation to his age, medical condition, etc. From the chart review subsequently like patient was placed on PPIs, NPO,MBS showed aspiration throughout. Patient went for G-tube placement today 2.Aspiration PNA with acute hypoxic respiratory failure. completed 7 days of Unasyn 3.Lung nodules concerning for neoplastic process done by IR on 08/23, Pathology report c/w adenocarcinoma, likely lung primary, but could be colon met will follow up outpaitent with thoracic for PET if treatment pursued 4.Tobacco dependence Smoking cessation advised -NRT Will likely need to go to rehab
--- NOTE | 2020-09-04 14:44 | MHC.CM.PN ---
[facility] IS UNABLE TO OFFER AT THIS TIME, BUT FOLLOWING ALONG FOR AN AVAILABLE BED. SISTER KEEGAN ASKS FOR REFERRALS TO [facility] [place], AND [facility]; NOW PLACED. CASE MANAGEMENT TO UPDATE KEEGAN AND PATIENT WITH ACCEPTING OFFERS FOR A CHOICE OF FACILITIES.
--- NOTE | 2020-09-04 14:50 | MHC.CLN ---
RE: TF RECOMMEND PROMOTE AT MAX GOAL RATE 70CC/HR WITH 120CC FREE WATER FLUSHES Q SHIFT TO PROVIDE 1680KCALS (28KCLAS/KG), 105G PROTEIN (1.8G/KG R/T DX CA), 1769CC TOTAL WATER FROM FORMULA AND FLUSHES (30CC/KG) START PROMOTE TF AT 20CC/HR AND INCREASE BY 10CC/HR Q 4 HRS UNTIL GOAL RATE OF 70CC/HR ACHIEVED MONITOR TOLERANCE, RESIDUALS AND LYTES
--- NOTE | 2020-09-04 15:53 | MHC.CM.PN ---
[facility] IS KEEGAN/SISTER'S CURRENT FIRST CHOICE. SHE IS AWARE THAT CHOICES WILL HAVE TO BE MADE DEPENDING ON BED AVAILABILITY AT TIME OF DISCHARGE. SHE IS ALSO AWARE THAT IF PATIENT IS ABLE TO MAKE HIS OWN DECISION OF CHOICE, THAT HE WILL DO SO. CASE MANAGEMENT FOLLOWING
--- NOTE | 2020-09-04 16:07 | OP_ITS ---
[facility] OPERATIVE REPORT PATIENT NAME: Lillie Bruno DATE OF : 1935 LOCATION: [facility] DATE OF SERVICE: 09/04/2020 PCP: OPERATIVE REPORT Page 1 SURGEON: Jass Curry MD PREOPERATIVE DIAGNOSIS: POSTOPERATIVE DIAGNOSIS: PROCEDURE PERFORMED: Percutaneous endoscopic gastrostomy tube placement. ESTIMATED BLOOD LOSS: COMPLICATIONS: ANESTHESIA: ASSISTANTS: Kajal Figueredo PA-C. SPECIMENS: ADDENDUM: Jass Curry MD FM/CHELSIE / [id number] MTDD
[2020-09-04] MEDS: 0.9 % Sodium Chloride Flush 3 ML SYRINGE IVFLUSH (17:21)
[2020-09-05] VITALS (7 sets, daily range): BP systolic 115–151; BP diastolic 65–97; PULSE 86–95; RESP 15–20; TEMP 36.4–37; O2SAT 89–98
--- NOTE | 2020-09-05 | XR_ITS ---
EXAMINATION: XR CHEST CLINICAL INFORMATION: Worsening hypoxia COMPARISON: 08/28/2020 TECHNIQUE: Frontal view of the chest was obtained. FINDINGS: The lungs are well expanded. Bilateral patchy airspace opacities are seen with associated nodular appearance at the left midlung. This is unchanged from prior. No significant pleural effusion. No pneumothorax. The cardiomediastinal silhouette is within normal limits. XR/XR chest 1V IMPRESSION: No significant change from prior with bilateral airspace opacities and left midlung nodule.
--- NOTE | 2020-09-05 04:53 | PC.NURSE ---
P-02SAT-85% ON 3L.HAS CONGESTED COUGH.ENCOURAGED PT TO COUGH UP SPUTUM.OFFERED INCENTIVE SPIROMETER TO PT .PT REFUSED.AGITATED.WANTS TO BE LEFT ALONE. I- NOTIFIED OF 02SAT.ORDERED UD TX AND STAT CXR.INCREASED O2 TO 4L.02SAT 91%. E-WILL CONTINUE TO MONITOR
[2020-09-05] MEDS: Albuterol/Iprat 2.5/0.5MG 3 ML AMPUL.NEB INHALE (05:37)
[2020-09-05] MEDS: Fat Emulsions 20% 250 ML 14 ML IVCONT (06:39)
[2020-09-05 07:21] LABS: Anion Gap 14 (12-20); Blood Urea Nitrogen 25 mg/dL (9-16); Carbon Dioxide 28 mmol/L (22-29); Chloride 93 mmol/L (96-108); Creatinine Clr Calc Pharmacy 77.7; Estimated Glomerular Filt Rate > 60; Glucose Random 188 mg/dL (60-115); Potassium 4.9 mmol/l (3.3-5.1); Sodium 130 mmol/L (135-145)
--- NOTE | 2020-09-05 07:41 | P.PNGS_ITS ---
Subjective Subjective Date of Service: 09/05/20 <Kajal Figueredo PA-C - Last Filed: 09/05/20 07:44> 09/05/20 <Jass Curry MD - Last Filed: 09/05/20 08:40> Interval history: Feels shitty . Denies abdominal pain. Unable to state why he feels that way. <Kajal Figueredo PA-C - Last Filed: 09/05/20 07:44> Physical Exam Vital Signs: Vital Signs: Last Vital Signs Temp 98.6 F 09/05/20 07:25 Pulse 88 09/05/20 07:25 Resp 17 09/05/20 07:25 BP 143/79 H 09/05/20 07:25 Pulse Ox 98 09/05/20 07:25 Body Mass Index 21.6 <Kajal Figueredo PA-C - Last Filed: 09/05/20 07:44> Const: General: no acute distress and alert <Kajal Figueredo PA-C - Last Filed: 09/05/20 07:44> Orientation/consciousness: oriented to person <Kajal Figueredo PA-C - Last Filed: 09/05/20 07:44> Eyes: Sclerae: sclerae normal <Kajal Figueredo PA-C - Last Filed: 09/05/20 07:44> Resp: Effort & Inspection: Actively coughing <Kajal Figueredo PA-C - Last Filed: 09/05/20 07:44> GI: Other: PEG tube in place, bolster secure <Kajal Figueredo PA-C - Last Filed: 09/05/20 07:44> Inspection: No distended <Kajal Figueredo PA-C - Last Filed: 09/05/20 07:44> Palpation (GI): Soft to palpation and nontender <Kajal Figueredo PA-C - Last Filed: 09/05/20 07:44> Skin: Other: warm and dry <Kajal Figueredo PA-C - Last Filed: 09/05/20 07:44> Neuro: General: oriented to person <Kajal Figueredo PA-C - Last Filed: 09/05/20 07:44> Progress Note: A&P Assessment and plan (1) Dysphagia: Status: Acute <Kajal Figueredo PA-C - Last Filed: 09/05/20 07:44> Assessment and Plan: Status post PEG placement Doing well Abdomen soft, peg tube in place Okay to start tube feeds Disposition as per hospitalist service <Jass Curry MD - Last Filed: 09/05/20 08:40> (2) S/P percutaneous endoscopic gastrostomy (PEG) tube placement: Problem details: POD #1 <Kajal Figueredo PA-C - Last Filed: 09/05/20 07:44> Status: Acute <Kajal Figueredo PA-C - Last Filed: 09/05/20 07:44> Assessment and Plan: Doing well post op, no surgical concerns. PEG tube in place. Ok to begin tube feeds today as per nutrition recommendations. <Kajal Figueredo PA-C - Last Filed: 09/05/20 07:44> Fall Risk Details Current Medications: Current Medications Generic Name Dose Route Start Last Admin Trade Name Freq PRN Reason Stop Dose Admin Acetaminophen 650 mg 08/19/20 21:30 Acetaminophen Supp 650 Mg Supp.Rect RI Q6H PRN Pain, Mild (Pain Scale 1-3) Albuterol/Ipratropium 3 ml 09/05/20 04:05 09/05/20 05:37 Albuterol/Iprat 2.5/0.5mg 3 Ml Ampul.Neb INHALE 3 ml RQ4H PRN Administration Dyspnea Amlodipine Besylate 5 mg 08/20/20 09:00 09/04/20 08:10 Amlodipine Besylate 5 Mg Tablet PO Not Given DAILY [facility] Protocol Artificial Tears 1 drop 08/19/20 21:00 Artificial Tears 15 Ml Drops EYE-BOTH TID PRN Dry Eyes Fluticasone Propionate 2 spray 08/20/20 09:00 09/04/20 08:14 Fluticasone Propionate Nasal 16 Gm [place] NOSTRIL-B 2 spray DAILY [facility] Administration Multivitamins 10.5 ml/ Trace 1,920 mls @ 80 mls/hr 09/04/20 18:00 09/04/20 1 8:49 Metals 1.1 ml/ Amino Acids/ IV 09/05/20 17:59 80 mls/hr Electrolytes/Dextrose DAILY@1800 [facility] Administration Fat Emulsion Intravenous 168 mls @ 14 mls/hr 09/04/20 18:00 09/05/20 06:39 Intralipid IVCONT 09/05/20 17:59 14 mls/hr BID@0600,1800 [facility] Administration Morphine Sulfate 2 mg 09/04/20 14:11 09/04/20 14:22 Morphine Sulfate 2 Mg/Ml Cartridge IVPUSH 2 mg Q3H PRN Administration Pain, Severe (Pain Scale 7-10) Nicotine 14 mg 08/21/20 09:00 09/04/20 08:13 Nicotine 14 Mg Patch.Td24 TRANSDERMA 14 mg DAILY [facility] Administration Omeprazole 20 mg 08/25/20 06:30 09/05/20 06:19 Omeprazole 20 Mg/10 Ml Susp.Recon PO 20 mg BID@0630,1630 [facility] Administration Ondansetron HCl 4 mg 08/19/20 21:30 Ondansetron Hcl 4 Mg/2 Ml Vial IVPUSH Q8H PRN Nausea and Vomiting Oxycodone HCl 5 mg 09/04/20 14:11 Oxycodone Hcl Immed Release 5 Mg Tablet PO Q4H PRN Pain, Moderate (Pain Scale 4-6 Sodium Chloride 3 ml 08/20/20 00:00 09/04/20 20:20 0.9 % Sodium Chloride Flush 3 Ml Syringe IVFLUSH Not Given QSHIFT [facility] <Kajal Figueredo PA-C - Last Filed: 09/05/20 07:44> Time Spent With Patient Time: Total time spent is greater than 50% in coordination of care (as do cumented) at patient's floor/unit and/or counseling patient: <Kajal Figueredo PA-C - Last Filed: 09/05/20 07:44> Time with patient: less than 15 minutes <Kajal Figueredo PA-C - Last Filed: 09/05/20 07:44>
[2020-09-05 08:16] LABS: Albumin Level 2.9 g/dL (3.5-5.0); Magnesium 1.9 mg/dL (1.6-2.6); Phosphorus 3.3 mg/dL (2.7-4.5)
[2020-09-05] MEDS: Fluticasone Propionate Nasal 16 GM SPRAY 2 SPRAY NOSTRIL-B (09:53)
--- NOTE | 2020-09-05 10:09 | MHC.CM.PN ---
UPDATES SENT VIA [facility] TO SNF REFERRALS. PER CONVERSATION WITH HOSPITALIST, NO PLAN FOR DISCHARGE TODAY, PATIENT IS HYPOXIC CASE MANAGEMENT FOLLOWING
--- NOTE | 2020-09-05 11:08 | HO.POSTANES ---
Post Anesthesia Evaluation Post Anesthesia Evaluation Vital Signs: Vital Signs Temp Pulse Resp BP Pulse Ox 09/05/20 07:25 98.6 F 88 17 143/79 H 98 09/05/20 05:25 94 09/05/20 03:47 97.8 F 89 18 115/69 91 L 09/04/20 23:38 97.8 F 90 18 146/81 H 91 L Anesthesia: Monitored Mental Status: Awake Pain Control: Satisfactory Nausea/Vomiting: None Hydration: Adequate Anesthesia-Related Issues: No Anes. Related Issues
--- NOTE | 2020-09-05 11:45 | HO.PM.IMPN ---
Subjective Subjective Date of Service: 09/05/20 Interval History: hypoxia ovenight, dysphagia Review of Systems Patient denies any chest pain or abdominal pain or fever chills or cough Physical Exam Vital Signs: Vital Signs: Last Vital Signs Temp 98.5 F 09/05/20 11:12 Pulse 95 09/05/20 11:12 Resp 18 09/05/20 11:12 BP 151/97 H 09/05/20 11:12 Pulse Ox 94 09/05/20 11:12 Body Mass Index 21.6 Physical exam: Constitutional: Not in acute distress Cvs: rrr, [id number] , no murmur res:fair air entry , no rales or wheezing abd: no rebound or guarding ,nt, bs present, has G tube -area seems clean , no discharge. ext pulses present , no cyanosis neuro: axo3 , nonfocal. Objective Data Current Medications Generic Name Dose Route Start Last Admin Trade Name Freq PRN Reason Stop Dose Admin Acetaminophen 650 mg 08/19/20 21:30 Acetaminophen Supp [address] Q6H PRN Pain, Mild (Pain Scale 1-3) Albuterol/Ipratropium 3 ml 09/05/20 04:05 09/05/20 05:37 Albuterol/Iprat 2.5/0.5mg 3 Ml Ampul.Neb INHALE 3 ml RQ4H PRN Administration Dyspnea Amlodipine Besylate 5 mg 08/20/20 09:00 09/05/20 09:52 Amlodipine Besylate 5 Mg Tablet PO Not Given DAILY [facility] Protocol Artificial Tears 1 drop 08/19/20 21:00 Artificial Tears 15 Ml Drops EYE-BOTH TID PRN Dry Eyes Fluticasone Propionate 2 spray 08/20/20 09:00 09/05/20 09:53 Fluticasone Propionate Nasal 16 Gm [place] NOSTRIL-B 2 spray DAILY [facility] Administration Multivitamins 10.5 ml/ Trace 1,920 mls @ 80 mls/hr 09/04/20 18:00 09/04/20 18:49 Metals 1.1 ml/ Amino Acids/ IV 09/05/20 17:59 80 mls/hr Electrolytes/Dextrose DAILY@1800 [facility] Administration Fat Emulsion Intravenous 168 mls @ 14 mls/hr 09/04/20 18:00 09/05/20 06:39 Intralipid IVCONT 09/05/20 17:59 14 mls/hr BID@0600,1800 [facility] Administration Morphine Sulfate 2 mg 09/04/20 14:11 09/04/20 14:22 Morphine Sulfate 2 Mg/Ml Cartridge IVPUSH 2 mg Q3H PRN Administration Pain, Severe (Pain Scale 7-10) Nicotine 14 mg 08/21/20 09:00 09/05/20 09:54 Nicotine 14 Mg Patch.Td24 TRANSDERMA Not Given DAILY [facility] Omeprazole 20 mg 08/25/20 06:30 09/05/20 06:19 Omeprazole 20 Mg/10 Ml Susp.Recon PO 20 mg BID@0630,1630 [facility] Administration Ondansetron HCl 4 mg 08/19/20 21:30 Ondansetron Hcl 4 Mg/2 Ml Vial IVPUSH Q8H PRN Nausea and Vomiting Oxycodone HCl 5 mg 09/04/20 14:11 Oxycodone Hcl Immed Release 5 Mg Tablet PO Q4H PRN Pain, Moderate (Pain Scale 4-6 Sodium Chloride 3 ml 08/20/20 00:00 09/05/20 09:52 0.9 % Sodium Chloride Flush 3 Ml Syringe IVFLUSH Not Given QSHIFT [facility] Labs CBC & Chem 7: 09/03/20 06:07 09/05/20 05:53 Assessment and Plan (1) S/P percutaneous endoscopic gastrostomy (PEG) tube placement: Problem details: POD #1 Status: Acute (2) Dysphagia: Status: Acute (3) Indeterminate pulmonary nodules: Problem details: new primary Status: Acute Assessment and Plan: 84-year-old male with history of colon cancer, Hodgkin's lymphoma, hypertension, dyslipidemia, coronary artery disease, BPH who presented to the emergency department with dysphagia found to have lung nodules on CT chest concerning for malignancy 1.Dysphagia-seen GI:itw as thought - his dysphagia may have been related to a transient food bolus with subsequent spontaneous passage vs. some GERD with associated esophageal spasm and motility disturbance. The other possibility would be that of some oropharyngeal dysphagia in relation to his age, medical condition, etc. From the chart review subsequently like patient was placed on PPIs, NPO,MBS showed aspiration throughout. Patient went for G-tube placement -will start feeding 2.Aspiration PNA with acute hypoxic respiratory failure. completed 7 days of Unasyn had another hypoxemic episode ? after peg placement? anethesia taper oxygen inecntive isaiah chest physio. pulm eval. 3.Lung nodules concerning for neoplastic process done by IR on 08/23, Pathology report c/w adenocarcinoma, likely lung primary, but could be colon met will follow up outpaitent with thoracic for PET if treatment pursued 4.Tobacco dependence Smoking cessation advised -NRT Will likely need to go to rehab
[2020-09-05] MEDS: 0.9 % Sodium Chloride Flush 3 ML SYRINGE IVFLUSH (18:31)
[2020-09-06] MEDS: 0.9 % Sodium Chloride Flush 3 ML SYRINGE IVFLUSH ×3 (00:44→16:00)
[2020-09-06 04:00] VITALS: BP 139/78; PULSE 88; RESP 18; TEMP 36.9; O2SAT 97
--- NOTE | 2020-09-06 06:29 | PC.NURSE ---
Addendum entered by Emilee Batista RN 09/06/20 06:46: addendum to correct times of feeding 40ml/hr until 0200, then 50mlhr from 9937-6573, then to 60ml hour at 0600 Original Note: patient tolerating gtube feeding well of promote, rate 40ml/hr from 2300 to 0000, increased to 50ml hour at 2248-3587, then to 60ml at 0600 as per md orders, max rate is 70 ml/hr.. h20 flush as ordered also hob up, tolerating well.
[2020-09-06 07:10] LABS: Anion Gap 14 (12-20); Blood Urea Nitrogen 19 mg/dL (9-16); Calcium 8.1 mg/dL (8.4-10.2); Carbon Dioxide 25 mmol/L (22-29); Chloride 95 mmol/L (96-108); Creatinine Clr Calc Pharmacy 80.4; Estimated Glomerular Filt Rate > 60; Glucose Random 151 mg/dL (60-115); Potassium 4.8 mmol/l (3.3-5.1); Sodium 129 mmol/L (135-145)
[2020-09-06 07:16] VITALS: BP 132/69; PULSE 89; RESP 18; TEMP 36.9; O2SAT 90
--- NOTE | 2020-09-06 10:17 | MHC.CM.PN ---
PATIENT MADE AWARE OF POTENTIAL DISCHARGE BY THIS WEEKEND. PATIENT ALSO AWARE THAT SNF REFERRALS ARE PLACED, AND HE HAS BED OFFERS IMM SIGNED TO BEST OF HIS ABILITY; HOWEVER, HE DOES VERBALIZE COMPREHENSION OF HIS RIGHTS INPATIENT STATUS UNDER MEDICARE. CASE MANAGEMENT FOLLOWING FOR DISCHARGE PLANS IMM 09/06 COPY IN CHART
[2020-09-06] MEDS: Nicotine 14 MG PATCH.TD24 TRANSDERMA (10:25)
[2020-09-06] MEDS: Fluticasone Propionate Nasal 16 GM SPRAY 2 SPRAY NOSTRIL-B (10:25)
[2020-09-06] MEDS: amLODIPine Besylate 5 MG TABLET PO (10:26)
--- NOTE | 2020-09-06 11:33 | P.PNIM_ITS ---
Subjective Subjective Date of Service: 09/06/20 Interval History: hypoxia- denies any chest pain or abdominal pain or diarrhea or fever or chills. Physical Exam Vital Signs: Vital Signs: Last Vital Signs Temp 98.4 F 09/06/20 07:16 Pulse 89 09/06/20 07:16 Resp 18 09/06/20 07:16 BP 132/69 09/06/20 07:16 Pulse Ox 90 L 09/06/20 07:16 Body Mass Index 21.6 Physical exam: Cvs: rrr, [id number] , no murmur res: Grossly fair entry, slightly diminshed at bases. abd: no rebound or guarding ,nt, bs present. ext pulses present , no cyanosis neuro: axo3 , nonfocal. Objective Data Current Medications Generic Name Dose Route Start Last Admin Trade Name Freq PRN Reason Stop Dose Admin Acetaminophen 650 mg 08/19/20 21:30 Acetaminophen Supp 650 Mg Supp.Rect SC Q6H PRN Pain, Mild (Pain Scale 1-3) Albuterol/Ipratropium 3 ml 09/05/20 04:05 09/05/20 05:37 Albuterol/Iprat 2.5/0.5mg 3 Ml Ampul.Neb INHALE 3 ml RQ4H PRN Administration Dyspnea Amlodipine Besylate 5 mg 08/20/20 09:00 09/06/20 10:26 Amlodipine Besylate 5 Mg Tablet PO 5 mg DAILY [facility] Administration Protocol Artificial Tears 1 drop 08/19/20 21:00 Artificial Tears 15 Ml Drops EYE-BOTH TID PRN Dry Eyes Fluticasone Propionate 2 spray 08/20/20 09:00 09/06/20 10:25 Fluticasone Propionate Nasal 16 Gm [place] NOSTRIL-B 2 spray DAILY [facility] Administration Morphine Sulfate 2 mg 09/04/20 14:11 09/04/20 14:22 Morphine Sulfate 2 Mg/Ml Cartridge IVPUSH 2 mg Q3H PRN Administration Pain, Severe (Pain Scale 7-10) Nicotine 14 mg 08/21/20 09:00 09/06/20 10:25 Nicotine 14 Mg Patch.Td24 TRANSDERMA 14 mg DAILY [facility] Administration Omeprazole 20 mg 08/25/20 06:30 09/06/20 06:16 Omeprazole 20 Mg/10 Ml Susp.Recon PO 20 mg BID@0630,1630 [facility] Administration Ondansetron HCl 4 mg 08/19/20 21:30 Ondansetron Hcl 4 Mg/2 Ml Vial IVPUSH Q8H PRN Nausea and Vomiting Oxycodone HCl 5 mg 09/04/20 14:11 Oxycodone Hcl Immed Release 5 Mg Tablet PO Q4H PRN Pain, Moderate (Pain Scale 4-6 Sodium Chloride 3 ml 08/20/20 00:00 09/06/20 10:26 0.9 % Sodium Chloride Flush 3 Ml Syringe IVFLUSH 3 ml QSHIFT [facility] Administration Labs CBC & Chem 7: 09/03/20 06:07 09/06/20 06:06 Assessment and Plan (1) Difficulty swallowing: Status: Acute (2) S/P percutaneous endoscopic gastrostomy (PEG) tube placement: Problem details: POD #1 Status: Acute (3) Dysphagia: Status: Acute (4) Indeterminate pulmonary nodules: Problem details: new primary Status: Acute Assessment and Plan: 84-year-old male with history of colon cancer, Hodgkin's lymphoma, hypertension, dyslipidemia, coronary artery disease, BPH who presented to the emergency department with dysphagia found to have lung nodules on CT chest concerning for malignancy 1.Dysphagia-seen GI:itw as thought - his dysphagia may have been related to a transient food bolus with subsequent spontaneous passage vs. some GERD with associated esophageal spasm and motility disturbance. The other possibility would be that of some oropharyngeal dysphagia in relation to his age, medical condition, etc. From the chart review subsequently like patient was placed on PPIs, NPO,MBS showed aspiration throughout. Patient went for G-tube placement -will start feeding 2.Aspiration PNA with acute hypoxic respiratory failure. completed 7 days of Unasyn had another hypoxemic episode ? after peg placement? anethesia taper oxygen,inecntive isaiah, continue nebs ,chest physio. oob pulm eval. 3.Lung nodules concerning for neoplastic process done by IR on 08/23, Pathology report c/w adenocarcinoma, likely lung primary, but could be colon met will follow up outpaitent with thoracic for PET if treatment pursued 4.Tobacco dependence Smoking cessation advised -NRT Will likely need to go to rehab
[2020-09-06 11:36] VITALS: BP 145/71; PULSE 91; RESP 18; TEMP 36.5; O2SAT 95
--- NOTE | 2020-09-06 11:49 | CONS_ITS ---
DATE OF SERVICE: 09/06/2020 INDICATION: Shortness of breath, hypoxia. HISTORY OF PRESENT ILLNESS: Mr. Bruno is an 84-year-old gentleman with a known history of emphysema, COPD, tobacco dependency, who apparently was in a usual state of health until recently when he had difficulty swallowing. He was brought to the [facility] ED. There, he underwent a CT scan of the chest demonstrating a 2 cm left upper lobe concerning nodular density. He did undergo a lung biopsy on 08/23, which was consistent with adenocarcinoma. During the hospital course, the patient had significant weight loss and malnutrition, cachexia and inability to eat, so therefore he underwent a PEG placement without any complications. Now, he is getting tube feeds. The patient now is on 3 to 4 L of oxygen. He was then evaluated again by Oncology. Due to his increased oxygen requirements, Pulmonary was consulted. I personally viewed the patient's chart in addition to CT scan and images demonstrating extensive emphysema along with a nodular density concerning for malignancy. REVIEW OF SYSTEMS: Ten systems reviewed. The patient is a poor historian. Complains of fatigue, malaise, anorexia, weight loss. Complains of respiratory symptoms with cough. Complains of the GI symptoms with difficulty swallowing. Complains of musculoskeletal symptoms with weakness. The rest of the 10-organ system is negative. Denies any rashes. Denies any focal weakness or sensory loss. PAST MEDICAL HISTORY: COPD, GERD, history of colon cancer, Hodgkin lymphoma, hypercholesteremia, hypertension, leg weakness, pancreatitis, history of tobacco abuse, kidney stones. FAMILY HISTORY: Positive for heart disease. ALLERGIES: PLEASE REFER TO [facility] [place] FOR THE FULL LIST. CURRENT MEDICATIONS: Please refer to the MAR, which includes acetaminophen, Zofran, Flonase, nicotine patch, morphine, oxycodone, DuoNebs. PHYSICAL EXAMINATION: VITAL SIGNS: Stable, saturating 90% on 3 L. GENERAL: Pleasant gentleman, cachectic appearing, lethargic appearing. HEENT: Pupils are equal and reactive to light. Oropharynx clear. NECK: Supple. LUNGS: Diminished bilaterally. CARDIAC: Regular rhythm, regular rate. ABDOMEN: Positive bowel sounds. PEG is in place. EXTREMITIES: No clubbing or cyanosis. LABORATORY DATA: His white count is normal. Hemoglobin 13.5, platelet count stable. Chemistries with carbon dioxide of 25, sodium 129. IMAGING STUDIES: Perceived by me had a CT scan of the chest. Initially on presentation 08/2013 demonstrating the 2 cm nodular density concerning for cancer. More recently underwent a chest x-ray on 09/05/2020 demonstrating no significant changes of bibasilar opacities likely from aspiration. ASSESSMENT: Mr. Bruno is an 84-year-old gentleman with known history of advanced chronic obstructive pulmonary disease, emphysema, and now respiratory failure, acute on chronic with a new diagnosis of lung cancer, dysphagia, and cachexia. IMPRESSION: 1. Acute on chronic hypoxic respiratory failure secondary to the extensive emphysema and likely now with aspiration pneumonitis. No evidence of fever. No evidence of white count to suggest infection at this time. 2. Chronic obstructive pulmonary disease with significant emphysema. 3. Lung cancer. Unfortunately due to his poor health status and functional status, he does carry a poor prognosis. He will need to have a PET scan to assess staging, but likely will not tolerate any surgical intervention due to his oxygen requirements and frail state. Therefore, palliative care will probably be the best. RECOMMENDATIONS: Continue with oxygen supplementation. We will add inhaler therapy to CPT, manual chest PT, pretty weak to do it on his own. Continue with PEG feeding, but most importantly goals of care should be discussed with the family as he is carrying a poor prognosis. The patient is a DNR, would recommend palliative care. Further recommendation based on forthcoming data. MD ALETHA Truong/CHELSIE / [id number]
--- NOTE | 2020-09-06 12:24 | MHC.CLN ---
F/U PT RECEIVING TF PROMOTE AT MAX GOAL RATE 70CC/HR WITH 120CC FREE WATER FLUSHES Q SHIFT TO PROVIDE 1680KCALS (28KCLAS/KG), 105G PROTEIN (1.8G/KG R/T DX CA), 1769CC TOTAL WATER FROM FORMULA AND FLUSHES (30CC/KG) NSG REPORTS TF AT MAX GOAL AND TOLERATING WELL CONTINUE TO MONITOR TOLERANCE, RESIDUALS AND LYTES
--- NOTE | 2020-09-06 13:59 | PM.PNGS ---
Subjective Subjective Date of Service: 09/06/20 Interval history: Feels well Tolerating tube feeds Obrien has been having hypoxemia Physical Exam Vital Signs: Vital Signs: Last Vital Signs Temp 97.7 F 09/06/20 11:36 Pulse 91 09/06/20 11:36 Resp 18 09/06/20 11:36 BP 145/71 H 09/06/20 11:36 Pulse Ox 95 09/06/20 11:36 Body Mass Index 21.6 Chemistry 09/05/20 09/06/20 05:53 06:06 Sodium 130 L 129 L Potassium 4.9 4.8 Carbon Dioxide 28 25 BUN 25 H 19 H Creatinine 0.59 0.57 Calcium 8.0 L 8.1 L Phosphorus 3.3 Const: Other: Appears very frail General: no acute distress Resp: Effort & Inspection: normal respiratory effort GI: Palpation (GI): not firm and no guarding Progress Note: A&P Assessment and plan (1) Dysphagia: Status: Acute Assessment and Plan: Status post PEG placement Tolerating tube feeds Abdomen soft Peg tube in place Rest of management as per the hospitalist service Fall Risk Details Current Medications: Current Medications Generic Name Dose Route Start Last Admin Trade Name Freq PRN Reason Stop Dose Admin Acetaminophen 650 mg 08/19/20 21:30 Acetaminophen Supp 650 Mg Supp.Rect LA Q6H PRN Pain, Mild (Pain Scale 1-3) Albuterol/Ipratropium 3 ml 09/05/20 04:05 09/05/20 05:37 Albuterol/Iprat 2.5/0.5mg 3 Ml Ampul.Neb INHALE 3 ml RQ4H PRN Administration Dyspnea Amlodipine Besylate 5 mg 08/20/20 09:00 09/06/20 10:26 Amlodipine Besylate 5 Mg Tablet PO 5 mg DAILY LALI Administration Protocol Artificial Tears 1 drop 08/19/20 21:00 Artificial Tears 15 Ml Drops EYE-BOTH TID PRN Dry Eyes Fluticasone Propionate 2 spray 08/20/20 09:00 09/06/20 10:25 Fluticasone Propionate Nasal 16 Gm [place] NOSTRIL-B 2 spray DAILY LALI Administration Morphine Sulfate 2 mg 09/04/20 14:11 09/04/20 14:22 Morphine Sulfate 2 Mg/Ml Cartridge IVPUSH 2 mg Q3H PRN Administration Pain, Severe (Pain Scale 7-10) Nicotine 14 mg 08/21/20 09:00 09/06/20 10:25 Nicotine 14 Mg Patch.Td24 TRANSDERMA 14 mg DAILY LALI Administration Omeprazole 20 mg 08/25/20 06:30 09/06/20 06:16 Omeprazole 20 Mg/10 Ml Susp.Recon PO 20 mg BID@0630,1630 LALI Administration Ondansetron HCl 4 mg 08/19/20 21:30 Ondansetron Hcl 4 Mg/2 Ml Vial IVPUSH Q8H PRN Nausea and Vomiting Oxycodone HCl 5 mg 09/04/20 14:11 Oxycodone Hcl Immed Release 5 Mg Tablet PO Q4H PRN Pain, Moderate (Pain Scale 4-6 Sodium Chloride 3 ml 08/20/20 00:00 09/06/20 10:26 0.9 % Sodium Chloride Flush 3 Ml Syringe IVFLUSH 3 ml QSHIFT LALI Administration Time Spent With Patient Time: Total time spent is greater than 50% in coordination of care (as documented) at patient's floor/unit and/or counseling patient: Time with patient: less than 15 minutes
--- NOTE | 2020-09-06 14:18 | PC.NURSE ---
1400 chauncey promote at 70ml/hr. No residual. Flushed with water as ordered. Aspiration precautions.
[2020-09-06 15:14] VITALS: BP 142/88; PULSE 89; RESP 18; TEMP 36.3; O2SAT 93
--- NOTE | 2020-09-06 16:21 | P.PNHO_ITS ---
Medical Summary - Medical Summary Date of Service: 09/06/20 Medical Summary: He continues with weakness and anorexia. He initially refused the biopsy but now agrees. The 2 cm nodule is very peripheral. Interval History Interval history: Dr. Oliver's consultation is very much appreciated. If he cannot have curative surgery, if not stage IV, he may be a candidate for radiation. Review of Systems - Constitutional Reports anorexia - Eyes Reports dry eyes - ENT Reports sore throat - Cardiovascular Reports fast heart rate - Respiratory Reports dyspnea on exertion - Gastrointestinal Reports abdominal pain - Genitourinary Genitourinary: Reports urinary urgency - Musculoskeletal Reports decreased muscle mass - Integumentary/Breasts Skin/Breast: Reports other - Neurologic Reports system reviewed and no additional complaints, except as documented, Reports hearing normal, Reports memory loss, Reports weakness, Reports other - Psychiatric Reports other - Endocrine Reports other - Allergic/Immunologic Reports wheezing [facility] Medical History: Medical History (Last Reviewed 08/28/20 @ 16:02 by Jass Curry MD) Atrial fibrillation Cholelithiasis COPD (chronic obstructive pulmonary disease) GERD (gastroesophageal reflux disease) History of colon cancer Hodgkins lymphoma Hypercholesterolemia Hypertension Leg weakness, bilateral Pancreatitis Renal calculus, left Tobacco abuse Functional capacity: uses cane/walker Family History: Family History (Last Reviewed 08/28/20 @ 16:02 by Jass Curry MD) Father CVD (cardiovascular disease) Mother CVD (cardiovascular disease) Surgical History: Surgical History (Last Reviewed 09/04/20 @ 11:02 by Jose C Fenton) History of bilateral cataract extraction History of chemotherapy History of colectomy History of tonsillectomy Hx of inguinal hernia surgery Smoking status: Former smoker Oncology Screenings - Immunizations Influenza Immunization Status: Up To Date Pneumoccocal Immunization Status: Up To Date - ECOG Performance Status ECOG Performance Status: 2 - G8 Geriatric Assessment Change in food intake over past 3 months: Severe decrease in food intake Weight loss during the last 3 months: Does not know Mobility: Bed or chair bound Neuropsychological problems: Mild dementia or depression Body Mass Index: 19 to 21 Patient takes > 3 prescription drugs per day: Yes Patient's assessment of health status compared to others: Not as good Patient age: 80 to 85 G8 Score: 4 G8 Risk Level: High risk for early functional decline and reduced survival. - [place] Frail Scale Number of times patient admitted to hospital in past year: 1 to 2 In general, patient describes health as: Poor Number of activities patient requires help with: 2 to 4 Patient can count on others willing and able to meet needs: Sometimes Patient uses 5 or more prescription medications: Yes Patient reports forgetfulness with taking prescription meds: Yes Patient reports weight loss: Yes Patient often feels sad or depressed: Yes Patient experiences incontinence: Yes # Sec for patient to walk 3m distance and return to chair: 11-20 Sec [place] Frail Scale Score: 11 Frailty Level: Moderate Frailty - [place] VTE Risk Cancer Type: Lung Pre-chemo platelet count >= 350,000/uL: Yes Hemoglobin level <10 g/dL or using RBC growth factors: Yes Pre-chemo leukocyte count > 11,000/uL: Yes BMI >=35: Yes VTE Risk Score:: 5 [place] VTE Risk: High VTE Risk Home Medications and Allergies Current Medications: Current Medications Generic Name Dose Route Start Last Admin Trade Name Freq PRN Reason Stop Dose Admin Acetaminophen 650 mg 08/19/20 21:30 Acetaminophen Supp 650 Mg Supp.Rect MS Q6H PRN Pain, Mild (Pain Scale 1-3) Albuterol/Ipratropium 3 ml 09/05/20 04:05 09/05/20 05:37 Albuterol/Iprat 2.5/0.5mg 3 Ml Ampul.Neb INHALE 3 ml RQ4H PRN Administration Dyspnea Amlodipine Besylate 5 mg 08/20/20 09:00 09/06/20 10:26 Amlodipine Besylate 5 Mg Tablet PO 5 mg DAILY LALI Administration Protocol Artificial Tears 1 drop 08/19/20 21:00 Artificial Tears 15 Ml Drops EYE-BOTH TID PRN Dry Eyes Fluticasone Propionate 2 spray 08/20/20 09:00 09/06/20 10:25 Fluticasone Propionate Nasal 16 Gm [place] NOSTRIL-B 2 spray DAILY LALI Administration Morphine Sulfate 2 mg 09/04/20 14:11 09/04/20 14:22 Morphine Sulfate 2 Mg/Ml Cartridge IVPUSH 2 mg Q3H PRN Administration Pain, Severe (Pain Scale 7-10) Nicotine 14 mg 08/21/20 09:00 09/06/20 10:25 Nicotine 14 Mg Patch.Td24 TRANSDERMA 14 mg DAILY LALI Administration Omeprazole 20 mg 08/25/20 06:30 09/06/20 16:00 Omeprazole 20 Mg/10 Ml Susp.Recon PO 20 mg BID@0630,1630 [facility] Administration Ondansetron HCl 4 mg 08/19/20 21:30 Ondansetron Hcl 4 Mg/2 Ml Vial IVPUSH Q8H PRN Nausea and Vomiting Oxycodone HCl 5 mg 09/04/20 14:11 Oxycodone Hcl Immed Release 5 Mg Tablet PO Q4H PRN Pain, Moderate (Pain Scale 4-6 Sodium Chloride 3 ml 08/20/20 00:00 09/06/20 16:00 0.9 % Sodium Chloride Flush 3 Ml Syringe IVFLUSH 3 ml QSHIFT [facility] Administration Home Medications Medication Instructions Recorded Confirmed Type amlodipine 5 mg tablet 5 mg PO DAILY 06/15/20 08/19/20 History ascorbic acid (vitamin C) 500 mg 500 mg PO DAILY 06/15/20 08/19/20 History capsule atorvastatin 10 mg tablet 10 mg PO DAILY 06/15/20 08/19/20 History dextran 70-hypromellose 0.1 %-0.3 1 drp OPHTHALMIC (EYE) DIRECTED 06/15/20 08/19/20 History % eye drops ferrous sulfate 325 mg (65 mg 325 mg PO DAILY 06/15/20 08/19/20 History iron) tablet fluticasone propionate 50 2 spray INTRANASAL DAILY 06/15/20 08/19/20 History mcg/actuation nasal spray,suspension megestrol 10 ml PO BID 08/19/20 08/19/20 History Allergies Allergy/AdvReac Type Severity Reaction Status Date / Time procaine [From Novocain] Allergy Mild INEFFECTIVE Verified 06/15/20 12:42 PER RN lisinopril Allergy Unknown Unknown Verified 06/15/20 12:42 Exam Vital signs: Vital Signs Temp 97.4 F 09/06/20 15:14 Pulse 89 09/06/20 15:14 Resp 18 09/06/20 15:14 BP 142/88 H 09/06/20 15:14 Pulse Ox 93 09/06/20 15:14 Intake & Output 09/05/20 09/06/20 09/06/20 18:59 06:59 18:59 Intake Total 1952.067 / 2672.067 720 / 2672.067 Output Total 200 / 300 100 / 300 Balance 1752.067 / 2372.067 620 / 2372.067 Urine Output (Average ml/kg/hr) 0.28 0.14 0.14 Intake: Intake, Oral Amount 0 / 0 Intake, Tube Feeding Amount 600 / 600 Intake, Tube Irrigant Amount 120 / 240 120 / 240 Intake, IV Amount 1832.067 / 1832.067 AA 4.25%/Calcium/Lytes/Dex 10% 1700 / 1700 2,000 ml @ 80 mls/hr IV DAILY@ 1800 LALI with MVI, Adult 10.5 ml with Trace Elements w/o chromium 1.1 ml Rx#:[id number] Fat Emulsions 20% 250 ml @ 14 132.067 / 132.067 mls/hr IVCONT BID@0600,1800 LALI Rx#:[id number] Output: Output, Urine Amount 200 / 300 100 / 300 Other: NPO Yes Number of Incontinent Voids 2 Urine Urinal Urine Color Yin Stool Bedpan Stool Color Brown Stool Consistency Pasty Weight 58.96 kg Body Mass Index 21.6 - Constitutional Present: chronically ill appearing - Routine HEENT Exam Head: Present: atraumatic - Routine Abdominal Exam Present: diminished bowel sounds - Routine Extremities Exam Present: extremity cold to touch - Routine Skin Exam Present: scars - Routine Neurological Exam Present: altered mental status Data - Labs CBC & Chem 7: 09/03/20 06:07 09/06/20 06:06 Labs: 08/19/20 15:18 XR chest 2V Stat XR soft tissue neck Stat 08/19/20 15:28 SARS-CoV2/FLU/RSV Stat 08/19/20 15:30 0.9 % Sodium Chloride [Ns] 1,000 ml IVCONT 999 mls/hr 08/19/20 15:37 Basic Metabolic Panel Stat C Reactive Protein Stat Complete Blood Count Auto Diff Stat Ferritin Stat Hold Lt Blue - Possible Coag Stat Lactate Dehydrogenase Stat Liver Panel Stat Magnesium Stat Procalcitonin Stat 08/19/20 16:19 CT chest w con Stat CT soft tissue neck w con Stat 08/19/20 16:56 iohexoL 350 MG/ML [Omnipaque 350 MG/ML] 100 ml IV ONCE ONE 08/19/20 18:04 Vital Signs, Orthostatic NOW 08/19/20 18:46 Transfer Order Routine 08/19/20 18:47 Code Status Routine 08/19/20 21:30 0.9 % Sodium Chloride [Ns] 1,000 ml IVCONT 80 mls/hr Nicotine [Nicoderm] 14 mg TRANSDERMA DAILY 08/19/20 21:30 Vital Signs QSHIFT 08/20/20 08:09 Basic Metabolic Panel DAILY@0600 Carcinoembryonic Antigen Routine Complete Blood Count Auto Diff DAILY@0600 Erythrocyte Sedimentation Rate Routine 08/20/20 11:09 Add Laboratory Test Urgent 08/20/20 15:54 Glycopyrrolate [Robinul] 0.2 mg .ROUTE .STK-MED ONE Lidocaine HCl 2 % MPF [Xylocaine 2 % MPF] 5 ml .ROUTE .STK-MED ONE Lidocaine HCl Viscous 2 % [Xylocaine Viscous 2 % Oral Suni] 15 ml MUCOUS MEM .STK-MED ONE propofoL [Diprivan] 200 mg IVPUSH .STK-MED ONE 08/20/20 16:40 Transfer Order Routine 08/20/20 17:17 Omeprazole [PriLOSEC] 20 mg PO BID@0630,1630 08/20/20 Dinner Full Liquid Diet 08/21/20 02:26 LORazepam [Ativan] 1 mg IVPUSH ONCE ONE 08/22/20 Dinner NPO Diet 08/23/20 CT biopsy lung LT Routine XR chest 2V Routine 08/23/20 10:13 Prothrombin Time INR Stat 08/23/20 11:59 Lidocaine HCl 1 % MPF [Xylocaine 1 % MPF] 5 ml .ROUTE .STK-MED ONE fentaNYL citrate/PF [Sublimaze] 50 mcg .ROUTE .STK-MED ONE 08/23/20 12:00 Midazolam HCl/PF [Versed] 2 mg .ROUTE .STK-MED ONE Naloxone HCl [Narcan] 0.4 mg .ROUTE .STK-MED ONE flumazeniL [Romazicon] 0.05 mg .ROUTE .STK-MED ONE 08/23/20 13:04 Surgical [PTH] Stat 08/23/20 13:07 Reinforce wound dressing NEEDED 08/23/20 13:11 Vital Signs Q30M 08/23/20 13:24 Cytology [PTH] Stat 08/23/20 14:00 Lidocaine HCl 1 % [Xylocaine 1 %] 20 ml SUBCUT ONCE ONE 08/23/20 14:35 Lidocaine HCl 1 % MPF [Xylocaine 1 % MPF] 7 ml SUBCUT ONCE ONE 08/24/20 XR chest 2V Urgent 08/24/20 13:00 Ampicillin Sodium/Sulbactam Na [Unasyn] 1.5 gm 0.9 % Sodium Chloride [Ns] 100 ml IV Q6H 08/24/20 13:57 Ampicillin Sodium/Sulbactam Na [Unasyn] 1.5 gm .ROUTE .STK-MED ONE 08/24/20 19:57 Ampicillin Sodium/Sulbactam Na [Unasyn] 1.5 gm .ROUTE .STK-MED ONE 08/25/20 02:13 Ampicillin Sodium/Sulbactam Na [Unasyn] 1.5 gm .ROUTE .STK-MED ONE 08/25/20 07:26 Ampicillin Sodium/Sulbactam Na [Unasyn] 1.5 gm .ROUTE .STK-MED ONE 08/25/20 Breakfast NPO Diet 08/25/20 11:02 Basic Metabolic Panel Routine Complete Blood Count no Diff Routine 08/25/20 11:30 Dextrose 5 % and 0.45 % NaCl [D51/2Ns] 1,000 ml IVCONT 100 mls/hr 08/25/20 13:30 Ampicillin Sodium/Sulbactam Na [Unasyn] 1.5 gm .ROUTE .STK-MED ONE 08/25/20 18:00 KCl 20 mEq in 0.45% Sod 20 meq in 1,000 ml IVCONT 100 mls/hr 08/25/20 18:15 Potassium Chloride/H20 10 meq in 100 ml IV Q1H 08/25/20 19:39 Ampicillin Sodium/Sulbactam Na [Unasyn] 1.5 gm .ROUTE .STK-MED ONE 08/26/20 00:28 Ampicillin Sodium/Sulbactam Na [Unasyn] 1.5 gm .ROUTE .STK-MED ONE 08/26/20 06:18 Ampicillin Sodium/Sulbactam Na [Unasyn] 1.5 gm .ROUTE .STK-MED ONE 08/26/20 06:21 Ampicillin Sodium/Sulbactam Na [Unasyn] 1.5 gm .ROUTE .STK-MED ONE 08/26/20 06:27 Basic Metabolic Panel Routine 08/26/20 13:37 Ampicillin Sodium/Sulbactam Na [Unasyn] 1.5 gm .ROUTE .STK-MED ONE 08/26/20 18:16 Ampicillin Sodium/Sulbactam Na [Unasyn] 1.5 gm .ROUTE .STK-MED ONE 08/27/20 02:03 Ampicillin Sodium/Sulbactam Na [Unasyn] 1.5 gm .ROUTE .STK-MED ONE 08/27/20 04:19 LORazepam [Ativan] 0.5 mg IVPUSH ONCE ONE 08/27/20 06:23 Ampicillin Sodium/Sulbactam Na [Unasyn] 1.5 gm .ROUTE .STK-MED ONE 08/27/20 12:31 Ampicillin Sodium/Sulbactam Na [Unasyn] 1.5 gm .ROUTE .STK-MED ONE 08/27/20 19:02 Ampicillin Sodium/Sulbactam Na [Unasyn] 1.5 gm .ROUTE .STK-MED ONE 08/28/20 XR chest 1V Routine 08/28/20 01:58 Ampicillin Sodium/Sulbactam Na [Unasyn] 1.5 gm .ROUTE .STK-MED ONE 08/28/20 06:06 BMP [Basic Metabolic Panel Fasting] Routine Complete Blood Count Man Dif Routine Magnesium Routine 08/28/20 06:58 Ampicillin Sodium/Sulbactam Na [Unasyn] 1.5 gm .ROUTE .STK-MED ONE 08/28/20 07:30 Dextrose 50 % [D50] 25 gm IVPUSH ONCE ONE 08/28/20 07:40 Dextrose 50 % [D50] 25 gm .ROUTE .STK-MED ONE 08/28/20 07:58 Magnesium Sulfate/H2O 2 gm in 50 ml IV ONCE 08/28/20 08:00 FL barium swallow modified Routine 08/28/20 08:29 Glucose, Whole Blood Routine 08/28/20 11:16 Glucose, Whole Blood Routine 08/28/20 13:20 Ampicillin Sodium/Sulbactam Na [Unasyn] 1.5 gm .ROUTE .STK-MED ONE 08/28/20 19:08 Ampicillin Sodium/Sulbactam Na [Unasyn] 1.5 gm .ROUTE .STK-MED ONE 08/29/20 01:18 Ampicillin Sodium/Sulbactam Na [Unasyn] 1.5 gm .ROUTE .STK-MED ONE 08/29/20 04:02 BMP [Basic Metabolic Panel Fasting] Routine Complete Blood Count Man Dif Routine Magnesium Routine 08/29/20 05:42 Dextrose 50 % [D50] 25 gm .ROUTE .STK-MED ONE 08/29/20 06:52 Dextrose 50 % [D50] 12.5 gm IVPUSH ONCE ONE 08/29/20 07:10 Glucose, Whole Blood Routine 08/29/20 07:56 Ampicillin Sodium/Sulbactam Na [Unasyn] 1.5 gm .ROUTE .STK-MED ONE 08/29/20 10:15 Dextrose 5 % and 0.45 % NaCl [D51/2Ns] 1,000 ml IVCONT 80 mls/hr 08/29/20 13:06 Ampicillin Sodium/Sulbactam Na [Unasyn] 1.5 gm .ROUTE .STK-MED ONE 08/29/20 13:15 Ampicillin Sodium/Sulbactam Na [Unasyn] 1.5 gm .ROUTE .STK-MED ONE 08/29/20 20:57 Ampicillin Sodium/Sulbactam Na [Unasyn] 1.5 gm .ROUTE .STK-MED ONE 08/30/20 03:15 Ampicillin Sodium/Sulbactam Na [Unasyn] 1.5 gm .ROUTE .STK-MED ONE 08/30/20 05:53 Albumin Level Routine BMP [Basic Metabolic Panel Fasting] Routine Complete Blood Count Man Dif Routine Magnesium Routine Phosphorus Routine Triglycerides Routine 08/30/20 09:58 Ampicillin Sodium/Sulbactam Na [Unasyn] 1.5 gm .ROUTE .STK-MED ONE 08/30/20 10:00 Ampicillin Sodium/Sulbactam Na [Unasyn] 1.5 gm 0.9 % Sodium Chloride [Ns] 100 ml IV Q6H 08/30/20 10:18 Add Laboratory Test Stat 08/30/20 10:39 Potassium Phosphate [KPhos] 15 mmol 0.9 % Sodium Chloride [Ns] 500 ml IV ONCE 08/30/20 16:22 Ampicillin Sodium/Sulbactam Na [Unasyn] 1.5 gm .ROUTE .STK-MED ONE 08/30/20 18:00 MVI, Adult [Infuvite Adult] 21 ml Trace Elements w/o chromium [Tralement] 2 ml AA 4.25%/Calcium/Lytes/Dex 10% [Clinimix E 4.25%-10%] 2,000 ml IV DAILY@1800 08/30/20 21:01 Ampicillin Sodium/Sulbactam Na [Unasyn] 1.5 gm .ROUTE .STK-MED ONE 08/31/20 04:05 Ampicillin Sodium/Sulbactam Na [Unasyn] 1.5 gm .ROUTE .STK-MED ONE 08/31/20 09:30 Add Laboratory Test Stat 08/31/20 10:54 Basic Metabolic Panel Stat Magnesium Stat Phosphorus Stat 08/31/20 18:00 MVI, Adult [Infuvite Adult] 21 ml Trace Elements w/o chromium [Tralement] 2 ml AA 4.25%/Calcium/Lytes/Dex 10% [Clinimix E 4.25%-10%] 2,000 ml IV DAILY@1800 09/01/20 06:51 BMP [Basic Metabolic Panel Fasting] Routine Magnesium Routine 09/01/20 18:00 MVI, Adult [Infuvite Adult] 21 ml Trace Elements w/o chromium [Tralement] 2 ml AA 4.25%/Calcium/Lytes/Dex 10% [Clinimix E 4.25%-10%] 2,000 ml IV DAILY@1800 09/02/20 06:42 Albumin Level Routine BMP [Basic Metabolic Panel Fasting] Routine Magnesium Routine Phosphorus Routine Triglycerides Routine 09/02/20 08:21 Add Laboratory Test Stat 09/02/20 08:30 Add Laboratory Test Stat 09/02/20 18:00 MVI, Adult [Infuvite Adult] 14 ml Trace Elements w/o chromium [Tralement] 1.4 ml AA 4.25%/Calcium/Lytes/Dex 10% [Clinimix E 4.25%-10%] 2,000 ml IV DAILY@1800 09/03/20 06:06 BMP [Basic Metabolic Panel Fasting] Routine Magnesium Routine 09/03/20 06:07 Complete Blood Count Auto Diff Routine 09/03/20 18:00 Fat Emulsions 20% [Intralipid] 250 ml IVCONT BID@0600,1800 MVI, Adult [Infuvite Adult] 10.5 ml Trace Elements w/o chromium [Tralement] 1.1 ml AA 4.25%/Calcium/Lytes/Dex 10% [Clinimix E 4.25%-10%] 2,000 ml IV DAILY@1800 09/04/20 07:24 ceFAZolin Sodium/Dextrose,Iso [Ancef] 2 gm in 50 ml IV PREOP 09/04/20 09:57 ceFAZolin Sodium/Dextrose,Iso [Ancef] 2 gm in 50 ml .ROUTE As directed 09/04/20 Breakfast NPO Diet 09/04/20 11:12 Continuous pulse oximetry CONT Vital Signs Q1H fentaNYL citrate/PF [Sublimaze] 25 mcg IVPUSH Q5M PRN ondansetron HCL [Zofran] 4 mg IVPUSH ONCE PRN 09/04/20 11:45 Lidocaine HCl 2 % MPF [Xylocaine 2 % MPF] 5 ml .ROUTE .STK-MED ONE fentaNYL citrate/PF [Sublimaze] 50 mcg .ROUTE .STK-MED ONE propofoL [Diprivan] 200 mg IVPUSH .STK-MED ONE 09/04/20 12:05 Transfer Order Routine 09/04/20 12:30 ondansetron HCL [Zofran] 4 mg .ROUTE .STK-MED ONE 09/04/20 18:00 Fat Emulsions 20% [Intralipid] 250 ml IVCONT BID@0600,1800 MVI, Adult [Infuvite Adult] 10.5 ml Trace Elements w/o chromium [Tralement] 1.1 ml AA 4.25%/Calcium/Lytes/Dex 10% [Clinimix E 4.25%-10%] 2,000 ml IV DAILY@1800 09/05/20 XR chest 1V Stat 09/05/20 05:53 Albumin Level Routine Basic Metabolic Panel DAILY@0600 Magnesium Routine Phosphorus Routine 09/05/20 08:04 Add Laboratory Test Stat 09/06/20 06:06 Basic Metabolic Panel DAILY Laboratory Last Values WBC 8.8 X10*3/uL (4.8-10.8) 09/03/20 06:07 RBC 4.76 X10*6/uL (4.60-5.80) 09/03/20 06:07 Hgb 13.5 g/dl (14.0-18.0) L 09/03/20 06:07 Hct 41.3 % (42-52) L 09/03/20 06:07 MCV 86.8 fL (80-98) 09/03/20 06:07 MCH 28.4 pg (27.0-33.0) 09/03/20 06:07 MCHC 32.7 g/dl (31.0-36.0) 09/03/20 06:07 RDW 13.5 % (11.0-16.0) 09/03/20 06:07 Plt Count 251 X10*3/uL (160-400) D 09/03/20 06:07 MPV 11.8 fL (9.4-12.4) 09/03/20 06:07 Immature Gran % (Auto) 1.9 % (0.0-0.4) H 09/03/20 06:07 Neut % (Auto) 77.8 % (45-73) H 09/03/20 06:07 Lymph % (Auto) 9.5 % (20-40) L 09/03/20 06:07 [place] % (Auto) 8.5 % (2-11) 09/03/20 06:07 Eos % (Auto) 1.6 % (0-4) 09/03/20 06:07 Baso % (Auto) 0.7 % (0-2) 09/03/20 06:07 Lymph # (Auto) 0.8 X10*3/uL (1.2-4.9) L 09/03/20 06:07 [place] # (Auto) 0.8 X10*3/uL (0.1-1.2) 09/03/20 06:07 Eos # (Auto) 0.1 X10*3/uL (0.0-0.4) 09/03/20 06:07 Baso # (Auto) 0.1 X10*3/uL (0.0-0.2) 09/03/20 06:07 Abs Immat Gran (auto) 0.17 X10*3/uL (0.00-0.03) H 09/03/20 06:07 Absolute Neuts (auto) 6.9 X10*3/uL (2.0-8.3) 09/03/20 06:07 Absolute Nucleated RBC 0.000 X10*3/uL (0.0-0.012) 09/03/20 06:07 Nucleated RBC % (auto) 0.0 /100WBC (0.0-0.2) 09/03/20 06:07 Neutrophils % (Manual) 72 % (45-73) 08/30/20 05:53 Band Neutrophils % 7 % (3-5) H 08/30/20 05:53 Lymphocytes % (Manual) 10 % (20-40) L 08/30/20 05:53 Monocytes % (Manual) 7 % (2-11) 08/30/20 05:53 Eosinophils % (Manual) 1 % (0-4) 08/29/20 04:02 Metamyelocytes % 2 % 08/30/20 05:53 Myelocytes % 2 % 08/30/20 05:53 Abs Neuts (Manual) 8.5 X10*3/uL (2.2-7.9) H 08/30/20 05:53 Lymphocytes # (Manual) 1.1 X10*3/uL (0.6-4.8) 08/30/20 05:53 Monocytes # (Manual) 0.8 X10*3/uL (0.0-1.2) 08/30/20 05:53 Eosinophils # (Manual) 0.1 X10*3/UL (0.0-0.8) 08/29/20 04:02 Metamyelocytes # 0.2 X10*3/uL 08/30/20 05:53 Myelocytes # 0.2 X10*/uL 08/30/20 05:53 Platelet Estimate NORMAL (NORMAL) 08/30/20 05:53 Plt Morphology Comment NORMAL 08/30/20 05:53 RBC Morphology NORMAL 08/30/20 05:53 Ovalocytes 1+ 08/28/20 06:06 [place] Cells 1+ 08/28/20 06:06 Acanthocytes (Spur) 1+ 08/28/20 06:06 ESR 16 MM/HR (0-15) H 08/20/20 08:09 PT 16.5 SEC (10.8-13.0) H 08/23/20 10:13 INR 1.4 (0.9-1.1) H 08/23/20 10:13 Hold Blue Top SEE NOTE 08/19/20 15:37 Sodium 129 mmol/L (135-145) L 09/06/20 06:06 Potassium 4.8 mmol/l (3.3-5.1) 09/06/20 06:06 Chloride 95 mmol/L (96-108) L 09/06/20 06:06 Carbon Dioxide 25 mmol/L (22-29) 09/06/20 06:06 Anion Gap 14 (12-20) 09/06/20 06:06 BUN 19 mg/dL (9-16) H 09/06/20 06:06 Creatinine 0.57 mg/dL (0.5-1.4) 09/06/20 06:06 Estim Creat Clear Calc 80.4 09/06/20 06:06 Estimated GFR > 60 09/06/20 06:06 POC Glucose 181 mg/dL (60-115) H 08/29/20 07:10 Random Glucose 151 mg/dL (60-115) H 09/06/20 06:06 Fasting Glucose 160 mg/dL (60-99) H 09/03/20 06:06 Calcium 8.1 mg/dL (8.4-10.2) L 09/06/20 06:06 Phosphorus 3.3 mg/dL (2.7-4.5) 09/05/20 05:53 Magnesium 1.9 mg/dL (1.6-2.6) 09/05/20 05:53 Ferritin 144 ng/mL (20-250) 08/19/20 15:37 Ferritin Cancelled 08/19/20 15:37 Total Bilirubin 0.6 mg/dL (0.0-1.0) 08/19/20 15:37 Direct Bilirubin 0.3 mg/dL (0.0-0.5) 08/19/20 15:37 AST 17 U/L (5-37) 08/19/20 15:37 ALT 26 U/L (0-40) 08/19/20 15:37 Alkaline Phosphatase 165 U/L (39-117) H 08/19/20 15:37 Lactate Dehydrogenase 157 U/L (118-273) 08/19/20 15:37 Lactate Dehydrogenase Cancelled 08/19/20 15:37 C-Reactive Protein 1.71 mg/dL (< or = 0.50) H 08/19/20 15:37 C-Reactive Protein Cancelled 08/19/20 15:37 Total Protein 5.9 g/dL (6.5-8.0) L 08/19/20 15:37 Albumin 2.9 g/dL (3.5-5.0) L 09/05/20 05:53 Triglycerides 146 mg/dL 09/02/20 06:42 Carcinoembryonic Ag 6.50 mg/mL 08/20/20 08:09 Procalcitonin 0.11 ng/mL 08/19/20 15:37 Coronavirus (PCR) NEGATIVE (Negative) 08/19/20 15:28 Influenza Type A (PCR) NEGATIVE (Negative) 08/19/20 15:28 Influenza Type B (PCR) NEGATIVE (Negative) 08/19/20 15:28 RSV RNA Qual (PCR) NEGATIVE (Negative) 08/19/20 15:28 Progress Note: A/P (1) Dysphagia Start date: 09/06/20 (He is stable after the peg insertion.) Status: Acute - Time Spent With Patient Total time spent is greater than 50% in coordination of care (as documented) at patient's floor/unit and/or counseling patient: 15 - 24 minutes
[2020-09-06 19:13] VITALS: BP 159/90; PULSE 94; RESP 18; TEMP 36.9; O2SAT 93
[2020-09-07] VITALS (7 sets, daily range): BP systolic 124–158; BP diastolic 59–82; PULSE 71–93; RESP 18–20; TEMP 35.4–37.2; O2SAT 91–96
[2020-09-07] MEDS: 0.9 % Sodium Chloride Flush 3 ML SYRINGE IVFLUSH ×4 (00:56→19:29)
--- NOTE | 2020-09-07 07:47 | HO.PM.IMPN ---
Subjective Subjective Date of Service: 09/07/20 Interval History: hypoxia, hyponatremia Physical Exam Vital Signs: Vital Signs: Last Vital Signs Temp 97.8 F 09/07/20 04:25 Pulse 93 09/07/20 04:25 Resp 20 09/07/20 04:25 BP 141/70 H 09/07/20 04:25 Pulse Ox 96 09/07/20 04:25 Body Mass Index 21.6 physio: Constitutional:not in acute distress Heent: eyes anicteric , no discharge. Cvs: rrr, [id number] , no murmur res: Grossly fair entry, slightly diminshed at bases. abd: no rebound or guarding ,nt, bs present. ext pulses present , no cyanosis neuro: axo3 , nonfocal. Objective Data Current Medications Generic Name Dose Route Start Last Admin Trade Name Freq PRN Reason Stop Dose Admin Acetaminophen 650 mg 08/19/20 21:30 Acetaminophen Supp 650 Mg Supp.Rect RI Q6H PRN Pain, Mild (Pain Scale 1-3) Albuterol/Ipratropium 3 ml 09/05/20 04:05 09/05/20 05:37 Albuterol/Iprat 2.5/0.5mg 3 Ml Ampul.Neb INHALE 3 ml RQ4H PRN Administration Dyspnea Amlodipine Besylate 5 mg 08/20/20 09:00 09/06/20 10:26 Amlodipine Besylate 5 Mg Tablet PO 5 mg DAILY LALI Administration Protocol Artificial Tears 1 drop 08/19/20 21:00 Artificial Tears 15 Ml Drops EYE-BOTH TID PRN Dry Eyes Fluticasone Propionate 2 spray 08/20/20 09:00 09/06/20 10:25 Fluticasone Propionate Nasal 16 Gm [place] NOSTRIL-B 2 spray DAILY LALI Administration Morphine Sulfate 2 mg 09/04/20 14:11 09/04/20 14:22 Morphine Sulfate 2 Mg/Ml Cartridge IVPUSH 2 mg Q3H PRN Administration Pain, Severe (Pain Scale 7-10) Nicotine 14 mg 08/21/20 09:00 09/06/20 10:25 Nicotine 14 Mg Patch.Td24 TRANSDERMA 14 mg DAILY LALI Administration Omeprazole 20 mg 08/25/20 06:30 09/07/20 06:40 Omeprazole 20 Mg/10 Ml Susp.Recon PO 20 mg BID@0630,1630 LALI Administration Ondansetron HCl 4 mg 08/19/20 21:30 Ondansetron Hcl 4 Mg/2 Ml Vial IVPUSH Q8H PRN Nausea and Vomiting Oxycodone HCl 5 mg 09/04/20 14:11 Oxycodone Hcl Immed Release 5 Mg Tablet PO Q4H PRN Pain, Moderate (Pain Scale 4-6 Sodium Chloride 3 ml 08/20/20 00:00 09/07/20 00:56 0.9 % Sodium Chloride Flush 3 Ml Syringe IVFLUSH 3 ml QSHIFT LALI Administration Labs CBC & Chem 7: 09/03/20 06:07 09/07/20 06:53 Assessment and Plan (1) Dysphagia: Status: Acute (2) COPD (chronic obstructive pulmonary disease): Status: Acute (3) Difficulty swallowing: Status: Acute (4) S/P percutaneous endoscopic gastrostomy (PEG) tube placement: Status: Acute (5) Indeterminate pulmonary nodules: Status: Acute Assessment and Plan: 84-year-old male with history of colon cancer, Hodgkin's lymphoma, hypertension, dyslipidemia, coronary artery disease, BPH who presented to the emergency department with dysphagia found to have lung nodules on CT chest concerning for malignancy 1.Dysphagia-seen GI:itw as thought - his dysphagia may have been related to a transient food bolus with subsequent spontaneous passage vs. some GERD with associated esophageal spasm and motility disturbance. The other possibility would be that of some oropharyngeal dysphagia in relation to his age, medical condition, etc. From the chart review subsequently like patient was placed on PPIs,MBS showed aspiration throughout. Patient went for G-tube placement -staring on feeding, off tpn 2.Aspiration PNA with acute hypoxic respiratory failure. completed 7 days of Unasyn had another hypoxemic episode ? after peg placement? anethesia taper oxygen,inecntive isaiah, continue nebs ,chest physio. oob pulm evalnoted , will continue supportive care as above. 3.Lung nodules concerning for neoplastic process done by IR on 08/23, Pathology report c/w adenocarcinoma, likely lung primary, but could be colon met will follow up outpaitent with thoracic for PET if treatment pursued 4.Tobacco dependence Smoking cessation advised NRT 5. Hyponatremia:probable multifactorial ? realted to tpn -has d5 and poor oral inatke intially, lung dis as above. will add hyponnatremia workup. continue to moniter, if continue to trend down , will add nephrology eval. Will likely need to go to rehab
[2020-09-07 08:07] LABS: Sodium 128 mmol/L (135-145)
[2020-09-07] MEDS: Nicotine 14 MG PATCH.TD24 TRANSDERMA (10:00)
[2020-09-07] MEDS: amLODIPine Besylate 5 MG TABLET PO (10:00)
[2020-09-07 11:21] LABS: Osmolality, Serum 275 mosm/kg (281-305)
--- NOTE | 2020-09-07 13:05 | MHC.CM.PN ---
NURSE POT FIREMAN NOTE ELECTRONIC MEDICAL RECORD REVIEWED ALONG WITH CASE DISCUSSED WITH STAFF NURSE , PATIENT S/P PEG TUBE 20 [place] PLACEMENT S/P HAD ANOTHER HYPOXIA EPISODE CURRENT PLAN TO TITRATE OXYGEN NEEDED, CONTINUE INSENSITIVE SPIROTOMY , CHEST PT CONTINUE OTHER MEDICATIONS MONITOR DAILY LABS , AND INCREASE OUT OF BED TO CHAIR , PATIENT PER DOCUMENTATION IS TOLERATING HIS TUBE FEEDS , DISCHARGE PLAN TO GO TO LONG-TERM FACILITY CLINICAL UPDATES SENT TO THEM VIA [facility] PATIENT WILL NEED 24 HOUR OF TUBE FEEDS FROM [facility] TO GO WITH HIM PATIENT WILL NEED [facility] FOR TRANSPORT
[2020-09-07 14:14] LABS: Glucose Urine UA NEG (NEG); Leukocyte Esterase Urine NEG (NEG); Nitrite Urine NEG (NEG); PH 7.5 (5.0-8.0); Specific Gravity - Urine 1.015 (1.005-1.025); Urine Blood NEG (NEG); Urine Ketones NEG (NEG); Urine Protein 1+ MG/DL (NEG-TRACE)
[2020-09-07 14:23] LABS: Osmolality Urine 667 mosm/kg (373-1093); Potassium Urine Random 54.6 mmol/l
[2020-09-07 14:29] LABS: Appearance Urine HAZY; Color Urine YELLOW
[2020-09-07 14:44] LABS: RBC Urine 0-2 /HPF (0); WBC Urine 0-2 /HPF (0-4)
[2020-09-08 04:00] VITALS: BP 153/90; PULSE 90; RESP 20; TEMP 37.6; O2SAT 92
[2020-09-08 07:31] VITALS: BP 121/67; PULSE 75; RESP 18; TEMP 36.8; O2SAT 92
[2020-09-08 07:47] LABS: Alanine Aminotransferase 33 U/L (0-40); Albumin Level 2.9 g/dL (3.5-5.0); Alkaline Phosphatase 283 U/L (39-117); Anion Gap 10 (12-20); Aspartate Amino Transferase 17 U/L (5-37); Bilirubin Direct 0.3 mg/dL (0.0-0.5); Bilirubin Total 0.4 mg/dL (0.0-1.0); Blood Urea Nitrogen 16 mg/dL (9-16); Calcium 7.9 mg/dL (8.4-10.2); Carbon Dioxide 34 mmol/L (22-29); Chloride 90 mmol/L (96-108); Creatinine Clr Calc Pharmacy 91.7; Estimated Glomerular Filt Rate > 60; Glucose Random 141 mg/dL (60-115); Potassium 4.5 mmol/l (3.3-5.1); Sodium 129 mmol/L (135-145); Total Protein 4.7 g/dL (6.5-8.0)
[2020-09-08 08:15] LABS: Estimated Average Glucose 128 mg/dL; Hemoglobin A1c % 6.1 %
[2020-09-08] MEDS: amLODIPine Besylate 5 MG TABLET PO (09:02)
[2020-09-08] MEDS: Nicotine 14 MG PATCH.TD24 TRANSDERMA (09:02)
[2020-09-08] MEDS: Fluticasone Propionate Nasal 16 GM SPRAY 2 SPRAY NOSTRIL-B (09:03)
[2020-09-08] MEDS: 0.9 % Sodium Chloride Flush 3 ML SYRINGE IVFLUSH ×3 (09:03→23:44)
[2020-09-08 11:10] VITALS: BP 115/63; PULSE 86; RESP 17; TEMP 37; O2SAT 93
--- NOTE | 2020-09-08 12:38 | P.PNIM_ITS ---
Subjective Subjective Date of Service: 09/09/20 Interval History: hyponatremia Review of Systems denies any chest pain or sob or abd pain or fever or chills Physical Exam Vital Signs: Vital Signs: Last Vital Signs Temp 98.6 F 09/08/20 11:10 Pulse 86 09/08/20 11:10 Resp 17 09/08/20 11:10 BP 115/63 09/08/20 11:10 Pulse Ox 93 09/08/20 11:10 Body Mass Index 21.6 physio: Constitutional:not in acute distress Heent: eyes anicteric , no discharge. Cvs: rrr, [id number] , no murmur res: Grossly fair entry, slightly diminshed at bases. abd: no rebound or guarding ,nt, bs present. ext pulses present , no cyanosis neuro: axo3 , nonfocal. Objective Data Current Medications Generic Name Dose Route Start Last Admin Trade Name Freq PRN Reason Stop Dose Admin Acetaminophen 650 mg 08/19/20 21:30 Acetaminophen Supp 650 Mg Supp.Rect [place] Q6H PRN Pain, Mild (Pain Scale 1-3) Albuterol/Ipratropium 3 ml 09/05/20 04:05 09/05/20 05:37 Albuterol/Iprat 2.5/0.5mg 3 Ml Ampul.Neb INHALE 3 ml RQ4H PRN Administration Dyspnea Amlodipine Besylate 5 mg 08/20/20 09:00 09/08/20 09:02 Amlodipine Besylate 5 Mg Tablet PO 5 mg DAILY LALI Administration Protocol Artificial Tears 1 drop 08/19/20 21:00 Artificial Tears 15 Ml Drops EYE-BOTH TID PRN Dry Eyes Fluticasone Propionate 2 spray 08/20/20 09:00 09/08/20 09:03 Fluticasone Propionate Nasal 16 Gm [place] NOSTRIL-B 2 spray DAILY LALI Administration Morphine Sulfate 2 mg 09/04/20 14:11 09/04/20 14:22 Morphine Sulfate 2 Mg/Ml Cartridge IVPUSH 2 mg Q3H PRN Administration Pain, Severe (Pain Scale 7-10) Nicotine 14 mg 08/21/20 09:00 09/08/20 09:02 Nicotine 14 Mg Patch.Td24 TRANSDERMA 14 mg DAILY LALI Administration Omeprazole 20 mg 08/25/20 06:30 09/08/20 05:37 Omeprazole 20 Mg/10 Ml Susp.Recon PO 20 mg BID@0630,1630 LALI Administration Ondansetron HCl 4 mg 08/19/20 21:30 Ondansetron Hcl 4 Mg/2 Ml Vial IVPUSH Q8H PRN Nausea and Vomiting Oxycodone HCl 5 mg 09/04/20 14:11 Oxycodone Hcl Immed Release 5 Mg Tablet PO Q4H PRN Pain, Moderate (Pain Scale 4-6 Sodium Chloride 3 ml 08/20/20 00:00 09/08/20 09:03 0.9 % Sodium Chloride Flush 3 Ml Syringe IVFLUSH 3 ml QSHIFT LALI Administration Labs CBC & Chem 7: 09/03/20 06:07 09/09/20 07:43 Assessment and Plan (1) S/P percutaneous endoscopic gastrostomy (PEG) tube placement: Status: Acute (2) Dysphagia: Status: Acute (3) COPD (chronic obstructive pulmonary disease): Status: Acute (4) Difficulty swallowing: Status: Acute (5) Indeterminate pulmonary nodules: Status: Acute Assessment and Plan: 84-year-old male with history of colon cancer, Hodgkin's lymphoma, hypertension, dyslipidemia, coronary artery disease, BPH who presented to the emergency department with dysphagia found to have lung nodules on CT chest concerning for malignancy 1.Dysphagia-seen GI:itw as thought - his dysphagia may have been related to a transient food bolus with subsequent spontaneous passage vs. some GERD with asso ciated esophageal spasm and motility disturbance. The other possibility would be that of some oropharyngeal dysphagia in relation to his age, medical condition, etc. From the chart review subsequently like patient was placed on PPIs,MBS showed aspiration throughout. Patient went for G-tube placement -staring on feeding, off tpn 2.Aspiration PNA with acute hypoxic respiratory failure. completed 7 days of Unasyn had another hypoxemic episode ? after peg placement? anethesia taper oxygen,inecntive isaiah, continue nebs ,chest physio. oob pulm evalnoted , will continue supportive care as above. 3.Lung nodules concerning for neoplastic process done by IR on 08/23, Pathology report c/w adenocarcinoma, likely lung primary, but could be colon met will follow up outpaitent with thoracic for PET if treatment pursued 4.Tobacco dependence Smoking cessation advised NRT 5. Hyponatremia:probable multifactorial ? realted to tpn -has d5 and poor oral inatke intially, lung dis as above. will add hyponnatremia workup. continue to moniter, if continue to trend down , will add nephrology eval. his sister miss carly benavides updated about above . Will likely need to go to rehab awaiting placement
--- NOTE | 2020-09-08 12:40 | P.PNNP_ITS ---
Subjective Subjective Date of Service: 09/08/20 Interval history: Events noted Physical Exam Vital Signs: Vital Signs: Last Vital Signs Temp 98.6 F 09/08/20 11:10 Pulse 86 09/08/20 11:10 Resp 17 09/08/20 11:10 BP 115/63 09/08/20 11:10 Pulse Ox 93 09/08/20 11:10 Body Mass Index 21.6 Const: General: cooperative Neck: Neck: Yes supple Resp: Auscultation: rhonchi Cardio: Heart sounds: no rubs GI: Auscultation: normal bowel sounds Skin: General skin exam: no jaundice Neuro: Motor exam (neuro): no asterixis Objective Data Labs CBC & Chem 7: 09/03/20 06:07 09/08/20 07:03 Labs: Laboratory Results - last 24 hr 09/07/20 09/07/20 09/07/20 13:54 13:54 13:54 Sodium Potassium Chloride Carbon Dioxide Anion Gap BUN Creatinine Estim Creat Clear Calc Estimated GFR Random Glucose Estimat Average Glucose Hemoglobin A1c % Calcium Total Bilirubin Direct Bilirubin AST ALT Alkaline Phosphatase Total Protein Albumin Urine Color YELLOW Urine Appearance HAZY Urine pH 7.5 Ur Specific [place] 1.015 Urine Protein 1+ H Urine Glucose (UA) NEG Urine Ketones NEG Urine Blood NEG Urine Nitrite NEG Ur Leukocyte Esterase NEG Urine RBC 0-2 Urine WBC 0-2 Ur Squamous Epith Cells NONE Urine Bacteria NONE Urine Osmolality 667 Ur Random Sodium 64.0 Ur Random Potassium 54.6 Ur Random Chloride 60.0 09/08/20 09/08/20 07:03 07:03 Sodium 129 L Potassium 4.5 Chloride 90 L Carbon Dioxide 34 H Anion Gap 10 L BUN 16 Creatinine 0.50 Estim Creat Clear Calc 91.7 Estimated GFR > 60 Random Glucose 141 H Estimat Average Glucose 128 Hemoglobin A1c % 6.1 Calcium 7.9 L Total Bilirubin 0.4 Direct Bilirubin 0.3 AST 17 ALT 33 Alkaline Phosphatase 283 H D Total Protein 4.7 L D Albumin 2.9 L Urine Color Urine Appearance Urine pH Ur Specific [place] Urine Protein Urine Glucose (UA) Urine Ketones Urine Blood Urine Nitrite Ur Leukocyte Esterase Urine RBC Urine WBC Ur Squamous Epith Cells Urine Bacteria Urine Osmolality Ur Random Sodium Ur Random Potassium Ur Random Chloride Assessment & Plan Assessment and plan (1) Hyponatremia: Problem details: SIADH Keep PO water restriction Goal pNa > 130 If Na < 125 , can add UREA 15 gm BID Status: Acute Time Spent With Patient Time: Total time spent is greater than 50% in coordination of care (as documented) at patient's floor/unit and/or counseling patient:
[2020-09-08 15:21] VITALS: BP 143/80; PULSE 90; RESP 17; TEMP 36.9; O2SAT 95
[2020-09-08 19:30] VITALS: BP 159/79; PULSE 94; RESP 19; TEMP 36.7; O2SAT 92
[2020-09-08 23:18] VITALS: BP 121/74; PULSE 76; RESP 20; TEMP 36.3; O2SAT 95
[2020-09-09 03:10] VITALS: BP 130/73; PULSE 87; RESP 18; TEMP 36.7; O2SAT 94
[2020-09-09 07:03] VITALS: BP 141/72; PULSE 76; RESP 17; TEMP 37.1; O2SAT 97
[2020-09-09] MEDS: Nicotine 14 MG PATCH.TD24 TRANSDERMA (08:16)
[2020-09-09] MEDS: amLODIPine Besylate 5 MG TABLET PO (08:17)
[2020-09-09 08:43] LABS: Sodium 129 mmol/L (135-145)
[2020-09-09] MEDS: 0.9 % Sodium Chloride Flush 3 ML SYRINGE IVFLUSH ×2 (09:08→16:58)
[2020-09-09] MEDS: Fluticasone Propionate Nasal 16 GM SPRAY 2 SPRAY NOSTRIL-B (09:08)
--- NOTE | 2020-09-09 09:34 | HO.PM.IMPN ---
Subjective Subjective Date of Service: 09/09/20 Interval History: hyponatremia Review of Systems seems awake , denies new symptoms needs to oob Physical Exam Vital Signs: Vital Signs: Last Vital Signs Temp 98.8 F 09/09/20 07:03 Pulse 76 09/09/20 07:03 Resp 17 09/09/20 07:03 BP 141/72 H 09/09/20 07:03 Pulse Ox 97 09/09/20 07:03 Body Mass Index 21.6 physio: Constitutional:not in acute distress Heent: eyes anicteric , no discharge. Cvs: rrr, [id number] , no murmur res: Grossly fair entry, slightly diminshed at bases, no rales or wheezin. abd: no rebound or guarding ,nt, bs present. ext pulses present , no cyanosis neuro: axo3 , nonfocal. Objective Data Current Medications Generic Name Dose Route Start Last Admin Trade Name Freq PRN Reason Stop Dose Admin Acetaminophen 650 mg 08/19/20 21:30 Acetaminophen Supp 650 Mg Supp.Rect [place] Q6H PRN Pain, Mild (Pain Scale 1-3) Albuterol/Ipratropium 3 ml 09/05/20 04:05 09/05/20 05:37 Albuterol/Iprat 2.5/0.5mg 3 Ml Ampul.Neb INHALE 3 ml RQ4H PRN Administration Dyspnea Amlodipine Besylate 5 mg 08/20/20 09:00 09/09/20 08:17 Amlodipine Besylate 5 Mg Tablet PO 5 mg DAILY LALI Administration Protocol Artificial Tears 1 drop 08/19/20 21:00 Artificial Tears 15 Ml Drops EYE-BOTH TID PRN Dry Eyes Fluticasone Propionate 2 spray 08/20/20 09:00 09/09/20 09:08 Fluticasone Propionate Nasal 16 Gm [place] NOSTRIL-B 2 spray DAILY LALI Administration Morphine Sulfate 2 mg 09/04/20 14:11 09/04/20 14:22 Morphine Sulfate 2 Mg/Ml Cartridge IVPUSH 2 mg Q3H PRN Administration Pain, Severe (Pain Scale 7-10) Nicotine 14 mg 08/21/20 09:00 09/09/20 08:16 Nicotine 14 Mg Patch.Td24 TRANSDERMA 14 mg DAILY LALI Administration Omeprazole 20 mg 08/25/20 06:30 09/09/20 05:51 Omeprazole 20 Mg/10 Ml Susp.Recon PO 20 mg BID@0630,1630 LALI Administration Ondansetron HCl 4 mg 08/19/20 21:30 Ondansetron Hcl 4 Mg/2 Ml Vial IVPUSH Q8H PRN Nausea and Vomiting Oxycodone HCl 5 mg 09/04/20 14:11 Oxycodone Hcl Immed Release 5 Mg Tablet PO Q4H PRN Pain, Moderate (Pain Scale 4-6 Sodium Chloride 3 ml 08/20/20 00:00 09/09/20 09:08 0.9 % Sodium Chloride Flush 3 Ml Syringe IVFLUSH 3 ml QSHIFT LALI Administration Labs CBC & Chem 7: 09/03/20 06:07 09/09/20 07:43 Assessment and Plan (1) Hyponatremia: Problem details: SIADH Keep PO water restriction Goal pNa > 130 If Na < 125 , can add UREA 15 gm BID Status: Acute (2) S/P percutaneous endoscopic gastrostomy (PEG) tube placement: Status: Acute (3) Dysphagia: Status: Acute (4) COPD (chronic obstructive pulmonary disease): Status: Acute (5) Difficulty swallowing: Status: Acute (6) Indeterminate pulmonary nodules: Status: Acute Assessment and Plan: 84-year-old male with history of colon cancer, Hodgkin's lymphoma, hypertension, dyslipidemia, coronary artery disease, BPH who presented to the emergency department with dysphagia found to have lung nodules on CT chest concerning for malignancy 1.Dysphagia-seen GI:itw as thought - his dysphagia may have been related to a transient food bolus with subsequent spontaneous passage vs. some GERD with associated esophageal spasm and motility disturbance. The other possibility would be that of some oropharyngeal dysphagia in relation to his age, medical condition, etc. From the chart review subsequently like patient was placed on PPIs,MBS showed aspiration throughout. Patient went for G-tube placement -staring on feeding, off tpn today During dressing change time -noticed to have some erythema around peg tube area- no discharge or pain : will add augmentin and also patient will need surgery follow to eval peg tube site in am . 2.Aspiration PNA with acute hypoxic respiratory failure. completed 7 days of Unasyn had another hypoxemic episode ? after peg placement? anethesia taper oxygen,inecntive isaiah, continue nebs ,chest physio. oob pulm evalnoted , will continue supportive care as above. 3.Lung nodules concerning for neoplastic process done by IR on 08/23, Pathology report c/w adenocarcinoma, likely lung primary, but could be colon met will follow up outpaitent with thoracic for PET if treatment pursued 4.Tobacco dependence Smoking cessation advised NRT 5. Hyponatremia:probable multifactorial ? realted to tpn -has d5 and poor oral inatke intially, lung dis as above. hyponatremia berger has probable component of siadh d/w nephro sodium stable around 129 , may need urea if drop below 125 also patient will need repeat labs in rehab in 2-3 days post discharge. his sister miss carly benavides updated about above . Will likely need to go to rehab-awaiting placement
[2020-09-09 11:34] VITALS: BP 102/72; PULSE 93; RESP 17; TEMP 37.2; O2SAT 90
--- NOTE | 2020-09-09 12:18 | MHC.CM.PN ---
Addendum entered by Emilee Molina 09/09/20 15:20: PATIENT SISTER KEEGAN CALLED BACK AND ASKED ME T MAKE REFERRAL TO [facility] [place] [facility] [place] [facility] (SINCE [facility] WILL NOT BE ABLE TO SEE HIM FOR ABOUT TWO WEEKS SECONDARY TO [place] VISITOR RESTRICTIONS REFERRALS SENT Original Note: NURSE BOAT HOP NOTE ELECTRONIC MEDICAL RECORD REVIEWED , MET WITH PATIENT MORE ALERT BUT STILL CONFUSED AT TIMES , APRIL TO PATIENTS SISTER/HCP KEEGAN CELL [phone] INFORMING HER THAT PATIENT WILL BE READY FOR DISCHARGE TOMORROW AND THAT [facility] WILL MAKE DECISION TOMORROW , [facility] HAVE NO BED AVAILABILITY BUT WILL FOLLOW ENCOURAGED HE R TO CHOOSE ANOTHER FACILITY SHE WOULD LIKE ME TO RESEND THE ABOVE REFERRALS TO THE FACILITIES AND ADDED [facility] [place]. SHE REPEATEDLY ASKED WHY HE CAN NOT GO HOME I EXPLAINED THAT HE NEEDS SOMEONE TO BE WITH HIM 24 HOURS A DAY HE WILL BE GOING HOME ON PEG TUBE FEEDINGS AND HOME OXYGEN, HE IS VERY WEAK AND CAN NOT EVEN GET OUT OF BED BY HIMSELF. SHE EXPRESSED BEING FRIGHTENED ABOUT PLACING HIM, AND BEING AT RISK OF COVID,(TIME SPENT 20 MINS.) DISCHARGE PLAN ASSISTED FACILITY NEW OXYGEN NEEDS, AND PEG TUBE FEEDS AND NEEDS STR TO [facility]
--- NOTE | 2020-09-09 12:48 | PM.HEMONCPN ---
Medical Summary - Medical Summary Date of Service: 09/09/20 Medical Summary: He continues with weakness and anorexia. He initially refused the biopsy but now agrees. The 2 cm nodule is very peripheral. Interval History Interval history: The dysphagia and hyuponatremia are stable. He seems stronger Review of Systems - Eyes Reports irritation - ENT Reports system reviewed and no additional complaints, except as documented - Cardiovascular Reports fast heart rate - Respiratory Reports chest congestion - Gastrointestinal Reports bloating - Genitourinary Genitourinary: Reports difficulty urinating - Musculoskeletal Reports abnormal walking - Integumentary/Breasts Skin/Breast: Reports unusual bruising - Neurologic Reports system reviewed and no additional complaints, except as documented, Reports hearing normal, Reports memory loss, Reports weakness, Reports other - Psychiatric Reports anxiety - Endocrine Reports other - Hematologic/Lymphatic Reports other - Allergic/Immunologic Reports other [facility] Medical History: Medical History (Last Reviewed 08/28/20 @ 16:02 by Jass Curry MD) Atrial fibrillation Cholelithiasis COPD (chronic obstructive pulmonary disease) GERD (gastroesophageal reflux disease) History of colon cancer Hodgkins lymphoma Hypercholesterolemia Hypertension Leg weakness, bilateral Pancreatitis Renal calculus, left Tobacco abuse Functional capacity: uses cane/walker Family History: Family History (Last Reviewed 08/28/20 @ 16:02 by Jass Curry MD) Father CVD (cardiovascular disease) Mother CVD (cardiovascular disease) Surgical History: Surgical History (Last Reviewed 09/04/20 @ 11:02 by Jose C Fenton) History of bilateral cataract extraction History of chemotherapy History of colectomy History of tonsillectomy Hx of inguinal hernia surgery Smoking status: Former smoker Oncology Screenings - G8 Geriatric Assessment Change in food intake over past 3 months: Severe decrease in food intake Weight loss during the last 3 months: Weight loss > 3 kg Mobility: Bed or chair bound Neuropsychological problems: Mild dementia or depression Body Mass Index: 19 to 21 Patient takes > 3 prescription drugs per day: Yes Patient's assessment of health status compared to others: Does not know Patient age: 80 to 85 G8 Score: 4 G8 Risk Level: High risk for early functional decline and reduced survival. - Donora Frail Scale # Sec for patient to walk 3m distance and return to chair: 11-20 Sec Donora Frail Scale Score: 1 Frailty Level: Not Frail - [place] VTE Risk Pre-chemo platelet count >= 350,000/uL: Yes Hemoglobin level <10 g/dL or using RBC growth factors: Yes Pre-chemo leukocyte count > 11,000/uL: Yes BMI >=35: Yes Home Medications and Allergies Current Medications: Current Medications Generic Name Dose Route Start Last Admin Trade Name Freq PRN Reason Stop Dose Admin Acetaminophen 650 mg 08/19/20 21:30 Acetaminophen Supp 650 Mg Supp.Rect WI Q6H PRN Pain, Mild (Pain Scale 1-3) Albuterol/Ipratropium 3 ml 09/05/20 04:05 09/05/20 05:37 Albuterol/Iprat 2.5/0.5mg 3 Ml Ampul.Neb INHALE 3 ml RQ4H PRN Administration Dyspnea Amlodipine Besylate 5 mg 08/20/20 09:00 09/09/20 08:17 Amlodipine Besylate 5 Mg Tablet PO 5 mg DAILY LALI Administration Protocol Artificial Tears 1 drop 08/19/20 21:00 Artificial Tears 15 Ml Drops EYE-BOTH TID PRN Dry Eyes Fluticasone Propionate 2 spray 08/20/20 09:00 09/09/20 09:08 Fluticasone Propionate Nasal 16 Gm Enigma NOSTRIL-B 2 spray DAILY LALI Administration Nicotine 14 mg 08/21/20 09:00 09/09/20 08:16 Nicotine 14 Mg Patch.Td24 TRANSDERMA 14 mg DAILY LALI Administration Omeprazole 20 mg 08/25/20 06:30 09/09/20 05:51 Omeprazole 20 Mg/10 Ml Susp.Recon PO 20 mg BID@0630,1630 LALI Administration Ondansetron HCl 4 mg 08/19/20 21:30 Ondansetron Hcl 4 Mg/2 Ml Vial IVPUSH Q8H PRN Nausea and Vomiting Oxycodone HCl 2.5 mg 09/09/20 12:01 Oxycodone Hcl Immed Release 5 Mg Tablet PO Q4H PRN Pain, Moderate (Pain Scale 4-6 Sodium Chloride 3 ml 08/20/20 00:00 09/09/20 09:08 0.9 % Sodium Chloride Flush 3 Ml Syringe IVFLUSH 3 ml QSHIFT LALI Administration Home Medications Medication Instructions Recorded Confirmed Type amlodipine 5 mg tablet 5 mg PO DAILY 06/15/20 08/19/20 History ascorbic acid (vitamin C) 500 mg 500 mg PO DAILY 06/15/20 08/19/20 History capsule atorvastatin 10 mg tablet 10 mg PO DAILY 06/15/20 08/19/20 History dextran 70-hypromellose 0.1 %-0.3 1 drp OPHTHALMIC (EYE) DIRECTED 06/15/20 08/19/20 History % eye drops ferrous sulfate 325 mg (65 mg 325 mg PO DAILY 06/15/20 08/19/20 History iron) tablet fluticasone propionate 50 2 spray INTRANASAL DAILY 06/15/20 08/19/20 History mcg/actuation nasal spray,suspension megestrol 10 ml PO BID 08/19/20 08/19/20 History Allergies Allergy/AdvReac Type Severity Reaction Status Date / Time procaine [From Novocain] Allergy Mild INEFFECTIVE Verified 06/15/20 12:42 PER RN lisinopril Allergy Unknown Unknown Verified 06/15/20 12:42 Exam Vital signs: Vital Signs Temp 98.9 F 09/09/20 11:34 Pulse 93 09/09/20 11:34 Resp 17 09/09/20 11:34 BP 102/72 09/09/20 11:34 Pulse Ox 90 L 09/09/20 11:34 Intake & Output 09/08/20 09/09/20 09/09/20 18:59 06:59 18:59 Intake Total 120 / 1360 1240 / 1360 Output Total 975 / 975 Balance 120 / 385 265 / 385 Urine Output (Average ml/kg/hr) 1.38 Intake: Intake, Oral Amount 0 / 0 Intake, Tube Feeding Amount 1120 / 1120 Intake, Tube Irrigant Amount 120 / 240 120 / 240 Output: Output, Urine Amount 500 / 500 Output, Urine Amount (Catheter) 475 / 475 Condom 475 / 475 Other: NPO Yes Number of Incontinent Voids 200 Urine [place] Urine Color Yellow Weight 58.96 kg Body Mass Index 21.6 - Constitutional Present: chronically ill appearing - Routine HEENT Exam Head: Present: atraumatic - Routine Abdominal Exam Present: diminished bowel sounds - Routine Extremities Exam Present: extremity cold to touch - Routine Skin Exam Present: scars - Routine Neurological Exam Present: altered mental status Data - Labs CBC & Chem 7: 09/03/20 06:07 09/09/20 07:43 Labs: 08/19/20 15:18 XR chest 2V Stat XR soft tissue neck Stat 08/19/20 15:28 SARS-CoV2/FLU/RSV Stat 08/19/20 15:30 0.9 % Sodium Chloride [Ns] 1,000 ml IVCONT 999 mls/hr 08/19/20 15:37 Basic Metabolic Panel Stat C Reactive Protein Stat Complete Blood Count Auto Diff Stat Ferritin Stat Hold Lt Blue - Possible Coag Stat Lactate Dehydrogenase Stat Liver Panel Stat Magnesium Stat Procalcitonin Stat 08/19/20 16:19 CT chest w con Stat CT soft tissue neck w con Stat 08/19/20 16:56 iohexoL 350 MG/ML [Omnipaque 350 MG/ML] 100 ml IV ONCE ONE 08/19/20 18:04 Vital Signs, Orthostatic NOW 08/19/20 18:46 Transfer Order Routine 08/19/20 18:47 Code Status Routine 08/19/20 21:30 0.9 % Sodium Chloride [Ns] 1,000 ml IVCONT 80 mls/hr Nicotine [Nicoderm] 14 mg TRANSDERMA DAILY 08/19/20 21:30 Vital Signs QSHIFT 08/20/20 08:09 Basic Metabolic Panel DAILY@0600 Carcinoembryonic Antigen Routine Complete Blood Count Auto Diff DAILY@0600 Erythrocyte Sedimentation Rate Routine 08/20/20 11:09 Add Laboratory Test Urgent 08/20/20 15:54 Glycopyrrolate [Robinul] 0.2 mg .ROUTE .STK-MED ONE Lidocaine HCl 2 % MPF [Xylocaine 2 % MPF] 5 ml .ROUTE .STK-MED ONE Lidocaine HCl Viscous 2 % [Xylocaine Viscous 2 % Oral Suni] 15 ml MUCOUS MEM .STK-MED ONE propofoL [Diprivan] 200 mg IVPUSH .STK-MED ONE 08/20/20 16:40 Transfer Order Routine 08/20/20 17:17 Omeprazole [PriLOSEC] 20 mg PO BID@0630,1630 08/20/20 Dinner Full Liquid Diet 08/21/20 02:26 LORazepam [Ativan] 1 mg IVPUSH ONCE ONE 08/22/20 Dinner NPO Diet 08/23/20 CT biopsy lung LT Routine XR chest 2V Routine 08/23/20 10:13 Prothrombin Time INR Stat 08/23/20 11:59 Lidocaine HCl 1 % MPF [Xylocaine 1 % MPF] 5 ml .ROUTE .STK-MED ONE fentaNYL citrate/PF [Sublimaze] 50 mcg .ROUTE .STK-MED ONE 08/23/20 12:00 Midazolam HCl/PF [Versed] 2 mg .ROUTE .STK-MED ONE Naloxone HCl [Narcan] 0.4 mg .ROUTE .STK-MED ONE flumazeniL [Romazicon] 0.05 mg .ROUTE .STK-MED ONE 08/23/20 13:04 Surgical [PTH] Stat 08/23/20 13:07 Reinforce wound dressing NEEDED 08/23/20 13:11 Vital Signs Q30M 08/23/20 13:24 Cytology [PTH] Stat 08/23/20 14:00 Lidocaine HCl 1 % [Xylocaine 1 %] 20 ml SUBCUT ONCE ONE 08/23/20 14:35 Lidocaine HCl 1 % MPF [Xylocaine 1 % MPF] 7 ml SUBCUT ONCE ONE 08/24/20 XR chest 2V Urgent 08/24/20 13:00 Ampicillin Sodium/Sulbactam Na [Unasyn] 1.5 gm 0.9 % Sodium Chloride [Ns] 100 ml IV Q6H 08/24/20 13:57 Ampicillin Sodium/Sulbactam Na [Unasyn] 1.5 gm .ROUTE .STK-MED ONE 08/24/20 19:57 Ampicillin Sodium/Sulbactam Na [Unasyn] 1.5 gm .ROUTE .STK-MED ONE 08/25/20 02:13 Ampicillin Sodium/Sulbactam Na [Unasyn] 1.5 gm .ROUTE .STK-MED ONE 08/25/20 07:26 Ampicillin Sodium/Sulbactam Na [Unasyn] 1.5 gm .ROUTE .STK-MED ONE 08/25/20 Breakfast NPO Diet 08/25/20 11:02 Basic Metabolic Panel Routine Complete Blood Count no Diff Routine 08/25/20 11:30 Dextrose 5 % and 0.45 % NaCl [D51/2Ns] 1,000 ml IVCONT 100 mls/hr 08/25/20 13:30 Ampicillin Sodium/Sulbactam Na [Unasyn] 1.5 gm .ROUTE .STK-MED ONE 08/25/20 18:00 KCl 20 mEq in 0.45% Sod 20 meq in 1,000 ml IVCONT 100 mls/hr 08/25/20 18:15 Potassium Chloride/H20 10 meq in 100 ml IV Q1H 08/25/20 19:39 Ampicillin Sodium/Sulbactam Na [Unasyn] 1.5 gm .ROUTE .STK-MED ONE 08/26/20 00:28 Ampicillin Sodium/Sulbactam Na [Unasyn] 1.5 gm .ROUTE .STK-MED ONE 08/26/20 06:18 Ampicillin Sodium/Sulbactam Na [Unasyn] 1.5 gm .ROUTE .STK-MED ONE 08/26/20 06:21 Ampicillin Sodium/Sulbactam Na [Unasyn] 1.5 gm .ROUTE .STK-MED ONE 08/26/20 06:27 Basic Metabolic Panel Routine 08/26/20 13:37 Ampicillin Sodium/Sulbactam Na [Unasyn] 1.5 gm .ROUTE .STK-MED ONE 08/26/20 18:16 Ampicillin Sodium/Sulbactam Na [Unasyn] 1.5 gm .ROUTE .STK-MED ONE 08/27/20 02:03 Ampicillin Sodium/Sulbactam Na [Unasyn] 1.5 gm .ROUTE .STK-MED ONE 08/27/20 04:19 LORazepam [Ativan] 0.5 mg IVPUSH ONCE ONE 08/27/20 06:23 Ampicillin Sodium/Sulbactam Na [Unasyn] 1.5 gm .ROUTE .STK-MED ONE 08/27/20 12:31 Ampicillin Sodium/Sulbactam Na [Unasyn] 1.5 gm .ROUTE .STK-MED ONE 08/27/20 19:02 Ampicillin Sodium/Sulbactam Na [Unasyn] 1.5 gm .ROUTE .STK-MED ONE 08/28/20 XR chest 1V Routine 08/28/20 01:58 Ampicillin Sodium/Sulbactam Na [Unasyn] 1.5 gm .ROUTE .STK-MED ONE 08/28/20 06:06 BMP [Basic Metabolic Panel Fasting] Routine Complete Blood Count Man Dif Routine Magnesium Routine 08/28/20 06:58 Ampicillin Sodium/Sulbactam Na [Unasyn] 1.5 gm .ROUTE .STK-MED ONE 08/28/20 07:30 Dextrose 50 % [D50] 25 gm IVPUSH ONCE ONE 08/28/20 07:40 Dextrose 50 % [D50] 25 gm .ROUTE .STK-MED ONE 08/28/20 07:58 Magnesium Sulfate/H2O 2 gm in 50 ml IV ONCE 08/28/20 08:00 FL barium swallow modified Routine 08/28/20 08:29 Glucose, Whole Blood Routine 08/28/20 11:16 Glucose, Whole Blood Routine 08/28/20 13:20 Ampicillin Sodium/Sulbactam Na [Unasyn] 1.5 gm .ROUTE .STK-MED ONE 08/28/20 19:08 Ampicillin Sodium/Sulbactam Na [Unasyn] 1.5 gm .ROUTE .STK-MED ONE 08/29/20 01:18 Ampicillin Sodium/Sulbactam Na [Unasyn] 1.5 gm .ROUTE .STK-MED ONE 08/29/20 04:02 BMP [Basic Metabolic Panel Fasting] Routine Complete Blood Count Man Dif Routine Magnesium Routine 08/29/20 05:42 Dextrose 50 % [D50] 25 gm .ROUTE .STK-MED ONE 08/29/20 06:52 Dextrose 50 % [D50] 12.5 gm IVPUSH ONCE ONE 08/29/20 07:10 Glucose, Whole Blood Routine 08/29/20 07:56 Ampicillin Sodium/Sulbactam Na [Unasyn] 1.5 gm .ROUTE .STK-MED ONE 08/29/20 10:15 Dextrose 5 % and 0.45 % NaCl [D51/2Ns] 1,000 ml IVCONT 80 mls/hr 08/29/20 13:06 Ampicillin Sodium/Sulbactam Na [Unasyn] 1.5 gm .ROUTE .STK-MED ONE 08/29/20 13:15 Ampicillin Sodium/Sulbactam Na [Unasyn] 1.5 gm .ROUTE .STK-MED ONE 08/29/20 20:57 Ampicillin Sodium/Sulbactam Na [Unasyn] 1.5 gm .ROUTE .STK-MED ONE 08/30/20 03:15 Ampicillin Sodium/Sulbactam Na [Unasyn] 1.5 gm .ROUTE .STK-MED ONE 08/30/20 05:53 Albumin Level Routine BMP [Basic Metabolic Panel Fasting] Routine Complete Blood Count Man Dif Routine Magnesium Routine Phosphorus Routine Triglycerides Routine 08/30/20 09:58 Ampicillin Sodium/Sulbactam Na [Unasyn] 1.5 gm .ROUTE .STK-MED ONE 08/30/20 10:00 Ampicillin Sodium/Sulbactam Na [Unasyn] 1.5 gm 0.9 % Sodium Chloride [Ns] 100 ml IV Q6H 08/30/20 10:18 Add Laboratory Test Stat 08/30/20 10:39 Potassium Phosphate [KPhos] 15 mmol 0.9 % Sodium Chloride [Ns] 500 ml IV ONCE 08/30/20 16:22 Ampicillin Sodium/Sulbactam Na [Unasyn] 1.5 gm .ROUTE .STK-MED ONE 08/30/20 18:00 MVI, Adult [Infuvite Adult] 21 ml Trace Elements w/o chromium [Tralement] 2 ml AA 4.25%/Calcium/Lytes/Dex 10% [Clinimix E 4.25%-10%] 2,000 ml IV DAILY@1800 08/30/20 21:01 Ampicillin Sodium/Sulbactam Na [Unasyn] 1.5 gm .ROUTE .STK-MED ONE 08/31/20 04:05 Ampicillin Sodium/Sulbactam Na [Unasyn] 1.5 gm .ROUTE .K-[facility] ONE 08/31/20 09:30 Add Laboratory Test Stat 08/31/20 10:54 Basic Metabolic Panel Stat Magnesium Stat Phosphorus Stat 08/31/20 18:00 MVI, Adult [Infuvite Adult] 21 ml Trace Elements w/o chromium [Tralement] 2 ml AA 4.25%/Calcium/Lytes/Dex 10% [Clinimix E 4.25%-10%] 2,000 ml IV DAILY@1800 09/01/20 06:51 BMP [Basic Metabolic Panel Fasting] Routine Magnesium Routine 09/01/20 18:00 MVI, Adult [Infuvite Adult] 21 ml Trace Elements w/o chromium [Tralement] 2 ml AA 4.25%/Calcium/Lytes/Dex 10% [Clinimix E 4.25%-10%] 2,000 ml IV DAILY@1800 09/02/20 06:42 Albumin Level Routine BMP [Basic Metabolic Panel Fasting] Routine Magnesium Routine Phosphorus Routine Triglycerides Routine 09/02/20 08:21 Add Laboratory Test Stat 09/02/20 08:30 Add Laboratory Test Stat 09/02/20 18:00 MVI, Adult [Infuvite Adult] 14 ml Trace Elements w/o chromium [Tralement] 1.4 ml AA 4.25%/Calcium/Lytes/Dex 10% [Clinimix E 4.25%-10%] 2,000 ml IV DAILY@1800 09/03/20 06:06 BMP [Basic Metabolic Panel Fasting] Routine Magnesium Routine 09/03/20 06:07 Complete Blood Count Auto Diff Routine 09/03/20 18:00 Fat Emulsions 20% [Intralipid] 250 ml IVCONT BID@0600,1800 MVI, Adult [Infuvite Adult] 10.5 ml Trace Elements w/o chromium [Tralement] 1.1 ml AA 4.25%/Calcium/Lytes/Dex 10% [Clinimix E 4.25%-10%] 2,000 ml IV DAILY@1800 09/04/20 07:24 ceFAZolin Sodium/Dextrose,Iso [Ancef] 2 gm in 50 ml IV PREOP 09/04/20 09:57 ceFAZolin Sodium/Dextrose,Iso [Ancef] 2 gm in 50 ml .ROUTE As directed 09/04/20 Breakfast NPO Diet 09/04/20 11:12 Continuous pulse oximetry CONT Vital Signs Q1H fentaNYL citrate/PF [Sublimaze] 25 mcg IVPUSH Q5M PRN ondansetron HCL [Zofran] 4 mg IVPUSH ONCE PRN 09/04/20 11:45 Lidocaine HCl 2 % MPF [Xylocaine 2 % MPF] 5 ml .ROUTE .STK-MED ONE fentaNYL citrate/PF [Sublimaze] 50 mcg .ROUTE .STK-MED ONE propofoL [Diprivan] 200 mg IVPUSH .STK-MED ONE 09/04/20 12:05 Transfer Order Routine 09/04/20 12:30 ondansetron HCL [Zofran] 4 mg .ROUTE .STK-MED ONE 09/04/20 14:11 Morphine Sulfate 2 mg IVPUSH Q3H PRN oxyCODONE HCl Immed Release [Roxicodone] 5 mg PO Q4H PRN 09/04/20 14:11 Incentive Spirometry Q2HR 09/04/20 18:00 Fat Emulsions 20% [Intralipid] 250 ml IVCONT BID@0600,1800 MVI, Adult [Infuvite Adult] 10.5 ml Trace Elements w/o chromium [Tralement] 1.1 ml AA 4.25%/Calcium/Lytes/Dex 10% [Clinimix E 4.25%-10%] 2,000 ml IV DAILY@1800 09/05/20 XR chest 1V Stat 09/05/20 05:53 Albumin Level Routine Basic Metabolic Panel DAILY@0600 Magnesium Routine Phosphorus Routine 09/05/20 08:04 Add Laboratory Test Stat 09/06/20 06:06 Basic Metabolic Panel DAILY 09/07/20 06:53 Sodium DAILY 09/07/20 09:23 Up to chair Q4H WHILE AWAKE 09/07/20 10:26 Osmolality, Serum Urgent 09/07/20 13:54 Electrolytes Urine Stat Osmolality Urine Stat 09/08/20 07:03 Basic Metabolic Panel DAILY@0600 Hemoglobin A1c Routine Liver Panel Routine 09/08/20 07:09 Add Laboratory Test Urgent 09/09/20 07:43 Sodium Urgent Laboratory Last Values WBC 8.8 X10*3/uL (4.8-10.8) 09/03/20 06:07 RBC 4.76 X10*6/uL (4.60-5.80) 09/03/20 06:07 Hgb 13.5 g/dl (14.0-18.0) L 09/03/20 06:07 Hct 41.3 % (42-52) L 09/03/20 06:07 MCV 86.8 fL (80-98) 09/03/20 06:07 MCH 28.4 pg (27.0-33.0) 09/03/20 06:07 MCHC 32.7 g/dl (31.0-36.0) 09/03/20 06:07 RDW 13.5 % (11.0-16.0) 09/03/20 06:07 Plt Count 251 X10*3/uL (160-400) D 09/03/20 06:07 MPV 11.8 fL (9.4-12.4) 09/03/20 06:07 Immature Gran % (Auto) 1.9 % (0.0-0.4) H 09/03/20 06:07 Neut % (Auto) 77.8 % (45-73) H 09/03/20 06:07 Lymph % (Auto) 9.5 % (20-40) L 09/03/20 06:07 [place] % (Auto) 8.5 % (2-11) 09/03/20 06:07 Eos % (Auto) 1.6 % (0-4) 09/03/20 06:07 Baso % (Auto) 0.7 % (0-2) 09/03/20 06:07 Lymph # (Auto) 0.8 X10*3/uL (1.2-4.9) L 09/03/20 06:07 [place] # (Auto) 0.8 X10*3/uL (0.1-1.2) 09/03/20 06:07 Eos # (Auto) 0.1 X10*3/uL (0.0-0.4) 09/03/20 06:07 Baso # (Auto) 0.1 X10*3/uL (0.0-0.2) 09/03/20 06:07 Abs Immat Gran (auto) 0.17 X10*3/uL (0.00-0.03) H 09/03/20 06:07 Absolute Neuts (auto) 6.9 X10*3/uL (2.0-8.3) 09/03/20 06:07 Absolute Nucleated RBC 0.000 X10*3/uL (0.0-0.012) 09/03/20 06:07 Nucleated RBC % (auto) 0.0 /100WBC (0.0-0.2) 09/03/20 06:07 Neutrophils % (Manual) 72 % (45-73) 08/30/20 05:53 Band Neutrophils % 7 % (3-5) H 08/30/20 05:53 Lymphocytes % (Manual) 10 % (20-40) L 08/30/20 05:53 Monocytes % (Manual) 7 % (2-11) 08/30/20 05:53 Eosinophils % (Manual) 1 % (0-4) 08/29/20 04:02 Metamyelocytes % 2 % 08/30/20 05:53 Myelocytes % 2 % 08/30/20 05:53 Abs Neuts (Manual) 8.5 X10*3/uL (2.2-7.9) H 08/30/20 05:53 Lymphocytes # (Manual) 1.1 X10*3/uL (0.6-4.8) 08/30/20 05:53 Monocytes # (Manual) 0.8 X10*3/uL (0.0-1.2) 08/30/20 05:53 Eosinophils # (Manual) 0.1 X10*3/UL (0.0-0.8) 08/29/20 04:02 Metamyelocytes # 0.2 X10*3/uL 08/30/20 05:53 Myelocytes # 0.2 X10*/uL 08/30/20 05:53 Platelet Estimate NORMAL (NORMAL) 08/30/20 05:53 Plt Morphology Comment NORMAL 08/30/20 05:53 RBC Morphology NORMAL 08/30/20 05:53 Ovalocytes 1+ 08/28/20 06:06 [place] Cells 1+ 08/28/20 06:06 Acanthocytes (Spur) 1+ 08/28/20 06:06 ESR 16 MM/HR (0-15) H 08/20/20 08:09 PT 16.5 SEC (10.8-13.0) H 08/23/20 10:13 INR 1.4 (0.9-1.1) H 08/23/20 10:13 Hold Blue Top SEE NOTE 08/19/20 15:37 Sodium 129 mmol/L (135-145) L 09/09/20 07:43 Potassium 4.5 mmol/l (3.3-5.1) 09/08/20 07:03 Chloride 90 mmol/L (96-108) L 09/08/20 07:03 Carbon Dioxide 34 mmol/L (22-29) H 09/08/20 07:03 Anion Gap 10 (12-20) L 09/08/20 07:03 BUN 16 mg/dL (9-16) 09/08/20 07:03 Creatinine 0.50 mg/dL (0.5-1.4) 09/08/20 07:03 Estim Creat Clear Calc 91.7 09/08/20 07:03 Estimated GFR > 60 09/08/20 07:03 POC Glucose 181 mg/dL (60-115) H 08/29/20 07:10 Random Glucose 141 mg/dL (60-115) H 09/08/20 07:03 Fasting Glucose 160 mg/dL (60-99) H 09/03/20 06:06 Estimat Average Glucose 128 mg/dL 09/08/20 07:03 Hemoglobin A1c % 6.1 % 09/08/20 07:03 Osmolality 275 mosm/kg (281-305) L 09/07/20 10:26 Calcium 7.9 mg/dL (8.4-10.2) L 09/08/20 07:03 Phosphorus 3.3 mg/dL (2.7-4.5) 09/05/20 05:53 Magnesium 1.9 mg/dL (1.6-2.6) 09/05/20 05:53 Ferritin 144 ng/mL (20-250) 08/19/20 15:37 Ferritin Cancelled 08/19/20 15:37 Total Bilirubin 0.4 mg/dL (0.0-1.0) 09/08/20 07:03 Direct Bilirubin 0.3 mg/dL (0.0-0.5) 09/08/20 07:03 AST 17 U/L (5-37) 09/08/20 07:03 ALT 33 U/L (0-40) 09/08/20 07:03 Alkaline Phosphatase 283 U/L (39-117) H D 09/08/20 07:03 Lactate Dehydrogenase 157 U/L (118-273) 08/19/20 15:37 Lactate Dehydrogenase Cancelled 08/19/20 15:37 C-Reactive Protein 1.71 mg/dL (< or = 0.50) H 08/19/20 15:37 C-Reactive Protein Cancelled 08/19/20 15:37 Total Protein 4.7 g/dL (6.5-8.0) L D 09/08/20 07:03 Albumin 2.9 g/dL (3.5-5.0) L 09/08/20 07:03 Triglycerides 146 mg/dL 09/02/20 06:42 Carcinoembryonic Ag 6.50 mg/mL 08/20/20 08:09 Procalcitonin 0.11 ng/mL 08/19/20 15:37 Urine Color YELLOW 09/07/20 13:54 Urine Appearance HAZY 09/07/20 13:54 Urine pH 7.5 (5.0-8.0) 09/07/20 13:54 Ur Specific Una 1.015 (1.005-1.025) 09/07/20 13:54 Urine Protein 1+ MG/DL (NEG-TRACE) H 09/07/20 13:54 Urine Glucose (UA) NEG MG/DL (NEG) 09/07/20 13:54 Urine Ketones NEG MG/DL (NEG) 09/07/20 13:54 Urine Blood NEG (NEG) 09/07/20 13:54 Urine Nitrite NEG (NEG) 09/07/20 13:54 Ur Leukocyte Esterase NEG (NEG) 09/07/20 13:54 Urine RBC 0-2 /HPF (0) 09/07/20 13:54 Urine WBC 0-2 /HPF (0-4) 09/07/20 13:54 Ur Squamous Epith Cells NONE /LPF 09/07/20 13:54 Urine Bacteria NONE /LPF 09/07/20 13:54 Urine Osmolality 667 mosm/kg (373-1093) 09/07/20 13:54 Ur Random Sodium 64.0 mmol/L 09/07/20 13:54 Ur Random Potassium 54.6 mmol/l 09/07/20 13:54 Ur Random Chloride 60.0 mmol/L 09/07/20 13:54 Coronavirus (PCR) NEGATIVE (Negative) 08/19/20 15:28 Influenza Type A (PCR) NEGATIVE (Negative) 08/19/20 15:28 Influenza Type B (PCR) NEGATIVE (Negative) 08/19/20 15:28 RSV RNA Qual (PCR) NEGATIVE (Negative) 08/19/20 15:28 Progress Note: A/P (1) Hyponatremia Start date: 09/09/20 (He seems to be improving.) Problem details: SIADH Keep PO water restriction Goal pNa > 130 If Na < 125 , can add UREA 15 gm BID Status: Acute (2) S/P percutaneous endoscopic gastrostomy (PEG) tube placement Status: Acute (3) Dysphagia Start date: 09/06/20 (He is stable after the peg insertion.) Status: Acute (4) COPD (chronic obstructive pulmonary disease) Status: Acute (5) Difficulty swallowing Status: Acute (6) Indeterminate pulmonary nodules Start date: 08/29/20 (I will continue to discuss his condition and the need for tube feeding.) Status: Acute - Time Spent With Patient Total time spent is greater than 50% in coordination of care (as documented) at patient's floor/unit and/or counseling patient: less than 15 minutes (none)
--- NOTE | 2020-09-09 15:02 | PM.PNNEP ---
Subjective Subjective Date of Service: 09/09/20 Interval history: hyponatremia Events noted Physical Exam Vital Signs: Vital Signs: Last Vital Signs Temp 98.9 F 09/09/20 11:34 Pulse 93 09/09/20 11:34 Resp 17 09/09/20 11:34 BP 102/72 09/09/20 11:34 Pulse Ox 90 L 09/09/20 11:34 Body Mass Index 21.6 Const: General: cooperative Neck: Neck: Yes supple Resp: Auscultation: rhonchi Cardio: Heart sounds: no rubs GI: Auscultation: normal bowel sounds Skin: General skin exam: no jaundice Neuro: Motor exam (neuro): no asterixis Objective Data Labs CBC & Chem 7: 09/03/20 06:07 09/09/20 07:43 Labs: Laboratory Results - last 24 hr 09/09/20 07:43 Sodium 129 L Assessment & Plan Assessment and plan (1) Hyponatremia: Problem details: SIADH Keep PO water restriction Goal pNa > 130 If Na < 125 , can add UREA 15 gm BID Status: Acute Time Spent With Patient Time: Total time spent is greater than 50% in coordination of care (as documented) at patient's floor/unit and/or counseling patient:
[2020-09-09 15:23] VITALS: BP 122/72; PULSE 86; RESP 18; TEMP 35.9; O2SAT 94
--- NOTE | 2020-09-09 17:35 | PC.NURSE ---
P-REDNESS NOTED TOO ABDOMEN AROUND peg TUBE SITE I-area cleansed and new dsd applied,dr. Sterling notified,assessed area E-will reevaluate in AM ,patient does not complain of any pain in this area
[2020-09-09 19:52] VITALS: BP 153/79; PULSE 80; RESP 18; TEMP 36.2; O2SAT 94
[2020-09-09] MEDS: Amoxicillin/Potassium Clav 875 MG TABLET G-TUBE (21:43)
[2020-09-09 23:35] VITALS: BP 148/82; PULSE 82; RESP 19; TEMP 36.8; O2SAT 94
[2020-09-10] MEDS: 0.9 % Sodium Chloride Flush 3 ML SYRINGE IVFLUSH ×3 (01:38→18:24)
[2020-09-10 04:00] VITALS: O2SAT 19
[2020-09-10 06:56] VITALS: BP 148/79; PULSE 80; RESP 18; TEMP 36.5; O2SAT 90
[2020-09-10 10:28] VITALS: BP 148/79; PULSE 80
[2020-09-10] MEDS: amLODIPine Besylate 5 MG TABLET PO (10:28)
[2020-09-10] MEDS: Amoxicillin/Potassium Clav 875 MG TABLET G-TUBE (10:28)
[2020-09-10] MEDS: Nicotine 14 MG PATCH.TD24 TRANSDERMA (10:28)
[2020-09-10 10:55] VITALS: BP 165/82; PULSE 87; RESP 18; TEMP 36.8; O2SAT 95
--- NOTE | 2020-09-10 12:20 | MHC.CM.PN ---
PATIENT IS NOT DC TODAY. MIHIR YOUSIF, [employer], [place] (1ST CHOICE), AND [facility]ONAD[facility]. MIHIR YOUSIF IS ONLY BED OFFER OF THIS NOTE.
--- NOTE | 2020-09-10 14:51 | MHC.CLN ---
F/U WILL D/C FREE WATER FLUSHES R/T SIADH PT RECEIVING TF PROMOTE AT MAX GOAL RATE 70CC/HR PROVIDES 1680KCALS (28KCLAS/KG), 105G PROTEIN (1.8G/KG R/T DX CA), 1409CC WATER FROM FORMULA MONITOR SERUM NA CLOSELY CONTINUE TO MONITOR TOLERANCE, RESIDUALS AND LYTES
[2020-09-10 16:00] VITALS: BP 110/57; PULSE 82; RESP 20; TEMP 36.6; O2SAT 96
--- NOTE | 2020-09-10 17:19 | PM.PNNEP ---
Subjective Subjective Date of Service: 09/10/20 Interval history: Events noted; All recent data reviewed Physical Exam Vital Signs: Vital Signs: Last Vital Signs Temp 97.8 F 09/10/20 16:00 Pulse 82 09/10/20 16:00 Resp 20 09/10/20 16:00 BP 110/57 L 09/10/20 16:00 Pulse Ox 96 09/10/20 16:00 Body Mass Index 21.6 Const: General: alert Orientation/consciousness: patient oriented x3 Neck: Neck: Yes supple Resp: Auscultation: diminished lung sounds Cardio: Rate: regular rate GI: Palpation (GI): Soft to palpation Neuro: General: patient oriented x3 Objective Data Labs CBC & Chem 7: 09/03/20 06:07 09/09/20 07:43 Assessment & Plan Assessment and plan (1) Hyponatremia: Problem details: Hyponatremia due to excess ADH Serum sodium 129; C/W current supportive care Status: Acute Time Spent With Patient Time: Total time spent is greater than 50% in coordination of care (as documented) at patient's floor/unit and/or counseling patient:
--- NOTE | 2020-09-10 17:45 | HO.PM.IMPN ---
Subjective Subjective Date of Service: 09/10/20 Interval History: pt denies any fever, chills, dyspnea, or abd pain per surgery redness at site of PEG tube is not infection Physical Exam Vital Signs: Vital Signs: Last Vital Signs Temp 97.8 F 09/10/20 16:00 Pulse 82 09/10/20 16:00 Resp 20 09/10/20 16:00 BP 110/57 L 09/10/20 16:00 Pulse Ox 96 09/10/20 16:00 Body Mass Index 21.6 Gen: in no acute distress HEENT: sclera anicteric, moist mucus membranes Neck: supple Lungs: clear to auscultation bilaterally Heart: regular rate and rhythm, no murmurs Abd: soft, non-tender, non-distended, PEG tube with minimal surrounding erythema without purulence or discharge Ext: no edema Skin: warm/well-perfused Neuro: alert and oriented x3, no focal findings Psych: appropriate affect Objective Data Current Medications Generic Name Dose Route Start Last Admin Trade Name Freq PRN Reason Stop Dose Admin Acetaminophen 650 mg 08/19/20 21:30 Acetaminophen Supp 650 Mg Supp.Rect AK Q6H PRN Pain, Mild (Pain Scale 1-3) Albuterol/Ipratropium 3 ml 09/05/20 04:05 09/05/20 05:37 Albuterol/Iprat 2.5/0.5mg 3 Ml Ampul.Neb INHALE 3 ml RQ4H PRN Administration Dyspnea Amlodipine Besylate 5 mg 08/20/20 09:00 09/10/20 10:28 Amlodipine Besylate 5 Mg Tablet PO 5 mg DAILY LALI Administration Protocol Artificial Tears 1 drop 08/19/20 21:00 Artificial Tears 15 Ml Drops EYE-BOTH TID PRN Dry Eyes Fluticasone Propionate 2 spray 08/20/20 09:00 09/10/20 10:39 Fluticasone Propionate Nasal 16 Gm [place] NOSTRIL-B Not Given DAILY LALI Nicotine 14 mg 08/21/20 09:00 09/10/20 10:28 Nicotine 14 Mg Patch.Td24 TRANSDERMA 14 mg DAILY LALI Administration Omeprazole 20 mg 08/25/20 06:30 09/10/20 06:11 Omeprazole 20 Mg/10 Ml Susp.Recon PO 20 mg BID@0630,1630 LALI Administration Ondansetron HCl 4 mg 08/19/20 21:30 Ondansetron Hcl 4 Mg/2 Ml Vial IVPUSH Q8H PRN Nausea and Vomiting Oxycodone HCl 2.5 mg 09/09/20 12:01 Oxycodone Hcl Immed Release 5 Mg Tablet PO Q4H PRN Pain, Moderate (Pain Scale 4-6 Sodium Chloride 3 ml 08/20/20 00:00 09/10/20 10:28 0.9 % Sodium Chloride Flush 3 Ml Syringe IVFLUSH 3 ml QSHIFT LALI Administration Labs CBC & Chem 7: 09/03/20 06:07 09/09/20 07:43 Assessment and Plan (1) Hyponatremia: Problem details: Hyponatremia due to excess ADH Serum sodium 129; C/W current supportive care Status: Acute (2) S/P percutaneous endoscopic gastrostomy (PEG) tube placement: Status: Acute (3) Dysphagia: Status: Acute (4) COPD (chronic obstructive pulmonary disease): Status: Acute (5) Difficulty swallowing: Status: Acute (6) Indeterminate pulmonary nodules: Status: Acute Assessment and Plan: hospital d#23 84yo M with hx Hodgkin lymphoma, colon CA, CAD, HTN, BPH admitted for dysphagia and lung nodules concerning for malignancy # dysphagia # aspiration - MBSS showed aspiration; pt transitioned from TPN to tube feeds after PEG tube placed. per Surgery no PEG tube site infection. # acute hypoxic resp failure - resolved # aspiration PNA - s/p 7d of ampicillin/sulbactam # malignant lung nodule - s/p IR biopsy 08/23. 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
--- NOTE | 2020-09-10 18:15 | CONS_ITS ---
DATE OF SERVICE: 09/07/2020 REASON FOR CONSULTATION: I was called to see this patient to assist in the management of hyponatremia. HISTORY OF PRESENT ILLNESS: Lillie is an 84-year-old man with a history of COPD, atrial fibrillation, Hodgkin lymphoma, and pancreatitis, has been admitted with multiple medical problems, and his primary complaint was dysphagia. He was admitted on August 19, however, during this stay, he has developed hyponatremia and serum sodium has dropped to 128 and hence this consultation. The corresponding urine sodium was 68 with urine osmolality of 667 and serum osmolality of 267. PAST MEDICAL HISTORY: Ongoing medical problems include history of atrial fibrillation, cholelithiasis, COPD, GERD, colon cancer, Hodgkin lymphoma, hypercholesterolemia, hypertension, pancreatitis, renal calculus. FAMILY HISTORY: Significant for coronary artery disease. PAST SURGICAL HISTORY: Significant for bilateral cataract, colectomy, tonsillectomy, and hernia surgery. SOCIAL HISTORY: He has a history of smoking. No history of alcohol abuse. ALLERGIES: HE IS ALLERGIC TO LISINOPRIL AND PROCAINE. CURRENT MEDICATIONS: All the current medications were reviewed. REVIEW OF SYSTEMS: Not obtainable. PHYSICAL EXAMINATION: GENERAL: The patient appears chronically ill, not in any distress. LUNGS: With rhonchi. HEART: No gallop or rub. EXTREMITIES: No edema. LABORATORY DATA: Urine sodium 64, urine osmolality 667. Serum sodium 128, BUN and creatinine and 0.57 yesterday. Serum osmolality 275. IMPRESSION: 84-year-old man with hypotonic hyponatremia and clinically appears euvolemic. He probably has nonosmotic ADH release. My recommendation would be to keep him on oral free water restriction of 1 L per 24 hours. Recheck the sodium every 8 to 12 hours. His serum sodium drops to less than 125 millimoles. We will add urea powder to increase osmotic load. We will avoid offending agents that could potentially precipitate hyponatremia. At this point, there is no absolute indication to treat him with hypertonic saline or urea powder. We will follow him closely with the team. Eben Stewart MD BPA/MODL / [id number]
[2020-09-10 20:00] VITALS: BP 152/72; PULSE 89; RESP 19; TEMP 36.8; O2SAT 95
[2020-09-11] VITALS: BP 133/60; PULSE 89; RESP 19; TEMP 36.5; O2SAT 93
[2020-09-11] MEDS: 0.9 % Sodium Chloride Flush 3 ML SYRINGE IVFLUSH ×3 (00:40→16:33)
[2020-09-11 07:14] VITALS: BP 115/70; PULSE 86; RESP 18; TEMP 36.2; O2SAT 93
[2020-09-11 07:24] LABS: Basophils Absolute Auto 0.1 X10*3/uL (0.0-0.2); Basophils Percent Auto 0.6 % (0-2); Eosinophils Absolute Auto 0.3 X10*3/uL (0.0-0.4); Hematocrit 35.4 % (42-52); Hemoglobin 11.5 g/dl (14.0-18.0); Imm Gran Abs Auto 0.31 X10*3/uL (0.00-0.03); Imm Gran Pct Auto 2.7 % (0.0-0.4); Lymphocytes Absolute Auto 0.6 X10*3/uL (1.2-4.9); Lymphocytes Percent Auto 5.4 % (20-40); MANUAL DIFF FLAG SCAN; Mean Corpuscular HGB Conc 32.5 g/dl (31.0-36.0); Mean Corpuscular Hemoglobin 27.7 pg (27.0-33.0); Mean Corpuscular Volume 85.3 fL (80-98); Mean Platelet Volume 8.8 fL (9.4-12.4); Monocytes Absolute Auto 1.2 X10*3/uL (0.1-1.2); Monocytes Percent Auto 10.2 % (2-11); Neutrophils Absolute Auto 8.8 X10*3/uL (2.0-8.3); Neutrophils Percent Auto 78.1 % (45-73); Platelet Count 356 X10*3/uL (160-400); Red Blood Count 4.15 X10*6/uL (4.60-5.80); Red Cell Distribution Width 13.7 % (11.0-16.0); SCAN SMEAR FLAG 1; White Blood Count 11.3 X10*3/uL (4.8-10.8)
[2020-09-11 07:43] LABS: Anion Gap 12 (12-20); Blood Urea Nitrogen 13 mg/dL (9-16); Carbon Dioxide 32 mmol/L (22-29); Chloride 90 mmol/L (96-108); Creatinine Clr Calc Pharmacy 84.9; Estimated Glomerular Filt Rate > 60; Glucose Random 127 mg/dL (60-115); Potassium 4.1 mmol/l (3.3-5.1); Sodium 130 mmol/L (135-145)
[2020-09-11 08:23] LABS: SLIDE REVIEW VERIFIED
[2020-09-11] MEDS: Nicotine 14 MG PATCH.TD24 TRANSDERMA (09:46)
[2020-09-11] MEDS: amLODIPine Besylate 5 MG TABLET PO (09:46)
[2020-09-11] MEDS: Fluticasone Propionate Nasal 16 GM SPRAY 2 SPRAY NOSTRIL-B (09:47)
--- NOTE | 2020-09-11 10:09 | PM.PNNEP ---
Subjective Subjective Date of Service: 09/11/20 Interval history: Events noted; All recent data reviewed Physical Exam Vital Signs: Vital Signs: Last Vital Signs Temp 97.1 F 09/11/20 07:14 Pulse 86 09/11/20 07:14 Resp 18 09/11/20 07:14 BP 115/70 09/11/20 07:14 Pulse Ox 93 09/11/20 07:14 Body Mass Index 21.6 Const: General: comfortable Orientation/consciousness: patient oriented x3 Neck: Neck: Yes supple Resp: Auscultation: diminished lung sounds Cardio: Rate: regular rate GI: Palpation (GI): Soft to palpation Neuro: General: patient oriented x3 Objective Data Labs CBC & Chem 7: 09/11/20 06:46 09/11/20 06:46 Labs: Laboratory Results - last 24 hr 09/11/20 09/11/20 06:46 06:46 WBC 11.3 H RBC 4.15 L Hgb 11.5 L Hct 35.4 L MCV 85.3 MCH 27.7 MCHC 32.5 RDW 13.7 Plt Count 356 D MPV 8.8 L Immature Gran % (Auto) 2.7 H Neut % (Auto) 78.1 H Lymph % (Auto) 5.4 L [place] % (Auto) 10.2 Eos % (Auto) 3.0 Baso % (Auto) 0.6 Lymph # (Auto) 0.6 L [place] # (Auto) 1.2 Eos # (Auto) 0.3 Baso # (Auto) 0.1 Abs Immat Gran (auto) 0.31 H Absolute Neuts (auto) 8.8 H Absolute Nucleated RBC 0.000 Nucleated RBC % (auto) 0.0 Smear Tech's Comments VERIFIED Sodium 130 L Potassium 4.1 Chloride 90 L Carbon Dioxide 32 H Anion Gap 12 BUN 13 Creatinine 0.54 Estim Creat Clear Calc 84.9 Estimated GFR > 60 Random Glucose 127 H Calcium 8.0 L Assessment & Plan Assessment and plan (1) Hyponatremia: Problem details: Hyponatremia due to excess ADH Serum sodium 130; C/W current supportive care Status: Acute Time Spent With Patient Time: Total time spent is greater than 50% in coordination of care (as documented) at patient's floor/unit and/or counseling patient:
[2020-09-11 11:09] VITALS: BP 107/55; PULSE 68; RESP 18; TEMP 36.7; O2SAT 99
[2020-09-11 11:43] LABS: COVID-19 Test Negative (Negative); IDNOW Serial# 9DD0AD1C
--- NOTE | 2020-09-11 14:39 | MHC.CM.PN ---
PER CONVERSATION WITH ONCOLOGIST/PCP, PATIENT WILL NEED AN OUTPATIENT PET SCAN AND FOLLOW UP WITH DR VALVERDE. ONCOLOGIST MADE AWARE OF WHERE PATIENT WILL TRANSFER TO TODAY. HOSPITALIST MADE AWARE OF CONVERSATION. IMM 09/11 IN CHART.
--- NOTE | 2020-09-11 14:48 | MHC.CM.PN ---
CALL TO HCP CELL PHONE ([phone]) RESULTS IN CALLER NOT BEING AVAILABLE, AND THAT THIS [employer] GRADER SHOULD TRY AGAIN LATER. ATTEMPT X 2 CALL THEN PLACED TO HCP SPOUSE ([phone]) TO ASK THAT HE INFORM THE HCP THAT TIME FOR TRANSPORT IS SCHEDULED FOR 16:30. PER EARLIER CONVERSATION WITH HCP, SHE CHOSE [facility] CHOICE FOR BED OFFER. HCP HAS MULTIPLE QUESTIONS PERTAINING TO PATIENT STAY AT FACILITY, AND THE CONTACT NUMBER FOR FACILITY WAS GIVEN TO HER. KEEGAN DID INFORM THIS WOOL AND PELT GRADER THAT SHE WOULD BE OUT OF THE HOUSE THIS AFTERNOON, AND ATTEMPT SHOULD BE MADE TO REACH HER ON HER CELL.
[2020-09-11 16:00] VITALS: BP 119/66; PULSE 74; RESP 16; TEMP 36.4; O2SAT 97
--- NOTE | 2020-09-11 16:10 | MHC.CM.PN ---
DC TIME NOW CHANGED TO 17:15 FROM HERE. [facility] MADE AWARE. SISTER/HCP MADE AWARE (SHE CALLED THE UNIT) UNIT AND RN MADE AWARE.
--- NOTE | 2020-09-11 16:31 | P.DS_ITS ---
DS: Providers Provider Date of admission: 08/19/20 18:53 Primary care physician: Chel Hylton MD Consults: 08/19/20 21:30 Consult to Hematology / Oncology Routine Consulting Provider: Liu Mcclure Reason for consultation: Lung mass Has provider been notified: No 08/20/20 07:36 Consult to Gastroenterology Routine Consulting Provider: Nazario Real Reason for consultation: dysphagia 08/28/20 15:15 Consult to General Surgery Routine Consulting Provider: Jass Curry Reason for consultation: g tube, dysphagia, failed MBS 08/28/20 15:48 Consult to Thoracic Surgery Routine Consulting Provider: Juan Reyes Reason for consultation: lung adeno 09/05/20 10:43 Consult to Pulmonology Routine Consulting Provider: Doug Oliver Reason for consultation: hypoxia -unclera etiology Has provider been notified: No 09/07/20 09:41 Consult to Nephrology Routine Consulting Provider: Eben Stewart Reason for consultation: hypontaremia Has provider been notified: No DS: Diagnosis Discharge Diagnosis (1) Hyponatremia: Status: Acute (2) Adenocarcinoma, lung: Status: Acute (3) S/P percutaneous endoscopic gastrostomy (PEG) tube placement: Status: Acute (4) Tobacco abuse: Status: Acute (5) Acute respiratory failure with hypoxia: Status: Acute (6) Multiple lung nodules: Status: Acute DS: Medications Discharge Medications Home Medications: Home Medications Medication Instructions Recorded Confirmed amlodipine 5 mg tablet 5 mg PO DAILY 06/15/20 08/19/20 ascorbic acid (vitamin C) 500 mg 500 mg PO DAILY 06/15/20 08/19/20 capsule atorvastatin 10 mg tablet 10 mg PO DAILY 06/15/20 08/19/20 dextran 70-hypromellose 0.1 %-0.3 1 drp OPHTHALMIC (EYE) DIRECTED 06/15/20 08/19/20 % eye drops ferrous sulfate 325 mg (65 mg 325 mg PO DAILY 06/15/20 08/19/20 iron) tablet fluticasone propionate 50 2 spray INTRANASAL DAILY 06/15/20 08/19/20 mcg/actuation nasal spray,suspension Previous Rx's Medication Instructions Recorded ipratropium-albuterol 3 ml INHALATION RQ4H PRN #180 ml 09/11/20 nicotine 14 mg TRANSDERMAL DAILY #28 ea 09/11/20 DS: Summary Hospital Course Hospital Course: from admission history and physical by hospitalist CLOTILDE Borrego, 08/19/20: This is an 84-year-old male with multiple medical problems who presented to the emergency department with complaints of dysphagia. Per emergency department notes this has been going on for 2 days however the patient reported 1 week history of dysphagia. He is hard of hearing and somewhat vague historian but reports difficulty swallowing both liquids and solids. He feels that the food does not go down his throat and he has to spit it back out. He has been intermittently able to eat rice and take sips of liquid. He denies any abdominal pain, throat pain, vomiting. CT of the chest showed a soft tissue nodule in the left upper lobe and also in the left lower lobe. CT of the neck showed mild asymmetric mucosal thickening along the right posterior oropharynx but no additional mass, fluid collection, abscess, lymphadenopathy within the cervical soft tissue. And no airway compromise. Given his inability to take p.o. the decision was made to admit him for further workup. The patient was admitted to the medical/surgical floor and made NPO. MBSS showed aspiration. He was placed on TPN and then was transitioned to tube feeds [Promote at 70 mL/hr] after PEG tube was placed. He was treated with 7 days of ampicillin/sulbactam for suspected aspiration pneumonia. 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 Regarding his lung nodules, he underwent biopsy that showed likely lung primary adenocarcinoma, less likely metastasis from colon cancer. Thoracic Surgery and the patient's oncologist were consulted. Plan is for outpatient PET/CT and to follow up with Dr Coleman [Hematology/Oncology] and Dr Reyes [Thoracic Surgery] as an outpatient. PFTs were ordered to see if surgical resection is possible, though the patient is likely a poor surgical candidate. He was discharged to short-term rehabilitation at [facility]. Time Spent with Patient Time attestation: Total time spent providing and/or coordinating discharge services: 45 Physical Exam Vital Signs: Vital Signs: Last Vital Signs Temp 97.5 F 09/11/20 16:00 Pulse 74 09/11/20 16:00 Resp 16 09/11/20 16:00 BP 119/66 09/11/20 16:00 Pulse Ox 97 09/11/20 16:00 Body Mass Index 21.6 Gen: in no acute distress HEENT: sclera anicteric, moist mucus membranes, hard of hearing Neck: supple Lungs: clear to auscultation bilaterally Heart: regular rate and rhythm, no murmurs Abd: soft, non-tender, non-distended, PEG tube with minimal surrounding erythema without purulence or discharge Ext: no edema Skin: warm/well-perfused Neuro: alert and oriented x3, no focal findings Psych: appropriate affect DS: Data Data Completed and Pending Labs on day of discharge: Laboratory Results WBC 11.3 X10*3/uL (4.8-10.8) H 09/11/20 06:46 RBC 4.15 X10*6/uL (4.60-5.80) L 09/11/20 06:46 Hgb 11.5 g/dl (14.0-18.0) L 09/11/20 06:46 Hct 35.4 % (42-52) L 09/11/20 06:46 MCV 85.3 fL (80-98) 09/11/20 06:46 MCH 27.7 pg (27.0-33.0) 09/11/20 06:46 MCHC 32.5 g/dl (31.0-36.0) 09/11/20 06:46 RDW 13.7 % (11.0-16.0) 09/11/20 06:46 Plt Count 356 X10*3/uL (160-400) D 09/11/20 06:46 MPV 8.8 fL (9.4-12.4) L 09/11/20 06:46 Immature Gran % (Auto) 2.7 % (0.0-0.4) H 09/11/20 06:46 Neut % (Auto) 78.1 % (45-73) H 09/11/20 06:46 Lymph % (Auto) 5.4 % (20-40) L 09/11/20 06:46 [place] % (Auto) 10.2 % (2-11) 09/11/20 06:46 Eos % (Auto) 3.0 % (0-4) 09/11/20 06:46 Baso % (Auto) 0.6 % (0-2) 09/11/20 06:46 Lymph # (Auto) 0.6 X10*3/uL (1.2-4.9) L 09/11/20 06:46 [place] # (Auto) 1.2 X10*3/uL (0.1-1.2) 09/11/20 06:46 Eos # (Auto) 0.3 X10*3/uL (0.0-0.4) 09/11/20 06:46 Baso # (Auto) 0.1 X10*3/uL (0.0-0.2) 09/11/20 06:46 Abs Immat Gran (auto) 0.31 X10*3/uL (0.00-0.03) H 09/11/20 06:46 Absolute Neuts (auto) 8.8 X10*3/uL (2.0-8.3) H 09/11/20 06:46 Absolute Nucleated RBC 0.000 X10*3/uL (0.0-0.012) 09/11/20 06:46 Nucleated RBC % (auto) 0.0 /100WBC (0.0-0.2) 09/11/20 06:46 Neutrophils % (Manual) 72 % (45-73) 08/30/20 05:53 Band Neutrophils % 7 % (3-5) H 08/30/20 05:53 Lymphocytes % (Manual) 10 % (20-40) L 08/30/20 05:53 Monocytes % (Manual) 7 % (2-11) 08/30/20 05:53 Eosinophils % (Manual) 1 % (0-4) 08/29/20 04:02 Metamyelocytes % 2 % 08/30/20 05:53 Myelocytes % 2 % 08/30/20 05:53 Abs Neuts (Manual) 8.5 X10*3/uL (2.2-7.9) H 08/30/20 05:53 Lymphocytes # (Manual) 1.1 X10*3/uL (0.6-4.8) 08/30/20 05:53 Monocytes # (Manual) 0.8 X10*3/uL (0.0-1.2) 08/30/20 05:53 Eosinophils # (Manual) 0.1 X10*3/UL (0.0-0.8) 08/29/20 04:02 Metamyelocytes # 0.2 X10*3/uL 08/30/20 05:53 Myelocytes # 0.2 X10*/uL 08/30/20 05:53 Platelet Estimate NORMAL (NORMAL) 08/30/20 05:53 Plt Morphology Comment NORMAL 08/30/20 05:53 RBC Morphology NORMAL 08/30/20 05:53 Ovalocytes 1+ 08/28/20 06:06 Jassi Cells 1+ 08/28/20 06:06 Acanthocytes (Spur) 1+ 08/28/20 06:06 Smear Tech's Comments VERIFIED 09/11/20 06:46 ESR 16 MM/HR (0-15) H 08/20/20 08:09 PT 16.5 SEC (10.8-13.0) H 08/23/20 10:13 INR 1.4 (0.9-1.1) H 08/23/20 10:13 Hold Blue Top SEE NOTE 08/19/20 15:37 Sodium 130 mmol/L (135-145) L 09/11/20 06:46 Potassium 4.1 mmol/l (3.3-5.1) 09/11/20 06:46 Chloride 90 mmol/L (96-108) L 09/11/20 06:46 Carbon Dioxide 32 mmol/L (22-29) H 09/11/20 06:46 Anion Gap 12 (12-20) 09/11/20 06:46 BUN 13 mg/dL (9-16) 09/11/20 06:46 Creatinine 0.54 mg/dL (0.5-1.4) 09/11/20 06:46 Estim Creat Clear Calc 84.9 09/11/20 06:46 Estimated GFR > 60 09/11/20 06:46 POC Glucose 181 mg/dL (60-115) H 08/29/20 07:10 Random Glucose 127 mg/dL (60-115) H 09/11/20 06:46 Fasting Glucose 160 mg/dL (60-99) H 09/03/20 06:06 Estimat Average Glucose 128 mg/dL 09/08/20 07:03 Hemoglobin A1c % 6.1 % 09/08/20 07:03 Osmolality 275 mosm/kg (281-305) L 09/07/20 10:26 Calcium 8.0 mg/dL (8.4-10.2) L 09/11/20 06:46 Phosphorus 3.3 mg/dL (2.7-4.5) 09/05/20 05:53 Magnesium 1.9 mg/dL (1.6-2.6) 09/05/20 05:53 Ferritin 144 ng/mL (20-250) 08/19/20 15:37 Ferritin Cancelled 08/19/20 15:37 Total Bilirubin 0.4 mg/dL (0.0-1.0) 09/08/20 07:03 Direct Bilirubin 0.3 mg/dL (0.0-0.5) 09/08/20 07:03 AST 17 U/L (5-37) 09/08/20 07:03 ALT 33 U/L (0-40) 09/08/20 07:03 Alkaline Phosphatase 283 U/L (39-117) H D 09/08/20 07:03 Lactate Dehydrogenase 157 U/L (118-273) 08/19/20 15:37 Lactate Dehydrogenase Cancelled 08/19/20 15:37 C-Reactive Protein 1.71 mg/dL (< or = 0.50) H 08/19/20 15:37 C-Reactive Protein Cancelled 08/19/20 15:37 Total Protein 4.7 g/dL (6.5-8.0) L D 09/08/20 07:03 Albumin 2.9 g/dL (3.5-5.0) L 09/08/20 07:03 Triglycerides 146 mg/dL 09/02/20 06:42 Carcinoembryonic Ag 6.50 mg/mL 08/20/20 08:09 Procalcitonin 0.11 ng/mL 08/19/20 15:37 Urine Color YELLOW 09/07/20 13:54 Urine Appearance HAZY 09/07/20 13:54 Urine pH 7.5 (5.0-8.0) 09/07/20 13:54 Ur Specific [place] 1.015 (1.005-1.025) 09/07/20 13:54 Urine Protein 1+ MG/DL (NEG-TRACE) H 09/07/20 13:54 Urine Glucose (UA) NEG MG/DL (NEG) 09/07/20 13:54 Urine Ketones NEG MG/DL (NEG) 09/07/20 13:54 Urine Blood NEG (NEG) 09/07/20 13:54 Urine Nitrite NEG (NEG) 09/07/20 13:54 Ur Leukocyte Esterase NEG (NEG) 09/07/20 13:54 Urine RBC 0-2 /HPF (0) 09/07/20 13:54 Urine WBC 0-2 /HPF (0-4) 09/07/20 13:54 Ur Squamous Epith Cells NONE /LPF 09/07/20 13:54 Urine Bacteria NONE /LPF 09/07/20 13:54 Urine Osmolality 667 mosm/kg (373-1093) 09/07/20 13:54 Ur Random Sodium 64.0 mmol/L 09/07/20 13:54 Ur Random Potassium 54.6 mmol/l 09/07/20 13:54 Ur Random Chloride 60.0 mmol/L 09/07/20 13:54 Coronavirus (PCR) NEGATIVE (Negative) 08/19/20 15:28 COVID-19 (JOY) Negative (Negative) 09/11/20 11:11 COVID-19 Clin Com See Note 09/11/20 11:11 Influenza Type A (PCR) NEGATIVE (Negative) 08/19/20 15:28 Influenza Type B (PCR) NEGATIVE (Negative) 08/19/20 15:28 RSV RNA Qual (PCR) NEGATIVE (Negative) 08/19/20 15:28 Impressions Soft Tissue Neck X-Ray 08/19/20 15:18 IMPRESSION: Unremarkable examination. Chest CT 08/19/20 16:19 IMPRESSION: CT Soft Tissue Neck: 1. Mild asymmetric mucosal thickening along the right posterior oropharynx. Direct visualization could help further evaluate. 2. No additional mass, fluid collection, abscess, or lymphadenopathy within the cervical soft tissues. No airway compromise. CT Chest: 1. Severe emphysematous changes, significantly increased when compared to the PET/CT from 2007. 2. Lobulated soft tissue nodule within the anterior left upper lobe measuring up to 2 cm, corresponding to the chest radiograph findings. Additional 1.2 cm subpleural nodule posteriorly within the left lower lobe. Findings are concerning for a neoplastic process and soft tissue sampling or PET/CT imaging could help further evaluate. Additional smaller left-sided pulmonary nodules. 3. Stable, small superior mediastinal lymph nodes. 4. Partially visualized lymphadenopathy within the superior aspect of the retroperitoneum, slightly more prominent when compared to the abdominal CT dated 02/26/2019. Additional upper abdominal findings are unchanged. Soft Tissue Neck CT 08/19/20 16:19 IMPRESSION: CT Soft Tissue Neck: 1. Mild asymmetric mucosal thickening along the right posterior oropharynx. Direct visualization could help further evaluate. 2. No additional mass, fluid collection, abscess, or lymphadenopathy within the cervical soft tissues. No airway compromise. CT Chest: 1. Severe emphysematous changes, significantly increased when compared to the PET/CT from 2007. 2. Lobulated soft tissue nodule within the anterior left upper lobe measuring up to 2 cm, corresponding to the chest radiograph findings. Additional 1.2 cm subpleural nodule posteriorly within the left lower lobe. Findings are concerning for a neoplastic process and soft tissue sampling or PET/CT imaging could help further evaluate. Additional smaller left-sided pulmonary nodules. 3. Stable, small superior mediastinal lymph nodes. 4. Partially visualized lymphadenopathy within the superior aspect of the retroperitoneum, slightly more prominent when compared to the abdominal CT dated 02/26/2019. Additional upper abdominal findings are unchanged. Lung Biopsy CT 08/23/20 00:00 IMPRESSION: Successful CT fluoroscopy-guided left upper lobe nodule biopsy performed. There were no immediate complications. Definite pathology results are pending. Modified Barium Swallow 08/28/20 08:00 IMPRESSION: Slow transition of bolus from the oral cavity through the pharynx and esophagus. Large amount of thick barium visualized in the piriform sinuses without any progression on different maneuvers. Due to risk of aspiration the exam was discontinued. Correlate with speech therapy results Chest X-Ray 09/05/20 00:00 IMPRESSION: No significant change from prior with bilateral airspace opacities and left midlung nodule. PATHOLOGY RESULTS 08/23/20 REILLY nodule FNA Lung, left upper lobe, fine-needle aspiration: Positive for malignancy consistent with adenocarcinoma. See comment. COMMENT: Paucicellular specimen consisting of groups of malignant epithelial cells, haphazardly arranged, with crowding and hyperchromatic and irregularly- shaped nuclei. Abundant background mucin is present. Please correlate with concurrent biopsy findings ([id number]). 08/23/20 REILLY nodule biopsy Lung, left upper lobe, biopsy: Rare strips of atypical epithelium and pools of mucin consistent with well-differentiated adenocarcinoma. See description and comment. COMMENT: The concurrent cytology specimen ([id number]) is more cellular and is positive for adenocarcinoma. 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 There is insufficient material in the samples for ancillary studies. Discharge Plan Discharge Patient Disposition: [facility] Referrals: [facility] [Outside] ([facility] WILL FOLLOW PATIENT AT [facility] FOR DISCHARGE NEEDS) [facility] [Outside] (PATIENT WILL TRANSPORT TO [facility] FOR SHORT TERM REHAB NEEDS.) Nazario Coleman MD [Physician] - Po,Chel Clark MD [Primary Care Provider] - Juan Reyes MD [Physician] - Discharge Medications: New nicotine 14 mg/24 hr Patch 24 Hour 14 mg transdermal DAILY Qty: 28 RF: 0 ipratropium-albuterol 0.5 mg-3 mg(2.5 mg base)/3 mL Solution For Nebulization 3 ml inhalation RQ4H PRN (Reason: Dyspnea) Qty: 180 RF: 0 Continued ascorbic acid (vitamin C) 500 mg capsule 500 mg PO DAILY RF: 0 Artificial Tears([id number]) 0.1-0.3 % drops 1 drp ophthalmic (eye) DIRECTED RF: 0 fluticasone propionate 50 mcg/actuation spray,suspension 2 spray intranasal DAILY RF: 0 atorvastatin 10 mg tablet 10 mg PO DAILY RF: 0 ferrous sulfate [FeroSul] 325 mg (65 mg iron) tablet 325 mg PO DAILY RF: 0 amlodipine 5 mg tablet 5 mg PO DAILY RF: 0 Discontinued megestrol 400 mg/10 mL (40 mg/mL) suspension 10 ml PO BID RF: 0 Discharge Orders: Discharge Order (Routine); Ordered 08/23/20 Ordered By: Jeffery Cleary Diet: other Activity on Discharge: As tolerated Patient Instructions: How to Use and Care for Your PEG Tube (DC), PEG Tube Insertion (DC) Other Ambulatory Orders: Basic Metabolic Panel (Routine) Timeframe: 1 Week Facility: [facility] - Location: Laboratory Ordered By: Teddy Arana RT pulmonary function test (Routine) Location: None Selected Ordered By: Teddy Arana Visit Report Forms: Patient Portal Discharge page Care Plan Goals: safe feeding, diagnosis/treatment of cancerous lung nodule Health Concerns: dysphagia/aspiration, malignant lung nodule, hyponatremia Plan of Treatment: tube feeds: Promote 70 mL/hr follow up with Dr Nazario Coleman for PET/CT scan, then refer to Dr Juan Reyes from Thoracic Surgery; also needs pulmonary function testing to see if resection is possible recheck basic metabolic panel in 1 week
== END 2020-09-11 16:50 | disposition skilled nursing facility (03) | DRG 180 ==
LOC: HO.ED 18:18 → HO.S3 08-20 05:25
PROVIDERS: Internal Medicine; Physician Assistant; Physician Assistant Medical; Radiology Diagnostic Radiology; Surgery; Admitting Provider Internal Medicine; Emergency Provider Emergency Medicine; PCP Internal Medicine; Visit Provider Family Medicine
PROC: 0DJ08ZZ Inspection of Upper Intestinal Tract, Via Natural or Artificial Opening Endoscopic (ICD-10-PCS; CPT 43235; principal; 2020-08-20 14:20)
PROC: 0B9G7ZX Drainage of Left Upper Lung Lobe, Via Natural or Artificial Opening, Diagnostic (ICD-10-PCS; principal; 2020-08-23 08:30)
PROC: 0DH63UZ Insertion of Feeding Device into Stomach, Percutaneous Approach (ICD-10-PCS; principal; 2020-09-04 10:40)
DX: C34.12 Malignant neoplasm of upper lobe, left bronchus or lung (principal); J69.0 Pneumonitis due to inhalation of food and vomit; J96.01 Acute respiratory failure with hypoxia; E22.2 Syndrome of inappropriate secretion of antidiuretic hormone; R13.10 Dysphagia, unspecified; K46.9 Unspecified abdominal hernia without obstruction or gangrene; K29.70 Gastritis, unspecified, without bleeding; K29.80 Duodenitis without bleeding; F17.210 Nicotine dependence, cigarettes, uncomplicated; Z71.6 Tobacco abuse counseling; Z85.038 Personal history of other malignant neoplasm of large intestine; Z85.71 Personal history of Hodgkin lymphoma; Z20.828 Contact with and (suspected) exposure to other viral communicable diseases; Z79.52 Long term (current) use of systemic steroids; Z79.899 Other long term (current) drug therapy
CPT/HCPCS: 0241U; 32405; 36415; 70360; 70491; 71045; 71046; 71260; 74230; 77012; 80048; 80076; 81001; 82040; 82378; 82436; 82728; 82947; 83036; 83615; 83735; 83930; 83935; 84100; 84133; 84145; 84295; 84300; 84478; 85007; 85025; 85027; 85610; 85652; 86140; 87635; 88172; 88173; 88305; 88341; 88342; 92526; 92610; 92611; 94640; 96360; 97110; 97162; 97530; 99024; 99152; 99232; 99285; C1726; J0295; J0690; J2060; J2270; J2405; J3010; J3475; Q9967

== ENCOUNTER 2020-11-13 10:36 | Outpatient (REF) | payer MEDICARE, MEDICAID, SELFPAY ==
--- NOTE | ~2020-11-13 | PE_ITS ---
EXAMINATION: Fluorine-18 FDG PET/CT Scan CLINICAL INDICATION: Initial treatment management. Left upper lobe cancer. Prior history of lymphoma. PROCEDURE: 68 minutes following the intravenous administration of 16.9 mCi of fluorine 18 FDG, images from the base of the skull to the mid thighs were obtained using a combined PET/CT scanner with CT scan based attenuation correction. No oral contrast was administered. No intravenous contrast was administered. Transverse, coronal, sagittal, and volume reconstruction projections were obtained. The patient's blood glucose as determined by a finger stick, was 99 mg/dl immediately prior to injection. Total CT exam dose-length product 205.21 mGy-cm * These CT images were obtained using dose optimization techniques as appropriate, variously including the following: Automated exposure control * Adjustment of mA and/or kV according to patient size (this includes techniques or standardized protocols for targeted exams where dose is matched to indication/reason for exam; i.e. extremities or head) * Use of iterative reconstruction technique COMPARISON: Several prior PET/CT scans are available for comparison, the most recent dated 02/09/2008 and the least recent dated 05/05/2007. A dedicated PET scan performed without CT dated 11/12/2006 is also available for comparison. More recent CT scan of the chest dated 08/19/[address] scan of the abdomen and pelvis dated 02/26/2019 are also available for comparison. CT-guided left upper lobe pulmonary biopsy dated 08/23/2020 showing malignancy consistent with adenocarcinoma. FINDINGS: (Slice numbers described in this report are numbered superiorly to inferiorly with slice #1 in the head) NECK AND VISUALIZED HEAD: No foci of abnormal FDG activity are noted. The distribution of FDG activity is physiological. There is no cervical lymphadenopathy.. THORAX: There is mildly increased FDG activity in the recently biopsied anterolaterally pleural-based left upper lobe pulmonary nodule, SUVmax 2.8, slice 90/267. This measures 2.7 x 1.8 cm in largest transverse dimensions, and approximately 2.6 cm cephalocaudad. This is not appear significantly changed compared to the 08/19/[address] scan of the chest. This was not present on the most recent prior PET CT scan dated 02/09/2008. There is a small focus of increased FDG activity present posteriorly in the left lower lobe and this corresponds to a 1.3 cm groundglass opacity on the CT images at this site. A more prominent FDG avid focus superior to this abutting the posterior pleura of the left lower lobe shows SUVmax 3.8, slice 91/267 and this is just lateral to a denser opacity that shows weak or FDG activity, the latter corresponding to a 1.2 x 0.7 cm subpleural nodule on the diagnostic 08/19/2020 CT scan. This more lateral nodular opacity was not present on 08/19/2020. In addition there is a mild diffuse increase in FDG activity posteriorly in the right lower lobe, showing SUVmax 4.4, slice 83/267. This corresponds to airspace opacities, likely containing some tree-in-bud formation on the CT images, and none of this was present on the diagnostic CT scan dated 08/19/2020. This abnormality extends across the major interlobar fissure into the inferior posterior aspects of the left upper lobe with a similar pattern. Again all of these right lung abnormalities are new since 08/19/2020. No additional abnormal FDG activity is present in the lungs. Severe emphysema unchanged in appearance from 08/19/2020 is noted. There is a subcentimeter mildly FDG avid left prevascular lymph node showing SUVmax 3.0, slice 60/267. This is lateral to the left carotid artery and anterior to the left subclavian artery and was not present on 08/19/2020. Densely calcified right lower paratracheal and right proximal peribronchial lymph nodes are present, the latter showing mild FDG activity, SUVmax 4.6, slice 88/267. There is no abnormal FDG activity in the right lower pretracheal calcified lymph node which measures 2.5 x 1.3 cm in largest transverse dimensions. The calcified lymph nodes correspond to intensely FDG avid lymphadenopathy present on the baseline PET scan dated 11/12/2006. CT images were not available without PET scan, but these calcifications were present on the subsequent PET CT scan dated 10/20/2007. There is a subcentimeter FDG avid left lower paratracheal lymph node present showing SUVmax 4.4, slice 77/267. A few additional AP window and left hilar subcentimeter lymph nodes also appear FDG avid. A more prominent subcarinal FDG avid lymph node shows SUVmax 5.1, slice 91/267 and measures approximately 3.1 x 1.2 cm in largest transverse dimensions. No additional significant FDG avid lesions are present within the chest. Trace pleural fluid is present bilaterally. There is no pericardial fluid or pneumothorax. ABDOMEN AND PELVIS: There is mild diffuse FDG activity present throughout the gastrointestinal tract which is likely physiological, but in the region of a suture line in the cecum more intense focal FDG activity is present showing SUVmax 8.0, slice 167/267. The suture line was present on the 02/26/[address] scan but was not present on the most recent PET CT scan dated 02/09/2008, and the focal FDG activity in this region is also new. The liver and spleen both contain punctate calcifications likely due to granulomata, but are otherwise unremarkable. The gallbladder is not visualized and is presumed resected. The kidneys are unremarkable. The adrenal glands and pancreas are unremarkable. A gastrostomy is in place with no associated abnormal FDG activity. MUSCULOSKELETAL: No foci of abnormal FDG activity are present in the osseous structures. There are diffuse degenerative changes in the spine but no suspicious sclerotic or lytic lesions are visualized. VASCULAR: Diffuse vascular calcifications including coronary are noted. There is ectasia of the infrarenal abdominal aorta measuring 2.6 cm in largest AP diameter. PET/PET CT fusion skull to thigh IMPRESSION: 1. Mild FDG activity in the recently biopsied left upper lobe pulmonary nodules consistent with the pathology findings of adenocarcinoma. 2. There is FDG avid mediastinal lymphadenopathy as described above and this is suspicious for malignancy. In this patient with a distant prior history of lymphoma, this FDG avid lymphadenopathy may be due to recurrent lymphoma or metastatic adenocarcinoma. 3. An FDG avid focus adjacent to a suture line in the cecal region is suspicious for malignancy at this site. This might be further characterized with MRI performed without and with intravenous contrast, if clinically indicated. 4. Diffuse right lower lobe and right upper lobe posterior FDG avid opacities have developed since the most recent diagnostic CT scan dated 08/19/2020. These are most consistent with an inflammatory pneumonitis. Better characterization of these could be obtained with a repeat diagnostic CT scan of the chest. In addition, clinical correlation for these new abnormalities is recommended. 5. No additional abnormalities suspicious for other metastatic or malignant lesions are noted. 6. Diffuse vascular calcifications including coronary.
== END 2020-11-13 10:37 | disposition home or self-care (01) ==
LOC: HO.PET 10:36
PROVIDERS: Visit Provider Internal Medicine Medical Oncology
DX: Z13.89 Encounter for screening for other disorder (principal)

== ENCOUNTER → 2020-11-16 10:37 | Outpatient (BNVA) | payer MEDICARE, MEDICAID, SELFPAY | PROVIDERS: PCP Internal Medicine; Visit Provider Surgery | DX: C34.12 Malignant neoplasm of upper lobe, left bronchus or lung (principal); R13.10 Dysphagia, unspecified; Z79.899 Other long term (current) drug therapy; Z87.891 Personal history of nicotine dependence; Z99.81 Dependence on supplemental oxygen; Z93.1 Gastrostomy status | CPT/HCPCS: 99212 ==

== ENCOUNTER → 2020-12-05 11:20 | Outpatient (BNVA) | payer MEDICARE, MEDICAID, SELFPAY | PROVIDERS: PCP Internal Medicine; Visit Provider Internal Medicine | DX: C34.90 Malignant neoplasm of unspecified part of unspecified bronchus or lung (principal); J43.9 Emphysema, unspecified; R91.8 Other nonspecific abnormal finding of lung field; R09.02 Hypoxemia | CPT/HCPCS: 99202 ==

== ENCOUNTER 2020-12-06 | Outpatient (REF) | payer MEDICARE, MEDICAID, SELFPAY ==
[2020-12-17 09:05] LABS: FISH ALK 2P 23 Rearrangement QNS
== END 2020-12-06 00:01 | disposition home or self-care (01) ==
LOC: HO.LNP
PROVIDERS: Visit Provider Internal Medicine Medical Oncology
DX: C34.90 Malignant neoplasm of unspecified part of unspecified bronchus or lung (principal)
CPT/HCPCS: 88360; 88363

== ENCOUNTER 2020-12-11 12:05 | Outpatient (REF) | payer MEDICARE, MEDICAID, SELFPAY | END 2020-12-11 12:06 | disposition home or self-care (01) | LOC: HO.LNP 12:05 | PROVIDERS: Visit Provider Internal Medicine Medical Oncology | DX: Z13.89 Encounter for screening for other disorder (principal) | CPT/HCPCS: 87086; 87480; 87491; 87510; 87591; 87660 ==

== ENCOUNTER 2020-12-17 14:22 | Outpatient (REF) | payer MEDICARE, MEDICAID, SELFPAY ==
--- NOTE | ~2020-12-17 | FL_ITS ---
EXAMINATION: XR BARIUM SWALLOW CLINICAL INFORMATION: Dysphagia, oropharyngeal phase COMPARISON: August 28, 2020 TECHNIQUE: Modified barium swallow with speech pathologist FINDINGS: On initial swallow of thin liquids there was laryngeal penetration and tracheal aspiration. The study was stopped. FLUOROSCOPY TIME: 0.8 minutes DOSE AREA PRODUCT: 0.761 arsen centimeter squared FL/FL barium swallow modified IMPRESSION: Aspiration with thin liquid.
--- NOTE | 2020-12-18 15:06 | MHC.SL.IMP ---
Date of Plan of Treatment: 12/17/20 Onset of Symptoms/Illness: 08/19/21 Date Treatment Started: 08/25/21 Admitting Diagnosis: Modified Barium Swallow Study Fluoroscopic Evaluation of Swallowing Function CPT Code 59507 Evaluation Year: 2020 Reason for Study: History of aspiration Referring Physician: Chel Hylton M.D. Evaluating Clinician: Stacie Fuentes M.A., CCC-ROLL SHEETING CUTTER Study Number: 1 Patient Name: Lillie Bruno Status: Outpatient, Wheelchair Age: 85 Gender: Male MEDICAL HISTORY: Primary (admitting) Diagnosis: Adenocarcinoma, lung Year of Onset or Diagnosis: 2020 Comorbidities: Atrial fibrillation Cholelithiasis COPD (chronic obstructive pulmonary disease) GERD (gastroesophageal reflux disease) History of colon cancer Hodgkins lymphoma Hypercholesterolemia Hypertension Hypoxemia Leg weakness, bilateral Pancreatitis Renal calculus, left Tobacco abuse Aspiration pneumonia History of bilateral cataract extraction History of chemotherapy History of colectomy History of tonsillectomy History of inguinal hernia surgery Primary Speech & Language Diagnosis: R13.12 Oropharyngeal Phase Dysphagia Reason for Today's Visit: 20886 Modified Barium Swallow Study Comments: Patient has history of aspiration pneumonia. Pre-evaluation Dietary Consistencies: NPO Pre-evaluation Liquid Consistency: NPO Pre-evaluation Medication Administration: NPO Current (pre-evaluation) Intake/Diet: Route: NPO/Alternate Route, gastrostomy tube Diet Grade: No Solid/Puree Food Liquid Consistencies: No Liquids Pre-Study Functional Oral Intake Scale (FOIS): 1- No oral intake Pain: None reported at time of study Oral Motor Exam Facial Symmetry: Symmetrical Mouth Occlusion: Normal Oral-Facial Teeth Characteristics: Edentulous Oral-Facial Teeth Miscellaneous Observation: Patient is edentulous and is waiting for dentures. Oral-Facial Lip Pucker Description: Weak Oral-Facial Smile (Lips) Description: Normal Oral-Facial Puff Cheeks Description: Reduced Strength : Tongue Size: Normal Tongue Frenum Length: Normal Tongue Excursion Description: Normal Tongue Range of Movement Description: Reduced Tongue Speed of Movement Description: Reduced Tongue Movement Characteristics: Normal/Absent Is patient able to manage secretions?: No Food and Liquid Trials: Oral Impairment: Lip Closure: 0=No labial escape Oral Impairment: Tongue Control During Bolus Hold: 2=Posterior escape of less than half of bolus Oral Impairment: Bolus Preparation/Mastication: Did not test Oral Impairment: Bolus Transport/Lingual Motion: 3=Repetitive/disorganized tongue motion Oral Impairment: Oral Residue: 1=Trace residue lining oral structures Oral Impairment:Initiation of Pharyngeal Swallow: 3=Bolus head in pyriforms Pharyngeal Impairment: Soft Palate Elevation: 0=No bolus between soft palate (SP)/pharyngeal wall (PW) Pharyngeal Impairment: Larngeal Elevation: 3=No superior movement of thyroid cartilage Pharyngeal Impairment: Anterior Hyoid Excursion: 2=No anterior movement Pharyngeal Impairment: Epiglottic Movement: 2=No inversion Pharyngeal Impairment: Laryngeal Vestibular Closure:: 1=Incomplete: narrow column air/contrast in laryngeal vestibule Pharyngeal Impairment: Pharyngeal Stripping Wave: 2=Absent Pharyngeal Impairment: Pharyngeal Contraction: Did not test Pharyngeal Impairment: Pharyngoesophageal Segment Openin=Partial distention/partial duration: partial obstruction of flow Pharyngeal Impairment: Tongue Base (TB) Retraction: 2=Narrow column of contrast/air between TB and posterior PW Pharyngeal Impairment: Pharyngeal Residue: 3=Majority of contrast within or on pharyngeal structures Pharyngeal Impairment: Espohogeal Clearance Upright Position: Did not test Impressions and Recommendations Clinicial Observations: OBJECTIVE: Time-out: performed at 02:45 Evaluation Start: 02:30; Stop: 02:40 Patient Positioning: Seated/Reclined less than 70 degrees Viewing Planes: LATERAL ONLY Contrast: MBSImP? Standardized Protocol using commercially prepared, standardized Barium viscosities, including: Varibar? NECTAR (40% w/v, <150-450 cps) , Varibar? THIN HONEY (40% w/v, <800-1800 cps) MBSImP ID: [id number] MBSImP Results: Lip closure for intraoral bolus containment resulted in no labial escape. Tongue control during bolus hold resulted in posterior escape of less than half of the bolus. Bolus preparation and mastication could not be assessed; solid not given due to logistical reasons or safety concerns unrelated to oral impairment. Bolus transport/lingual motion was with repetitive/disorganized motion of the tongue. Oral residue was a trace, lining oral structures. Initiation of the pharyngeal swallow occurred when the bolus head was in the pyriform sinuses. Soft palate elevation resulted in no bolus between the soft palate and the pharyngeal wall. Laryngeal elevation demonstrated no superior movement of the thyroid cartilage. Anterior hyoid excursion demonstrated no movement. Epiglottic movement resulted in no inversion. Laryngeal vestibular closure was incomplete, with a narrow column of air/contrast noted within the laryngeal vestibule at the height of the swallow. Pharyngeal stripping wave was absent. Pharyngeal contraction could not be determined due to logistical reasons not related to physiologic impairment. Pharyngoesophageal segment opening demonstrated partial distension/partial duration, with partial obstruction of bolus flow. Tongue base retraction allowed a narrow column of contrast or air between the retracted tongue base and the posterior pharyngeal wall. Pharyngeal residue was the majority of contrast within or on pharyngeal structures. Esophageal clearance in the upright position could not be assessed due to logistical reasons not related to physiologic impairment. Oral Impairment Score: 8 (absence of score, component 3) Pharyngeal Impairment Score: 16 (absence of score, component 13) Esophageal Impairment Score: --- (absence of score, component 17) Laryngeal Penetration and Aspiration: Aspiration was observed in today's study. Honey-thick, [place]-thick Contrast entered the airway, passed below the vocal folds, and no effort were made to eject. ASSESSMENT: This exam was conducted by a speech-language pathologist and radiologist with patient seated at optimal 90 degree angle for lateral view only. Patient was fed with 1:1 assistance and trialed the following consistencies: -honey thick liquid barium by teaspoon -nectar thick liquid barium by teaspoon Patient displayed profound dysphagia, characterized by minimal to no laryngeal elevation and minimal to no epiglottic inversion. Patient took teaspoon sip of honey thick liquid with minimal to no pharyngeal clearance. Patient was cued for dry swallow, which was minimally effective in reducing oral and pharyngeal residue. When given a teaspoon sip of nectar thick liquid, this was slightly more effective in reducing pharyngeal retention, but lead to episode of silent aspiration. No effort was made to eject material from airway. Exam was discontinued for patient safety. No significant change from previous exam in August 2020. The following compensatory strategies appear to have had a negative impact on swallowing function: Honey-thick Liquid increased Aspiration, Pharyngeal Residue Liquid Intake Recommendation: NPO Dietary Recommendations: NPO Medication Administration: NPO Recommended Treatments: Pharyngeal Resistive Exer Vocal Cord Adduction Exer Recommendation for Speech Therapy: Speech Therapy through [facility] or Outpatient depending on insurance authorization Modified Barium Swallow Study - Outpatient in 8-12 weeks post-treatment Route: NPO/Alternate Route Diet Grade: IDDSI Levels: Liquid Consistencies: IDDSI Levels: Post-Study Functional Oral Intake Scale (FOIS): 1- No oral intake Given evidence of aspiration, history of hospitalization for aspiration pneumonia, and fragile condition secondary to lung cancer, recommend continue NPO status. Recommend continue PEG as main source of nutrition as long as patient is tolerating feedings and it is cleared by medical team. Ultimate decision for nutritional intake is up to the patient, his caretakers, and his medical team, keeping in mind totality of patient. If patient and caretakers choose to forgo PO for pleasure feeding or quality of life despite high aspiration risk and recommendation for NPO, recommend strict aspiration precautions. Due to aspiration risk, recommend strategies to reduce microaspiration, such as rigorous oral care at least 4 times daily and elevate head of bed at least 30 degrees. Recommend individualized dysphagia treatment with ROLL SHEETING CUTTER preferably through [facility] as patient currently has other [facility] services as well. Recommend pharyngeal strengthening exercises and continued education and support (RE: dysphagia, risks of aspiration, etc.). Patient may benefit from repeat MBSS in 8-12 weeks to monitor for any changes post-treatment. Suggested Referrals: The patient might benefit from a referral to: Oncology Indication for Referral: For ongoing care and management Nutrition Services Indication for Referral: For ongoing care and management Therapy Recommendations: Therapy will be initiated The following compensatory strategies and/or therapeutic exercises will be part of the upcoming therapy/management plan: Effortful Swallow Jamie Maneuver Shaker Head Lifts Marine Maneuver Electrical Stimulation Prognosis for Improvement: The prognosis for the patient to meet nutritional needs by mouth is poor based on degree of impairment. Timeline to reassess: 3 months Senior Living Goals: ? The patient will demonstrate improved swallowing function via repeat clinical evaluation, videoendoscopy/videofluoroscopy and/or patient self-rating scores. ? The patient and/or family will participate in further education for swallowing goals. Short Term Goals: ? Independent Home Exercise - The patient will perform 10 repetitions of the Effortful Swallow, Jamie Maneuver, Shaker Head Lifts, Marine Maneuver, Lingual Range of Motion Exercises 3 times a day with 80% accuracy and moderate cuing as part of a home exercise program. ? Structured Therapy - The patient will demonstrate 80% accuracy and require moderate cuing in structured swallowing therapy with the ROLL SHEETING CUTTER using the following exercises/therapy approaches and therapy assisted devices: Effortful Swallow, Jamie Maneuver, Shaker Head Lifts, Marine Maneuver, Lingual Range of Motion Exercises, NMES (Neuromuscular Electrical Tactile Stimulation), VitalStim Therapy System. ? Education - The patient, caregiver will verbalize/demonstrate understanding of the results of this evaluation, the above recommendations, and the swallowing guidelines. Clinician - Supplemental, Miscellaneous Communication: It is important to note MBSS objective studies are snapshots in time and Patient function might vary with factors such as time of day or concomitant medical conditions. For this reason, the final treatment plan for this patient should rest with their medical care team. Additional recommendations should be considered with the totality of the Patient in mind. Thank for the opportunity to participate in the care of this patient. If you have any questions about the content of this report, please contact the [facility] at . Education: Education regarding findings from today's study and plans for therapy were provided to Patient and family/caregiver through Verbal Instruction. Understanding was expressed by the Patient and family/caregiver. Box Liner Clinican/Clinical Fellow: No Supervisory Statement: N/A Speech Language Pathologist: Stacie Fuentes M.A., CCC-ROLL SHEETING CUTTER
== END 2020-12-17 14:23 | disposition home or self-care (01) ==
LOC: HO.XRAY 14:22
PROVIDERS: Visit Provider Internal Medicine
DX: R13.12 Dysphagia, oropharyngeal phase (principal)
CPT/HCPCS: 74230; 92611

== ENCOUNTER 2020-12-25 12:20 | Outpatient (REF) | payer MEDICARE, MEDICAID, SELFPAY ==
--- NOTE | ~2020-12-25 | XR_ITS ---
EXAMINATION: XR CHEST, 2 VIEWS XR RIBS, RIGHT CLINICAL INFORMATION: Pulmonary adenocarcinoma. Chest/rib pain. COMPARISON: Multiple priors, most recent PET/CT dated 11/13/2020. TECHNIQUE: PA and lateral view of the chest. 3 views of the right ribs. FINDINGS: Chest: Redemonstration of a left upper lobe soft tissue mass measuring up to 3.1 cm and similar when compared to the prior PET/CT. Diffuse interstitial prominence and ground-glass airspace opacities are redemonstrated, slightly increased in prominence when compared to the prior PET/CT. Stable cardiomediastinal silhouette. No pleural effusion or pneumothorax. Right Ribs: No displaced fracture. No lytic or blastic osseous lesion. No abnormal soft tissue calcification. Partially visualized G-tube. XR/XR ribs RT 2V IMPRESSION: CHEST: Stable left upper lobe soft tissue mass. Chronic interstitial prominence is redemonstrated with increased patchy bilateral airspace opacities. RIGHT RIBS: No displaced fracture.
--- NOTE | ~2020-12-25 | XR_ITS ---
EXAMINATION: XR CHEST, 2 VIEWS XR RIBS, RIGHT CLINICAL INFORMATION: Pulmonary adenocarcinoma. Chest/rib pain. COMPARISON: Multiple priors, most recent PET/CT dated 11/13/2020. TECHNIQUE: PA and lateral view of the chest. 3 views of the right ribs. FINDINGS: Chest: Redemonstration of a left upper lobe soft tissue mass measuring up to 3.1 cm and similar when compared to the prior PET/CT. Diffuse interstitial prominence and ground-glass airspace opacities are redemonstrated, slightly increased in prominence when compared to the prior PET/CT. Stable cardiomediastinal silhouette. No pleural effusion or pneumothorax. Right Ribs: No displaced fracture. No lytic or blastic osseous lesion. No abnormal soft tissue calcification. Partially visualized G-tube. XR/XR chest 2V IMPRESSION: CHEST: Stable left upper lobe soft tissue mass. Chronic interstitial prominence is redemonstrated with increased patchy bilateral airspace opacities. RIGHT RIBS: No displaced fracture.
[2020-12-25 13:11] LABS: MANUAL DIFF FLAG NO
[2020-12-25 13:19] LABS: Basophils Percent Auto 0.6 % (0-2); Eosinophils Absolute Auto 0.5 X10*3/uL (0.0-0.4); Eosinophils Percent Auto 6.8 % (0-4); Hematocrit 43.4 % (42-52); Hemoglobin 13.2 g/dl (14.0-18.0); Imm Gran Abs Auto 0.03 X10*3/uL (0.00-0.03); Imm Gran Pct Auto 0.4 % (0.0-0.4); Lymphocytes Percent Auto 14.1 % (20-40); Mean Corpuscular HGB Conc 30.4 g/dl (31.0-36.0); Mean Corpuscular Hemoglobin 25.8 pg (27.0-33.0); Mean Corpuscular Volume 84.8 fL (80-98); Mean Platelet Volume 9.2 fL (9.4-12.4); Monocytes Absolute Auto 0.5 X10*3/uL (0.1-1.2); Monocytes Percent Auto 7.8 % (2-11); Neutrophils Absolute Auto 4.8 X10*3/uL (2.0-8.3); Neutrophils Percent Auto 70.3 % (45-73); Platelet Count 317 X10*3/uL (160-400); Red Blood Count 5.12 X10*6/uL (4.60-5.80); Red Cell Distribution Width 14.7 % (11.0-16.0); White Blood Count 6.8 X10*3/uL (4.8-10.8)
[2020-12-25 13:23] LABS: INTERNATIONAL NORM RATIO 1.1 (0.9-1.1); Prothrombin Time 12.7 SEC (10.8-13.0)
[2020-12-25 13:41] LABS: Partial Thromboplastin Time 71.2 SEC (24.1-38.0)
[2020-12-25 13:50] LABS: Alanine Aminotransferase 18 U/L (0-40); Albumin Level 3.8 g/dL (3.5-5.0); Alkaline Phosphatase 219 U/L (39-117); Anion Gap 12 (12-20); Aspartate Amino Transferase 21 U/L (5-37); Bilirubin Total 0.5 mg/dL (0.0-1.0); Blood Urea Nitrogen 19 mg/dL (9-16); Calcium 9.1 mg/dL (8.4-10.2); Carbon Dioxide 32 mmol/L (22-29); Chloride 100 mmol/L (96-108); Estimated Glomerular Filt Rate > 60; Glucose Random 110 mg/dL (60-115); Sodium 139 mmol/L (135-145); Total Protein 6.4 g/dL (6.5-8.0)
== END 2020-12-25 12:21 | disposition home or self-care (01) ==
LOC: HO.LAB 12:20
PROVIDERS: PCP Internal Medicine; Visit Provider Internal Medicine Medical Oncology
DX: Z01.812 Encounter for preprocedural laboratory examination (principal); C81.90 Hodgkin lymphoma, unspecified, unspecified site; C34.92 Malignant neoplasm of unspecified part of left bronchus or lung
CPT/HCPCS: 36415; 71046; 71100; 80053; 85025; 85610; 85730

== ENCOUNTER 2021-01-04 10:46 | Day surgery (SDC) | payer MEDICARE, MEDICAID, SELFPAY ==
--- NOTE | ~2021-01-04 | XR_ITS ---
EXAMINATION: XR CHEST CLINICAL INFORMATION: Post left lung biopsy COMPARISON: Previous chest x-rays most recent 12/25/2020 TECHNIQUE: Frontal view of the chest was obtained. FINDINGS: The cardiac and mediastinal contours are stable. There is evidence of emphysema and interstitial disease. There is a 3 cm left upper lobe nodule. This does not appear appreciably changed. There is blunting of the left costophrenic angle suggestive of a small left pleural effusion. There is no right pleural effusion. There is no pneumothorax. There are degenerative changes of the spine. XR/XR chest 1V IMPRESSION: No pneumothorax post left lung biopsy.
--- NOTE | ~2021-01-04 | CT_ITS ---
PROCEDURE: CT GUIDED BIOPSY, LUNG CLINICAL INFORMATION: Lung cancer. Check tumor markers COMPARISON: Previous PET/CT scan November [address] August 2020 TECHNIQUE: Procedure risks and benefits including bleeding, infection and pneumothorax were discussed with the patient in person and with his sister by telephone and informed consent was obtained. Patient was positioned in the supine position. Limited axial images through the upper chest were performed. The left upper anterior chest was prepped and draped in the usual sterile fashion. The skin and soft tissues were anesthetized with 1% lidocaine plain. Using CT guidance and a 21-gauge needle, 2 separate 21-gauge FNA specimens were obtained. Postprocedure imaging demonstrated no pneumothorax. The patient received Versed 0.5 mg intravenously and spleen during the procedure. Total sedation time was [address] examination was performed using dose optimization techniques as appropriate, variously including the following: *Automated exposure control *Adjustment of mA and/or kV according to patient size (this includes techniques or standardized protocols for targeted exams where dose is matched to indication/reason for exam; i.e. extremities or head) *Use of iterative reconstruction technique DLP: 118 mGy-cm FINDINGS: There is a 2.2 x 2.6 cm peripheral or subpleural anterior segment left upper lobe nodule. This measured 1.8 x 1.9 cm on previous chest CT August 2020 may be slightly increased in size. Postprocedure images demonstrate no pneumothorax. There is a left apical nodule that measures 0.8 x 1.4 cm axial image 8 series 4 that is unchanged. There are multiple new bilateral pulmonary nodules compared to prior exams. Largest pulmonary nodule within the left lower lobe and measures 1.4 cm axial image 23 series 4. Largest right pulmonary nodules in the right lower lobe and measures 1.5 cm axial image 32 series 4. There is a small left pleural effusion. This is new from previous chest CT from 2019 and increased from previous PET/CT November 2020. There are and noncalcified mediastinal and right hilar lymph nodes that do not appear appreciably changed. CT/CT biopsy lung LT IMPRESSION: CT-guided left upper lobe fine-needle aspiration. No pneumothorax. Small left pleural effusion stable from prior exams. Multiple new or increasing bilateral pulmonary nodules.
[2021-01-04 11:30] VITALS: BMI 17.4
[2021-01-04 11:46] LABS: MANUAL DIFF FLAG NO
[2021-01-04 11:53] LABS: Basophils Percent Auto 0.6 % (0-2); Eosinophils Absolute Auto 0.4 X10*3/uL (0.0-0.4); Eosinophils Percent Auto 5.8 % (0-4); Hematocrit 40.8 % (42-52); Hemoglobin 12.9 g/dl (14.0-18.0); Imm Gran Abs Auto 0.03 X10*3/uL (0.00-0.03); Imm Gran Pct Auto 0.4 % (0.0-0.4); Lymphocytes Absolute Auto 0.8 X10*3/uL (1.2-4.9); Lymphocytes Percent Auto 12.3 % (20-40); Mean Corpuscular HGB Conc 31.6 g/dl (31.0-36.0); Mean Corpuscular Hemoglobin 26.1 pg (27.0-33.0); Mean Corpuscular Volume 82.6 fL (80-98); Mean Platelet Volume 8.8 fL (9.4-12.4); Monocytes Absolute Auto 0.6 X10*3/uL (0.1-1.2); Monocytes Percent Auto 8.9 % (2-11); Neutrophils Absolute Auto 4.9 X10*3/uL (2.0-8.3); Platelet Count 264 X10*3/uL (160-400); Red Blood Count 4.94 X10*6/uL (4.60-5.80); Red Cell Distribution Width 14.6 % (11.0-16.0); White Blood Count 6.9 X10*3/uL (4.8-10.8)
[2021-01-04 12:00] LABS: INTERNATIONAL NORM RATIO 1.2 (0.9-1.1); Prothrombin Time 13.8 SEC (10.8-13.0)
[2021-01-04 12:08] LABS: Partial Thromboplastin Time 71.1 SEC (24.1-38.0)
[2021-01-04 12:15] LABS: Anion Gap 12 (12-20); Carbon Dioxide 31 mmol/L (22-29); Chloride 100 mmol/L (96-108); Potassium 4.6 mmol/L (3.3-5.1); Sodium 138 mmol/L (135-145)
--- NOTE | 2021-01-04 13:43 | HO.RADPN ---
RADIOLOGY Narrative Narrative: REILLY lung fna performed using 2 21g needles. No pneumothorax.
[2021-01-04 13:45] VITALS: BP 104/77; PULSE 74; RESP 18; TEMP 37.2; O2SAT 96
[2021-01-04 14:15] VITALS: BP 123/65; PULSE 73; RESP 20; O2SAT 95
[2021-01-04 14:45] VITALS: BP 119/70; PULSE 72; RESP 18; O2SAT 98
[2021-01-04 15:15] VITALS: BP 131/75; PULSE 74; RESP 20; O2SAT 97
[2021-01-04 15:40] VITALS: BP 130/71; PULSE 77; RESP 18; O2SAT 97
== END 2021-01-04 16:00 | disposition home or self-care (01) ==
LOC: HO.SSS 10:47
PROVIDERS: Radiology Diagnostic Radiology; PCP Internal Medicine; Visit Provider Radiology Diagnostic Radiology
DX: C34.92 Malignant neoplasm of unspecified part of left bronchus or lung (principal); G47.31 Primary central sleep apnea; R91.1 Solitary pulmonary nodule; I10 Essential (primary) hypertension; J43.9 Emphysema, unspecified; Z79.51 Long term (current) use of inhaled steroids; Z79.899 Other long term (current) drug therapy; Z88.8 Allergy status to other drugs, medicaments and biological substances; F17.210 Nicotine dependence, cigarettes, uncomplicated
CPT/HCPCS: 10009; 10010; 32408; 36415; 71045; 80051; 85025; 85610; 85730; 88173; 88305; 99152; J2250; J3010